=== PATIENT | female | born 1975 | race Caucasian/White ===

== ENCOUNTER → 2018-01-27 10:42 | Outpatient (CLI) | payer OTHER, SELFPAY ==
[2018-01-27 18:28] LABS: Amphetamine Urine VISTA POSITIVE (<1000 ng/mL); Barbiturate Urine VISTA NEGATIVE (< 200 ng/mL); Benzodiazepine Urine VISTA NEGATIVE (< 200 ng/mL); Cocaine Urine VISTA POSITIVE (< 300 ng/mL); Ecstacy Urine VISTA NEGATIVE (< 500 ng/mL); Methadone Urine VISTA NEGATIVE (< 300 ng/mL); PCP Urine VISTA NEGATIVE (< 25 ng/mL); THC Urine VISTA NEGATIVE (< 50 ng/mL); Vista UDS pH Range 5
[2018-01-27 19:05] LABS: OXY Internal Control LINE = VALID (VALID); Oxycodone Drug Screen Positive (<100 ng/mL)
== END ==
PROVIDERS: Family Provider Family Medicine; PCP Family Medicine; Visit Provider Family Medicine
DX: Z51.81 Encounter for therapeutic drug level monitoring (principal)
CPT/HCPCS: 80307; 80365; G0480

== ENCOUNTER → 2018-07-06 16:25 | Outpatient (CLI) | payer OTHER, SELFPAY ==
--- NOTE | 2018-07-06 16:31 | RAD_ITS ---
STUDY: X-RAY - THORACIC SPINE REASON FOR EXAM: Female, 42 years old. Colon diagnosis. Pain. TECHNIQUE: 2 view(s) of the thoracic spine were obtained. COMPARISON: None. FINDINGS: Normal kyphosis of the thoracic spine. There is a dextroscoliosis of the thoracic spine of approximately 29 degrees with the convexity T6. There is demineralization of the thoracic spine. There is multilevel disc space narrowing of the thoracic spine. There is no evidence of acute fracture or loss of vertebral axial height. The soft tissue structures are unremarkable. RAD/Thoracic Spine 2 Views IMPRESSION: Scoliosis and degenerative changes of the thoracic spine. Electronically Signed: Warren Garcia DO at 17:29 EDT Tel [phone], Service support ,
--- NOTE | 2018-07-06 16:33 | RAD_ITS ---
STUDY: X-RAY - SACROILIAC JOINTS REASON FOR EXAM: Female, 42 years old. Sacroiliitis. Pain. TECHNIQUE: 3 view(s) of the sacroiliac joints were obtained. COMPARISON: None. FINDINGS: Normal bilateral sacroiliac joints. Normal visualized sacral ala and sacrum. Normal visualized iliac bones. Normal visualized soft tissue structures. RAD/S-I Jts 3 or More Views IMPRESSION: Normal x-ray examination of the bilateral sacroiliac joints. Electronically Signed: Warren Garcia DO at 17:14 EDT Tel [phone], Service support ,
--- NOTE | 2018-07-06 16:34 | RAD_ITS ---
STUDY: X-RAY - LUMBOSACRAL SPINE REASON FOR EXAM: Female, 42 years old. Lumbar fusion. Pain. TECHNIQUE: 70 view(s) of the lumbosacral spine were obtained. COMPARISON: CT of the lumbar spine, October 26, 2016. MRI of the lumbar spine, March 23, 2017. FINDINGS: Normal lumbar lordosis. There is a marked levoscoliosis with the convexity at L2. There appears to be anterolisthesis of L5 on S1 of 1 cm. This appears unchanged in flexion and extension. The alignment is otherwise preserved. There is fusion of the posterior elements are the sacral lumbar spine extending from T11 through L3. The disc spaces are mildly narrowed with minimal endplate spondylosis. There is no evidence of acute fracture or loss of vertebral axial height. Normal bilateral sacral ala, sacroiliac joints, and visualized sacrum. Normal visualized soft tissue structures. RAD/L/S Spine Comp/w Bending Views IMPRESSION: Scoliosis and degenerative changes of the lumbar spine with anterolisthesis at L5-S1. This appears mildly increased from the prior MRI. Electronically Signed: Warren Garcia DO at 17:18 EDT Tel [phone], Service support ,
== END ==
PROVIDERS: Family Provider Family Medicine; PCP Family Medicine
DX: M46.1 Sacroiliitis, not elsewhere classified (principal); M41.125 Adolescent idiopathic scoliosis, thoracolumbar region; M43.26 Fusion of spine, lumbar region
CPT/HCPCS: 72070; 72114; 72202

== ENCOUNTER 2019-05-31 13:30 | Outpatient (RCR) | payer MEDICAID, SELFPAY ==
[2019-03-01 14:41] VITALS: BMI 21.9
--- NOTE | 2019-04-18 13:45 | HP.PTEVAL ---
Patient's Visit Information KATIE SMITH is a 43 year old F referred to Physical Therapy by JULIA ZAMAN with a diagnosis of ADOLESCENT IDIOPATHIC SCOLIOSIS OF THORACOLUMBAR REGION. Date of Evaluation: 04/18/19 Physical Therapist: Concha Whalen PT, Cert MDT - Visit Plan Frequency: 2-3x /Week Duration: 4-6 Weeks Plan: AQUATIC THERAPY FOR PAIN RELEIF, POSTURE CORRECTION/STRENGTHENING, INSTRUCTION IN APPROPRIATE BODY MECHANICS AND ACTIVITY MODIFICATIONS. DLS STARTING WITH A NEUTRAL SPINE PROGRESSING ROM TOLERATED. ALFONSO LE ROM, STRETCHING AND STRENGTHENING. HEP INSTRUCTION. 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 WALKING. SOME LIFTING. APPLIED FOR DISABILITY BUT WAS DENIED AND HAS APPEALED. Disability: NO. Present symptoms: ALFONSO HIP PAIN LEFT > RIGHT. ALFONSO LE PAIN, NUMBNESS AND TINGLING TO TOES LEFT > RIGHT. Present since: PROGRESSIVELY WORSE IN THE LAST 10 YEARS. Pain Scale: WORST 8/10, LEAST 5/10. Currently: 5/10. Commenced as a result of: SCOLIOSIS. Symptoms at onset: LEFT HIP. Worse: PROLONGED STANDING, SITTING. BENDING, LIFTING, PROLONGED WALKING. Better: LYING DOWN, STRETCHING, MEDICATION, HEATING PAD. Disturbed sleep: YES. Previous history/Previous treatment: 1988, 1990 AND 1991 - 3 BACK SURGERIES FOR SCOLIOSIS. 3RD SURGERY WAS FOR MELANIE REMOVAL SO CURRENTLY HAS NO HARDWARE IN BACK. AQUATIC THERAPY. MILA'S. 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 Coughing/sneezing/straining: POSITIVE. Gait: UNBALANCED, STIFF. NO AD'S. PAINFUL AT TIMES. NO FALLS. Difficulty initiating urinatin: NO. Accidents: NO. Unexplained weight loss: NO. Imaging: MRI OCT 2018 - PROGRESSIVE CURVATURE. PMH: UNREMARKABLE. Recent major surgery: NO. OTHER: CONSIDERING FURTHER SURGERY THIS FALL WITH DR. ZAMAN AT [facility]. - Objective Sitting/Standing Posture: POOR - THORACO-LUMBAR SCOLIOSIS. Active Correction of posture: WORSE. Other Observations: INDEP GAIT INTO PT WITHOUT ANY AD'S OR LOB. INDEP TRANSFERS SIT TO STAND AND REVERSE WITHOUT UE ASSIST. Motor deficit: ALFONSO LE WEAKNESS LEFT > RIGHT. RIGHT HIP 4/5, KNEE 4/5, ANKLE 5/5. LEFT HIP 4-/5, KNEE 4/5, ANKLE 5/5. POOR POSTURAL STRENGTH/SCAP STRENGTH AND STABILITY. Sensory deficit: ALFONSO LE LIGHT TOUCH SENSATION APPEARS INTACT AND SYMMETIRCAL. ROM deficit: ALFONSO LE'S WFL. Reflexes: NT. Dural Signs: POSITIVE ALFONSO LE'S. Lumbar mvmt loss: flex - NIL. ext - MOD - SHON. R SG - SHON. L SG - SHON. Core strength: POOR. Palpation: VERY TENDER WITH LIGHT PALPATION OF THORACIC, LUMBAR, PELVIC AND ALFONSO HIP LEFT > RIGHT REGIONS. - Goals Goal 1:: DECREASE C/O BACK AND ALFONSO LE SX'S. Goal Time Frame: 4-6 Weeks Goal 2:: IMRPOVE STANDING, WALKING, LIFTING, SITTING, SOCIAL LIFE, TRAVEL, HOMEMAKING AND WORK FUNCTION Goal Time Frame: 4-6 Weeks Goal 3:: INDEP WATER AND LAND EX PROGRAMS FOR CONTINUED IIMPROVEMENT ONCE FORMAL PHYSICAL THERAPY CONCLUDES. Goal Time Frame: 4-6 Weeks - Rehabilitation Potential Rehabilitation Potential: Fair - Anticipated Interventions Patient/Client Instruction: Educate patient on: Condition, Plan of Care, Risk Factors, Benefits of Fitness Program For the Purpose of:: To improve self management Therapeutic Exercise to Include: Strength training, Body mechanics, Postural training, In an aquatic setting, Dynamic Lumbar Stabilization, Scapular Strength/Stabilization For the Purpose of:: To decrease pain, To increase ROM, To improve muscle performance and motor function, To increase tolerance to activity/condition/position, To improve ability of physical actions for home/community/work/leisure Thank you for the opportunity to evaluate your patient. For Medicare and Medicare HMO plans, please review the plan of care and approve it. It will need to be FAXED BACK to us at [phone] for Medicare purposes. For Medicare only, by signing this I certify the plan of care. Please let me know if there are questions or concerns regarding this plan of care. Physician Signature: Date:
--- NOTE | 2019-05-31 14:41 | HP.PTDCSUM ---
HP - PT D/C Summary It has been my pleasure to treat KATIE SMITH under orders from JULIA ZAMAN, for the diagnosis of ADOLESCENT IDIOPATHIC SCOLIOSIS OF THORACOLUMBAR REGION for a total of 7 visit(s). Discharge Date: Please see the following information for a summary of their discharge status. - Subjective Subjective: PATIENT REPORTS A LITTLE INCREASED MOBILITY (SIDE TO SIDE MOTION) SINCE STARTING PHYSICAL THERPAY. HAD TO MISS SOME ROSA'TS DUE TO POISON OAK. PATIENT REPORTS SHE IS READY FOR SURGERY AND DR. ZAMAN WANTED HER TO TRY PT FIRST FOR INSURANCE PURPOSES. PATIENT REPORTS SHE GETS TEMPORARY RELIEF WITH THE POOL EX'S BUT OVER-ALL SHE IS ABOUT THE SAME. STATES SHE GETS IN HER MOM'S POOL AND THAT TOO GIVES HER TEMPORARY RELIEF. PATIENT REPORTS SHE CAN DO THE EX PROGRAM ON HER OWN NOW. PATIENT REPORTS SHE HAS NOT BEEN ABLE TO STOP SMOKING. STATES SHE GOT A SECOND OPINION FROM DR. PERALTA ABOUT DOING HER BACK SURGERY AND SHE REPORTS HE TOLD HER HE WOULD DO THE SURGERY EVEN IF SHE DIDN'T STOP SMOKING. - Pain Lumbar Spine Pain Intensity (Out of 10): 7 LLE Pain Intensity (Out of 10): 7 - Overall Improvement % Improvement: 30 - Objective Objective/Function: UPON EXAM TODAY THERE ARE NO SIGNIFICANT CHANGES SINCE INITIAL EVAL. RECOMMEND CONTINUED INDEP POOL EX AND PHYSICIAN FOLLOW UP. PATIENT AGREEABLE. - Goals Goal 1:: DECREASE C/O BACK AND ALFONSO LE SX'S. Goal Progress: Not Progressing Goal 2:: IMRPOVE STANDING, WALKING, LIFTING, SITTING, SOCIAL LIFE, TRAVEL, HOMEMAKING AND WORK FUNCTION Goal Progress: Not Progressing Goal 3:: INDEP WATER AND LAND EX PROGRAMS FOR CONTINUED IIMPROVEMENT ONCE FORMAL PHYSICAL THERAPY CONCLUDES. Goal Progress: Not Progressing - Plan Plan: D/C DUE TO LACK OF PROGRESS AND PATIENT WANTING TO TRY TO CONTINUE THE EX'S ON HER ON AT HER MOM'S POOL AND PURSUE GOING AHEAD WITH THE SURGERY. - D/C Information If there are questions or concerns regarding this patient's physical therapy, please feel free to call me at [phone]. Thank you for the referral of this patient. Sincerely, Concha Whalen, PT, Cert MDT
== END 2019-05-31 19:00 | disposition home or self-care (01) ==
LOC: PT 13:30
PROVIDERS: Family Provider Internal Medicine; PCP Internal Medicine
DX: M41.125 Adolescent idiopathic scoliosis, thoracolumbar region (principal); M54.16 Radiculopathy, lumbar region
CPT/HCPCS: 97113; 97161; 97530

== ENCOUNTER → 2019-08-21 | Outpatient (CLI) | payer MEDICAID, SELFPAY ==
[2019-08-04 15:36] VITALS: BMI 21.9
== END | disposition home or self-care (01) ==
PROVIDERS: Family Provider Internal Medicine; PCP Internal Medicine; Referring Provider Otolaryngology; Visit Provider Otolaryngology
DX: J34.9 Unspecified disorder of nose and nasal sinuses (principal)
CPT/HCPCS: 87070; 87077; 87186; 87205

== ENCOUNTER → 2019-09-18 14:01 | Outpatient (CLI) | payer MEDICAID, SELFPAY ==
[2019-08-04 15:36] VITALS: BMI 21.9
--- NOTE | 2019-09-18 14:05 | CT_ITS ---
STUDY: CT MAXILLOFACIAL SINUSES REASON FOR EXAM: Female, 44 years old. Disorder of the nasal cavity RADIATION DOSAGE (If Supplied By Facility): CTDIvol = ( 33.45 ) mGy, DLP = ( 784.73 ) mGycm TECHNIQUE: The patient was scanned in a multi detector CT scanner. High resolution axial imaging was performed without the administration of intravenous contrast material. Sagittal and coronal images were reconstructed. Individualized dose optimization techniques were used for this CT. COMPARISON: None. FINDINGS: FRONTAL SINUSES: Normal aeration, without mucosal inflammatory disease. ETHMOIDAL SINUSES: Normal aeration, without mucosal inflammatory disease. MAXILLARY SINUSES: Right has normal aeration, without mucosal inflammatory disease. Left has mucosal thickening and aerosolized secretions. Accessory ostium within the posterior aspect of the medial wall of the left maxillary sinus. SPHENOIDAL SINUSES: Normal aeration, without mucosal inflammatory disease. There is patency of the right maxillary infundibulum with normal uncinate processes, ethmoid bullae, and hiatus semilunaris. On the left, mucosal thickening mildly narrows the primary maxillary sinus ostium, and the hiatus semilunaris. Mild mucosal thickening of the bilateral middle and inferior nasal turbinates, with a small amount of secretions in the left nasal cavity. Resulting mild narrowing of the bilateral middle meatus. Normal midline nasal septum. Mildly and changes bilateral TMJs. The visualized bilateral orbital contents are normal. Mild left anterior and posterior chain cervical lymphadenopathy, no evidence of lymph node necrosis. Intraparotid lymph nodes. CT/Sinus/Facial Bone IMPRESSION: Mucosal thickening and air/secretions left maxillary sinus. This could represent acute sinusitis in the correct clinical setting. Reactive-appearing mild left-sided cervical lymphadenopathy. Electronically Signed: Daniel Villegas, at 5:04 EST Tel , Service support ,
== END ==
PROVIDERS: Family Provider Internal Medicine; PCP Internal Medicine; Referring Provider Otolaryngology; Visit Provider Otolaryngology
DX: J34.9 Unspecified disorder of nose and nasal sinuses (principal)
CPT/HCPCS: 70486

== ENCOUNTER 2020-09-29 17:58 | Inpatient (IN) | payer MEDICAID, SELFPAY ==
[2019-08-04 15:36] VITALS: BMI 21.9
[2020-09-29 17:59] VITALS: BP 143/89; PULSE 125; RESP 17; TEMP 36.2; O2SAT 99; BMI 18.9
--- NOTE | 2020-09-29 18:10 | ED.DCSUM_ITS ---
History of Present Illness Chief Complaint: Substance Abuse Informant: Patient Narrative: 45-year-old female presenting for fentanyl detox. She states she last used 2 days ago. Patient states she usually uses about 90 to 100 mg. She states that she snorts this. She does not inject this. Patient states she does not do other drugs. She denies alcohol. She states she has been doing this for about 3 years. She is tried to detox but this has been unsuccessful. Patient does complain of body aches, chills, nausea. She states she has no exposure to Covid?19. She does not have any change in taste or smell. She denies a cough, fever, shortness of breath. - Past Medical History (1) Obsessive behavior Status: Chronic (2) IBS (irritable bowel syndrome) Status: Chronic Past Medical History - Allergies and Home Meds Allergies/Adverse Reactions: Allergies No Known Allergies Allergy (Verified 09/29/20 17:58) Primary Care Physician: Stephon Bay MD [Primary Care Provider] - Prior records reviewed: Yes Past Medical History: - - Reviewed in problem list Surgical History: noncontributory Lives: Alone Smoking Status: Current every day smoker Alcohol: None Drugs: - - Fentanyl abuse Review of Systems General: Reports: Chills, Malaise, Sweats Eyes: Denies: Visual changes - bilaterally, Diplopia ENT: Denies: Rhinorrhea, Sore throat Cardiovascular: Denies: Chest pain, Palpitations Respiratory: Denies: Dyspnea, Cough, Dyspnea on exertion Gastrointestinal: Reports: Nausea, Diarrhea, - - Abdominal cramping Genitourinary: Denies: Dysuria, Hematuria, Frequency Musculoskeletal: Reports: Myalgias. Denies: Arthralgias, Neck pain Skin: Denies: Rash, Abscess Neurological: Reports: Headache. Denies: Parasthesia, Numbness Psych: Denies: Suicidal thoughts, Suicidal ideations Physical Exam Vital Signs/Narrative: Vital Signs Temp Pulse Resp BP Pulse Ox 09/29/20 17:59 97.1 F L 125 H 17 143/89 H 99 Inital Vital Signs reviewed: Yes General: Well nourished, Well developed Head: Normocephalic Eyes: Perrl, EOMI ENT: Moist mucous membranes, No rhinorrhea Cardiovascular: No murmurs, Tachycardia Respiratory: No distress, CTA bilaterally Abdomen: Soft, Nontender, Nondistended Extremities: Nontender, No edema Skin: Normal color, No rash. Negative for: Cyanosis, Diaphoresis Neurological: Alert, Oriented x3, Cranial nerves II-XII grossly intact Psychological: Normal affect, Normal Mood Diagnostic/Tx/Re-eval Laboratory Data 09/29/20 09/29/20 09/29/20 18:25 18:25 18:25 WBC 12.1 H RBC 4.44 Hgb 14.4 Hct 42.3 MCV 95.3 MCH 32.4 H MCHC 34.0 RDW Std Deviation 45.2 H RDW Coeff of Eladia 12.9 Plt Count 328 MPV 8.7 Immature Gran % (Auto) 0.200 Neut % (Auto) 86.9 H Lymph % (Auto) 8.5 L Austin % (Auto) 4.0 Eos % (Auto) 0.0 Baso % (Auto) 0.4 Absolute Neuts (auto) 10.5 H Absolute Lymphs (auto) 1.03 Nucleated RBC % 0 Sodium 139 Potassium 3.6 Chloride 107 Carbon Dioxide 28.0 Anion Gap 4 L BUN 5 L Creatinine 0.66 Estim Creat Clear Calc 87.87 Est GFR (MDRD) Af Amer 125 Est GFR (MDRD) Non-Af 104 BUN/Creatinine Ratio 7.6 L Glucose 102 Calcium 9.1 Total Bilirubin 0.80 AST 17 ALT 20 Alkaline Phosphatase 92 Total Protein 7.5 Albumin 3.6 Globulin 3.9 Albumin/Globulin Ratio 0.9 Ethyl Alcohol < 3.0 - Medical Decision Making 5-year-old female presenting for detox from fentanyl. Patient is having symptoms of body aches, nausea, abdominal cramping. Given her symptoms she was tested for Covid with rapid antigen and this was negative. Lab work was unremarkable. UDS was pending on upon admission. Patient having significant of symptoms I feel that she would benefit from admission. She was given Bentyl and Zofran in the ED. Patient will be admitted for detox from fentanyl. Impression: 1. Fentanyl abuse 2. Myalgias 3. Abdominal cramping ED Disposition - Plan for ED Patient: Referrals: Stephon Bay MD [Primary Care Provider] -
--- NOTE | 2020-09-29 18:32 | RAD_ITS ---
STUDY: X-RAY CHEST REASON FOR EXAM: Female, 45 years old. SUBSTANCE ABUSE. LAST FENTANYL USE WEDNESDAY. COMPLAINS OF DIARRHEA AND BODY ACHES. TECHNIQUE: Frontal view of the chest COMPARISON: None. FINDINGS: The lungs are clear and expanded. There is no demonstrated pleural abnormality. Normal size heart. Normal mediastinum and chan. Normal visualized pulmonary arteries. Normal visualized aortic arch and descending thoracic aorta. There is lower thoracic S-shaped levoscoliosis. There are no osseous lesions. There is no demonstrated abnormality of the visualized soft tissue structures of the upper abdomen. RAD/Chest 1 View (Portable) IMPRESSION: Normal x-ray examination of the chest. Electronically Signed: Tg Esqueda, at 19:31 EST Tel , Service support ,
[2020-09-29 18:35] LABS: Absolute Lymphocyte Count 1.03 X10^3/uL (0.83-4.51); Absolute Neutrophil Count 10.5 X10^3/uL (2.0-7.7); Basophil# 0.05 X10^3/uL; Basophil% 0.4 % (0-1); Hematocrit 42.3 % (37-47); Hemoglobin 14.4 g/dL (12.0-15.0); Lymphocyte # 1.03 X10^3/ul (4.0); Lymphocyte % 8.5 % (19-41); Mean Corpuscular Hgb 32.4 pg (27.0-32.0); Mean Corpuscular Volume 95.3 fL (81-99); Mean Platelet Vol. 8.7 fl (6.2-12.0); Monocyte# 0.49 X10^3/uL; NRBC Flagged by Analyzer 0 % (0-5); Neutrophil # 10.54 X10^3/uL (2.7-7.7); Neutrophil % 86.9 % (47-70); Platelet Count 328 K/mm3 (150-450); RBC Distribution Width CV 12.9 % (11.6-14.6); RBC Distribution Width SD 45.2 fl (35.1-43.9); Red Blood Count 4.44 M/mm3 (4.2-5.4); White Blood Count 12.1 K/mm3 (4.4-11.0)
[2020-09-29] MEDS: DiphenhydrAMINE 25 MG Capsule PO (18:45)
[2020-09-29] MEDS: Ondansetron ODT 4 MG Tablet PO (18:45)
[2020-09-29 18:50] LABS: Alcohol, Blood (Medical)-Serum < 3.0 mg/dL
[2020-09-29 18:55] LABS: ALB/GLOB Ratio 0.9 RATIO (0.9-2.4); AST(SGOT) 17 U/L (15-37); Alanine Aminotransfer ALT/SGPT 20 U/L (13-56); Albumin, Serum 3.6 g/dL (3.2-5.0); Alkaline Phosphatase 92 U/L (45-117); Anion Gap 4 (5-15); BUN 5 mg/dL (7-18); BUN/Creat Ratio 7.6 RATIO (10-20); Calcium,Total 9.1 mg/dL (8.5-10.1); Chloride 107 mmol/L (98-107); Creatinine, Serum 0.66 mg/dL (0.55-1.02); EST Glomerular Filtration Rate 104 mL/min (>60); Est Glom Filt Rate - Afr Amer 125 mL/min (>60); Estimated Creatinine Clearance 87.87 ml/min; Globulin 3.9 g/dL (2.2-4.2); Glucose 102 mg/dL (74-106); Potassium 3.6 mmol/L (3.5-5.1); Protein, Total 7.5 g/dL (6.4-8.2); Sodium Level 139 mmol/L (136-145)
--- NOTE | 2020-09-29 19:04 | PCM.HP.STD ---
Problem List (1) Opiate withdrawal Status: Acute (2) Fentanyl dependence Status: Chronic (3) Depression with anxiety Status: Chronic (4) Tobacco abuse Status: Chronic (5) IBS (irritable bowel syndrome) Status: Chronic Qualifiers: Irritable bowel syndrome type: unspecified Qualified Code(s): K58.9 - Irritable bowel syndrome without diarrhea (6) Back problem Status: Chronic (7) Seasonal allergies Status: Chronic History of Present Illness Date of Admission: 09/29/20 Chief Complaint: Acute Opiate Withdrawal The patient is a 45 y/o F w/ PMHx: Tobacco use, Anxiety and Depression, IBS, Opiate abuse specifically reporting fentanyl abuse (reports 90-100 mg daily, snorted) who presents to the [facility] ED on w/ noted opiate withdrawal onset starting over the last 36 hours following last dose ~ 48 hours prior with abdominal pain/cramping, generalized body aches and pains, diarrhea, rhinorrhea, piloerection, fatigue, restless leg, sweating, yawning. Patient interested in attaining clean status. She notes she has been using secondary to chronic back pain and had been in pain management previously but using illicit narcotics for approximately 3 years now. She adamantly denies any IV drug abuse but is amenable to HIV and hepatitis testing. Work-up in the ED included T 97.1, heart rate 125, BP 143/89, respiratory rate 17, 99% on room air, CBC with WC 12.1, hemoglobin 14.4, platelet 320 with left shift, CMP unremarkable, ethyl alcohol less than 3, UDS pending, rapid Covid antigen testing pending. Past Medical History Past Medical History (Chronic Problems): Chronic Problems (Last Reviewed 08/04/19 @ 15:35 by Abigail Covarrubias) Fentanyl dependence (Chronic) Depression with anxiety (Chronic) Tobacco abuse (Chronic) Obsessive behavior (Chronic) IBS (irritable bowel syndrome) (Chronic) Back problem (Chronic) Seasonal allergies (Chronic) Medical History: Medical History (Last Reviewed 08/04/19 @ 15:35 by Abigail Covarrubias) Obsessive behavior (Chronic) R46.81 IBS (irritable bowel syndrome) (Chronic) K58.9 Back problem (Chronic) M53.9 Seasonal allergies (Chronic) J30.2 ADD (attention deficit disorder) F98.8 Allergies No Known Allergies Allergy (Verified 09/29/20 17:58) Home Medications: Ambulatory Orders Medication Instructions Recorded Norethindrone [Nor-Q-D] 1 mg PO DAILY 11/13/15 bupropion HCl 150 mg 24 hr tablet, 150 mg PO QAM #30 tab 03/01/19 extended release buspirone 5 mg tablet 5 mg PO BID #60 tab 04/26/19 amoxicillin 875 mg-potassium 1 tab PO BID #14 tab 08/04/19 clavulanate 125 mg tablet fluticasone propionate 50 2 spray INTRANASAL DAILY #47.4 g 08/04/19 mcg/actuation nasal spray,suspension montelukast 10 mg tablet 10 mg PO QPM #90 tab 08/04/19 cetirizine 10 mg tablet See Rx Instructions .ROUTE 04/09/20 .COMPLEX #30 tablet gabapentin 300 mg capsule See Rx Instructions .ROUTE 04/09/20 .COMPLEX #90 capsule meloxicam 15 mg tablet 15 mg PO DAILY #90 tab 04/10/20 Surgical History: Surgical History (Last Reviewed 08/04/19 @ 15:35 by Abigail Covarrubias) History of back surgery Z98.890 x3 Scoliosis [id number] Surgical History: - - Thoracic and lumbar back surgery with total of 3 back surgeries. Psychiatric History: Anxiety, Depression HEDIS REVIEW NURSE History: No pertinent HEDIS REVIEW NURSE history Lives: Alone Smoking Status: Current every day smoker - Patient notes 1/2 to 1 pack/day cigarette tobacco usage since he was 18 years old. Tobacco Use: Cigarettes Alcohol: Occasional Drugs: - - Fentanyl abuse ongoing with approximately 90 to 100 mg daily, snorted. - *Family History Maternal History Items: - - Patient notes a significant maternal family history of alcohol and cocaine abuse. Paternal History Items: - - Patient denies any market paternal family history, notes he is healthy with no heart disease, diabetes, cancer however his parents both had substance abuse problems with alcohol abuse. Review of Systems Constitutional: Reports: Anorexia, Chills, Malaise, Weakness, Fatigue. Denies: Fever, Weight Change HEENT: Reports: Nasal Congestion, Sinus Drainage. Denies: Head Aches, Sinus Congestion Cardiovascular: Denies: Chest Pain, Palpitations Respiratory: Denies: Cough, Shortness of breath at rest, Sputum production Gastrointestinal: Reports: Abdominal Pain, Diarrhea, Nausea. Denies: Vomiting Genitourinary: Denies: Dysuria Musculoskeletal: Reports: Back Pain, Joint Pain, Muscle pain. Denies: Joint Tenderness Skin: Denies: Rash, Wounds Neurological: Denies: Numbness, Tingling, Focal weakness Psychiatric: Reports: Anxiety, Depression. Denies: Homicidal Ideations, Suicidal Ideations Hematologic/ Lymphatic: Denies: Easy Bruising, Easy Bleeding VTE Information - Inpt Only VTE Present on Admission: No VTE Mechan Device Prophylaxis: None VTE Pharm Prophylaxis ordered?: No Reason prophylaxis not ordered:: Treatment Not Indicated Patient Problems: Active and Suspected Problems (Last Reviewed 08/04/19 @ 15:35 by Abigail Covarrubias) Opiate withdrawal (Acute) Subjective: Patient seated upright in the ED bed, uncomfortable appearing, evident rhinorrhea, chills, notes ongoing abdominal cramping. Objective: Physical Examination: General: awake, alert, oriented x 3 and cooperative, seated upright in the ED bed, evident withdrawal ongoing. Skin: normal color, turgor, no icterus, cyanosis. HEENT: AT/NC, EOMI, PERRLA, dry MM, evident rhinorrhea, no carotid bruits or JVD noted. Lungs: Diminished breath sounds, greater bases, moderate effort, no rales, ronchi or wheezing. Heart: Mildly tachycardic with regular rhythm; no gallop, rub audible. Abdomen: soft, generalized discomfort with palpation, ND, hyperactive BS, no HSM. Extremities: no cyanosis, clubbing, or edema. Neurological: patient awake, alert, oriented x 3 as noted; cognitive function intact; pupils equally reactive to light and accomodation; cranial nerves II-XII grossly normal, moving all 4 extremities, no focal deficits, strength severely global decrease secondary to acute presentation with acute withdrawal. Psychiatric: affect appears uncomfortable, ill-appearing, denies any acute depressive or anxiety feelings. - Physical Exam Vitals/I&O's: Vital Signs Temp Pulse Resp BP Pulse Ox 97.1 F L 125 H 17 143/89 H 99 09/29/20 17:59 09/29/20 17:59 09/29/20 17:59 09/29/20 17:59 09/29/20 17:59 Oxygen Delivery Method Room Air Weight: 114 lb Body Mass Index (BMI) 18.9 Laboratory Results 09/29/20 18:25: WBC 12.1 H, RBC 4.44, Hgb 14.4, Hct 42.3, MCV 95.3, MCH 32.4 H, MCHC 34.0, RDW Std Deviation 45.2 H, RDW Coeff of Eladia 12.9, Plt Count 328, MPV 8.7, Immature Gran % (Auto) 0.200, Neut % (Auto) 86.9 H, Lymph % (Auto) 8.5 L, [place] % (Auto) 4.0, Eos % (Auto) 0.0, Baso % (Auto) 0.4, Absolute Neuts (auto) 10.5 H, Absolute Lymphs (auto) 1.03, Nucleated RBC % 0 09/29/20 18:25: Sodium 139, Potassium 3.6, Chloride 107, Carbon Dioxide 28.0, Anion Gap 4 L, BUN 5 L, Creatinine 0.66, Estim Creat Clear Calc 87.87, Est GFR (MDRD) Af Amer 125, Est GFR (MDRD) Non-Af 104, BUN/Creatinine Ratio 7.6 L, Glucose 102, Calcium 9.1, Total Bilirubin 0.80, AST 17, ALT 20, Alkaline Phosphatase 92, Total Protein 7.5, Albumin 3.6, Globulin 3.9, Albumin/Globulin Ratio 0.9 09/29/20 18:25: Ethyl Alcohol < 3.0 Assessment/Plan All Active Problems (Last Reviewed 08/04/19 @ 15:35 by Abigail Covarrubias) Opiate withdrawal (Acute) The patient is a 45 y/o F w/ PMHx: Tobacco use, IBS, Anxiety and Depression, Opiate abuse specifically reporting fentanyl abuse (reports 90-100 mg daily, snorted) who presents to the [facility] ED on w/ noted opiate withdrawal onset starting over the last 36 hours following last dose ~ 48 hours prior. 1. Acute Opiate Withdrawal: Will admit to [facility], routine labs including CBC, CMP, urine for drug screen obtained in the ED, will initiate and continue on protocol with tapering course of Subutex, as needed tylenol, ibuprofen, bowel regimen, gabapentin, Bentyl, Vistaril, methocarbamol, clonidine, PRN nightly trazodone for insomnia, IV fluids, IV antiemetics. Will consult case management for transition to next level of rehabilitation care. 2. Polysubstance Abuse, Denied IVDA currently: Will request HIV and Hepatitis panel given history; however, patient currently not candidate for hep C treatment currently as needs to be clean, sober x 6 months, documented attendance NA or AA meetings, counseling and ongoing negative drug screens. 3. Chronic back pain: Patient with significant back surgeries including the thoracic and lumbar spine, will add Mobic as well as scheduled gabapentin and lidocaine patches to assist with chronic pain control but likely will need to return to pain management to assure controlled pain to avoid opiate abuse again. 4. Tobacco Abuse: Encouraged cessation, inpatient consultation per RT, NR if desired. 5. Anxiety and depression: Clarifying home regimen, will add once clarified. 6. DVT prophylaxis: Low risk, encourage ambulation. Inpatient E&M: 21352 Init Hosp L3
[2020-09-29 19:31] VITALS: BP 135/88; PULSE 104; RESP 16; TEMP 36.6; O2SAT 100
[2020-09-29 20:28] VITALS: RESP 18
[2020-09-29 20:57] LABS: Amphetamine Urine VISTA POSITIVE (<1000 ng/mL); Barbiturate Urine VISTA NEGATIVE (< 200 ng/mL); Benzodiazepine Urine VISTA POSITIVE (< 200 ng/mL); Cocaine Urine VISTA NEGATIVE (< 300 ng/mL); Ecstacy Urine VISTA NEGATIVE (< 500 ng/mL); Methadone Urine VISTA NEGATIVE (< 300 ng/mL); PCP Urine VISTA NEGATIVE (< 25 ng/mL); THC Urine VISTA POSITIVE (< 50 ng/mL); Vista UDS pH Range 7
[2020-09-29 21:33] VITALS: BMI 17.3
[2020-09-29 21:36] VITALS: BMI 17.4
[2020-09-29 21:41] VITALS: BP 127/77; PULSE 92; RESP 18; TEMP 36.3; O2SAT 100
[2020-09-29] MEDS: Gabapentin 300 MG Capsule PO (22:17)
[2020-09-29] MEDS: Ibuprofen 600 MG Tablet PO (22:17)
[2020-09-29] MEDS: Loperamide 2 MG Capsule PO (22:17)
[2020-09-29] MEDS: Methocarbamol 750 MG Tablet 1500 MG PO (22:17)
[2020-09-29 22:19] VITALS: O2SAT 99
[2020-09-29] MEDS: Lactated Ringers 1,000 ML 125 ML IV (22:19)
[2020-09-29] MEDS: Meloxicam 15 MG Tablet PO (22:19)
[2020-09-29] MEDS: Buprenorphine HCl 2 MG TAB.SUBL SL (22:46)
[2020-09-30] MEDS: traZODone 100 MG Tablet PO ×2 (00:10→20:06)
--- NOTE | 2020-09-30 00:37 | NURSING ---
Pt asked this RN if she would be able to make a phone call tomorrow to ask someone to bring her clothes. She was informed she would not be able to. Pt then stated she wasn't sure if she would want to stay in this detox program d/t doing research on her own and knowing that subutex does not help with pain like methadone does. She stated she will think about it overnight and decide tomorrow if she wants to stay here or go somewhere else for methadone. Pt also asked this RN if she would be able to take her own Flexeril that she has in her purse. She was informed no. Purse is locked up in room.
[2020-09-30 01:41] VITALS: BP 120/68; PULSE 102; RESP 16; TEMP 36.7; O2SAT 98
[2020-09-30] MEDS: Buprenorphine HCl 2 MG TAB.SUBL SL ×3 (05:34→22:09)
[2020-09-30] MEDS: Gabapentin 300 MG Capsule PO ×2 (05:34→22:09)
[2020-09-30 05:41] VITALS: BP 126/72; PULSE 86; RESP 16; TEMP 36.7; O2SAT 98
[2020-09-30 07:03] VITALS: O2SAT 98
--- NOTE | 2020-09-30 08:54 | CASEMGMT ---
SW spoke w/pt navigator Jass, she was aware of pt's admission and someone from [facility] should be following up w/her today. AMADOR Patel
--- NOTE | 2020-09-30 09:06 | PCM.PN.HOSP ---
Patient Problems: Active and Suspected Problems (Last Reviewed 08/04/19 @ 15:35 by Abigail Covarrubias) Opiate withdrawal (Acute) Reason for Visit: opiate withdrawal Subjective: Feels well. No abdominal pain. Tolerating PO. Wants to get her phone so she can update her weekly unemployment paperwork. Vitals/I&O's: Vital Signs Temp Pulse Resp BP Pulse Ox 36.7 C 86 16 126/72 H 98 09/30/20 05:41 09/30/20 05:41 09/30/20 05:41 09/30/20 05:41 09/30/20 07:03 Oxygen Delivery Method Room Air Weight: 47.3 kg Body Mass Index (BMI) 17.3 Intake and Output for Last 24 Hours 09/28/20 09/29/20 09/30/20 23:59 23:59 23:59 Intake Total 300 / 400 1400 / 1400 Output Total 250 / 250 Balance 50 / 150 1400 / 1400 General: Alert, No apparent distress HEENT: Atraumatic, Normocephalic Psych/Mental Status: Normal Affect - then became withdrawn when I told her that we cannot have her use her phone to update her paperwork while involved in this voluntary program. Microbiology Past 72 Hours 09/29/20 18:27 Mucosa - Nose SARS-CoV-2 Antigen (Rapid) - Final Laboratory Results 09/29/20 18:25: WBC 12.1 H, RBC 4.44, Hgb 14.4, Hct 42.3, MCV 95.3, MCH 32.4 H, MCHC 34.0, RDW Std Deviation 45.2 H, RDW Coeff of Eladia 12.9, Plt Count 328, MPV 8.7, Immature Gran % (Auto) 0.200, Neut % (Auto) 86.9 H, Lymph % (Auto) 8.5 L, [place] % (Auto) 4.0, Eos % (Auto) 0.0, Baso % (Auto) 0.4, Absolute Neuts (auto) 10.5 H, Absolute Lymphs (auto) 1.03, Nucleated RBC % 0 09/29/20 18:25: Sodium 139, Potassium 3.6, Chloride 107, Carbon Dioxide 28.0, Anion Gap 4 L, BUN 5 L, Creatinine 0.66, Estim Creat Clear Calc 87.87, Est GFR (MDRD) Af Amer 125, Est GFR (MDRD) Non-Af 104, BUN/Creatinine Ratio 7.6 L, Glucose 102, Calcium 9.1, Total Bilirubin 0.80, AST 17, ALT 20, Alkaline Phosphatase 92, Total Protein 7.5, Albumin 3.6, Globulin 3.9, Albumin/Globulin Ratio 0.9 09/29/20 18:25: Ethyl Alcohol < 3.0 09/29/20 20:13: Urine Opiates Screen NEGATIVE, Urine Methadone Screen NEGATIVE, Ur Barbiturates Screen NEGATIVE, Ur Phencyclidine Scrn NEGATIVE, Ur Amphetamines Screen POSITIVE H, U Methamphetamin-MDMA NEGATIVE, U Benzodiazepines Scrn POSITIVE H, Urine Cocaine Screen NEGATIVE, U Cannabinoids Screen POSITIVE H, Ur Drug Screen Comment 09/29/20 : Hepatitis A IgM Ab Pending, Hepatitis A Ab Total Pending, Hep Bs Antigen Pending, Hep B Core Total Ab Pending, Hep B Core IgM Ab Pending 09/29/20 : HIV 1&2 Antibody Pending Current Medications Acetaminophen (Acetaminophen 500 Mg Tablet) 500 mg PO Q4H PRN PRN PRN Reason: Temp > 100.4 F Al Hydroxide/Mg Hydroxide (Mag Hydrox/Al Hydrox/Simeth 30 Ml Udc) 30 ml PO Q6H PRN PRN PRN Reason: dyspesia Albuterol Sulfate (Albuterol 2.5 Mg/3 Ml Vial.Neb.) 2.5 mg INHALATION Q2H PRN PRN PRN Reason: Dyspnea, wheezing Bisacodyl (Bisacodyl 10 Mg Suppository) 10 mg RECTAL DAILY PRN PRN Reason: Constipation Buprenorphine HCl (Buprenorphine Hcl 2 Mg Tab.Subl) 4 mg SL Q8H [facility]; Taper Stop: 10/02/20 22:29 Last Admin: 09/30/20 05:34 Dose: 4 mg Documented by: Clonidine (Clonidine Hcl 0.1 Mg Tablet) 0.1 mg PO Q8H PRN PRN PRN Reason: RESTLESSNESS Dicyclomine HCl (Dicyclomine 10 Mg Capsule) 20 mg PO Q6H PRN PRN PRN Reason: Abdominal Discomfort Hydralazine HCl (Hydralazine 20 Mg/Ml Vial) 10 mg IV Q4H PRN PRN PRN Reason: SBP > 160 Hydroxyzine Pamoate (Hydroxyzine Kathy 25 Mg Capsule) 50 mg PO Q6H PRN PRN PRN Reason: mild anxiety Ibuprofen (Ibuprofen 600 Mg Tablet) 600 mg PO Q8H PRN PRN PRN Reason: Pain Score 1-10 Last Admin: 09/29/20 22:17 Dose: 600 mg Documented by: Lidocaine (Lidocaine 5% Patch) 3 patch TOPICAL DAILY [facility]; Protocol Loperamide HCl (Loperamide 2 Mg Capsule) 2 mg PO Q4H PRN PRN PRN Reason: LOOSE STOOLS Last Admin: 09/29/20 22:17 Dose: 2 mg Documented by: Meloxicam (Meloxicam 15 Mg Tablet) 15 mg PO DAILY [facility] Last Admin: 09/29/20 22:19 Dose: 15 mg Documented by: Methocarbamol (Methocarbamol 750 Mg Tablet) 1,500 mg PO Q6H PRN PRN PRN Reason: MUSCLE SPASM Last Admin: 09/29/20 22:17 Dose: 1,500 mg Documented by: Nicotine (Nicotine 21 Mg Patch) 21 mg TD DAILY [facility] Last Admin: 09/29/20 22:17 Dose: 21 mg Documented by: Nutritional Formula (Lactose Free) (Ensure Enlive 120 Ml Liquid) 120 ml PO 4X/DAY [facility] Ondansetron HCl (Ondansetron 8 Mg Tablet) 8 mg PO Q8H PRN PRN PRN Reason: NAUSEA Senna (Senna Tablet) 2 tablet PO QHS PRN PRN Reason: Constipation Trazodone HCl (Trazodone 100 Mg Tablet) 100 mg PO QHS PRN PRN PRN Reason: INSOMNIA Last Admin: 09/30/20 00:10 Dose: 100 mg Documented by: STROKE Vital Signs/Narrative: Vital Signs Temp Pulse Resp BP Pulse Ox 09/30/20 07:03 98 09/30/20 05:41 36.7 C 86 16 126/72 H 98 Medical Necessity - Tobacco Use Smoking Status: Current every day smoker Tobacco Use: Cigarettes Assessment/Plan All Active Problems (Last Reviewed 08/04/19 @ 15:35 by Abigail Covarrubias) Opiate withdrawal (Acute) 1. acute opiate withdrawal. continue buprenorphine taper plus other agents to help with somatic complaints. 2. VTE prophylaxis: not indicated Inpatient E&M: 51114 [facility] Hosp L1
[2020-09-30] MEDS: Lidocaine 5% Patch 3 PATCH TOPICAL (09:13)
[2020-09-30] MEDS: Meloxicam 15 MG Tablet PO (09:14)
[2020-09-30 09:15] VITALS: BP 114/69; PULSE 102; RESP 16; TEMP 36.8; O2SAT 99
[2020-09-30] MEDS: Acetaminophen 500 MG Tablet PO ×2 (09:23→18:07)
[2020-09-30] MEDS: hydrOXYzine PAM 25 MG Capsule 50 MG PO ×2 (09:23→20:06)
[2020-09-30] MEDS: Dicyclomine 10 MG Capsule 20 MG PO (09:24)
[2020-09-30 09:58] LABS: HIV - WCH Non-Reactive (Nonreactive)
[2020-09-30] MEDS: cloNIDine HCl 0.1 MG Tablet PO (10:26)
[2020-09-30] MEDS: Methocarbamol 750 MG Tablet 1500 MG PO ×2 (10:26→18:07)
--- NOTE | 2020-09-30 12:42 | NT.THERAPY_ITS ---
Nutrition Therapy Report - History Nutrition Services has been consulted to:: Manage nutrient details of diet order Current diet / nutrition support order:: Regular diet. 120 ml ensure enlive 4 x daily w/ medpass - Anthropometric Measurements Height:: 5 ft 5 in Weight:: 47.3 kg Body Mass Index (BMI):: 17.3 - Relevant Labs Relevant Labs:: WBC 12.1 K/mm3 (4.4-11.0) H 09/29/20 18:25 MCH 32.4 pg (27.0-32.0) H 09/29/20 18:25 RDW Std Deviation 45.2 fl (35.1-43.9) H 09/29/20 18:25 Neut % (Auto) 86.9 % (47-70) H 09/29/20 18:25 Lymph % (Auto) 8.5 % (19-41) L 09/29/20 18:25 Absolute Neuts (auto) 10.5 X10^3/uL (2.0-7.7) H 09/29/20 18:25 Anion Gap 4 (5-15) L 09/29/20 18:25 BUN 5 mg/dL (7-18) L 09/29/20 18:25 BUN/Creatinine Ratio 7.6 RATIO (10-20) L 09/29/20 18:25 - Assessment Food / Nutrition-Related History:: Pt reports poor appetite this morning for breakfast but, did take ensure enlive w/medpass as provided. Pt reports UBW~114 lbs so, ~8-10 lb wt loss reported ~2-4 weeks ago; calculated~8-9% wt loss x 2-4 weeks is significant for malnutrition especially given poor intake and low BMI 17.4. Pt agreeable to trying ensure pudding and continuing ensure enlive w/ medpass as currently ordered. Pt denies difficulty chewing/swallowing. 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 Evidence of Malnutrition Exists:: Yes Severe PCM:: Social & Environmental circumstances - Nutrition Intervention Nutrition Prescription:: Estimated nutrition needs for repletion~1918-8479 kcal and~65-75 gm protein/day. - Food / Nutrient Delivery Interventions Summary of nutrition intervention:: Continue liberalized regular diet w/ snacks; ensure enlive w/ medpass as ordered and will provide ensure pudding BID as tolerated. Nutrition education provided?: Yes - MNT Monitoring Further MNT monitoring and evaluation required?: Yes MNT Follow-up in:: 3-5 days
[2020-09-30 12:47] VITALS: BMI 17.3
[2020-09-30 14:15] VITALS: BP 123/72; PULSE 99; RESP 16; TEMP 37.2; O2SAT 99
[2020-09-30] MEDS: Ibuprofen 600 MG Tablet PO (14:22)
[2020-09-30 20:24] VITALS: BP 100/44; PULSE 93; RESP 18; TEMP 37.3; O2SAT 99
[2020-10-01 02:26] VITALS: BP 96/55; PULSE 95; RESP 16; TEMP 36.6; O2SAT 99
[2020-10-01] MEDS: Ibuprofen 600 MG Tablet PO (02:29)
[2020-10-01 05:06] LABS: HEPATITIS B SURFACE AG Negative (Negative); Hepatitis A AB, Total Negative (Negative); Hepatitis A IgM Antibody Negative (Negative); Hepatitis B Core AB IgM Negative (Negative); Hepatitis B Core Ab Total Negative (Negative); Hepatitis C Ab <0.1 s/co ratio (0.0-0.9)
[2020-10-01] MEDS: Gabapentin 300 MG Capsule PO ×3 (05:44→22:29)
[2020-10-01] MEDS: Buprenorphine HCl 2 MG TAB.SUBL SL ×3 (05:44→22:28)
[2020-10-01 07:00] VITALS: O2SAT 99
[2020-10-01] MEDS: Meloxicam 15 MG Tablet PO (08:57)
[2020-10-01 09:00] VITALS: BP 97/63; PULSE 95; RESP 16; TEMP 36.6; O2SAT 98
--- NOTE | 2020-10-01 09:01 | CASEMGMT ---
SW spoke w/Jass with [facility], pt has said that she wants to follow up with a methadone clinic following her hospitalization here. They are looking into this for pt. AMADOR Patel
--- NOTE | 2020-10-01 09:37 | PN_ITS ---
Patient Problems: Active and Suspected Problems (Last Reviewed 08/04/19 @ 15:35 by Abigail Covarrubias) Opiate withdrawal (Acute) Reason for Visit: opiate withdrawal Subjective: Feels better. +Rhinitis. +Abdominal cramps, but tolerating PO. +restless legs. Vitals/I&O's: Vital Signs Temp Pulse Resp BP Pulse Ox 36.6 C 95 16 97/63 98 10/01/20 09:00 10/01/20 09:00 10/01/20 09:00 10/01/20 09:00 10/01/20 09:00 Oxygen Delivery Method Room Air Weight: 47.3 kg Body Mass Index (BMI) 17.3 Intake and Output for Last 24 Hours 09/29/20 09/30/20 10/01/20 23:59 23:59 23:59 Intake Total 300 / 400 2150 / 2390 240 / 240 Output Total 250 / 250 Balance 50 / 150 2150 / 2390 240 / 240 General: Alert, No apparent distress HEENT: Atraumatic, Normocephalic Oral: Moist Mucosa, No Gingival or Mucosal Lesions/ Ulcerations Neck: No Nodes, Thyroid Normal Size and Texture Lungs: Clear to auscultation, Normal air movement, No rhonchi, No wheeze Cardiovascular: Regular rate, Regular Rhythm, Normal S1, Normal S2, No murmurs Abdomen: Bowel Sounds Present, Soft, Non Tender, Non-Distended, No Hepato-splenomegaly Extremities: No edema, No Calf Tenderness Skin: No rashes, No breakdown Psych/Mental Status: Normal Affect, Appropriate Microbiology Past 72 Hours 09/29/20 18:27 Mucosa - Nose SARS-CoV-2 Antigen (Rapid) - Final Laboratory Results 09/29/20 : HIV 1&2 Antibody Non-Reactive Current Medications Acetaminophen (Acetaminophen 500 Mg Tablet) 500 mg PO Q4H PRN PRN PRN Reason: Temp > 100.4 F Last Admin: 09/30/20 18:07 Dose: 500 mg Documented by: Al Hydroxide/Mg Hydroxide (Mag Hydrox/Al Hydrox/Simeth 30 Ml Udc) 30 ml PO Q6H PRN PRN PRN Reason: dyspesia Albuterol Sulfate (Albuterol 2.5 Mg/3 Ml Vial.Neb.) 2.5 mg INHALATION Q2H PRN PRN PRN Reason: Dyspnea, wheezing Bisacodyl (Bisacodyl 10 Mg Suppository) 10 mg RECTAL DAILY PRN PRN Reason: Constipation Buprenorphine HCl (Buprenorphine Hcl 2 Mg Tab.Subl) 2 mg SL Q8H [facility]; Taper Stop: 10/02/20 22:29 Last Admin: 10/01/20 05:44 Dose: 2 mg Documented by: Clonidine (Clonidine Hcl 0.1 Mg Tablet) 0.1 mg PO Q8H PRN PRN PRN Reason: RESTLESSNESS Last Admin: 09/30/20 10:26 Dose: 0.1 mg Documented by: Dicyclomine HCl (Dicyclomine 10 Mg Capsule) 20 mg PO Q6H PRN PRN PRN Reason: Abdominal Discomfort Last Admin: 09/30/20 09:24 Dose: 20 mg Documented by: Gabapentin (Gabapentin 300 Mg Capsule) 300 mg PO TID [facility] Last Admin: 10/01/20 05:44 Dose: 300 mg Documented by: Hydralazine HCl (Hydralazine 20 Mg/Ml Vial) 10 mg IV Q4H PRN PRN PRN Reason: SBP > 160 Hydroxyzine Pamoate (Hydroxyzine Kathy 25 Mg Capsule) 50 mg PO Q6H PRN PRN PRN Reason: mild anxiety Last Admin: 09/30/20 20:06 Dose: 50 mg Documented by: Ibuprofen (Ibuprofen 600 Mg Tablet) 600 mg PO Q8H PRN PRN PRN Reason: Pain Score 1-10 Last Admin: 10/01/20 02:29 Dose: 600 mg Documented by: Lidocaine (Lidocaine 5% Patch) 3 patch TOPICAL DAILY [facility]; Protocol Last Admin: 10/01/20 08:56 Dose: 3 patch Documented by: Loperamide HCl (Loperamide 2 Mg Capsule) 2 mg PO Q4H PRN PRN PRN Reason: LOOSE STOOLS Last Admin: 09/29/20 22:17 Dose: 2 mg Documented by: Meloxicam (Meloxicam 15 Mg Tablet) 15 mg PO DAILY [facility] Last Admin: 10/01/20 08:57 Dose: 15 mg Documented by: Methocarbamol (Methocarbamol 750 Mg Tablet) 1,500 mg PO Q6H PRN PRN PRN Reason: MUSCLE SPASM Last Admin: 09/30/20 18:07 Dose: 1,500 mg Documented by: Nicotine (Nicotine 21 Mg Patch) 21 mg TD DAILY [facility] Last Admin: 10/01/20 08:57 Dose: 21 mg Documented by: Ondansetron HCl (Ondansetron 8 Mg Tablet) 8 mg PO Q8H PRN PRN PRN Reason: NAUSEA Senna (Senna Tablet) 2 tablet PO QHS PRN PRN Reason: Constipation Trazodone HCl (Trazodone 100 Mg Tablet) 100 mg PO QHS PRN PRN PRN Reason: INSOMNIA Last Admin: 09/30/20 20:06 Dose: 100 mg Documented by: STROKE Vital Signs/Narrative: Vital Signs Temp Pulse Resp BP Pulse Ox 10/01/20 09:00 36.6 C 95 16 97/63 98 10/01/20 07:00 99 Medical Necessity - Tobacco Use Smoking Status: Current every day smoker Tobacco Use: Cigarettes Assessment/Plan All Active Problems (Last Reviewed 08/04/19 @ 15:35 by Abigail Covarrubias) Opiate withdrawal (Acute) 1. acute opiate withdrawal. * continue buprenorphine taper plus other agents to help with somatic complaints. * pt to follow up with methadone clinic upon discharge. 2. Severe protein/calorie malnutrion * seen by dietary who recommend: Continue liberalized regular diet w/ snacks; ensure enlive w/ medpass as ordered and will provide ensure pudding BID as tolerated. 3. VTE prophylaxis: not indicated Inpatient E&M: [id number] [facility] Hosp L1
[2020-10-01 11:38] LABS: Hep B Surface Antibodies Non Reactive (.)
--- NOTE | 2020-10-01 11:39 | ADDICTION ---
This editorial writer met with patient in her room to finalize d/c planning. this editorial writer allowed patient to contact Dr. Garcia to set up pain mgmt appointment following d/c. Nurse at Dr. Garcia's office stated that they require a referral from physician prior to making an appointment. This editorial writer spoke with patient's nurse and charge nurse at [facility] re: referral. Nursing team to follow up with physician. This editorial writer will meet with patient tomorrow to finalize d/c plan.
[2020-10-01 14:25] VITALS: BP 101/48; PULSE 101; RESP 18; TEMP 36.8; O2SAT 100
[2020-10-01] MEDS: Lidocaine 5% Patch 3 PATCH TOPICAL (14:25)
[2020-10-01 22:00] VITALS: BP 102/62; PULSE 99; RESP 16; TEMP 36.8; O2SAT 99
[2020-10-01] MEDS: hydrOXYzine PAM 25 MG Capsule 50 MG PO (22:28)
[2020-10-01] MEDS: traZODone 100 MG Tablet PO (22:28)
[2020-10-02 05:00] VITALS: BP 91/52; PULSE 83; RESP 16; TEMP 36.7; O2SAT 98
[2020-10-02] MEDS: Gabapentin 300 MG Capsule PO (05:10)
[2020-10-02] MEDS: Meloxicam 15 MG Tablet PO (08:07)
[2020-10-02 08:10] VITALS: BP 98/51; PULSE 84; RESP 16; TEMP 36.6; O2SAT 100
--- NOTE | 2020-10-02 08:46 | DCINST_ITS ---
- Discharge Diagnoses Current Active Problems: Current Active and Chronic Problems (Last Reviewed 08/04/19 @ 15:35 by Abigail Covarrubias) Opiate withdrawal (Acute) Fentanyl dependence (Chronic) Depression with anxiety (Chronic) Tobacco abuse (Chronic) Obsessive behavior (Chronic) IBS (irritable bowel syndrome) (Chronic) Back problem (Chronic) Seasonal allergies (Chronic) You will use the following diet at home:: No restrictions, Other - dietary supplements (Booster, Ensure, [employer] Instant Breakfast, etc.) with meals Allergies/Adverse Reactions: Allergies No Known Allergies Allergy (Verified 09/29/20 17:58) Medications to take at Discharge Norethindrone [Nor-Q-D] 1 mg PO DAILY 11/13/15 Meloxicam 15 mg PO DAILY 09/29/20 Acetaminophen [Tylenol] 500 mg PO Q4H PRN PRN tablet 10/02/20 Primary Care Physician: Stephon Bay MD [Primary Care Provider] - Test Results: Test results from this visit will be discussed in further detail at your follow- up appointment, if applicable. Please Follow Up With: Dr Suh Please Follow Up With: Dr Garcia When: call to schedule after refferal sent
--- NOTE | 2020-10-02 08:47 | DS.PCM_ITS ---
Discharge Date and Diagnosis - Problem List Patient Problems: Active and Suspected Problems (Last Reviewed 08/04/19 @ 15:35 by Abigail Covarrubias) Opiate withdrawal (Acute) Date of Admission: 09/29/20 Date of Discharge: 10/02/20 - Primary Discharge Diagnosis Acute Problems: Active Problems (Last Reviewed 08/04/19 @ 15:35 by Abigail Covarrubias) Opiate withdrawal (Acute) 1. acute opiate withdrawal. * continue buprenorphine taper plus other agents to help with somatic complaints. * pt to follow up with methadone clinic upon discharge. 2. Severe protein/calorie malnutrition * seen by dietary who recommend: Continue liberalized regular diet w/ snacks; ensure enlive w/ medpass as ordered and will provide ensure pudding BID as tolerated. - Secondary Discharge Diagnosis Chronic Problems: Chronic Problems (Last Reviewed 08/04/19 @ 15:35 by Abigail Covarrubias) Fentanyl dependence (Chronic) Depression with anxiety (Chronic) Tobacco abuse (Chronic) Obsessive behavior (Chronic) IBS (irritable bowel syndrome) (Chronic) Back problem (Chronic) Seasonal allergies (Chronic) Hospital Course and Treatment Operations: None Procedures: None Summary of Care Provided: The patient is a 45 year old F brought in by family for treatment for acute opiate withdrawal. Patient was using fentanyl. Patient was started on a buprenorphine taper. Patient's course was uncomplicated. Patient was seen by addiction. Patient was wanting to follow with Dr. Garcia for treatment for addiction. Patient will require outpatient referral for this. [] Patient Problems: Active and Suspected Problems (Last Reviewed 08/04/19 @ 15:35 by Abigail Covarrubias) Opiate withdrawal (Acute) - Physical Exam Vitals/I&O's: Vital Signs Temp Pulse Resp BP Pulse Ox 36.7 C 83 16 91/52 L 98 10/02/20 05:00 10/02/20 05:00 10/02/20 05:00 10/02/20 05:00 10/02/20 05:00 Oxygen Delivery Method Room Air Weight: 47.3 kg Body Mass Index (BMI) 17.3 Intake and Output for Last 24 Hours 09/30/20 10/01/20 10/02/20 23:59 23:59 23:59 Intake Total 2150 / 2390 240 / 240 Balance 2150 / 2390 240 / 240 General: Alert, No apparent distress Psych/Mental Status: Normal Affect, Appropriate Microbiology Past 72 Hours 09/29/20 18:27 Mucosa - Nose SARS-CoV-2 Antigen (Rapid) - Final Laboratory Results 09/29/20 : Hepatitis A IgM Ab Negative, Hepatitis A Ab Total Negative, Hep Bs Antigen Negative, Hep B Core Total Ab Negative, Hep B Core IgM Ab Negative, Hepatitis C Ab Confirm <0.1, Hep C Confirm Com 1 Comment Current Medications Acetaminophen (Acetaminophen 500 Mg Tablet) 500 mg PO Q4H PRN PRN PRN Reason: Temp > 100.4 F Last Admin: 09/30/20 18:07 Dose: 500 mg Documented by: Al Hydroxide/Mg Hydroxide (Mag Hydrox/Al Hydrox/Simeth 30 Ml Udc) 30 ml PO Q6H PRN PRN PRN Reason: dyspesia Albuterol Sulfate (Albuterol 2.5 Mg/3 Ml Vial.Neb.) 2.5 mg INHALATION Q2H PRN PRN PRN Reason: Dyspnea, wheezing Bisacodyl (Bisacodyl 10 Mg Suppository) 10 mg RECTAL DAILY PRN PRN Reason: Constipation Buprenorphine HCl (Buprenorphine Hcl 2 Mg Tab.Subl) 2 mg SL Q12H LAUREN; Taper Stop: 10/02/20 22:29 Last Admin: 10/01/20 22:28 Dose: 2 mg Documented by: Clonidine (Clonidine Hcl 0.1 Mg Tablet) 0.1 mg PO Q8H PRN PRN PRN Reason: RESTLESSNESS Last Admin: 09/30/20 10:26 Dose: 0.1 mg Documented by: Dicyclomine HCl (Dicyclomine 10 Mg Capsule) 20 mg PO Q6H PRN PRN PRN Reason: Abdominal Discomfort Last Admin: 09/30/20 09:24 Dose: 20 mg Documented by: Gabapentin (Gabapentin 300 Mg Capsule) 300 mg PO TID LAUREN Last Admin: 10/02/20 05:10 Dose: 300 mg Documented by: Hydralazine HCl (Hydralazine 20 Mg/Ml Vial) 10 mg IV Q4H PRN PRN PRN Reason: SBP > 160 Hydroxyzine Pamoate (Hydroxyzine Kathy 25 Mg Capsule) 50 mg PO Q6H PRN PRN PRN Reason: mild anxiety Last Admin: 10/01/20 22:28 Dose: 50 mg Documented by: Ibuprofen (Ibuprofen 600 Mg Tablet) 600 mg PO Q8H PRN PRN PRN Reason: Pain Score 1-10 Last Admin: 10/01/20 02:29 Dose: 600 mg Documented by: Lidocaine (Lidocaine 5% Patch) 3 patch TOPICAL DAILY [facility]; Protocol Last Admin: 10/01/20 14:25 Dose: 3 patch Documented by: Loperamide HCl (Loperamide 2 Mg Capsule) 2 mg PO Q4H PRN PRN PRN Reason: LOOSE STOOLS Last Admin: 09/29/20 22:17 Dose: 2 mg Documented by: Meloxicam (Meloxicam 15 Mg Tablet) 15 mg PO DAILY [facility] Last Admin: 10/02/20 08:07 Dose: 15 mg Documented by: Methocarbamol (Methocarbamol 750 Mg Tablet) 1,500 mg PO Q6H PRN PRN PRN Reason: MUSCLE SPASM Last Admin: 09/30/20 18:07 Dose: 1,500 mg Documented by: Nicotine (Nicotine 21 Mg Patch) 21 mg TD DAILY [facility] Last Admin: 10/02/20 08:07 Dose: 21 mg Documented by: Ondansetron HCl (Ondansetron 8 Mg Tablet) 8 mg PO Q8H PRN PRN PRN Reason: NAUSEA Senna (Senna Tablet) 2 tablet PO QHS PRN PRN Reason: Constipation Trazodone HCl (Trazodone 100 Mg Tablet) 100 mg PO QHS PRN PRN PRN Reason: INSOMNIA Last Admin: 10/01/20 22:28 Dose: 100 mg Documented by: Discharge Diet: No Restrictions Home Medications: Medications to take at Discharge Norethindrone [Nor-Q-D] 1 mg PO DAILY 11/13/15 Meloxicam 15 mg PO DAILY 09/29/20 Acetaminophen [Tylenol] 500 mg PO Q4H PRN PRN tablet 10/02/20 Primary Care Physician: Stephon Bay MD [Primary Care Provider] - Please Follow Up With: Dr Suh Please Follow Up With: Dr Garcia When: call to schedule after refferal sent Disposition: Home Minutes spent on discharge:: 24 Patient Condition:: Fair Medical Necessity - Tobacco Use Smoking Status: Current every day smoker Tobacco Use: Cigarettes Meaningful Use Info Meaningful Use Diagnoses (Choose all that apply): None applicable Inpatient E&M: 88730 [facility]
[2020-10-02 09:05] VITALS: O2SAT 96
[2020-10-02] MEDS: Buprenorphine HCl 2 MG TAB.SUBL SL (10:48)
[2020-10-02] MEDS: Lidocaine 5% Patch 3 PATCH TOPICAL (10:48)
--- NOTE | 2020-10-02 11:01 | PHA.DC.MR ---
Pharmacy Service has performed discharge medication reconciliation for this patient. The patient's discharge medication list was reviewed for discrepancies and discrepancies were resolved. Home Medications Norethindrone [Nor-Q-D] 1 mg PO DAILY 11/13/15 Meloxicam 15 mg PO DAILY 09/29/20 Acetaminophen [Tylenol] 500 mg PO Q4H PRN PRN tab 10/02/20
== END 2020-10-02 11:37 | disposition home or self-care (01) | DRG 773 ==
LOC: ED 19:46 → MS3 20:46
PROVIDERS: Admitting Provider Family Medicine; Emergency Provider Student in an Organized Health Care Education/Training Program; PCP Internal Medicine
DX: F11.23 Opioid dependence with withdrawal (principal); E43 Unspecified severe protein-calorie malnutrition; F17.210 Nicotine dependence, cigarettes, uncomplicated; Z68.1 Body mass index [BMI] 19.9 or less, adult; G89.29 Other chronic pain; M54.9 Dorsalgia, unspecified; F41.9 Anxiety disorder, unspecified; F32.9 Major depressive disorder, single episode, unspecified
CPT/HCPCS: 71045; 80053; 80307; 80320; 85025; 86703; 86704; 86705; 86706; 86708; 86709; 86803; 87340; 87426; 97802; 99283; 99406; J7120; G0480

== ENCOUNTER → 2020-10-14 12:15 | Outpatient (CLI) | payer MEDICAID, SELFPAY ==
[2020-10-08 14:02] VITALS: BMI 17.1
[2020-10-14 13:56] LABS: Amphetamine Urine VISTA NEGATIVE (<1000 ng/mL); Barbiturate Urine VISTA NEGATIVE (< 200 ng/mL); Benzodiazepine Urine VISTA NEGATIVE (< 200 ng/mL); Cocaine Urine VISTA NEGATIVE (< 300 ng/mL); Ecstacy Urine VISTA NEGATIVE (< 500 ng/mL); Methadone Urine VISTA NEGATIVE (< 300 ng/mL); PCP Urine VISTA NEGATIVE (< 25 ng/mL); THC Urine VISTA NEGATIVE (< 50 ng/mL); Vista UDS pH Range 7
== END ==
PROVIDERS: PCP Internal Medicine; Referring Provider Anesthesiology Pain Medicine; Visit Provider Anesthesiology Pain Medicine
DX: F11.20 Opioid dependence, uncomplicated (principal)
CPT/HCPCS: 80307

== ENCOUNTER → 2022-01-30 | Outpatient (CLI) | payer MEDICAID, SELFPAY ==
[2022-01-30 16:42] LABS: Absolute Lymphocyte Count 1.63 X10^3/uL (0.83-4.51); Absolute Neutrophil Count 4.9 X10^3/uL (2.0-7.7); Basophil# 0.04 X10^3/uL; Basophil% 0.5 % (0-1); Eosinophil# 0.11 X10^3/uL; Eosinophils% 1.5 % (0-5); Hematocrit 37.7 % (37-47); Hemoglobin 12.2 g/dL (12.0-15.0); Lymphocyte # 1.63 X10^3/ul (0.83-4.51); Lymphocyte % 22.2 % (19-41); Mean Corp Hgb Conc 32.4 g/dL (32-36); Mean Corpuscular Hgb 29.5 pg (27.0-32.0); Mean Corpuscular Volume 91.3 fL (81-99); Mean Platelet Vol. 9.3 fl (6.2-12.0); Monocyte# 0.62 X10^3/uL; Monocyte% 8.5 % (0-10); NRBC Flagged by Analyzer 0 % (0-5); Neutrophil # 4.92 X10^3/uL (2.7-7.7); Neutrophil % 67.2 % (47-70); Platelet Count 313 K/mm3 (150-450); RBC Distribution Width CV 13.4 % (11.6-14.6); RBC Distribution Width SD 45.1 fl (35.1-43.9); Red Blood Count 4.13 M/mm3 (4.2-5.4); White Blood Count 7.3 K/mm3 (4.4-11.0)
[2022-01-30 17:30] LABS: ALB/GLOB Ratio 0.7 RATIO (0.9-2.4); AST(SGOT) 24 U/L (15-37); Alanine Aminotransfer ALT/SGPT 25 U/L (13-56); Albumin, Serum 3.1 g/dL (3.2-5.0); Alkaline Phosphatase 91 U/L (45-117); Anion Gap 4 (5-15); BUN 8 mg/dL (7-18); BUN/Creat Ratio 11.9 RATIO (10-20); Calcium,Total 9.2 mg/dL (8.5-10.1); Chloride 103 mmol/L (98-107); Cholesterol 150 mg/dL (200); Creatinine, Serum 0.67 mg/dL (0.55-1.02); EST Glomerular Filtration Rate 100 mL/min (>60); Est Glom Filt Rate - Afr Amer 121 mL/min (>60); Globulin 4.4 g/dL (2.2-4.2); Glucose 79 mg/dL (74-106); High Density Lipoprotein 49 mg/dL; Potassium 4.7 mmol/L (3.5-5.1); Protein, Total 7.5 g/dL (6.4-8.2); Sodium Level 137 mmol/L (136-145); Thyroid Stim Hormone (TSH) < 0.01 uIU/mL (0.358-3.74); Triglycerides 115 mg/dL; Very Low Density Lipoprotein 23 mg/dL (5-40)
[2022-02-02 17:00] LABS: T4 Free Direct 1.78 ng/dL (0.76-1.46)
== END | disposition home or self-care (01) ==
LOC: BIMLAB 14:47
PROVIDERS: PCP Internal Medicine; Referring Provider Nurse Practitioner Family; Visit Provider Nurse Practitioner Family
DX: Z00.00 Encounter for general adult medical examination without abnormal findings (principal); F41.8 Other specified anxiety disorders; G43.909 Migraine, unspecified, not intractable, without status migrainosus; R79.89 Other specified abnormal findings of blood chemistry
CPT/HCPCS: 36415; 80053; 80061; 82306; 84439; 84443; 85025

== ENCOUNTER → 2022-02-12 | Outpatient (CLI) | payer MEDICAID, SELFPAY ==
--- NOTE | 2022-02-12 18:11 | MRI_ITS ---
EXAM: MR HEAD WITHOUT AND WITH INTRAVENOUS CONTRAST CLINICAL INDICATION: MIGRAINES, frontal headaches, vision changes TECHNIQUE: Multiplanar and multisequence MR images of the brain were obtained without and with intravenous contrast. This report was created using [employer] report [employer] technology. CONTRAST: 9 ml iv Dotarem COMPARISON: None. FINDINGS: BRAIN AND EXTRA-AXIAL SPACES: Unremarkable. No intra- or extra-axial hemorrhage. No evidence of acute infarct. No intracranial mass or mass effect. There is preservation of the bullard/white matter interface. Posterior fossa structures are unremarkable. Ventricles are appropriate for age. No hydrocephalus. Basal cisterns are patent. SELLA: Unremarkable. Normal sella turcica, pituitary gland, infundibular stalk, optic chiasm and hypothalamus. AUDITORY SYSTEM: Unremarkable. The internal auditory canals are patent. BONES/JOINTS: Unremarkable. No discrete lytic or blastic abnormalities. SINUSES: Unremarkable as visualized. Clear. MASTOID AIR CELLS: Unremarkable as visualized. Clear. ORBITS: Unremarkable as visualized. Both globes, extraocular muscles, optic nerves and retrobulbar fat appear unremarkable. VASCULATURE: Unremarkable as visualized. Normal flow voids in the major intracranial circulation. MRI/Brain W/WO Contrast IMPRESSION: Negative MRI brain without and with intravenous contrast. Electronically Signed: Aureliano Renee MD at 19:47 EDT ,
--- NOTE | 2022-02-12 18:12 | RAD_ITS ---
EXAM: XR RIGHT ANKLE COMPLETE, 3 OR MORE VIEWS CLINICAL INDICATION: bilateral ankle pain TECHNIQUE: Frontal, lateral and oblique views of the right ankle. This report was created using [employer] report generation technology. COMPARISON: None. FINDINGS: BONES/JOINTS: Unremarkable. No acute fracture. No subluxation. Normal alignment. Preservation of the joint space. No sclerotic or destructive changes observed. SOFT TISSUES: Unremarkable. No soft tissue swelling or gas. No radiopaque foreign body. RAD/Ankle min 3 Views IMPRESSION: Negative right ankle x-rays. Electronically Signed: Aureliano Renee MD at 20:06 EDT ,
--- NOTE | 2022-02-12 19:00 | RAD_ITS ---
EXAM: XR LEFT ANKLE COMPLETE, 3 OR MORE VIEWS CLINICAL INDICATION: bilateral ankle pain TECHNIQUE: Frontal, lateral and oblique views of the left ankle. This report was created using [employer] report generation technology. COMPARISON: None. FINDINGS: BONES/JOINTS: Unremarkable. No acute fracture. No subluxation. Normal alignment. Preservation of the joint space. No sclerotic or destructive changes observed. SOFT TISSUES: Unremarkable. No soft tissue swelling or gas. No radiopaque foreign body. RAD/Ankle min 3 Views IMPRESSION: Negative left ankle x-rays. Electronically Signed: Aureliano Renee MD at 20:07 EDT Reading Location ID and State: [facility] / [place] , Service support ,
== END | disposition home or self-care (01) ==
PROVIDERS: PCP Nurse Practitioner Family; Visit Provider Psychiatry & Neurology Neurology
DX: G43.711 Chronic migraine without aura, intractable, with status migrainosus (principal); M25.571 Pain in right ankle and joints of right foot; M25.572 Pain in left ankle and joints of left foot
CPT/HCPCS: 70553; 73610; A9575

== ENCOUNTER → 2022-04-03 | Outpatient (CLI) | payer MEDICAID, SELFPAY ==
[2022-04-03 16:22] LABS: Absolute Neutrophil Count 4.8 X10^3/uL (2.0-7.7); Basophil# 0.06 X10^3/uL; Basophil% 0.8 % (0-1); Eosinophil# 0.23 X10^3/uL; Hematocrit 36.2 % (37-47); Hemoglobin 11.6 g/dL (12.0-15.0); Lymphocyte % 26.3 % (19-41); Mean Corpuscular Hgb 29.5 pg (27.0-32.0); Mean Corpuscular Volume 92.1 fL (81-99); Mean Platelet Vol. 9.3 fl (6.2-12.0); Monocyte# 0.49 X10^3/uL; Monocyte% 6.4 % (0-10); NRBC Flagged by Analyzer 0 % (0-5); Neutrophil # 4.81 X10^3/uL (2.7-7.7); Neutrophil % 63.4 % (47-70); Platelet Count 327 K/mm3 (150-450); RBC Distribution Width CV 12.2 % (11.6-14.6); RBC Distribution Width SD 41.1 fl (35.1-43.9); Red Blood Count 3.93 M/mm3 (4.2-5.4); White Blood Count 7.6 K/mm3 (4.4-11.0)
[2022-04-03 16:29] LABS: Erythrocyte Sedimentation Rate 39 mm/hr (0-30)
[2022-04-03 16:36] LABS: Vitamin B12 418 pg/mL (211-911)
[2022-04-03 17:19] LABS: ALB/GLOB Ratio 0.8 RATIO (0.9-2.4); AST(SGOT) 25 U/L (15-37); Alanine Aminotransfer ALT/SGPT 27 U/L (13-56); Albumin, Serum 3.6 g/dL (3.2-5.0); Alkaline Phosphatase 106 U/L (45-117); Anion Gap 8 (5-15); BUN 10 mg/dL (7-18); BUN/Creat Ratio 11.7 RATIO (10-20); CRP 4.62 mg/L (0.0-3.0); Calcium,Total 9.5 mg/dL (8.5-10.1); Chloride 100 mmol/L (98-107); Creatinine, Serum 0.86 mg/dL (0.55-1.02); EST Glomerular Filtration Rate 76 mL/min (>60); Est Glom Filt Rate - Afr Amer 92 mL/min (>60); Free T3 5.5 pg/mL (2.18-3.98); Globulin 4.6 g/dL (2.2-4.2); Glucose 67 mg/dL (74-106); Potassium 3.8 mmol/L (3.5-5.1); Protein, Total 8.2 g/dL (6.4-8.2); Rheumatoid Factor < 10.0 IU/mL (<15); Sodium Level 136 mmol/L (136-145); T4 Free Direct 1.38 ng/dL (0.76-1.46); Thyroid Stim Hormone (TSH) < 0.01 uIU/mL (0.358-3.74)
[2022-04-08 09:42] LABS: CCP IgG Antibodies 7 units (0-19)
[2022-04-08 10:36] LABS: ANTINUCLEAR ANTIBODIES DIRECT Negative
== END | disposition home or self-care (01) ==
LOC: BIMLAB 14:56
PROVIDERS: PCP Nurse Practitioner Family; Referring Provider Nurse Practitioner Family; Visit Provider Nurse Practitioner Family
DX: M25.50 Pain in unspecified joint (principal); R20.2 Paresthesia of skin; E56.9 Vitamin deficiency, unspecified; E05.90 Thyrotoxicosis, unspecified without thyrotoxic crisis or storm
CPT/HCPCS: 36415; 80053; 82607; 84439; 84443; 84481; 85025; 85652; 86038; 86140; 86200; 86225; 86235; 86431

== ENCOUNTER → 2022-04-27 | Outpatient (CLI) | payer MEDICAID, SELFPAY ==
--- NOTE | 2022-04-27 15:27 | US_ITS ---
STUDY: THYROID ULTRASOUND REASON FOR EXAM: Female, 46 years old. THYROMEGALY TECHNIQUE: Ultrasound evaluation of the thyroid was performed with real-time and static bullard-scale imaging. COMPARISON: None. FINDINGS: RIGHT LOBE: The right lobe of the thyroid gland was enlarged and measures 5.2 cm x 2.4 cm x 1.5 cm. There is a heterogeneous echotexture. There are no demonstrated solid, cystic or complex lesions. LEFT LOBE: The left lobe of the thyroid gland is enlarged and measures 5 cm x 2 cm x 1.3 cm. There is a heterogeneous echotexture. There is a 1 cm x 0.7 cm x 0.6 cm hypoechoic solid nodule in the lower pole. ISTHMUS: The isthmus measures 2 mm. The regional lymph nodes are normal. US/Thyroid IMPRESSION: Enlarged heterogeneous appearance of both lobes of the thyroid gland. There is a 1 cm x 0.7 cm x 0.6 cm hypoechoic solid nodule in the lower pole of the left lobe of the thyroid. Electronically Signed: Clayton Cagle MD at 12:58 EDT ,
== END | disposition home or self-care (01) ==
LOC: US 15:21
PROVIDERS: PCP Nurse Practitioner Family; Visit Provider Nurse Practitioner Family
DX: E01.0 Iodine-deficiency related diffuse (endemic) goiter (principal); E05.90 Thyrotoxicosis, unspecified without thyrotoxic crisis or storm
CPT/HCPCS: 76536

== ENCOUNTER → 2022-05-29 | Outpatient (CLI) | payer MEDICAID, SELFPAY ==
[2022-05-29 17:55] LABS: Free T3 2.2 pg/mL (2.18-3.98); Thyroid Stim Hormone (TSH) 0.27 uIU/mL (0.358-3.74)
[2022-06-03 11:25] LABS: Thyroid Stim Immunoglob 3.63 IU/L (0.00-0.55)
== END | disposition home or self-care (01) ==
LOC: LAB 16:00
PROVIDERS: PCP Nurse Practitioner Family; Referring Provider Internal Medicine Endocrinology, Diabetes & Metabolism; Visit Provider Internal Medicine Endocrinology, Diabetes & Metabolism
DX: E05.90 Thyrotoxicosis, unspecified without thyrotoxic crisis or storm (principal)
CPT/HCPCS: 36415; 84439; 84443; 84445; 84481

== ENCOUNTER → 2022-06-10 | Outpatient (CLI) | payer MEDICAID, SELFPAY ==
--- NOTE | 2022-06-10 15:44 | NEURO ---
NCS and/or EMG Patient Report Ordering Doctor: Juan Sams NP DATE OF SERVICE: 06/10/22 Mai presents for electrodiagnostic testing of the right upper limb. She reports severe pain in the right hand radiating to the upper arm. Electrodiagnostic findings: Right median motor nerve demonstrates prolonged distal latency with normal amplitude and conduction velocity. Normal ulnar motor response, including conduction across the elbow. Prolonged right median F wave. Absent right median sensory latency at the wrist. Normal ulnar and radial sensory responses. On needle EMG, all muscles tested in the right upper limb showed no evidence of denervation with normal motor unit action potentials. Electrodiagnostic impression: This is an abnormal study in the right upper limb 1. Electrodiagnostic findings demonstrate right-sided median mononeuropathy. This is consistent with a moderate to severe right carpal tunnel syndrome. 2. No electrodiagnostic evidence is noted for cervical radiculopathy.
== END | disposition home or self-care (01) ==
LOC: PSN 15:06
PROVIDERS: PCP Nurse Practitioner Family; Referring Provider Nurse Practitioner Family; Visit Provider Nurse Practitioner Family
DX: R20.2 Paresthesia of skin (principal)
CPT/HCPCS: 95886; 95910

== ENCOUNTER → 2022-08-20 | Outpatient (CLI) | payer MEDICAID, SELFPAY ==
[2022-08-20 16:05] LABS: Free T3 2.3 pg/mL (2.18-3.98); T4 Free Direct 0.72 ng/dL (0.76-1.46)
== END | disposition home or self-care (01) ==
LOC: LAB 15:15
PROVIDERS: PCP Nurse Practitioner Family; Referring Provider Internal Medicine Endocrinology, Diabetes & Metabolism; Visit Provider Internal Medicine Endocrinology, Diabetes & Metabolism
DX: E05.90 Thyrotoxicosis, unspecified without thyrotoxic crisis or storm (principal)
CPT/HCPCS: 36415; 84439; 84443; 84481

== ENCOUNTER 2022-10-07 10:35 | Day surgery (SDC) | payer MEDICAID, SELFPAY ==
[2022-09-23 16:18] LABS: Internal QC Validated? YES +Cl - CLEAR BKGD; Pregnancy, Urine Negative Negative
[2022-10-07] MEDS: Lactated Ringers 1,000 ML 15 ML IV (10:50)
[2022-10-07 11:01] VITALS: BP 135/87; PULSE 119; RESP 17; TEMP 36.2; O2SAT 99; BMI 20.9
--- NOTE | 2022-10-07 11:05 | SUR.PREOP ---
pt refused pre-preg test.
[2022-10-07] MEDS: Cefazolin 2 GM in 0.9% Normal Saline 100 ML IV (12:27)
--- NOTE | 2022-10-07 12:39 | PCM.HP.STD ---
HPI - General HPI Narrative MAI SMITH, is a 47 F who presents for right ECTR. RAB discussed. Incr. due to smoking. Right side marked. Post op restrictions discussed. No changes to h and p. Wishes to proceed, no further q;s. MR#: [id number] Acct: [id number] Name:? MAI SMITH Rep #: [id number] : 1975 ? ? Provider: Dr. Akhil White MD Age/Sex:? 47/F ? ? Location: [facility] Status: Signed Intake Intake Visit Reasons:?right wrist Chief Complaint: right wrist/hand Accompanied by: Self Is patient in pain?: Yes Pain scale (1-10): 4 Allergies No Known Allergies Allergy (Verified 05/26/22 15:38) Medications norethindrone (contraceptive) 0.35 mg tablet 1 mg PO DAILY control 11/13/15 [History Confirmed 09/15/22] acetaminophen 500 mg tablet 500 mg PO Q4H PRN PRN Temp > 100.4 F 10/02/20 [Rx Confirmed 09/15/22] meloxicam 15 mg tablet 15 mg PO DAILY PRN osteoarthritis pain #90 tabs 01/30/22 [Rx Confirmed 09/15/22] cholecalciferol (vitamin D3) 50 mcg (2,000 unit) capsule 50 mcg PO DAILY #90 caps 02/10/22 [Rx Confirmed 09/15/22] duloxetine 30 mg capsule,delayed release 30 mg PO DAILY #90 caps 04/03/22 [Rx Confirmed 09/15/22] methimazole 10 mg tablet 10 mg PO .Mon-Sat #30 tabs 08/21/22 [Rx Confirmed 09/15/22] gabapentin 300 mg capsule 300 mg PO Q8H #90 caps 09/07/22 [Rx Confirmed 09/15/22] sumatriptan succinate 100 mg tablet (Imitrex) See Rx Instructions PO .COMPLEX #14 tabs 09/14/22 [Rx Confirmed 09/15/22] PFSH Medical History?(Updated 09/15/22 @ 15:58 by Akhil White MD) ADD (attention deficit disorder) Back problem Bilateral ankle pain Hyperthyroidism IBS (irritable bowel syndrome) Migraine Multiple joint pain Obsessive behavior Paresthesia of upper extremity Right carpal tunnel syndrome Seasonal allergies Thyroid nodule Surgical History? History of back surgery Social History? Smoking Status:? Current every day smoker Tobacco: How many years used:? 25 quit status:? considering quitting alcohol intake:? current alcohol intake frequency: holidays/special occasions only substance use type:? does not use what type of physical activity do you participate in:? walking and yoga frequency:? daily HPI right wrist Details: Parts of this documentation were recorded by a scribe, this documentation accurately reflects the service provided and the decisions made by me, Dr. Akhil White MD 09/15/22 [id number]. MAI SMITH is a 47 year old F here today for? 1 year history, numbness into the fingers and up into forearm, hands feel clumsy. RHD. 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 Tried night time splinting. Gets worse with serving. Interested in surgery, getting worse with time, more consistent and worse with serving pouring liquor bottles. Very early starting in the left side but primarily the right. Ortho Exam General General: Yes no acute distress Neurologic: Yes alert and Yes oriented x3 Psychologic: Yes reasonable and appropriate Right Wrist/Hand Skin/Wound: Yes CDI, No Swelling, No Ecchymosis, Yes nail intact and Yes capillary refill normal A1 vidya trigger: No Right Wrist: Yes ROM-Extension 0-60, ROM-Flexion 0-80, ROM-Pronation 0-80, ROM-Supination 0-90, Tinel's, Phalen's and Thenar Atrophy; No Distal radioulnar joint, CMC Grind, tender to palpate 1st dorsal compartment or Hypothenar Atrophy Motor: EPL: 5, FDP-2: 5, 1st Dorsal Interosseous: 5 and APB: 4 Sensation: Radial: I, Ulnar: I and Median: D WRIST: negative tinels at elbow, neg compression at elbow. Left Wrist/Hand Skin/Wound: No Swelling and No Ecchymosis Supplemental Info [facility] [address] [place] [address] MR#:? [id number] Acct: [id number] Name: MAI SMITH Rep #: [id number] :? 1975 ?46 From: Gabriel Norman MD Referring Dr: ? ? Juan Sams NP [employer] Status:? REG CLI Location:? PSN Date:? 06/10/22 Sex: F C NCS and/or EMG Patient Report Ordering Doctor: Juan Sams NP DATE OF SERVICE: 06/10/22 Mai presents for electrodiagnostic testing of the right upper limb.? She reports severe pain in the right hand radiating to the upper arm. Electrodiagnostic findings: Right median motor nerve demonstrates prolonged distal latency with normal amplitude and conduction velocity.? Normal ulnar motor response, including conduction across the elbow.? Prolonged right median F wave. Absent right median sensory latency at the wrist.? Normal ulnar and radial sensory responses.? On needle EMG, all muscles tested in the right upper limb showed no evidence of denervation with normal motor unit action potentials. Electrodiagnostic impression: This is an abnormal study in the right upper limb 1.? Electrodiagnostic findings demonstrate right-sided median mononeuropathy.? This is consistent with a moderate to severe right carpal tunnel syndrome. 2.? No electrodiagnostic evidence is noted for cervical radiculopathy. Coding Level of Care Code Off vis,new,level 4 Diagnoses Right carpal tunnel syndrome? G56.01 Comment book surgery with risks identified Assessment and Plan Assessment and Plan (1) Right carpal tunnel syndrome: ?Status:?Acute ?Plan: 47-year-old female with signs and symptoms as well as nerve conduction study evidence of right carpal tunnel syndrome.? We discussed the nonoperative and operative means of treating this continued conservative management with nighttime splinting injections or open versus endoscopic carpal tunnel release.? She would like to go ahead with surgery in the form of the CTR.? Discussed 2 weeks to keep the incision clean and dry for the incision to heal in 6 weeks prior to returning to high demand lifting and gripping with the upper extremity.? She understood sign consent form for surgery as well as possible need for blood products.? She is a smoker 9 to 10 cigarettes a day that certainly will increase her risk of infection or other complications, as well as her other diagnosis like depression and anxiety can certainly make the results of carpal tunnel release less reliable. Pros and cons risks and benefits were discussed with the patient including but not limited to infection, pain, stiffness, bleeding, damage to surrounding structures, neurovascular injury, recurrence or retear, failure or wear of hardware or fixation, instability, fracture, deep vein thrombosis and pulmonary embolism, anesthetic risks, patient dissatisfaction, need for further surgery and other risks.? Patient understood and wished to proceed with surgery, and signed the informed consent documentation. FORMERLY [facility], [facility] Medical History ADD (attention deficit disorder) Anxiety Arthritis Back pain Back problem Bilateral ankle pain History of IBS History of pain when walking Hot flash, menopausal Hyperthyroidism IBS (irritable bowel syndrome) Injury of back Migraine Multiple joint pain Obsessive behavior Paresthesia of upper extremity Restless legs Right carpal tunnel syndrome Seasonal allergies Smoker Thyroid disease Thyroid nodule Wears contact lenses Wears glasses Home Medications norethindrone (contraceptive) 0.35 mg tablet 1 mg PO DAILY control 11/13/15 [History Last Taken 10/07/16 08:00] acetaminophen 500 mg tablet 500 mg PO Q4H PRN PRN Temp > 100.4 F 10/02/20 [Rx Last Taken Unknown] cholecalciferol (vitamin D3) 50 mcg (2,000 unit) capsule 50 mcg PO DAILY #90 caps 02/10/22 [Rx Last Taken Unknown] methimazole 10 mg tablet 10 mg PO .Mon-Sat #30 tabs 08/21/22 [Rx Last Taken Unknown] sumatriptan succinate 100 mg tablet (Imitrex) See Rx Instructions PO .COMPLEX #14 tabs 09/14/22 [Rx Last Taken Unknown] duloxetine 30 mg capsule,delayed release See Rx Instructions .Route .COMPLEX #90 caps 09/25/22 [Rx Last Taken Unknown] gabapentin 300 mg capsule 300 mg PO PRN PRN Pain 10/06/22 [History Last Taken Unknown] meloxicam 15 mg tablet 15 mg PO DAILY 10/06/22 [History Last Taken Unknown] Allergy/AdvReac Type Severity Reaction Status Date / Time No Known Allergies Allergy Verified 10/07/22 11:01 Surgical History History of back surgery Hx of surgical procedure Social History Smoking Status: Current every day smoker tobacco type: cigarettes Tobacco: How many years used: 25 quit status: considering quitting alcohol intake: current alcohol intake frequency: holidays/special occasions only substance use type: does not use what type of physical activity do you participate in: walking and yoga frequency: daily Vital Signs Vital Signs Vital Signs: 10/07/22 11:01 10/07/22 11:01 Temperature 97.2 F L Temperature Source Temporal Pulse Rate 119 H Respiratory Rate 17 Respiratory Pattern Normal Blood Pressure 135/87 H Blood Pressure Mean 103 Blood Pressure Source Monitor Blood Pressure Position Semi-Fowlers Blood Pressure Location Left Arm Pulse Ox 99 Oxygen Delivery Method Room Air Weight Weight: 125 lb 10.616 oz Body Mass Index (BMI) 20.9
[2022-10-07] MEDS: Ropivacaine 0.5% 30 ML Vial (12:52)
--- NOTE | 2022-10-07 13:42 | PCM.OPRPT ---
Problems Associated Problem List Diagnoses (1) Right carpal tunnel syndrome: Report of Operation Date of Procedure: 10/07/22 Pre-Operative Diagnosis: right carpal tunnel syndrome Post-Operative Diagnosis: same Surgery/Procedure Performed:: right ECTR Surgeon: Akhil White Type of Anesthesia: Local Anesthesiologist: Zion Figueroa Estimated Blood Loss (mL): 10 Description of Procedure: Patient was brought to the operating room theater.? The patient was administered 2 g of IV Ancef prior to the start of the procedure.? Placed supine on the operating room table.? General anesthesia induced. ? SCDs on the legs.? Tourniquet applied to the operative extremity, appropriately padded. Arm table used. Operative extremity prepped and draped in the usual sterile fashion with chlorhexidine-based prep solution allowing over 3 minutes drying time prior to draping.? Preoperative timeout performed to confirm the site patient and the surgery. I began by using eschmar to exsanguinate, elevating the limb and inflating the tourniquet to 250 mmHg. Used the Arthex center line endoscopic carpal tunnel kit / technique.? I made a transverse 2 cm incision in line with the? transverse wrist crease.? This was in line with the fourth digit.? I carried the dissection down through skin and subcutaneous tissue achieved meticulous hemostasis. Just ulnar to palmaris tendon.? I incised the antebrachial fascia.? I passed sequential dilators into the carpal tunnel along the radial border of the Guyon's canal aiming for the fourth digit with the hand in extension.? I used a synovial elevator to identify the transverse fibers of the transverse carpal tunnel ligament.? Passed the scope into the carpal tunnel. Once I had identified the full proximal and distal extent of the ligament I fully released the ligament under direct visualization by deploying the blade and slowly withdrawing the scope made sequential passes until I no longer felt tension as well as the entire extent of the ligament was released under direct visualization.? Arthroscope light was more visible through the skin. Pictures taken and saved. Wound thoroughly irrigated.? Tourniquet let down prior to end of the case and meticulous hemostasis achieved.? Thorough irrigation.? Placed 3 cc of quarter percent Marcaine and the skin incision site.? Incision closed with 3-0 Monocryl.? Steri-Strips were applied after the skin was cleaned and dried. Adaptic gauze and Sachin wrap was then applied.? Patient woken up from general anesthetic transferred off the operating room table and taken to postanesthetic care unit in stable condition. All sponge needle instrument counts were correct no complications.? Plan for the patient to be discharged home according to day surgery criteria when they are comfortable. Follow-up in the office in 2 days time. Complications none Admit VTE Documentation VTE Present on Admission: No VTE Mechan Device Prophylaxis: SCD's Reason prophylaxis not ordered:: Treatment Not Indicated Procedures Musculoskeletal 20xxx-29xxx: Other Procedure See Report
--- NOTE | 2022-10-07 13:45 | EX.PCM.DISCH ---
Discharge Instructions Diet Discharge Diet: No restrictions Activity Ice area for (Minutes): 10 Lifting Restrictions: ok to use hand and wrist, no heavy lifting or gripping Dressing / Incision Call your doctor if your incision/area has: Continuous Slow Oozing, Sudden Increased Bleeding, Increased Pain/ Swelling, Increased Redness, Foul Smelling Discharge and Swelling at the incision site Remove Dressing in: leave in place till F/U Follow Up Care Please Follow Up With: Akhil White MD When: 2 days Test Results: Test results from this visit will be discussed in further detail at your follow-up appointment, if applicable. Discharge Plan Admission Attending Provider: Akhil White Primary Care Provider: Juan Sams NP Instructions Patient Instructions: Carpal Tunnel Release Surgery Discharge Orders/Prescriptions Prescriptions: No Action norethindrone (contraceptive) 0.35 MG tablet 1 mg PO DAILY acetaminophen 500 MG tablet 500 mg PO Q4H PRN PRN (Reason: Temp > 100.4 F) 0RF meloxicam 15 mg tablet 15 mg PO DAILY gabapentin 300 mg capsule 300 mg PO PRN PRN (Reason: Pain) cholecalciferol (vitamin D3) 50 mcg (2,000 unit) capsule 50 mcg PO DAILY Qty: 90 3RF methimazole 10 mg tablet 10 mg PO .Mon-Sat Qty: 30 4RF sumatriptan succinate [Imitrex] 100 mg tablet See Rx Instructions PO .COMPLEX Qty: 14 2RF Rx Instructions: take 1 tab at onset of headache duloxetine 30 mg capsule,delayed release(DR/EC) See Rx Instructions .ROUTE .COMPLEX Qty: 90 0RF Dose Instruction: take 1 capsule by mouth once daily Rx Instructions: take 1 capsule by mouth once daily Referrals / Follow Up: Akhil White MD [Med Staff - Active Staff] - Juan Sams NP, [facility] [Primary Care Provider] - Disposition Disposition (needs filled in before D/C Order can be placed): Home, Self Care
[2022-10-07 13:48] VITALS: BP 113/63; BP 135/87; PULSE 100; RESP 18; TEMP 36.2; O2SAT 100
[2022-10-07 13:55] VITALS: BP 111/77; BP 135/87; PULSE 94; RESP 18; O2SAT 100
[2022-10-07 14:00] VITALS: BP 111/75; BP 135/87; PULSE 86; RESP 18; O2SAT 100
[2022-10-07 14:08] VITALS: BP 110/83; BP 135/87; PULSE 92; RESP 18; TEMP 36.4; O2SAT 100
[2022-10-07 14:30] VITALS: BP 115/68; BP 135/87; PULSE 93; RESP 18; TEMP 36.6; O2SAT 96
== END 2022-10-07 14:48 | disposition home or self-care (01) ==
LOC: SDC 10:37 → AC 10:48
PROVIDERS: PCP Nurse Practitioner Family; Referring Provider Orthopaedic Surgery Sports Medicine; Visit Provider Orthopaedic Surgery Sports Medicine
PROC: (CPT 64721; principal; 2022-10-07 11:30)
DX: G56.01 Carpal tunnel syndrome, right upper limb (principal); F17.210 Nicotine dependence, cigarettes, uncomplicated; Z79.1 Long term (current) use of non-steroidal anti-inflammatories (NSAID); Z79.899 Other long term (current) drug therapy
CPT/HCPCS: 64721; 01810; 81025; J7120; J2405

== ENCOUNTER → 2022-11-02 | Outpatient (CLI) | payer MEDICAID, SELFPAY ==
[2022-11-02 18:05] LABS: Follicle Stimulating Hormone 2.3 mIU/mL; Free T3 2.9 pg/mL (2.18-3.98); Luteinizing Hormone 1.6 mIU/mL; T4 Free Direct 0.86 ng/dL (0.76-1.46); Thyroid Stim Hormone (TSH) 1.13 uIU/mL (0.358-3.74)
== END | disposition home or self-care (01) ==
PROVIDERS: PCP Nurse Practitioner Family; Referring Provider Internal Medicine Endocrinology, Diabetes & Metabolism; Visit Provider Internal Medicine Endocrinology, Diabetes & Metabolism
DX: E05.90 Thyrotoxicosis, unspecified without thyrotoxic crisis or storm (principal); N95.1 Menopausal and female climacteric states
CPT/HCPCS: 36415; 83001; 83002; 84439; 84443; 84481

== ENCOUNTER → 2023-07-27 | Outpatient (CLI) | payer MEDICAID, SELFPAY ==
--- NOTE | 2023-07-27 14:47 | NEURO_ITS ---
NCS and/or EMG Patient Report Ordering Doctor: Akhil White DATE OF SERVICE: 07/27/23 Clinical Summary: This EMG/NCS was performed to evaluate for left carpal tunnel syndrome. Nerve Conduction Studies Summary: Nerve conduction studies of the left upper extremity were normal. Needle Examination Summary: Needle examination of the left upper extremity was normal. There was a higher proportion of motor unit action potentials with reduced recruitment, increased amplitude, increased duration, and polyphasia in the Impression: There is electrodiagnostic evidence of the following -
--- NOTE | 2023-07-27 14:47 | NEURO ---
NCS and/or EMG Patient Report Ordering Doctor: Akhil White DATE OF SERVICE: 07/27/23 Clinical Summary: 47 year old female presenting with complaints of numbness and tingling in the left hand. This EMG/NCS was performed to evaluate for left carpal tunnel syndrome. Nerve Conduction Studies Summary: The left median-D2 SNAP distal latency was prolonged. The left median-APB CMAP distal latency was prolonged with reduced amplitude. The left median motor conduction velocity was reduced in the forearm segment. Needle Examination Summary: Needle examination demonstrated increased insertional activity and increased spontaneous activity (positive sharp waves) in the left abductor pollicis brevis muscle. There was a higher proportion of motor unit action potentials with reduced recruitment, increased amplitude, increased duration, and polyphasia in the left abductor pollicis brevis muscle. Impression: There is electrodiagnostic evidence of the following - 1) Severe, left median mononeuropathy at the wrist (carpal tunnel syndrome), with active denervation. Multi Select Codes Neurology Neurology Interp Codes: 24538-32 Musc test done w/n test comp (interp) (1) and 74656-01 [employer] [facility] cndj tst 5-6 studies (interp)
== END | disposition home or self-care (01) ==
LOC: PSN 14:24
PROVIDERS: PCP Nurse Practitioner Family; Referring Provider Orthopaedic Surgery Sports Medicine; Visit Provider Orthopaedic Surgery Sports Medicine
DX: G56.02 Carpal tunnel syndrome, left upper limb (principal)
CPT/HCPCS: 95886; 95909

== ENCOUNTER → 2025-05-04 | Outpatient (CLI) | payer MEDICAID, SELFPAY ==
[2025-05-04 18:12] LABS: Barbiturate Urine NEGATIVE (< 200 ng/mL); Benzodiazepine Urine NEGATIVE (< 200 ng/mL); PCP Urine NEGATIVE (< 25 ng/mL); THC Urine NEGATIVE (< 50 ng/mL)
== END | disposition home or self-care (01) ==
LOC: LAB 16:55
PROVIDERS: PCP Nurse Practitioner Family; Referring Provider Anesthesiology Pain Medicine; Visit Provider Anesthesiology Pain Medicine
DX: F11.20 Opioid dependence, uncomplicated (principal)
CPT/HCPCS: 80307

== ENCOUNTER 2025-05-21 12:03 | Inpatient (IN) | payer MEDICAID, SELFPAY ==
[2025-05-21] VITALS (7 sets, daily range): BP systolic 128–152; BP diastolic 59–101; PULSE 81–142; RESP 16–20; TEMP 36.4–37.2; O2SAT 95–100; BMI 19.1; BMI 28.8
[2025-05-21 12:51] LABS: Hematocrit 38.1 % (37-47); Hemoglobin 13.0 g/dL (12.0-15.0); Immature Granulocytes Count 0.010 X10^3/uL (0.0-0.0); Mean Corp Hgb Conc 34.1 g/dL (32-36); Mean Corpuscular Volume 81.6 fL (81-99); Mean Platelet Vol. 9.3 fl (6.2-12.0); NRBC Flagged by Analyzer 0 % (0-5); Platelet Count 286 K/mm3 (150-450); RBC Distribution Width CV 13.8 % (11.6-14.6); RBC Distribution Width SD 40.5 fl (35.1-43.9); Red Blood Count 4.67 M/mm3 (4.2-5.4); White Blood Count 6.6 K/mm3 (4.4-11.0)
[2025-05-21 13:14] LABS: AST(SGOT) 33 U/L (<=31); Alanine Aminotransfer ALT/SGPT 43 U/L (<=34); Albumin, Serum 4.2 g/dL (3.5-5.0); Alkaline Phosphatase 97 U/L (35-104); Anion Gap 14 (5-15); BUN 13 mg/dL (4-19); BUN/Creat Ratio 21.3 RATIO (10-20); Calcium,Total 9.8 mg/dL (7.6-11.0); Carbon Dioxide 23.4 mmol/L (21.0-32.0); Chloride 104 mmol/L (98-108); Estimated Creatinine Clearance 93.40 ml/min (50-250); Globulin 3.5 g/dL (2.2-4.2); Glucose 107 mg/dL (70-99); Potassium 3.9 mmol/L (3.3-5.1)
[2025-05-21 13:19] LABS: Barbiturate Urine NEGATIVE (< 200 ng/mL); Benzodiazepine Urine NEGATIVE (< 200 ng/mL); PCP Urine NEGATIVE (< 25 ng/mL); THC Urine NEGATIVE (< 50 ng/mL)
[2025-05-21 13:33] LABS: Internal QC Validated? YES +Cl - CLEAR BKGD; Pregnancy, Serum, hCG Quali. NEGATIVE Negative; Record Kit Lot#, Serum Preg. 0000962302
--- NOTE | 2025-05-21 13:38 | PCM.HP.STD ---
HPI - General General Date of Admission: 05/21/25 Date of Service: 05/21/25 Chief Complaint: Requesting opioid detox HPI Narrative KATIE SMITH, is a 49 F with a history of chronic back pain, tobacco use, fentanyl use who presented [facility] ED for fentanyl detox. She uses about 0.25 g daily and has for many years and has not gone through detox in many years. She snorts, no IV use that is noted. Last use 12 hours ago patient feels like she is actively withdrawing. Reportedly she follows with pain management and they went and put her on a pain patch but she needs to detox first. In the ED BP 140/100,, heart rate 81, respiratory rate 18 and pulse ox 95% on room air. CBC w/ wbc 6.6, hgb 13, CMP with creatinine 0.60, glucose 107, AST 33 and ALT 43. Hospitalist contacted for admission for opioid detox. Patient evaluated at bedside, reports she is shaky and anxious and restless and feels she is acutely withdrawing, ROS otherwise negative. Patient does report she uses tobacco and said her only drug she knowingly uses is fentanyl but that it is often cut with other things so she would not be surprised if anything else ended up in her urine, UDS was positive for amphetamines but she denies specifically using meth or other amphetamines and said it was most likely in with her fentanyl [facility] Medical History (Updated 05/21/25 @ 13:[address] Katiana Gibson MD) ADD (attention deficit disorder) Amenorrhea Anxiety Arthritis Back pain Bilateral ankle pain Fentanyl dependence History of pain when walking Hot flash, menopausal Hyperthyroidism IBS (irritable bowel syndrome) Left carpal tunnel syndrome Migraine Multiple joint pain Obsessive behavior Opiate withdrawal Paresthesia of upper extremity Restless legs Right carpal tunnel syndrome Seasonal allergies Smoker Thyroid nodule Wears contact lenses Wears glasses Home Medications ?Medication ?Instructions ?Recorded ?Last Taken ?Type meloxicam 7.5 mg tablet 7.5 mg PO DAILY 05/21/25 05/21/25 History methocarbamol 750 mg tablet 750 mg PO TID PRN PRN muscle spasm 05/21/25 Unknown History Allergy/AdvReac Type Severity Reaction Status Date / Time No Known Allergies Allergy Verified 05/21/25 12:05 Family History Mother Lupus OCD (obsessive compulsive disorder) Anxiety and depression Surgical History History of back surgery Hx of surgical procedure S/P carpal tunnel release Social History household members: none current occupational status: employed 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 Smoking Status: Current every day smoker tobacco type: cigarettes Tobacco: How many years used: 25 Electronic Cigarette Use: not used quit status: considering quitting alcohol intake: current alcohol intake frequency: holidays/special occasions only substance use type: former substance user Date of last use: 2021 and opiates what type of physical activity do you participate in: walking and yoga frequency: daily do you feel safe at home: Yes ROS ROS Narrative General: Denies fever, feeling shaky and restless HENT: Denies headache, denies stuffy nose, denies sore throat EYES: Denies changes in vision Resp: Denies cough, denies shortness of breath Cardiac: Denies chest pain GI: Denies abdominal pain, denies changes in bowel, denies nausea/vomiting : Denies changes in urination Extremity: Denies swelling MSK: Denies weakness Neuro: Denies any numbness/tingling Heme: Denies any bleeding or bruising Skin: Denies rashes Psychiatric: No complaints voiced Vital Signs Vital Signs Vital Signs: 05/21/25 12:06 Temperature 98.1 F Temperature Source Temporal Pulse Rate 81 Respiratory Rate 18 Blood Pressure 140/100 H Blood Pressure Mean 113 Pulse Ox 95 Oxygen Delivery Method Room Air Weight Weight: 52.163 kg Body Mass Index (BMI) 19.1 Physical Exam Narrative General: Alert, oriented, appears shaky and restless HEENT: Atraumatic, normocephalic Eyes: Anicteric, normal conjunctiva, extraocular movements grossly intact Neck: Supple Respiratory: Clear to auscultation bilaterally, normal respiratory effort Cardiovascular: Low-grade sinus tachycardia GI: Soft, nontender, nondistended Extremities: No edema Musculoskeletal: Moving all extremities Neuro: No overt focal neurological deficits Skin: No rashes appreciated Psych: Appears anxious, shaky Results Lab / Micro Data 05/21/25 12:28 05/21/25 12:28 Labs: Laboratory Results - last 24 hr 05/21/25 12:28: WBC 6.6, RBC 4.67, Hgb 13.0, Hct 38.1, MCV 81.6, MCH 27.8, MCHC 34.1, RDW Std Deviation 40.5, RDW Coeff of Eladia 13.8, Plt Count 286, MPV 9.3, Immature Gran % (Auto) 0.200, Neut % (Auto) 74.5 H, Lymph % (Auto) 20.1, Harris % (Auto) 4.2, Eos % (Auto) 0.5, Baso % (Auto) 0.5, Absolute Neuts (auto) 4.9, Absolute Lymphs (auto) 1.33, Nucleated RBC % 0, Sodium 141, Potassium 3.9, Chloride 104, Carbon Dioxide 23.4, Anion Gap 14, BUN 13, Creatinine 0.60 L, Estim Creat Clear Calc 93.40, Est GFR (MDRD) Non-Af 110, BUN/Creatinine Ratio 21.3 H, Glucose 107 H, Calcium 9.8, Total Bilirubin 0.61, AST 33 H, ALT 43 H, Alkaline Phosphatase 97, Total Protein 7.6, Albumin 4.2, Globulin 3.5, Albumin/Globulin Ratio 1.2, Serum , Qual NEGATIVE 05/21/25 12:35: Urine Opiates Screen NEGATIVE, U Buprenorphine Qual NEGATIVE, Ur Oxycodone Screen NEGATIVE, Urine Methadone Screen NEGATIVE, Urine Fentanyl Screen PRESUMPTIVE POSITIVE, Ur Barbiturates Screen NEGATIVE, Ur Phencyclidine Scrn NEGATIVE, Ur Amphetamines Screen PRESUMPTIVE POSITIVE, U Benzodiazepines Scrn NEGATIVE, Urine Cocaine Screen NEGATIVE, U Cannabinoids Screen NEGATIVE Assessment & Plan Assessment/Plan (1) Opioid use: PLAN: Plan #Acute opiate withdrawal - Subutex taper initiated - As needed Tylenol, ibuprofen, bowel regimen, gabapentin, Bentyl, Vistaril, methocarbamol, clonidine - As needed trazodone nightly - As needed antiemetics -Once patient begins to clinically improve will discuss further discharge planning #Tobacco use -Advise cessation -Nicotine replacement available if desired # Chronic back pain -Follows with pain management on outpatient basis, needs detox so that she can have further pain management interventions -Continue meloxicam #DVT ppx: Low risk, ambulatory Katiana Gibson MD Charges/Coding Visit Charges Inpatient E&M: 04081 Init Hosp L1
[2025-05-21 13:45] LABS: Alcohol, Blood (Medical)-Serum < 10.1 mg/dL (<=10.0)
--- NOTE | 2025-05-21 14:19 | EX.ED.SAOD ---
HPI History of Present Illness Chief Complaint: Substance Abuse Informant: patient Narrative Narrative: Patient is a 49-year-old female with history of opioid dependency, IBS, migraines and hypothyroidism presenting for fentanyl detox. Patient states she has been snorting 0.25 g of fentanyl daily for the past 10 years. She was last detoxed 4 to 5 years ago. She last use approximately 12 hours prior to arrival. She feels like she is withdrawing. She is having some cramping abdominal pain, feels very anxious and nauseous. Denies any goosebumps. She states that her motivation for detox is that pain management was to put her on pain patches but she wants to detox first. She states that she has chronic back pain and has had 3 back surgeries and needs another 1 but has to quit smoking first. Denies any other coingestions. No other complaints or concerns reported at this time [facility] Medical History Substance abuse Depression Chronic pain Left carpal tunnel syndrome Amenorrhea Wears contact lenses Wears glasses Anxiety Arthritis Restless legs Back pain Smoker History of pain when walking Hot flash, menopausal Right carpal tunnel syndrome Thyroid nodule Paresthesia of upper extremity Multiple joint pain Bilateral ankle pain Hyperthyroidism Migraine Fentanyl dependence Opiate withdrawal ADD (attention deficit disorder) Obsessive behavior IBS (irritable bowel syndrome) Seasonal allergies Home Medications ?Medication ?Instructions ?Recorded ?Last Taken ?Type meloxicam 7.5 mg tablet 7.5 mg PO DAILY 05/21/25 05/21/25 History methocarbamol 750 mg tablet 750 mg PO TID PRN PRN muscle spasm 05/21/25 Unknown History Allergy/AdvReac Type Severity Reaction Status Date / Time No Known Allergies Allergy Verified 05/21/25 12:05 Family History Mother Lupus OCD (obsessive compulsive disorder) Anxiety and depression Surgical History S/P carpal tunnel release Hx of surgical procedure History of back surgery Social History household members: none current occupational status: employed 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 Smoking Status: Current every day smoker tobacco type: cigarettes Tobacco: How many years used: 25 Electronic Cigarette Use: not used quit status: considering quitting alcohol intake: current alcohol intake frequency: holidays/special occasions only substance use type: former substance user Date of last use: 2021 and opiates what type of physical activity do you participate in: walking and yoga frequency: daily do you feel safe at home: Yes ROS ROS ED Constitutional Constitutional ED: Reports sweats; Denies chills or fever(s) Cardiovascular Cardiovascular: Reports racing heartbeat; Denies chest pain or palpitations Respiratory/Chest Respiratory/Chest: Denies dyspnea Gastrointestinal Gastrointestinal: Reports abdominal pain and nausea; Denies vomiting Musculoskeletal Musculoskeletal: Reports arthralgias, back pain and myalgias Integumentary Denies rash Neurologic Neurologic: Denies weakness Psychiatric Psychiatric: Reports anxiety; Denies suicidal ideation or suicidal thoughts EXAM Physical Exam Const Vital Signs: 05/21/25 12:06 Temperature 98.1 F Temperature Source Temporal Pulse Rate 81 Respiratory Rate 18 Blood Pressure 140/100 H Blood Pressure Mean 113 Pulse Ox 95 Oxygen Delivery Method Room Air Positive well nourished and well developed General Appearance ED: well developed and NAD; Negative for pallor HEENT Reports moist mucous membranes atraumatic Eyes General Eye ED: Negative for scleral icterus Neck supple Chest Wall inspection of chest normal and palpation of chest normal Resp normal respiratory effort and clear to auscultation bilaterally Cardio regular rhythm and no murmurs Rate: tachycardic Neuro oriented x3 Sensorium / Orientation: alert Motor Exam: Negative for general weakness Psych thought process normal Mood & Affect: anxious Skin General Skin Exam: Negative for jaundice or pallor MDM MDM MDM Narrative Medical decision making narrative: Patient evaluated for request of fentanyl detox. Has been a daily user for 10 years. She is having some withdrawal symptoms at this time. She is otherwise well-appearing. Medical screening labs obtained which are largely normal. Urine tox is presumptive positive for fentanyl and amphetamines. Patient is given a dose of clonidine (initial blood pressure 140/100) and Zofran for symptoms in the emergency room. Case discussed with hospitalist, Dr. Gibson who is amenable with admission. Patient is agreeable to the regulations/rules of the ramp program. Patient is also given a nicotine patch in the emergency room Lab Data Attestation: I reviewed the patient's lab results. Labs: Laboratory Results - last 24 hr 05/21/25 05/21/25 12:28 12:35 WBC 6.6 RBC 4.67 Hgb 13.0 Hct 38.1 MCV 81.6 MCH 27.8 MCHC 34.1 RDW Std Deviation 40.5 RDW Coeff of Eladia 13.8 Plt Count 286 MPV 9.3 Immature Gran % (Auto) 0.200 Neut % (Auto) 74.5 H Lymph % (Auto) 20.1 Real % (Auto) 4.2 Eos % (Auto) 0.5 Baso % (Auto) 0.5 Absolute Neuts (auto) 4.9 Absolute Lymphs (auto) 1.33 Nucleated RBC % 0 Sodium 141 Potassium 3.9 Chloride 104 Carbon Dioxide 23.4 Anion Gap 14 BUN 13 Creatinine 0.60 L Estim Creat Clear Calc 93.40 Est GFR (MDRD) Non-Af 110 BUN/Creatinine Ratio 21.3 H Glucose 107 H Calcium 9.8 Total Bilirubin 0.61 AST 33 H ALT 43 H Alkaline Phosphatase 97 Total Protein 7.6 Albumin 4.2 Globulin 3.5 Albumin/Globulin Ratio 1.2 Serum , Qual NEGATIVE Urine Opiates Screen NEGATIVE U Buprenorphine Qual NEGATIVE Ur Oxycodone Screen NEGATIVE Urine Methadone Screen NEGATIVE Urine Fentanyl Screen PRESUMPTIVE POSITIVE Ur Barbiturates Screen NEGATIVE Ur Phencyclidine Scrn NEGATIVE Ur Amphetamines Screen PRESUMPTIVE POSITIVE U Benzodiazepines Scrn NEGATIVE Urine Cocaine Screen NEGATIVE U Cannabinoids Screen NEGATIVE Ethyl Alcohol < 10.1 Management Discussion w/another healthcare provider: Hospitalist Discharge Plan Dx/Rx/DC Orders Clinical Impression: Fentanyl use disorder, moderate, in early remission, dependence, Tobacco abuse, Chronic pain Disposition Disposition: Acute Care Hospital [facility] Discharge Date/Time: 05/21/25 13:55
[2025-05-21] MEDS: 0.9% Saline Lock 10 ML Syringe IV (14:26)
[2025-05-21] MEDS: 0.9% Normal Saline (1000mL) 1,000 ML 999 ML IV (14:26)
--- NOTE | 2025-05-21 17:18 | NURSING ---
pt vomiting on floor, emesis bag given to pt. pt threw it on floor and vomited on bed. offered pt to get cleaned up. pt declined at this time. sheets changed.
[2025-05-21 18:17] LABS: Free T3 11.1 pg/mL (2.18-3.98)
--- NOTE | 2025-05-21 20:11 | PCM.HOSP.N ---
Hospitalist Note Patient reported she has a history of hyperthyroidism when she was on the floor, TSH low, free T4 and free T3 elevated, previously was on 10 mg methimazole 6days/week and follows with Dr. Nir Ortiz, reviewed records, will restart patient on 10 mg of methimazole, dosing will likely need further adjusted at discretion of endocrinology and patient will need to follow closely on discharge for adjustments, will also start BB for symptom management
[2025-05-21] MEDS: proMETHazine 25 MG/ML Syringe IM (20:49)
[2025-05-21] MEDS: hydrOXYzine PAM 25 MG Capsule 50 MG PO (22:18)
--- OUTSIDE RECORDS SUMMARY | 2025-05-21 23:06 | XMS RPT_ITS | CCD ---
Author Organization [facility] Team Providers Care School Bus Inspector Name Role Phone Janessa Snyder MSN,SECURITY OFFICER Unavailable Unavailab Janessa Clinton MSN,SECURITY OFFICER Unavailable Unavailab Ge Tavarez Unavailable Unavailable Ge Jaeger Unavailable Unavailable Mil, Abeetta Unavailable Unavailable No Family Physician given Unavailable Unavai Ge Abraham Unavailable Unavailable Janessa Snyder MSN,SECURITY OFFICER Unavailable Unavailab Janessa Clinton MSN,SECURITY OFFICER Unavailable Unavailab le UNKNOWN, PROVIDER Attending Unavailable Lorrie Duenas Referring Unavailable PROVIDER, UNKNOWN Primary Care Unavailable KIRK SUH Attending Unavail able PROVIDER, UNKNOWN Referring Unavailable Abhijeet Melissa Primary Care Unavailable KIRK SUH Attending Unavail able Lorrie Duenas Referring Unavailable Lorrie Duenas Primary Care Unavailable Jose Aguilera DO Primary Care Provider Dr. Stephon Bay Primary Care Provider [phone] Dr. Stephon Bay Referring Provider [employer], TECHN[employer]IAN [employer] Jose Attending Provider [phone] [employer], TECHN[employer]IAN [employer] Jose Primary Care Provider [employer], [employer] Jose Referring Provider [phone] [employer], [employer] Jose Attending Provider [phone] Dr. Nir Ortiz Attending Provider [employer], TECHN[employer] Jose Primary Care Provider [employer], [employer] Jose Referring Provider [phone] Dr. Nir Ortiz Attending Provider [employer], TE[employer] Jose Primary Care Provider [employer], [employer] Jose Referring Provider MD Akhil White Attending Provider Dr. Nir Ortiz Attending Provider MD Akhil White Referring Provider MD Akhil White Other Provider Jose Aguilera DO Primary Care Provider Glenn [employer], TE[employer] Jose Primary Care Provider Glenn [employer], [employer] Jose Referring Provider Dr. Cortney Kang Attending Provider MD Akhil White Attending Provider MD Akhil White Referring Provider MD Akhil White Other Provider Dr. Ester Euceda Attending Provider OLGA ELIZONDO Attending Unavailable GLENN, ACTIVATED SLUDGE OPERATOR-C JOSE Primary Care Unavailable Lorrie Duenas MD Primary Care Provider [phone] Jose Aguilera DO Primary Care Provider BIANCA PEREA Referring Unavailab le JOSE AGUILERA A Primary Care Unavailable GOLDIE FLORESISON Referring Unavailable KIMBER FLORES Attending Unavailable BETH, LORRIE Primary Care Unavailable KIRK SUH Referring Unavailable KIRK SUH Attending Unavailable BETH, LORRIE Primary Care Unavailable KIMBER FLORES Attending Unavailable BETH, LORRIE Primary Care Unavailable Glenn [employer], Jose Primary Care Provider Unavailab Dr. Janet Corraels MD Attending Provider Dr. Janet Garcia MD Referring Provider Glenn [employer], Jose Primary Care Unavailable Janet Garcia Referring Unavailable Janet Garcia Attending Unavailable ALE, JOSE A Primary Care Unavailable DIDIER SMALL Attending Unavailable SAUER, R KENN Referring Unavailable SAUER, R KENN Referring Unavailable ALE JOSE A Primary Care Unavailable DIDIER SMALL Attending Unavailable ALEJOSE HANKINS A Primary Care Unavailable SAUER, R KENN Referring Unavailable SAUER, R KENN Attending Unavailable ALE, JOSE A Primary Care Unavailable INKKAUSHALT KIRK Referring Unavailable Glenn GUILLAUME, Jose Primary Care Provider Dr. Jodi Hilton DO Emergency Provider [phone] Arthur FARIAS, Dr. Saab Admit Provider Arthur FARIAS, Dr. Saab Attending Provider [phone] Allergies Allergy Classification Reported Allergen(s) Allergy Type Date of Onset Reaction(s) Facility (12 sources) Seasonal allergy; Translations: [SEASONAL ALLERGIES] Allergy to substance 07-28-2018 Itching [facility] Work Phone: Medications Current Medications Medication Drug Class(es) Dates Sig (Normalized) Sig (Original) ibuprofen 800 mg oral tablet (11 sources) Nonsteroidal Anti-inflammatory Drug Start: 10-07-2016 take 1 tablet by mouth every eight hours as needed ibuprofen (MOTRIN) 800 mg tablet Take 1 tablet by mouth every 8 hours as needed for Pain. FOR PAIN. 30 tablet 10/07/2016 Active Comment on above: Take 1 tablet by maile th every 8 hours as needed for Pain. FOR PAIN. meloxicam 7.5 mg oral tablet (20 sources) Nonsteroidal Anti-inflammatory Drug Start: 05-21-2025 take 1 tablet by mouth once daily Meloxicam 7.5 mg tablet Active 7.5 mg PO DAILY May 21, 2025 12:00am Start: 09-03-2016 End: 05-21-2025 take 1 tablet by mouth once daily for pain Meloxicam 15 mg tablet Discontinued 0 .ROUTE .COMPLEX 90 0 June 22, 2023 11:45am May 21, 2025 12:37pm take 1 tablet by mouth once daily if needed for pain Start: 11-13-2015 End: 10-13-2019 take 1 tablet by mouth once daily Meloxicam 7.5 mg tablet Discontinued 7.5 mg PO DAILY 90 1 June 06, 2019 5:14pm October 13, 2019 2:39pm methocarbamol 750 mg oral tablet (8 sources) Muscle Relaxant Start: 05-21-2025 take 1 tablet by mouth three times daily as needed for muscle spasms Methocarbamol 750 mg tablet Active 750 mg PO 3 TIMES DAILY NEEDED as needed for muscle spasm May 21, 2025 12:00am Start: 12-06-2024 End: 01-05-2025 take 1 tablet by mouth three times daily as needed for muscle spasms methocarbamol (Robaxin) 750 MG tablet Indications: Lumbar pain Take 1 tablet (750 mg) by mouth 3 times daily as needed for muscle spasms. 90 tablet 12/06/2024 Active methylPREDNISolone 4 mg oral tablet (7 sources) Corticosteroid Start: 12-06-2024 methylPREDNISolone (Medrol Dospak) 4 MG tablets Indications: Lumbar pain Take by mouth as directed by package instructions 21 tablet 12/06/2024 Active Nicotine (11 sources) Cholinergic Nicotinic Agonist Start: 10-08-2020 apply 21 mg transdermal route once daily, then apply 14 mg transdermal route once daily, then apply 7 mg transdermal route once daily Nicotine Active 1 PATCH TD daily October 08, 2020 3:15pm Apply 21 mg patch daily 6 weeks, then 14 mg patch daily 2 weeks, then 7 mg patch daily 2 weeks. Start: 10-08-2020 End: 09-15-2022 apply 21 mg transdermal route once daily, then apply 14 mg transdermal route once daily, then apply 7 mg transdermal route once daily Nicotine 21-14-7 mg/24 hr patch, TD daily, sequential Discontinued 1 NMA TD daily October 08, 2020 1:00am September 15, 2022 4:09pm Tobacco use Apply 21 mg patch daily 6 weeks, then 14 mg patch daily 2 weeks, then 7 mg patch daily 2 weeks. Start: 10-08-2020 End: 09-15-2022 apply 21 mg transdermal route once daily, then apply 14 mg transdermal route once daily, then apply 7 mg transdermal route once daily Nicotine Discontinued 1 PATCH TD daily October 08, 2020 1:00am September 15, 2022 4:09pm Apply 21 mg patch daily 6 weeks, then 14 mg patch daily 2 weeks, then 7 mg patch daily 2 weeks. Start: 10-08-2020 End: 09-15-2022 apply 21 mg transdermal route once daily, then apply 14 mg transdermal route once daily, then apply 7 mg transdermal route once daily Nicotine Discontinued 1 PATCH TD daily October 08, 2020 12:00am September 15, 2022 3:09pm Apply 21 mg patch daily 6 weeks, then 14 mg patch daily 2 weeks, then 7 mg patch daily 2 weeks. Start: 10-08-2020 apply 21 mg transder mal route once daily, then apply 14 mg transdermal route once daily, then apply 7 mg transdermal route once daily Nicotine Active 1 PATCH TD daily October 08, 2020 12:00am Apply 21 mg patch daily 6 weeks, then 14 mg patch daily 2 weeks, then 7 mg patch daily 2 weeks. Start: 10-08-2020 apply 21 mg transder mal route once daily, then apply 14 mg transdermal route once daily, then apply 7 mg transdermal route once daily Nicotine Active 1 PATCH TD daily October 08, 2020 1:00am Apply 21 mg patch daily 6 weeks, then 14 mg patch daily 2 weeks, then 7 mg patch daily 2 weeks. norethindrone 0.35 mg oral tablet (20 sources) Start: 06-08-2023 take 1 tablet by mouth once daily Norethindrone, Contraceptive, (JENCYCLA) 0.35 mg tablet Indications: Surveillance for control, oral contraceptives Take 1 tablet by mouth once daily. 84 tablet 3 06/08/2023 Active Start: 11-13-2015 take 1 mg by mouth once daily Norethindrone (Contraceptive) Active 1 MG PO DAILY November 13, 2015 1:00am Start: 11-13-2015 End: 05-21-2025 take 1 tablet by mouth once daily Norethindrone, Contraceptive, 0.35 mg tablet Indications: Surveillance for control, oral contraceptives Take 1 tablet by mouth once daily. 28 tablet 0 04/01/2023 Active Comment on above: take 1 tablet by maile th once daily Take 1 tablet by maile th once daily. Completed/Discontinued Medications Medication Drug Class(es) Dates Sig (Normalized) Sig (Original) acetaminophen 500 mg oral tablet (11 sources) Start: 10-02-2020 End: 05-21-2025 Acetaminophen 500 MG tablet Discontinued 500 mg PO EVERY 4 HOURS NEEDED as needed for Temp > 100.4 F 0 October 02, 2020 1:00am May 21, 2025 12:37pm Start: 10-02-2020 take 500 mg by mouth every four hours as needed Acetaminophen Active 500 MG PO EVERY 4 HOURS NEEDED October 02, 2020 1:00am acetaminophen 325 mg / oxyCODONE hydrochloride 5 mg oral tablet (11 sources) Opioid Agonist Start: 11-13-2015 End: 02-21-2019 Oxycodone-Acetaminophen 1 TABLET tablet Discontinued 1 {tbl} PO DAILY November 13, 2015 1:00am February 21, 2019 2:14pm Start: 11-13-2015 End: 02-21-2019 take 1 tablet by mouth once daily Oxycodone-Acetaminophen Discontinued 1 TABLET PO DAILY November 13, 2015 1:00am February 21, 2019 2:14pm busPIRone hydrochloride 5 mg oral tablet (11 sources) Start: 03-01-2019 End: 04-26-2019 take 1 tablet by mouth twice daily Buspirone 5 mg tablet Discontinued 5 mg PO TWICE A DAY 60 March 01, 2019 12:00am April 26, 2019 3:58pm cetirizine hydrochloride 10 mg oral tablet (20 sources) Histamine-1 Receptor Antagonist Start: 03-01-2019 End: 02-13-2020 take 1 capsule by mouth once daily Cetirizine (All Day Allergy (Cetirizine)) 10 mg capsule Discontinued 10 mg PO DAILY 90 June 06, 2019 5:14pm February 13, 2020 3:16pm Start: 10-07-2016 End: 02-21-2019 take 1 capsule by mouth once daily Cetirizine 10 MG capsule Discontinued 10 mg PO DAILY October 07, 2016 1:00am February 21, 2019 2:14pm Start: 09-04-2016 End: 04-09-2020 take 1 tablet by mouth once daily Cetirizine 10 mg tablet Discontinued 0 .ROUTE .COMPLEX 30 0 February 13, 2020 3:16pm April 09, 2020 10:11pm take 1 tablet by mouth once daily cholecalciferol 0.05 mg oral capsule (20 sources) Vitamin D Start: 02-10-2022 End: 05-21-2025 take 1 capsule by mouth once daily Cholecalciferol (Vitamin D3) (Vitamin D3) 50 mcg (2,000 unit) capsule Discontinued 0 .ROUTE .COMPLEX 90 0 July 20, 2023 6:50pm May 21, 2025 12:36pm take 1 capsule by mouth once daily Start: 02-10-2022 End: 03-30-2023 take 1 capsule by mouth once daily Cholecalciferol (Vitamin D3) 50 mcg (2,000 unit) capsule Discontinued 50 ug PO DAILY 90 3 February 10, 2022 12:00am March 30, 2023 12:04pm Comment on above: Take 1 capsule by [facility] once daily. DULoxetine 60 mg delayed release oral capsule (20 sources) Serotonin and Norepinephrine Reuptake Inhibitor Start: 10-04-19 End: 05-21-20 take 1 capsule by mouth once daily Duloxetine 60 mg capsule,delayed release(DR/EC) Discontinued 60 mg PO DAILY 30 October 04, 2023 8:18pm May 21, 2025 12:36pm Start: 05-11-2023 End: 10-04-2023 take 2 capsules by mouth once daily Duloxetine 30 mg capsule,delayed release(DR/EC) Discontinued 0 .ROUTE .COMPLEX May 11, 2023 4:51pm October 04, 2023 8:18pm take 2 capsules by mouth once daily Start: 01-26-2023 take 1 capsule by mo ut once daily DULoxetine (CYMBALTA) 30 mg capsule Take 30 mg by mouth once daily. 01/26/2023 Active Start: 01-26-2023 End: 05-11-2023 take 1 capsule by mouth once daily Duloxetine Discontinued 0 .ROUTE .COMPLEX January 26, 2023 11:49am May 11, 2023 4:51pm take 1 capsules by mouth once daily Start: 10-28-2022 End: 01-26-2023 take 1 capsule by mouth once daily Duloxetine Discontinued 0 .ROUTE .COMPLEX October 28, 2022 11:40am January 26, 2023 11:49am take 1 capsule by mouth once daily Start: 09-25-2022 End: 10-28-2022 take 1 capsule by mouth once daily Duloxetine Discontinued 0 .ROUTE .COMPLEX September 25, 2022 1:00pm October 28, 2022 11:40am take 1 capsule by mouth once daily Start: 09-25-2022 take 1 capsule by mo [facility] once daily Duloxetine Active 0 .ROUTE .COMPLEX September 25, 2022 12:00pm take 1 capsule by mouth once daily Start: 04-03-2022 End: 09-25-2022 take 1 capsule by mouth once daily Duloxetine 30 mg capsule,delayed release(DR/EC) Discontinued 30 mg PO DAILY April 03, 2022 12:00am September 25, 2022 1:00pm Comment on above: Take 30 mg by mouth once daily. Duloxetine 30 mg capsule,delayed release(DR/EC) (6 sources) Start: 01-26-2023 End: 05-11-2023 take 1 capsule by mouth once daily Duloxetine 30 mg capsule,delayed release(DR/EC) Discontinued 0 .ROUTE .COMPLEX 90 0 January 26, 2023 11:49am May 11, 2023 4:51pm take 1 capsules by mouth once daily Start: 10-28-2022 End: 01-26-2023 take 1 capsule by mouth once daily Duloxetine 30 mg capsule,delayed release(DR/EC) Discontinued 0 .ROUTE .COMPLEX 90 0 October 28, 2022 11:40am January 26, 2023 11:49am take 1 capsule by mouth once daily Start: 09-25-2022 End: 10-28-2022 take 1 capsule by mouth once daily Duloxetine 30 mg capsule,delayed release(DR/EC) Discontinued 0 .ROUTE .COMPLEX 90 0 September 25, 2022 1:00pm October 28, 2022 11:40am take 1 capsule by mouth once daily fluticasone propionate 0.05 mg/actuat metered dose nasal spray (16 sources) Corticosteroid Start: 05-22-2019 End: 08-04-2019 take 1 spray(s) nasal route once daily Fluticasone Propionate (Flonase Allergy Relief) 50 mcg/actuation spray,suspension Discontinued 2 SPRAY INTRANASAL DAILY 9.9 May 22, 2019 12:00am August 04, 2019 4:06pm administer into each nostril Start: 09-24-2016 End: 04-01-2023 take 50 ug nasal route once daily Fluticasone Propionate (Flonase Allergy Relief) 50 mcg/actuation spray,suspension Discontinued 2 NMA INTRANASAL DAILY 9.9 May 22, 2019 12:00am August 04, 2019 4:06pm administer into each nostril gabapentin 300 mg oral capsule (20 sources) Anti-epileptic Agent Start: 10-06-2022 End: 05-21-2025 take 1 capsule by mouth three times daily as needed for pain Gabapentin 300 mg capsule Discontinued 300 mg PO THREE TIMES A DAY as needed for Pain 90 0 May 11, 2023 4:50pm May 21, 2025 12:36pm Start: 10-08-2020 End: 10-06-2022 take 1 capsule by mouth every eight hours Gabapentin 300 mg capsule Discontinued 300 mg PO Q8H 90 1 September 07, 2022 11:38am October 06, 2022 2:52pm Start: 10-08-2020 End: 10-08-2020 Gabapentin 300 mg capsule Discontinued NMA PO October 08, 2020 1:00am October 08, 2020 3:17pm Start: 10-08-2020 End: 10-08-2020 Gabapentin Discontinued EACH PO October 08, 2020 1:00am October 08, 2020 3:17pm Start: 03-24-2019 End: 10-02-2020 take 1 capsule by mouth three times daily Gabapentin 300 mg capsule Discontinued 0 .ROUTE .COMPLEX 90 April 09, 2020 10:10pm September 29, 2020 10:33pm take 1 capsule by mouth three times a day Start: 10-07-2016 End: 02-21-2019 take 1 capsule by mouth once daily as needed Gabapentin 300 MG capsule Discontinued 300 mg PO DAILY NEEDED as needed for Not Specified October 07, 2016 1:00am February 21, 2019 2:14pm Comment on above: gabapentin 300 mg ca psule take 1 tablet by mouth every 8 hours methIMAzole 10 mg oral tablet (20 sources) Thyroid Hormone Synthesis Inhibitor Start: End: 2 take 1 tablet by mouth once daily Methimazole 5 mg tablet Discontinued 5 mg PO DAILY 30 April 09, 2022 12:00am May 29, 2022 6:05pm Start: 04-08-2022 End: 04-09-2022 Methimazole 10 mg tablet Dis continued 15 mg PO DAILY 45 April 08, 2022 12:56pm April 09, 2022 2:32pm Start: 04-08-2022 End: 04-09-2022 take 15 mg by mouth once daily Methimazole Discontinue d 15 MG PO DAILY April 08, 2022 12:56pm April 09, 2022 2:32pm Start: 02-06-2022 End: 05-21-2025 Methimazole 10 mg tablet Dis continued 10 mg PO .Mon-Sat 02 04March 16, 2023 5:14pm May 21, 2025 12:37pm Comment on above: Take 1 tablet by maile th once daily. mirtazapine 15 mg oral tablet (20 sources) Start: 10-08-19 End: 01-31-20 take 7.5 mg by mouth at bedtime Mirtazapine (Remeron) 15 mg tablet Discontinued 7.5 mg PO AT BEDTIME 30 February 03, 2021 10:03am January 30, 2022 2:45pm montelukast 10 mg oral tablet (11 sources) Leukotriene Receptor Antagonist Start: 03-01-20 End: 08-04-20 take 1 tablet by mouth once daily in the evening Montelukast 10 mg tablet Discontinued 10 mg PO EVERY EVENING 90 2 March 01, 2019 12:00am August 04, 2019 4:06pm omeprazole 20 mg delayed release oral capsule (5 sources) Proton Pump Inhibitor Start: 09-29-20 End: 04-01-20 omeprazole (PRILOSEC) 20 mg capsule pantoprazole 40 mg delayed release oral tablet (11 sources) Proton Pump Inhibitor Start: 11-13-19 End: 08-04-20 take 1 tablet by mouth once daily Pantoprazole 40 MG tablet Discontinued 40 mg PO DAILY November 13, 2015 1:00am August 04, 2019 3:34pm predniSONE 20 mg oral tablet (11 sources) Start: 05-22-20 End: 08-04-20 take 1 tablet by mouth once daily Prednisone 20 mg tablet Discontinued 20 mg PO DAILY 5 0 May 22, 2019 12:00am August 04, 2019 3:34pm SUMAtriptan 100 mg oral tablet (20 sources) Serotonin-1b and Serotonin-1d Receptor Agonist Start: 02-07-20 End: 05-21-20 Sumatriptan Succinate (Imitrex) 100 mg tablet Discontinued 0 PO .COMPLEX 14 2 2022 10:01am May 11, 2023 4:51pm take 1 tab at onset of headache Comment on above: sumatriptan 100 mg t ablet take 1 tablet by mouth AT ONSET OF HEADACHE triamcinolone acetonide 0.001 mg/mg topical ointment (11 sources) Corticosteroid Start: 05-26-20 End: 08-04-20 Triamcinolone Acetonide 0.1 % ointment Discontinued 1 NMA TOPICAL TWICE A DAY 80 0 May 26, 2019 12:00am August 04, 2019 3:34pm varenicline 1 mg oral tablet (11 sources) Partial Cholinergic Nicotinic Agonist Start: 03-01-20 End: 08-04-20 take 1 tablet by mouth once Varenicline Tartrate (Chantix Starting Month Box) 0.5 mg (11)- 1 mg (42) tablets,dose pack Discontinued 0 PO per package directions 53 0 March 01, 2019 12:00am August 04, 2019 3:35pm PO PER PKG DIR Problems Active Problems Problem Classification Problem Date Documented Da te Episodic/Chronic Acquired foot deformities (1 source) Bunion of unspecified foot; Translations: [Bunion] 05-11-2023 Episodic Administrative/social admission (1 source) Persons encountering health services in other specified circumstances; Translations: [Other reasons for seeking consultation] 05-11-2023 Episodic Anxiety disorders (20 sources) Mixed anxiety and depressive disorder; Translations: [Other specified anxiety disorders] Onset: 06-01-2018 Chronic Attention-deficit, conduct, and disruptive behavior disorders (11 sources) Obsessive behavior; Translations: [Obsessive-compulsiv e behavior] 09-29-2020 Episodic Contraceptive and procreative management (1 source) Oral contraception; Translations: [Encounter for surveillance of contraceptive pills] Episodic Esophageal disorders (7 sources) Gastro-esophageal reflux disease with esophagitis; Translations: [Gastroesophageal reflux disease with esophagitis] Onset: 06-01-2018 07-17-2022 Chronic Headache; including migraine (16 sources) Migraine; Translations: [Migraine, unspecified, not intractable, without status migrainosus] Chronic Menopausal disorders (4 sources) Menopausal flushing; Translations: [Menopausal and female climacteric states] 09-17-2022 Chronic Menstrual disorders (4 sources) Secondary amenorrhea; Translations: [Secondary amenorrhea] Chronic Mood disorders (1 source) Major depressive disorder, single episode, moderate; Translations: [Major depressive affective disorder, single episode, moderate] 05-11-2023 Chronic Osteoarthritis (2 sources) Unspecified osteoarthritis, unspecified site; Translations: [Osteoarthrosis, unspecified whether generalized or localized, site unspecified] Chronic Other acquired deformities (2 sources) Other forms of scoliosis, lumbar region; Translations: [Other forms of scoliosis, lumbar region] Onset: 09-30-2018 Chronic Other acquired deformities (4 sources) Scoliosis, unspecified; Translations: [Scoliosis, unspecified] Onset: 01-05-2019 Chronic Other acquired deformities (1 source) Scoliosis of cervical spine; Translations: [Other forms of scoliosis, cervical region] 01-23-2025 Chronic Other acquired deformities (9 sources) Scoliosis of lumbar spine; Translations: [Scoliosis, unspecified] Onset: 05-07-2025 03-20-2025 Chronic Other acquired deformities (2 sources) Spondylolisthesis, lumbosacral region; Translations: [Spondylolisthesis, lumbosacral region] Onset: 01-05-2019 Episodic Other acquired deformities (8 sources) Lumbar spondylolisthesis; Translations: [Spondylolisthesis, lumbar region] 12-06-2024 Episodic Other bone disease and musculoskeletal deformities (9 sources) Idiopathic scoliosis of thoracic and lumbar spine; Translations: [Other idiopathic scoliosis, thoracolumbar region] Onset: 01-10-2025 12-06-2024 Chronic Other bone disease and musculoskeletal deformities (7 sources) Adolescent idiopathic scoliosis of thoracolumbar spine; Translations: [Adolescent idiopathic scoliosis, thoracolumbar region] Onset: 09-08-2018 07-17-2022 Chronic Other bone disease and musculoskeletal deformities (4 sources) Adolescent idiopathic scoliosis of lumbar spine; Translations: [Adolescent idiopathic scoliosis, lumbar region] 03-20-2025 Chronic Other bone disease and musculoskeletal deformities (1 source) Other idiopathic scoliosis, thoracolumbar region; Translations: [Other idiopathic scoliosis, thoracolumbar region] Onset: 01-10-2025 Chronic Other bone disease and musculoskeletal deformities (1 source) Adolescent idiopathic scoliosis, lumbar region; Translations: [Adolescent idiopathic scoliosis of lumbar region] Onset: 04-03-2025 Chronic Other connective tissue disease (6 sources) History of lumbar fusion; Translations: [Arthrodesis status] 12-06-2024 Episodic Other connective tissue disease (1 source) History of fusion of thoracic spine; Translations: [Arthrodesis status] 01-19-2025 Episodic Other connective tissue disease (3 sources) Arthrodesis status; Translations: [Arthrodesis status] Onset: 01-10-2025 Episodic Other gastrointestinal disorders (18 sources) Irritable bowel syndrome; Translations: [Irritable bowel syndrome without diarrhea] Onset: 06-01-2018 09-29-2020 Chronic Other nervous system disorders (3 sources) Carpal tunnel syndrome; Translations: [Carpal tunnel syndrome, right upper limb] 05-10-2023 Chronic Other nervous system disorders (2 sources) Carpal tunnel syndrome, right upper limb; Translations: [Carpal tunnel syndrome] Chronic Other nervous system disorders (1 source) Carpal tunnel syndrome, left upper limb; Translations: [Carpal tunnel syndrome] 07-15-2023 Chronic Other nervous system disorders (7 sources) Disturbance of attention; Translations: [Attention and concentration deficit] Onset: 07-28-2018 07-17-2022 Chronic Other nervous system disorders (2 sources) Carpal tunnel syndrome of right wrist; Translations: [Carpal tunnel syndrome, right upper limb] 05-10-2023 Chronic Other nervous system disorders (2 sources) Carpal tunnel syndrome of left wrist; Translations: [Carpal tunnel syndrome, left upper limb] 07-15-2023 Chronic Other nervous system disorders (9 sources) Paresthesia of upper limb; Translations: [Paresthesia of skin] 05-10-2023 Episodic Other nervous system disorders (4 sources) Paresthesia of skin; Translations: [Disturbance of skin sensation] Episodic Other non-traumatic joint disorders (10 sources) Ankle pain; Translations: [Pain in right ankle and joints of right foot] 05-11-2023 Episodic Other non-traumatic joint disorders (9 sources) Multiple joint pain; Translations: [Pain in unspecified joint] 04-03-2022 Episodic Other non-traumatic joint disorders (4 sources) Pain in unspecified joint; Translations: [Pain in joint, multiple sites] Episodic Other non-traumatic joint disorders (1 source) Pain in right ankle and joints of right foot; Translations: [Pain in joint, ankle and foot] 05-11-2023 Episodic Other screening for suspected conditions (not mental disorders or infectious disease) (7 sources) Patient encounter status; Translations: [Encounter for screening mammogram for malignant neoplasm of breast] Episodic Other upper respiratory disease (18 sources) Seasonal allergy; Translations: [Other seasonal allergic rhinitis] Onset: 06-01-2018 09-29-2020 Chronic Residual codes; unclassified (11 sources) Tobacco user; Translations: [Tobacco use] 03-01-2019 Episodic Residual codes; unclassified (1 source) Immunization not carried out because of patient refusal; Translations: [Vaccination not carried out because of patient refusal] 05-11-2023 Episodic Residual codes; unclassified (2 sources) Other specified postprocedural states; Translations: [Other specified postprocedural states] Onset: 09-30-2018 Spondylosis; intervertebral disc disorders; other back problems (20 sources) Other spondylosis, lumbar region; Translations: [Degeneration of lumbar intervertebral disc] Onset: 09-30-2018 12-06-2024 Chronic Spondylosis; intervertebral disc disorders; other back problems (20 sources) Radiculopathy, lumbar region; Translations: [Back problem] Onset: 09-08-2018 05-11-2023 Episodic Substance-related disorders (16 sources) Opioid withdrawal; Translations: [Opioid dependence with withdrawal] Onset: 05-19-2025 05-11-2023 Chronic Substance-related disorders (11 sources) Opioid withdrawal; Translations: [Opioid use, unspecified with withdrawal] 05-10-2023 Episodic Thyroid disorders (20 sources) Hyperthyroidism; Translations: [Thyrotoxicosis, unspecified without thyrotoxic crisis or storm] Chronic Unclassified (1 source) Unknown / UNK(Unknown) Onset: 04-01-2017 Unclassified (1 source) Low back pain, unspecified; Translations: [Low back pain, unspecified] Onset: 01-10-2025 Unclassified (1 source) Other intervertebral disc degeneration, 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; Translations: [Other intervertebral disc degeneration, 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] Onset: 01-10-2025 Past or Other Problems Problem Classification Problem Date Documented Date Episodic/Chronic Other acquired deformities (7 sources) Spondylolysis; Translations: [Spondylolysis, site unspecified] Onset: 06-01-2018 07-17-2022 Episodic Other acquired deformities (2 sources) Spondylolisthesis, lumbar region; Translations: [Spondylolisthesis, lumbar region] Onset: 01-10-2025 Episodic Screening and history of mental health and substance abuse codes (7 sources) Personal history of other mental and behavioral disorders; Translations: [Personal history of other mental disorders] Onset: 06-01-2018 07-17-2022 Episodic Unclassified (1 source) FOLLOW UP Onset: 04-01-2017 Unclassified (6 sources) History of lumbar fusion 12-06-2024 Unclassified (1 source) History of fusion of thoracic spine 01-19-2025 Unclassified (1 source) Low back pain, unspecified; Translations: [Low back pain, unspecified] Onset: 01-10-2025 Unclassified (1 source) Other intervertebral disc degeneration, 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; Translations: [Other intervertebral disc degeneration, 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] Onset: 01-10-2025 Results Test Name Value Interpretation Reference Range Facility Absolute lymphocyte countOrd ered By: Jodi Hilton on 05-21-2025 Lymphocytes Auto (Unsp spec) [#/Vol] 1.33 10*3/uL 0.83-4.51 [facility] Absolute neutrophil countOrd ered By: Jodi Hilton on 05-21-2025 Neutrophils (Bld) [#/Vol] 4.9 10*3/uL 2.0-7.7 [facility] Amphetamine detection with 1 000 ng/mL as cutoffOrdered By: Jodi Hilton on 05-21-2025 Amphetamines Screen method >1000 ng/mL Ql (U) Positive <1000 ng/mL [facility] Comment on above: If confirmation test ing is needed, a separate order will be required to send out testing to the reference laboratory. Amphetamines Screen method >1000 ng/mL Ql (U) Negative < 200 ng/mL [facility] Anion gap in Serum or Plasma Ordered By: Jodi Hilton on 05-21-2025 Anion gap [Moles/Vol] 14 mmol/L 5-15 [facility] Automated lymphocyte count a s percentage of total leukocytesOrdered By: Jodi Hilton on 05-21-2025 Lymphocytes/100 WBC Auto (Unsp spec) 20.1 % 19-41 [facility] BUN/creatinine ratioOrdered By: Jodi Hilton on 05-21-2025 Urea nitrogen/Creatinine [Mass ratio] 21.3 mg/mg High 10-20 [facility] Basophil percentageOrdered B y: Jodi Hilton on 05-21-2025 Basophils/100 WBC (Bld) 0.5 % 0-1 [facility] Bilirubin, totalOrdered By: Jodi Hilton on 05-21-2025 Bilirubin [Mass/Vol] 0.61 mg/dL 0.00-1.30 [facility] Carbon dioxide, total [Moles /volume] in Central venous bloodOrdered By: Jodi Hilton on 05-21-2025 CO2 [Moles/Vol] 23.4 mmol/L 21.0-32.0 [facility] Chloride assayOrdered By: Kendall Hilton on 05-21-2025 Chloride [Moles/Vol] 104 mmol/L 98-108 [facility] Eosinophil percentageOrdered By: Jodi Hilton on 05-21-2025 Eosinophils/100 WBC (Bld) 0.5 % 0-5 [facility] Erythrocyte distribution wid th ratioOrdered By: Jodi Hilton on 05-21-2025 Erythrocyte distribution width (RBC) [Ratio] 13.8 % 11.6-14.6 [facility] Erythrocyte distribution wid th standard deviationOrdered By: Jodi Hilton on 05-21-2025 Erythrocyte distribution width (RBC) [Ratio] 40.5 fl 35.1-43.9 [facility] Glomerular filtration rate ( GFR) estimation/1.73 sq m using serum, plasma, or whole bOrdered By: Jodi Hilton on 05-21-2025 GFR/1.73 sq M.predicted among non-blacks MDRD (S/P/Bld) [Vol rate/Area] 110 mL/min/{1.73_m2} >60 [facility] Comment on above: mL/min/1.73m2 CKD-EP I Creatinine Equation (2020) Hematocrit Auto (Bld) [Volum e fraction]Ordered By: Jodi Hilton on 05-21-2025 Hematocrit (Bld) [Volume fraction] 38.1 % 37-47 [facility] Hemoglobin measurementOrdere d By: Jodi Hilton on 05-21-2025 Hemoglobin (Bld) [Mass/Vol] 13.0 g/dL 12.0-15.0 [facility] Immature granulocytes/100 WB C Auto (Bld)Ordered By: Jodi Hilton on 05-21-2025 Immature granulocytes/100 WBC (Bld) 0.200 % 0.0-0.9 [facility] Comment on above: IG% - Immature Granu locytes (promyelocytes, myelocytes and metamyelocytes) > 1% indicates that a LEFT SHIFT is Present. Laboratory - Chemistry and C hemistry - challengeOrdered By: Jodi Hilton on 05-21-2025 AST [Catalytic activity/Vol] 33 U/L High <32 [facility] MCV (mean corpuscular volume ) determinationOrdered By: Jodi Hilton on 05-21-2025 MCV (RBC) [Entitic vol] 81.6 fL 81-99 [facility] Mean corpuscular hemoglobin (MCH) determinationOrdered By: Jodi Hilton on 05-21-2025 MCH (RBC) [Entitic mass] 27.8 pg 27.0-32.0 [facility] Mean corpuscular hemoglobin concentration (MCHC) determinationOrdered By: Jodi Hilton on 05-21-2025 MCHC (RBC) [Mass/Vol] 34.1 g/dL 32-36 [facility] Mean platelet volume determi nationOrdered By: Jodi Hilton on 05-21-2025 Platelet mean volume (Bld) [Entitic vol] 9.3 fL 6.2-12.0 [facility] Monocyte percentageOrdered B y: Jodi Hilton on 05-21-2025 Monocytes/100 WBC (Bld) 4.2 % 0-10 [facility] Neutrophil percentageOrdered By: Jodi Hilton on 05-21-2025 Neutrophils/100 WBC (Bld) 74.5 % High 47-70 [facility] No Panel InformationOrdered By: Jodi Hilton on 05-21-2025 Urine Buprenorphine Qualitative Negative < 200 ng/mL [facility] Urine Oxycodone Screen Negative < 100 ng/mL [facility] Nucleated red blood cell per centageOrdered By: Jodi Hilton on 05-21-2025 Nucleated RBC/100 WBC (Bld) [Ratio] 0 % 0-5 [facility] Platelet countOrdered By: Kendall Hilton on 05-21-2025 Platelets (Bld) [#/Vol] 286 10*3/uL 150-450 [facility] Potassium measurement (mass/ volume)Ordered By: Jodi Hilton on 05-21-2025 Potassium (Unsp spec) [Mass/Vol] 3.9 mmol/L 3.3-5.1 [facility] Quantitative urine opiates m easurementOrdered By: Jodi Hilton on 05-21-2025 Opiates Ql (U) Negative < 300 ng/mL [facility] RBC Auto (Bld) [#/Vol]Ordere d By: Jodi Hilton on 05-21-2025 RBC (Bld) [#/Vol] 4.67 10*6/uL 4.2-5.4 [facility] Screening urine fentanyl paul surementOrdered By: Jodi Hilton on 05-21-2025 fentaNYL Screen Ql (U) Positive [facility] Comment on above: If confirmation test ing is needed, a separate order will be required to send out testing to the reference laboratory. Serum beta-hCG test, qualita tiveOrdered By: Jodi Hilton on 05-21-2025 Beta HCG ( test) Ql Negative [facility] Serum creatinine measurement (mass/volume)Ordered By: Jodi Hilton on 05-21-2025 Creatinine [Mass/Vol] 0.60 mg/dL Low 0.70-1.20 [facility] Serum globulin measurementOr dered By: Jodi Hilton on 05-21-2025 Globulin (S) [Mass/Vol] 3.5 g/dL 2.2-4.2 [facility] Serum glucose measurement (m ass/volume)Ordered By: Jodi Hilton on 05-21-2025 Glucose [Mass/Vol] 107 mg/dL High 70-99 [facility] Serum or plasma alanine contreras otransferase (ALT) measurementOrdered By: Jodi Hilton on 05-21-2025 ALT [Catalytic activity/Vol] 43 U/L High <35 [facility] Serum or plasma albumin anita urement (mass/volume)Ordered By: Jodi Hilton on 05-21-2025 Albumin [Mass/Vol] 4.2 g/dL 3.5-5.0 [facility] Serum or plasma albumin/glob ulin mass ratioOrdered By: Jodi Hilton on 05-21-2025 Albumin/Globulin [Mass ratio] 1.2 {ratio} 0.9-2.4 [facility] Serum or plasma alkaline anmol sphatase measurementOrdered By: Jodi Hilton on 05-21-2025 ALP [Catalytic activity/Vol] 97 U/L 35-104 [facility] Serum or plasma calcium anita urement (mass/volume)Ordered By: Jodi Hilton on 05-21-2025 Calcium [Mass/Vol] 9.8 mg/dL 7.6-11.0 [facility] Serum or plasma ethanol anita urement (mass/volume)Ordered By: Jodi Hilton on 05-21-2025 Ethanol [Mass/Vol] mg/dL <10.1 [facility] Comment on above: This test is for med ical purposes only. The legal definition of intoxication varies according to local law. Serum or plasma urea nitroge n measurement (mass/volume)Ordered By: Jodi Hilton on 05-21-2025 Urea nitrogen [Mass/Vol] 13 mg/dL 4-19 [facility] Sodium levelOrdered By: Pili Hilton on 05-21-2025 Sodium [Moles/Vol] 141 mmol/L 133-145 [facility] Total proteinOrdered By: Elif Hilton on 05-21-2025 Protein [Mass/Vol] 7.6 g/dL 5.9-8.4 [facility] Urine benzodiazepine levelOr dered By: Jodi Hilton on 05-21-2025 Benzodiazepines Ql (U) Negative < 200 ng/mL [facility] Urine cocaine levelOrdered B y: Jodi Hilton on 05-21-2025 Cocaine Ql (U) Negative < 300 ng/mL [facility] Urine jibes-7-zmsftjzborgrsw abinol (THC) measurementOrdered By: Jodi Hilton on 05-21-2025 Cannabinoids Screen Ql (U) Negative < 50 ng/mL [facility] Urine phencyclidine (PCP) de tectionOrdered By: Jodi Hilton on 05-21-2025 Phencyclidine Ql (U) Negative < 25 ng/mL [facility] White blood cell (WBC) count Ordered By: Jodi Hilton on 05-21-2025 WBC (Bld) [#/Vol] 6.6 10*3/uL 4.4-11.0 [facility] CNTHERAPYon 05-18-2025 CNTHERAPY OT/PT/Speech Visit (PTWS) KATIE SMITH ([id number]) 1975 F Date Time Provider Department 05/18/25 3:15 PM DIDIER SMALL Date Time Provider Department Center 05/18/2025 3:15 PM [id number], COLIN PTTERRANCE [facility] Reason for Visit: Physical Therapy [503] Primary Visit Diagnosis:Scoliosis of lumbar spine, unspecified scoliosis type [M41.9] Allergies As of Date: 05/18/2025 Noted Allergy Reaction SEASONAL ALLERGIES 07/28/2018 9 - Itching Date Reviewed: 03/20/2025 Reviewed by: Cecilia Murdock MA - Fully Assessed Prescriptions as of 05/18/2025 - Norethindrone, Contraceptive, (JENCYCLA) 0.35 mg tablet Take 1 tablet by mouth once daily. - gabapentin (NEURONTIN) 300 mg capsule gabapentin 300 mg capsule take 1 tablet by mouth every 8 hours - SUMAtriptan (IMITREX) 100 mg tablet sumatriptan 100 mg tablet take 1 tablet by mouth AT ONSET OF HEADACHE - DULoxetine (CYMBALTA) 30 mg capsule Take 30 mg by mouth once daily. - methIMAzole (TAPAZOLE) 10 mg tablet Take 1 tablet by mouth once daily. - Cholecalciferol, Vitamin D3, 50 mcg (2,000 unit) cap Take 1 capsule by mouth once daily. - ibuprofen (MOTRIN) 800 mg tablet Take 1 tablet by mouth every 8 hours as needed for Pain. FOR PAIN. - cetirizine (ZYRTEC) 10 mg tablet - meloxicam (MOBIC) 15 mg tablet Normal [facility] L3410.9992on 05-17-2025 [facility] Misc. COMMENT Normal . [facility] Comment on above: Order Comment: Speci men Comment: QNS: UNABLE TO COMPLETE TEST [id number] [facility] RT Result Comment: Test Ordered: [id number] Amphetamines Screen, Urine Note: ng/mL UI See Final Results Reference Range: Lgwoxq=383 Amphetamine test includes Amphetamine and Methamphetamine. Amphetamines Negative UI Reference Range: Cwvcav=648 Amphetamine test includes Amphetamine and Methamphetamine. Barbiturates Negative ng/mL UI Reference Range: Msuxok=435 Benzodiazepines Negative ng/mL UI Reference Range: Eaijai=444 Cocaine (Metab.), Urine Negative ng/mL UI Reference Range: Hocapb=172 Opiates Negative ng/mL UI Reference Range: Qklomi=234 Opiate test includes Codeine, Morphine, Hydromorphone, Hydrocodone. 6-Acetylmorphine, Urine Negative ng/mL UI Reference Range: Cutoff=10 Oxycodone/Oxymorphone, Urine Negative ng/mL UI Reference Range: Pgcuvn=217 Test includes Oxycodone and Oxymorphone PCP, Urine Negative ng/mL UI Reference Range: Cutoff=25 Methadone Screen, Urine Negative ng/mL UI Reference Range: Lmqbqt=637 Propoxyphene, Urine Negative ng/mL UI Reference Range: Ibvvrg=690 Fentanyl, Urine Note: ng/mL UI See Final Results Reference Range: Cutoff=2.0 Test includes Fentanyl and Norfentanyl This test was developed and its performance characteristics determined by [employer]. It has not been cleared or approved by the Food and Drug Administration. Fentanyl/Norfentanyl Comment UI Reference Range: Cutoff=2.0 Screen positive, quantity not sufficient for further testing. Test includes Fentanyl and Norfentanyl Fentanyl Comment UI Reference Range: . Screen positive, quantity not sufficient for further testing. Fentanyl Conf, MS, UR Comment ng/mL UI Reference Range: Cutoff=0.5 Screen positive, quantity not sufficient for further testing. CONTACTED [facility] AT YOUR FACILITY ON 05-17-2025 Norfentanyl Comment UI Reference Range: . Screen positive, quantity not sufficient for further testing. Norfentanyl Conf, MS, UR Comment ng/mL UI Reference Range: Cutoff=2.0 Screen positive, quantity not sufficient for further testing. CONTACTED [facility] AT YOUR FACILITY ON 05-17-2025 Tramadol Negative ng/mL UI Reference Range: Gtwpue=391 Buprenorphine, Urine Negative ng/mL UI Reference Range: Cutoff=10 Creatinine, Urine 101.1 mg/dL UI Reference Range: 20.0-300.0 pH, Urine 8.5 UI Reference Range: 4.5-8.9 Performed at: [address] [id number] Ball Sorter: Edgar Montiel PhD, Phone: [phone] Performed at: UI - [facility] [address] [place], [place] [id number] Ball Sorter: Loren Ramirez PhD, Phone: [phone] Performed By: #### L 505.5000, L3410.9992 #### [facility] [place], [address] [id number] 05-07-2025 [id number] HNO ID: [id number] Author: DIDIER SMALL PT Service: ? Author Type: Physical Therapist Type: [id number] Filed: 05/07/2025 09:51 Note Text: [facility] Physical Therapy Plan of Care Certification Patient Name: Katie Smith : 1975 [facility] #: [id number] Date: 05/03/2025 To: Tyson Sauer MD From Therapist: Didier Small PT RE: Patient Certification/ Recertification Your review, approval and electronic signature are required in order to comply with Payor: Order Mapper MEDICAID / Plan: [place] BCBS MEDICAID OF [place] / Product Type: Medicaid / regulations. The identified Physical Therapy PLAN OF CARE for the patient is as follows: M41.9 Scoliosis of lumbar spine, unspecified scoliosis type (primary encounter diagnosis) PLAN OF CARE: Assessment: Katie Smith presents with diagnosis of history of adolescent idiopathic scoliosis and past fixation and hardware removal that interferes with standing, sitting, walking, stair negotiation, bending, physical activities, working, sleeping, bed mobility . The patient presents with impairments in ADL's, independence in exercise, overall function, posture, range of motion, strength, symptom management, and tissue tenderness. PROMIS? (Patient-Reported Outcomes Measurement Information System) scores were reviewed and identified as a rehabilitation concern. Prognosis for therapy is Fair due to: clinical presentation, chronic nature of impairments . The patient will benefit from skilled therapy services to meet the goals established for this plan of care as noted below. Classification Pain Mechanism Classification: Nociceptive Low Back Pain Classification: Movement Control Goals for Episode of Care: established 05/03/25 [place] in home exercise program. Patient will decrease pain rating by 2 points to meet minimal clinical important difference for numeric pain rating scale. Patient will improve pain free lumbar range of motion to minimal limitation or better to improve ability to perform ADLs/IADLs. Patient will perform household mgmt related activities with lag-la-qacxk restriction or pain/symptoms. Patient will endorse ability to sleep without pain waking her. Patient will improve static positioning with less pain or symptoms. Patient Goals: Alleviate Pain. Time Frame for Goals and Treatment : 06/18/25 Planned Interventions, Frequency, and Duration: Current Frequency: 1x/week Duration: 4 weeks Total Number of Visits Planned: 4 Planned Treatment Interventions: Therapeutic exercise (96769), Neuromuscular re-education (85469), Manual therapy (26423), Therapeutic activities (32353), Self-jail management (09902), Patient/Family/Caregiv er Education, Gait Training (73445), Body Mechanics Training PLAN FOR NEXT VISIT: Review, correct and progress HEP; NS STrength and core stability; scapular/postural stabilization prepping for surgery. Patient demonstrates good understanding of plan of care and treatment. The above goals and plan of care were discussed and agreed upon by patient/family. For further details regarding this patient refer to the Physical Therapy electronically documented visit dated 05/03/2025. Provider Attestation I have reviewed the treatment plan for Katie Smith, [facility]# [id number] for the period of 05/03/25 -- 06/22/25, established on 05/03/2025. Signature certifies the need for therapy services. Normal [facility] Amphetamine detection with 1 000 ng/mL as cutoffOrdered By: Janet Garcia on 05-04-2025 Amphetamines Screen method >1000 ng/mL Ql (U) Negative < 200 ng/mL [facility] No Panel InformationOrdered By: Janet Garcia on 05-04-2025 Urine Buprenorphine Qualitative Negative < 200 ng/mL [facility] Urine Oxycodone Screen Negative < 100 ng/mL [facility] Quantitative urine opiates m easurementOrdered By: Janet Garcia on 05-04-2025 Opiates Ql (U) Negative < 300 ng/mL [facility] Screening urine fentanyl paul surementOrdered By: Janet Garcia on 05-04-2025 fentaNYL Screen Ql (U) Positive [facility] Comment on above: If confirmation test ing is needed, a separate order will be required to send out testing to the reference laboratory. Urine Drug Screen (VISTA)on 05-04-2025 AMPHETAMINES Negative Normal <1000 ng/mL [facility] Comment on above: Order Comment: N Performed By: #### L 505.5000, L3410.9992 #### [facility] [address] [place], [address] BARBITIURATES Negative Normal < 200 ng/mL [facility] Comment on above: Order Comment: N Performed By: #### L 505.5000, L3410.9992 #### [facility] [address] [facility] [address] BENZODIAZIPINE Negative Normal < 200 ng/mL [facility] Comment on above: Order Comment: N Performed By: #### L 505.5000, L3410.9992 #### [facility] [address] [place], [place], [facility] BUP Ur Drug Scr Negative Normal < 200 ng/mL [facility] Comment on above: Order Comment: N Performed By: #### L 505.5000, L3410.9992 #### [facility] [address] [place], [address] COCAINE Negative Normal < 300 ng/mL [facility] Comment on above: Order Comment: N Performed By: #### L 505.5000, L3410.9992 #### [facility] [address] [place], [address] Fentanyl Positive Normal [facility] Comment on above: Order Comment: N Result Comment: If c onfirmation testing is needed, a separate order will be required to send out testing to the reference laboratory. Performed By: #### L 505.5000, L3410.9992 #### [facility] [address] [place], [address] METHADONE Negative Normal < 300 ng/mL [facility] Comment on above: Order Comment: N Performed By: #### L 505.5000, L3410.9992 #### [facility] [address] [place], [address] OPIATES Negative Normal < 300 ng/mL [facility] Comment on above: Order Comment: N Performed By: #### L 505.5000, L3410.9992 #### [facility] [address] [place], [address] OXYCODONE Negative Normal < 100 ng/mL [facility] Comment on above: Order Comment: N Performed By: #### L 505.5000, L3410.9992 #### [facility] [address] [place], [address] PCP Negative Normal < 25 ng/mL [facility] Comment on above: Order Comment: N Performed By: #### L 505.5000, L3410.9992 #### [facility] [address] [place], [address] THC Negative Normal < 50 ng/mL [facility] Comment on above: Order Comment: N Performed By: #### L 505.5000, L3410.9992 #### [facility] [address] [place], [address] Urine benzodiazepine levelOr dered By: Janet Basali on 05-04-2025 Benzodiazepines Ql (U) Negative < 200 ng/mL [facility] Urine cocaine levelOrdered B y: Janet Basali on 05-04-2025 Cocaine Ql (U) Negative < 300 ng/mL [facility] Urine luvqc-6-jxiypyutdkhqmv abinol (THC) measurementOrdered By: Janet Montieroi on 05-04-2025 Cannabinoids Screen Ql (U) Negative < 50 ng/mL [facility] Urine phencyclidine (PCP) de tectionOrdered By: Janet Basali on 05-04-2025 Phencyclidine Ql (U) Negative < 25 ng/mL [facility] CNTHERAPYon 05-03-2025 CNTHERAPY OT/PT/Speech Visit (PTWS) KATIE SMITH ([id number]) 1975 F Date Time Provider Department 05/03/25 3:45 PM DIDIER SMALL PTWS Date Time Provider Department [place] 05/03/2025 3:45 PM [id number], COLIN PTWS Sheyla Arnold Reason for Visit: PT Jenaal [747] Primary Visit Diagnosis:Scoliosis of lumbar spine, unspecified scoliosis type [M41.9] Allergies As of Date: 05/03/2025 Noted Allergy Reaction SEASONAL ALLERGIES 07/28/2018 9 - Itching Date Reviewed: 03/20/2025 Reviewed by: Cecilia Murdock MA - Fully Assessed Prescriptions as of 05/07/2025 - Norethindrone, Contraceptive, (JENCYCLA) 0.35 mg tablet Take 1 tablet by mouth once daily. - gabapentin (NEURONTIN) 300 mg capsule gabapentin 300 mg capsule take 1 tablet by mouth every 8 hours - SUMAtriptan (IMITREX) 100 mg tablet sumatriptan 100 mg tablet take 1 tablet by mouth AT ONSET OF HEADACHE - DULoxetine (CYMBALTA) 30 mg capsule Take 30 mg by mouth once daily. - methIMAzole (TAPAZOLE) 10 mg tablet Take 1 tablet by mouth once daily. - Cholecalciferol, Vitamin D3, 50 mcg (2,000 unit) cap Take 1 capsule by mouth once daily. - ibuprofen (MOTRIN) 800 mg tablet Take 1 tablet by mouth every 8 hours as needed for Pain. FOR PAIN. - cetirizine (ZYRTEC) 10 mg tablet - meloxicam (MOBIC) 15 mg tablet Optical Brightener Maker Helper: Therapy (PT/OT/Speech/Resp) ID: [id number] 05/03/2025 4:27 PM Author: DIDIER SMALL Signed by DIDIER SMALL PT on 05/03/2025 at 4:27 PM Document text: Program_ID:[id number] Access Code: [email or web address] URL: [email or web address] Date: 05-03-2025 Prepared By: Didier Small Program Notes Exercises - Supine Lower Trunk Rotation - 2 x daily - 7 x weekly - 2 sets - 10 reps - Shoulder extension with resistance - Neutral - 2 x daily - 7 x weekly - 2 sets - 10-15 reps - Standing Shoulder Row with Anchored Resistance - 2 x daily - 7 x weekly - 2 sets - 10-15 reps - Supine Transversus Abdominis Bracing - Hands on Ground - 2 x daily - 7 x weekly - 2 sets - 10 reps -- Normal [facility] THERAPY NTon 05-03-2025 THERAPY NT HNO ID: [id number] Author: DIDIER SMALL PT Service: ? Author Type: Physical Therapist Type: Therapy (PT/OT/Speech/Resp) Filed: 05/03/2025 16:27 Note Text: Program_ID:[id number] Access Code: [email or web address] URL: [email or web address] Date: 05-03-2025 Prepared By: Didier Small Program Notes Exercises - Supine Lower Trunk Rotation - 2 x daily - 7 x weekly - 2 sets - 10 reps - Shoulder extension with resistance - Neutral - 2 x daily - 7 x weekly - 2 sets - 10-15 reps - Standing Shoulder Row with Anchored Resistance - 2 x daily - 7 x weekly - 2 sets - 10-15 reps - Supine Transversus Abdominis Bracing - Hands on Ground - 2 x daily - 7 x weekly - 2 sets - 10 reps Normal [facility] 36on 04-24-2025 36 Called patient regarding disability paperwork that was received. Informed her we only do short term disability following surgery. Since she was referred to another provider we would not fill it out for her. She voiced understanding. Normal [facility] CT LUMBAR SPINE WO IVCONon 0 04-03-2025 CT LUMBAR SPINE WO IVCON * * *Final Report* * * DATE OF EXAM: Apr 03 2025 3:55PM [facility] 0508 - CT LUMBAR SPINE WO IVCON / PROCEDURE REASON: multiple diagnoses * * * * Physician Interpretation * * * * EXAMINATION: CT LUMBAR SPINE WO IVCON CLINICAL HISTORY: Adolescent idiopathic scoliosis of lumbar region S/P lumbar fusion TECHNIQUE: Spiral, high resolution axial unenhanced images were obtained from the thoracolumbar junction to the sacrum with sagittal and coronal planar reconstructions. MQ: CTLSPWO_3 CT Radiation dose: Integrated Dose-Length Product (DLP) for this visit = 739 mGy*cm. CT Dose Reduction Employed: Automated exposure control(AEC) and iterative recon COMPARISON: Radiograph from 05/25/2016 RESULT: Counting reference: Lumbosacral junction. For the purposes of this report, assume 5 lumbar-type vertebrae where the lowest segment bearing normal paired ribs is T12. The top of the iliac crest aligns with L4-5 on the left and the lower third of L5 on the right due to underlying scoliosis. Anatomic variant: None. Water Conservation Specialist (topogram) images: No additional findings. Alignment: Moderate to marked levoconvex curvature centered at L2-3. Mild compensatory dextroconvex curvature centered at L4-5. Grade 1 L3 on L4 and L4 and L5 left lateral listhesis. Grade 2 L5 on S1 anterolisthesis, and the setting of left-sided spondylolysis. Bone marrow /fracture: Multilevel fused laminae spanning the imaged thoracic spine through L3. Chronic left L5 pars defect. Multilevel chronic degenerative bony changes including endplate sclerosis, osteophytes and Schmorl's nodes, facet joint hypertrophy and subarticular cystic change. Paraspinal soft tissues: The paraspinal soft tissues planes are maintained. Lower thoracic spine: The visualized lower thoracic bony canal and foramina are patent. L1-L2: Canal and foramina are patent. L2-L3: Canal and foramina are patent L3-L4: Disc at less than bulging endplate osteophytes and facet hypertrophy. Mild narrowing of the spinal canal with moderate right and mild left neural foraminal narrowing. L4-L5: Facet hypertrophy and disc osteophyte complex. Mild narrowing of the spinal canal. Moderate right and mild left neural foraminal stenosis. L5-S1: Grade 2 anterolisthesis in the setting of a left L5 pars defects. Severe left and mild right neural foraminal stenosis. Mild eccentric left spinal canal stenosis. Sacrum and iliac wings: Degenerative change bilateral sacroiliac joints. IMPRESSION: Severe scoliosis and degenerative changes as described. Posterior element fusion from the visualized thoracic spine through L3 noting advanced degenerative changes below the fusion at L3-4. Chronic left L5 pars defect with grade 2 L5 on S1 anterolisthesis. Multilevel up to mild narrowing of the spinal canal. Multilevel neural foraminal stenosis most severe at L5-S1 on the left. Anatomic Lumbar Variant: None. Assume 5 lumbar-type vertebrae where the lowest segment bearing normal paired ribs is T12. The top of the iliac crest aligns with L4-5 on the left and the lower third of L5 on the right due to underlying scoliosis. Automatic Profile Sander Operator: [facility] Transcribe Date/Time: Apr 03 2025 4:17P Dictated by : PHILIP CLEMENT MD This examination was interpreted and the report reviewed and electronically signed by: PHILIP CLEMENT MD on Apr 03 2025 4:30PM EST [id number] Normal [facility] CT Lumbar spine WO contrasto n 04-03-2025 IMPRESSION: Severe scoliosis and degenerative changes as described. Posterior element fusion from the visualized thoracic spine through L3 noting advanced degenerative changes below the fusion at L3-4. Chronic left L5 pars defect with grade 2 L5 on S1 anterolisthesis. Multilevel up to mild narrowing of the spinal canal. Multilevel neural foraminal stenosis most severe at L5-S1 on the left. Anatomic Lumbar Variant: None. Assume 5 lumbar-type vertebrae where the lowest segment bearing normal paired ribs is T12. The top of the iliac crest aligns with L4-5 on the left and the lower third of L5 on the right due to underlying scoliosis. Automatic Profile Sander Operator: [facility] Transcribe Date/Time: Apr 03 2025 4:17P Dictated by : PHILIP CLEMENT MD This examination was interpreted and the report reviewed and electronically signed by: PHILIP CLEMENT MD on Apr 03 2025 4:30PM EST DIVISION OF RADIOLOGY * * *Final Report* * * DATE OF EXAM: Apr 03 2025 3:55PM [facility] 0508 - CT LUMBAR SPINE WO IVCON / PROCEDURE REASON: multiple diagnoses * * * * Physician Interpretation * * * * EXAMINATION: CT LUMBAR SPINE WO IVCON CLINICAL HISTORY: Adolescent idiopathic scoliosis of lumbar region S/P lumbar fusion TECHNIQUE: Spiral, high resolution axial unenhanced images were obtained from the thoracolumbar junction to the sacrum with sagittal and coronal planar reconstructions. MQ: CTLSPWO_3 CT Radiation dose: Integrated Dose-Length Product (DLP) for this visit = 739 mGy*cm. CT Dose Reduction Employed: Automated exposure control(AEC) and iterative recon COMPARISON: Radiograph from 05/25/2016 RESULT: Counting reference: Lumbosacral junction. For the purposes of this report, assume 5 lumbar-type vertebrae where the lowest segment bearing normal paired ribs is T12. The top of the iliac crest aligns with L4-5 on the left and the lower third of L5 on the right due to underlying scoliosis. Anatomic variant: None. Water Conservation Specialist (topogram) images: No additional findings. Alignment: Moderate to marked levoconvex curvature centered at L2-3. Mild compensatory dextroconvex curvature centered at L4-5. Grade 1 L3 on L4 and L4 and L5 left lateral listhesis. Grade 2 L5 on S1 anterolisthesis, and the setting of left-sided spondylolysis. Bone marrow /fracture: Multilevel fused laminae spanning the imaged thoracic spine through L3. Chronic left L5 pars defect. Multilevel chronic degenerative bony changes including endplate sclerosis, osteophytes and Schmorl's nodes, facet joint hypertrophy and subarticular cystic change. Paraspinal soft tissues: The paraspinal soft tissues planes are maintained. Lower thoracic spine: The visualized lower thoracic bony canal and foramina are patent. L1-L2: Canal and foramina are patent. L2-L3: Canal and foramina are patent L3-L4: Disc at less than bulging endplate osteophytes and facet hypertrophy. Mild narrowing of the spinal canal with moderate right and mild left neural foraminal narrowing. L4-L5: Facet hypertrophy and disc osteophyte complex. Mild narrowing of the spinal canal. Moderate right and mild left neural foraminal stenosis. L5-S1: Grade 2 anterolisthesis in the setting of a left L5 pars defects. Severe left and mild right neural foraminal stenosis. Mild eccentric left spinal canal stenosis. Sacrum and iliac wings: Degenerative change bilateral sacroiliac joints. DIVISION OF RADIOLOGY Provider, [facility]/03/[facility]25 * * *Final Report* * * DATE OF EXAM: Apr 03 2025 3:55PM [facility] 0508 - CT LUMBAR SPINE WO IVCON / PROCEDURE REASON: multiple diagnoses * * * * Physician Interpretation * * * * EXAMINATION: CT LUMBAR SPINE WO IVCON CLINICAL HISTORY: Adolescent idiopathic scoliosis of lumbar region S/P lumbar fusion TECHNIQUE: Spiral, high resolution axial unenhanced images were obtained from the thoracolumbar junction to the sacrum with sagittal and coronal planar reconstructions. MQ: CTLSPWO_3 CT Radiation dose: Integrated Dose-Length Product (DLP) for this visit = 739 mGy*cm. CT Dose Reduction Employed: Automated exposure control(AEC) and iterative recon COMPARISON: Radiograph from 05/25/2016 RESULT: Counting reference: Lumbosacral junction. For the purposes of this report, assume 5 lumbar-type vertebrae where the lowest segment bearing normal paired ribs is T12. The top of the iliac crest aligns with L4-5 on the left and the lower third of L5 on the right due to underlying scoliosis. Anatomic variant: None. Water Conservation Specialist (topogram) images: No additional findings. Alignment: Moderate to marked levoconvex curvature centered at L2-3. Mild compensatory dextroconvex curvature centered at L4-5. Grade 1 L3 on L4 and L4 and L5 left lateral listhesis. Grade 2 L5 on S1 anterolisthesis, and the setting of left-sided spondylolysis. Bone marrow /fracture: Multilevel fused laminae spanning the imaged thoracic spine through L3. Chronic left L5 pars defect. Multilevel chronic degenerative bony changes including endplate sclerosis, osteophytes and Schmorl's nodes, facet joint hypertrophy and subarticular cystic change. Paraspinal soft tissues: The paraspinal soft tissues planes are maintained. Lower thoracic spine: The visualized lower thoracic bony canal and foramina are patent. L1-L2: Canal and foramina are patent. L2-L3: Canal and foramina are patent L3-L4: Disc at less than bulging endplate osteophytes and facet hypertrophy. Mild narrowing of the spinal canal with moderate right and mild left neural foraminal narrowing. L4-L5: Facet hypertrophy and disc osteophyte complex. Mild narrowing of the spinal canal. Moderate right and mild left neural foraminal stenosis. L5-S1: Grade 2 anterolisthesis in the setting of a left L5 pars defects. Severe left and mild right neural foraminal stenosis. Mild eccentric left spinal canal stenosis. Sacrum and iliac wings: Degenerative change bilateral sacroiliac joints. IMPRESSION IMPRESSION: Severe scoliosis and degenerative changes as described. Posterior element fusion from the visualized thoracic spine through L3 noting advanced degenerative changes below the fusion at L3-4. Chronic left L5 pars defect with grade 2 L5 on S1 anterolisthesis. Multilevel up to mild narrowing of the spinal canal. Multilevel neural foraminal stenosis most severe at L5-S1 on the left. Anatomic Lumbar Variant: None. Assume 5 lumbar-type vertebrae where the lowest segment bearing normal paired ribs is T12. The top of the iliac crest aligns with L4-5 on the left and the lower third of L5 on the right due to underlying scoliosis. Automatic Profile Sander Operator: [facility] Transcribe Date/Time: Apr 03 2025 4:17P Dictated by : PHILIP CLEMENT MD This examination was interpreted and the report reviewed and electronically signed by: PHILIP CLEMENT MD on Apr 03 2025 4:30PM EST [facility]ative[facility] WO contrastO rdered By: [facility] Provider on 04-03-2025 [facility] CNOVon 03-20-2025 CNOV Office Visit (SPSNAV ) KATIE SMITH ([id number]) 1975 F Date Time Provider Department 03/20/25 10:00 AM Tyson SAUER SPSNAV During your visit today, we recorded the following information about you: Tyson Sauer MD 03/20/2025 1:11 PM Signed This 49-year-old woman has a history of adolescent idiopathic scoliosis. She underwent surgery as an adolescent including a second surgery for hardware removal. She did well through her 20s but began developing increasing axial back pain in her 30s and this has progressed. Her pain is made worse with standing or walking. There is also worse with getting out of bed in the morning. It is improved somewhat by sitting. On clinical exam she stands with 6 cm right trunk shift. She is balanced in the sagittal plane but has markedly increased pelvic tilt. Imaging investigation shows what appears to be a solid arthrodesis down to the L3 level. She has rotatory subluxation/lateral listhesis of over a centimeter at both L3-4 and L4-5. She has a 14 mm degenerative spondylolisthesis at L5-S1. I think this woman could potentially benefit from surgery. She is an active smoker and I explained to her the absolute necessity for smoking cessation prior to surgery. She has not done physical therapy in 2 years so we will initiate a PT order at this stage. In the interim as part of the preoperative planning process I would like to get a CT scan to further define the bony anatomy. I will see her back after the CT scan has been done. MD Vel Rudolph Muhamed, MD 03/20/2025 1:11 PM Signed SPINE SURGERY NEW PATIENT This is an in-person visit. PCP: Jose Aguilera DO SUBJECTIVE HISTORY OF PRESENT ILLNESS: Katie Smith is a 49 year old female smoker presenting alone history of AIS s/p selective fusion, extension of fusion and removal of hardware approximately 30 years ago presenting with 4 years of back and bilateral buttocks pain. Pain is worst with movement left side more than right side at the base of the spine and radiates to the upper aspect of the buttocks and occasionally down the legs. Has numbness at the top of the feet bilaterally. She has had many injections in the past which she says did not help. 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 CHIEF COMPLAINT: As above PRECIPITATING EVENT: As above DURATION OF SYMPTOMS: As above PAIN EVALUATION 03/20/2025 1222 Pain Level: 6 Pain Location: Back-Lower Description: Aching;Pressure Duration Amount of Time: -- many Duration Units: Years Frequency: Continuous Pain Radiation: As above Aggravating Factors: As above Alleviating Factors: As above Pain Ratio: As above DERMATOMAL DISTRIBUTION: L5/S1 AMBULATORY STATUS: impaired community distances ANTIPLATELET OR ANTICOAGULATION STATUS: No PREVIOUS CONSERVATIVE TREATMENTS: As above PREVIOUS SPINAL SURGERY: AIS s/p selective fusion, extension of fusion and removal of hardware approximately 30 years ago There is no problem list on file for this patient. PAST MEDICAL HISTORY Diagnosis Date Bartholin's duct cyst Hyperthyroidism 02/2022 Dr Nir Ortiz [facility] Scoliosis PAST SURGICAL HISTORY Procedure Laterality Date BACK SURGERY HX x3 for scoliosis CHG IANDD BARTHOLINS CYST Right COLOGUARD 06/2023 negative REVISE MEDIAN N/CARPAL TUNNEL SURG Right 2022 No family history on file. Social History Tobacco Use Smoking status: Every Day Current packs/day: 0.50 Average packs/day: 0.5 packs/day for 10.0 years (5.0 ttl pk-yrs) Types: Cigarettes Smokeless tobacco: Never Vaping Use Vaping status: Never Used Substance Use Topics Alcohol use: Yes Comment: occasional Drug use: No ALLERGIES Allergen Reactions Seasonal Allergies Itching MEDICATIONS: gabapentin (NEURONTIN) 300 mg capsule gabapentin 300 mg capsule take 1 tablet by mouth every 8 hours DULoxetine (CYMBALTA) 30 mg capsule Take 30 mg by mouth once daily. methIMAzole (TAPAZOLE) 10 mg tablet Take 1 tablet by mouth once daily. Cholecalciferol, Vitamin D3, 50 mcg (2,000 unit) cap Take 1 capsule by mouth once daily. ibuprofen (MOTRIN) 800 mg tablet Take 1 tablet by mouth every 8 hours as needed for Pain. FOR PAIN. cetirizine (ZYRTEC) 10 mg tablet meloxicam (MOBIC) 15 mg tablet Norethindrone, Contraceptive, (JENCYCLA) 0.35 mg tablet Take 1 tablet by mouth once daily. SUMAtriptan (IMITREX) 100 mg tablet sumatriptan 100 mg tablet take 1 tablet by mouth AT ONSET OF HEADACHE REVIEW OF SYSTEMS: GENERAL: No weight loss or malaise MUSCULOSKELETAL: Negative for joint pain, swelling or muscle pain NEURO: No history of headaches, syncope, paralysis, seizures or tremors Patient Entered Questionnaires PROMIS Score Percentiles Percentiles provide an indication of how the patient's score ranks in relation to the general population. Higher percentile ra (more content not included)... Normal [facility] XR SCOLIOSIS 2V PA STAND/LAT on 03-20-2025 XR SCOLIOSIS 2V PA STAND/LAT * * *Final Report* * * DATE OF EXAM: Mar 20 2025 12:14PM [id number] - XR SCOLIOSIS 2V PA STAND/LAT / PROCEDURE REASON: Scoliosis of lumbar spine, unspecified scoliosis type * * * * Physician Interpretation * * * * HISTORY: Scoliosis of lumbar spine, unspecified scoliosis type . TECHNIQUE: XR SCOLIOSIS 2V PA STAND/LAT Laterality: NOT APPLICABLE Number of different views (projections): 2 COMPARISON: Outside MRI dated 01/10/2025. RESULT: Counting reference: Lumbosacral junction. For the purposes of this report, L4-5 is considered the level of the iliac crest and there are 5 lumbar-type vertebrae. Anatomic Variants: None. Postoperative changes in the lumbar spine with posterior fusion. Marked left apex scoliosis. Grade 2 anterolisthesis of L5 on S1. No evidence of acute spinal fracture or dislocation. There are multilevel degenerative changes with disc space narrowing, marginal endplate osteophytes and facet joint hypertrophy. No evidence of acute process in the chest or abdomen. No other significant abnormality. - IMPRESSION: No acute findings. Automatic Profile Sander Operator: LIBIA Transcribe Date/Time: Mar 20 2025 3:49P Dictated by : KAE BARNARD MD This examination was interpreted and the report reviewed and electronically signed by: KAE BARNARD MD on Mar 20 2025 3:51PM EST [id number] Normal [facility] XR Thoracic and lumbar spine Views for scoliosis W standingon 03-20-2025 IMPRESSION: No acute findings. Automatic Profile Sander Operator: [facility] Transcribe Date/Time: Mar 20 2025 3:49P Dictated by : KAE BARNARD MD This examination was interpreted and the report reviewed and electronically signed by: KAE BARNARD MD on Mar 20 2025 3:51PM EST [facility] * * *Final Report* * * DATE OF EXAM: Mar 20 2025 12:14PM [id number] - XR SCOLIOSIS 2V PA STAND/LAT / PROCEDURE REASON: Scoliosis of lumbar spine, unspecified scoliosis type * * * * Physician Interpretation * * * * HISTORY: Scoliosis of lumbar spine, unspecified scoliosis type . TECHNIQUE: XR SCOLIOSIS 2V PA STAND/LAT Laterality: NOT APPLICABLE Number of different views (projections): 2 COMPARISON: Outside MRI dated 01/10/2025. RESULT: Counting reference: Lumbosacral junction. For the purposes of this report, L4-5 is considered the level of the iliac crest and there are 5 lumbar-type vertebrae. Anatomic Variants: None. Postoperative changes in the lumbar spine with posterior fusion. Marked left apex scoliosis. Grade 2 anterolisthesis of L5 on S1. No evidence of acute spinal fracture or dislocation. There are multilevel degenerative changes with disc space narrowing, marginal endplate osteophytes and facet joint hypertrophy. No evidence of acute process in the chest or abdomen. No other significant abnormality. - [facility] Provider, [facility] - 03/20/2025 * * *Final Report* * * DATE OF EXAM: Mar 20 2025 12:14PM X [id number] - XR SCOLIOSIS 2V PA STAND/LAT / PROCEDURE REASON: Scoliosis of lumbar spine, unspecified scoliosis type * * * * Physician Interpretation * * * * HISTORY: Scoliosis of lumbar spine, unspecified scoliosis type . TECHNIQUE: XR SCOLIOSIS 2V PA STAND/LAT Laterality: NOT APPLICABLE Number of different views (projections): 2 COMPARISON: Outside MRI dated 01/10/2025. RESULT: Counting reference: Lumbosacral junction. For the purposes of this report, L4-5 is considered the level of the iliac crest and there are 5 lumbar-type vertebrae. Anatomic Variants: None. Postoperative changes in the lumbar spine with posterior fusion. Marked left apex scoliosis. Grade 2 anterolisthesis of L5 on S1. No evidence of acute spinal fracture or dislocation. There are multilevel degenerative changes with disc space narrowing, marginal endplate osteophytes and facet joint hypertrophy. No evidence of acute process in the chest or abdomen. No other significant abnormality. - IMPRESSION IMPRESSION: No acute findings. Automatic Profile Sander Operator: LIBIA Transcribe Date/Time: Mar 20 2025 3:49P Dictated by : KAE BARNARD MD This examination was interpreted and the report reviewed and electronically signed by: KAE BARNARD MD on Mar 20 2025 3:51PM EST [facility] Radiology Study observation (narrative) Diana thompson [facility] XR Thoracic and lumbar spine Views for scoliosis W standingOrdered By: Ccf Provider on 03-20-2025 [facility] 36on 01-15-2025 36 Called and LVM regarding spine follow up. If patient calls back please inform the patient MRI reviewed by surgeons [facility] Jalloh due to her history of scoliosis and thoracic surgery. They will contact her to schedule. Normal [facility] 37on 12-06-2024 37 We will notify you once we have approval from your insurance. You will then call central scheduling at [phone] to schedule. Normal [facility] Office Visiton 12-06-2024 Follow-up visit [id number] Katie Smith 1975 F Date Provider Department Center 12/06/2024 [facility] [place] None Family History Problem Relation Age of Onset No Known Problems Father No Known Problems Brother No Known Problems Sister No Known Problems Mother No Known Problems Brother Family Status - Relation Status Age at Father Alive Brother Alive Sister Alive Mother Alive Brother Alive Level of Service:[id number] RI OFFICE/OUTPATIENT ESTABLISHED MOD MDM 30 MIN Reason for Visit and Comments: Follow-up [133313] Normal [facility] Progress Noteon 12-06-2024 Progress Note [facility] - [address] [facility] [address] Dept: [phone] Dept Katie Smith 1975 [id number] 12/06/2024 Problem List: Lumbar pain Lumbar anterolisthesis L5-S1, grade 2 Left L5 lumbar radiculopathy L4/5 and L5/S1 lumbar degenerative disc diseas e Thoracic pain Adolescent idiopathic scoliosis status post fusion (age 14), progressing Status post removal of hardware for idiopathic scoliosis fusion Narcotic dependence (Recent fentanyl abuse, clean since rehab/detox) Nicotine dependence Diagnoses: (M54.50) Lumbar pain (M51.361) Degeneration of intervertebral disc of lumbar region with lower extremity pain (M47.816) Lumbar spondylosis (M43.16) Spondylolisthesis of lumbar region (M41.25) Other idiopathic scoliosis, thoracolumbar region (Z98.1) History of lumbar fusion Chief Complaint Patient presents with Follow-up HPI: Katie is a 49 y.o. female who is here today for: lumbar pain. Current symptoms: Pain is located in the across the lower back or worse on the left side that is radiating bilateral legs . Numbness/tingling: right lower leg, left lower leg. Weakness: right lower leg, left lower leg. Changes since last visit in 2018: Worsening low back pain and down legs Feels like she can't hold back up Aggravating factors: standing, walking, and increased activity Alleviating Factors: Laying down/ repositioning Current Treatment: Reports self medicate Previous Treatement: Last seen by Dr. Suh 2018 PM- Dr. Garcia [facility] Review of Systems No Known Allergies Current Outpatient Medications Medication Sig Dispense Refill methocarbamol (Robaxin) 750 MG tablet Take 1 tablet (750 mg) by mouth 3 times daily as needed for muscle spasms. 90 tablet 0 methylPREDNISolone (Medrol Dospak) 4 MG tablets Take by mouth as directed by package instructions 21 tablet 0 No current facility-administered medications for this visit. No past medical history on file. Past Surgical History: Procedure Laterality Date BACK SURGERY X 3 for scoliosis--titanium rods in and removed Social History Socioeconomic History Marital status: Single Spouse name: Not on file Number of children: Not on file Years of education: Not on file Highest education level: Not on file Occupational History Not on file Tobacco Use Smoking status: Every Day Current packs/day: 0.50 Types: Cigarettes Smokeless tobacco: Never Substance and Sexual Activity Alcohol use: Yes Drug use: No Sexual activity: Not on file Other Topics Concern Not on file Social History Narrative Not on file Social Drivers of Health Financial Resource Strain: Not on file Food Insecurity: Not on file Transportation Needs: Not on file Physical Activity: Not on file Stress: Not on file Social Connections: Not on file Intimate Partner Violence: Not on file Housing Stability: Not on file Family History Problem Relation Name Age of Onset No Known Problems Father No Known Problems Brother No Known Problems Sister No Known Problems Mother No Known Problems Brother PHYSICAL EXAM Ht 5' 4.5 (1.638 m) Wt 110 lb (49.9 kg) BMI 18.59 kg/m? SPINE/EXTREMITY: General: Patient is in mild distress. Gait is slightly intelligent, not assisted. SPINE/EXTREMITY: Gait: Non-antalgic and unassisted. Patient able to perform tandem gait. Patient able to walk on tip-toes and heels. Normal age-defined sit to stand time. Posture slightly skewed. Patient is able to go up on her toes and back on her heels in a standing position. Patient is mildly tender upon palpation of thoracic and lumbar spine. Also tender upon palpation of bilateral SI joints. Lower Extremity Motor: HF Q TA EHL Peroneals GSC Right 5 5 5 5 5 5 Left 4+ 4 4 4+ 4+ 4 Lower extremity sensation to light touch: L2 L3 L4 L5 S1 Right Intact Intact Intact Intact Intact Left Decreased Decreased Decreased Decreased Decreased Lower extremity reflexes: Patellar Achilles Right 2+ 2+ Left 2+ 2+ Straight leg raise: Right Negative Left Negative Misc: Clonus Babinski Right None Absent Left None Absent Lower extremity pulses: DP PT Right 2+ 2+ Left 2+ 2+ Hip exam: Bilateral hip range of motion is full and symmetric without pain. Sacroiliac exam: [place] Right W/ pain Left W/ pain IMAGING Lumbar Spine: Date of Exam: 12/06/24 Views: 4 views of the lumbar spine (AP, lateral flexion and extension) Findings: see full xray interpretation Lumbar Spine: Date of Exam: 07/06/2018 Views: 4 views of the lumbar spine (AP, lateral, flexion and extension) Findings: Poor quality x-rays secondary to patient rotation and obliquity. There appears to be a previous fusion of the thoracolumbar spine with interval hardware removal. There appears to be idiopathic scoliosis with lateral listhesis and L5/S1 (more content not included)... Normal [facility] MRI ANKLE W/O CONTRAST LEFTo n 10-05-2023 MRI ANKLE W/O CONTRAST LEFT ORIGINAL EXAMINATION: MRI OF THE LEFT ANKLE WITHOUT CONTRAST, 10/01/2023 3:07 pm TECHNIQUE: Multiplanar multisequence MRI of the left ankle was performed without the administration of intravenous contrast. COMPARISON: None. HISTORY: ORDERING SYSTEM PROVIDED HISTORY: Reason for Exam: PERONEAL TENDINITIS FINDINGS: SYNDESMOTIC LIGAMENTS: Intact anterior inferior tibiofibular ligament and posterior inferior tibiofibular ligament. No significant periligamentous edema or interval widening. LATERAL COLLATERAL LIGAMENT COMPLEX: There is abnormal thickening of the anterior talofibular and calcaneofibular ligaments compatible with a previous strain with surrounding low signal fibrosis. DELTOID LIGAMENT COMPLEX: Intact superficial and deep components. SINUS TARSI AND SPRING LIGAMENT: Visualized portions of the spring ligament are intact including the tibiospring ligament. Normal appearance of the sinus tarsi. MEDIAL TENDONS: Intact posterior tibial tendon, flexor digitorum and flexor hallucis longus tendons. LATERAL TENDONS: The peroneus longus is markedly thickened with abnormal central increased signal compatible with severe tendinosis. This is most pronounced in the retromalleolar and inframalleolar segments of the peroneus longus. There is also prominent fluid in the peroneus longus tendon sheath compatible with tenosynovitis. The peroneus brevis is also thickened with abnormal central increased signal compatible with tendinosis. Minor fluid also present in the peroneus brevis tendon sheath compatible with tenosynovitis. ANTERIOR TENDONS: The tibialis anterior, extensor hallucis longus and extensor digitorum longus tendons are normal in position, morphology and signal. ACHILLES TENDON: The Achilles tendon is normal in position, morphology and signal. No associated bursitis. PLANTAR FASCIA: The medial and lateral bundles of the plantar fascia are normal in morphology and signal. There is no evidence of acute plantar fasciitis or tear. No evidence of plantar fascial nodules. TARSAL TUNNEL: There are no obstructing lesions within the tarsal tunnel. BONE MARROW: No evidence of fracture. Normal marrow signal. JOINT SPACES: No significant joint effusion. No significant degenerative changes. Normal alignment. IMPRESSION: Severe tendinosis of the left peroneus longus with associated tenosynovitis. Mild tendinosis and tenosynovitis of the peroneus brevis. No peroneal tendon disruption seen at this time. Remote sprain of the lateral collateral ligament complex of the left ankle. The left ankle MRI is otherwise unremarkable. Interpreted by: Tomas Manzanares MD Preliminary Report By: Tomas Manzanares MD Electronically signed By Tomas Manzanares MD Dictated Date: 10/05/2023 8:33:00 AM Prelim Date: 10/05/2023 8:37:08 AM Sign Date: 10/05/2023 8:37:08 AM Ordering Provider: OLGA Marley [facility] ([place]) Laboratory - Chemistry and C hemistry - challengeon 09-23-2022 HCG ( test) Ql (U) Negative [facility] Work Phone: Comment on above: Very dilute urine sp ecimens, as indicated by a low specificgravity, may not contain asset protection representative levels of hCG. If is still suspected, a first morning urinespecimen should be collected 48 hours later and tested. Laboratory - Chemistry and C hemistry - challengeon 08-20-2022 Free T4 [Mass/Vol] 0.72 ng/dL 0.76-1.46 [facility] Work Phone: No Panel Informationon 08-20 Free Triiodothyronine (T3) pg/dL 2.3 pg/mL 2.18-3.98 [facility] Work Phone: Thyroid Stimulating Hormone (TSH) 3.10 uIU/mL 0.358-3.74 [facility] Work Phone: Laboratory - Chemistry and C hemistry - challengeon 05-29-2022 Free T4 [Mass/Vol] 0.60 ng/dL 0.76-1.46 [facility] Work Phone: No Panel Informationon 05-29 Free Triiodothyronine (T3) pg/dL 2.2 pg/mL 2.18-3.98 [facility] Work Phone: Thyroid Stimulating Hormone (TSH) 0.27 uIU/mL 0.358-3.74 [facility] Work Phone: Thyroid stimulating immunogl obulins detectionon 05-29-2022 Thyroid stimulating immunoglobulins Ql (S) 3.63 IU/L 0.00-0.55 [facility] Work Phone: Comment on above: Performed at: [address] [id number] Director: Seb Ames MD, Phone: [phone] Absolute lymphocyte counton 04-03-2022 Lymphocytes Auto (Unsp spec) [#/Vol] 2.00 10*3/uL 0.83-4.51 [facility] Work Phone: Basophil percentageon 2021 Basophil percentage Not Reportable [facility] Work Phone: [phone] Basophils/100 WBC (Bld) 0.8 % 0-1 [facility] Work Phone: [phone] Bilirubin [Mass/Vol] 0.20 mg/dL 0.20-1.00 [facility] Work Phone: Comment on above: For patients on eltr ombopag therapy, use of Dimension [place] TBIL is not recommended. Chloride [Moles/Vol] 100 mmol/L 98-107 [facility] Work Phone: Eosinophils/100 WBC (Bld) 3.0 % 0-5 [facility] Work Phone: Glucose [Mass/Vol] 67 mg/dL 74-106 [facility] Work Phone: Neutrophils (Bld) [#/Vol] 4.8 10*3/uL 2.0-7.7 [facility] Work Phone: Neutrophils/100 WBC (Bld) 63.4 % 47-70 [facility] Work Phone: Potassium [Moles/Vol] 3.8 mmol/L 3.5-5.1 [facility] Work Phone: [phone] Protein [Mass/Vol] 8.2 g/dL 6.4-8.2 [facility] Work Phone: Sodium [Moles/Vol] 136 mmol/L 136-145 [facility] Work Phone: WBC (Bld) [#/Vol] 7.6 10*3/uL 4.4-11.0 [facility] Work Phone: Blood erythrocytes count (nu mber/volume)on 04-03-2022 RBC (Bld) [#/Vol] 3.93 10*6/uL 4.2-5.4 [facility] Work Phone: Blood hemoglobin measurement (mass/volume)on 04-03-2022 Hemoglobin (Bld) [Mass/Vol] 11.6 g/dL 12.0-15.0 [facility] Work Phone: Blood lymphocytes/100 leukoc yteson 04-03-2022 Lymphocytes/100 WBC (Bld) 26.3 % 19-41 [facility] Work Phone: Blood monocytes/100 leukocyt eson 04-03-2022 Monocytes/100 WBC (Bld) 6.4 % 0-10 [facility] Work Phone: Blood platelet mean volumeon 04-03-2022 Platelet mean volume (Bld) [Entitic vol] 9.3 fL 6.2-12.0 [facility] Work Phone: Determination of erythrocyte mean corpuscular volume (MCV)on 04-03-2022 MCV (RBC) [Entitic vol] 92.1 fL 81-99 [facility] Work Phone: Erythrocyte sedimentation ra daniel 04-03-2022 ESR (Bld) [Velocity] 39 mm/h 0-30 [facility]: Hematocrit Auto (Bld) [Volum e fraction]on 04-03-2022 Hematocrit (Bld) [Volume fraction] 36.2 % 37-47 [facility] Work Phone: Laboratory - Chemistry and C hemistry - challengeon 04-03-2022 ALP [Catalytic activity/Vol] 106 U/L 45-117 [facility] Work Phone: ALT [Catalytic activity/Vol] 27 U/L 13-56 [facility] Work Phone: CO2 [Moles/Vol] 28.0 mmol/L 21.0-32.0 [facility] Work Phone: Cobalamin (Vitamin B12) [Mass/Vol] 418 pg/mL 211-911 [facility] Work Phone: Free T4 [Mass/Vol] 1.38 ng/dL 0.76-1.46 [facility] Work Phone: Globulin (S) [Mass/Vol] 4.6 g/dL 2.2-4.2 [facility] Work Phone: Urea nitrogen/Creatinine [Mass ratio] 11.7 mg/mg 10-20 [facility] Work Phone: Laboratory - Hematology and Cell countson 04-03-2022 Erythrocyte distribution width (RBC) [Entitic vol] 41.1 fL 35.1-43.9 [facility] Work Phone: Erythrocyte distribution width (RBC) [Ratio] 12.2 % 11.6-14.6 [facility] Work Phone: Immature granulocytes/100 WBC (Bld) 0.100 % 0.0-0.9 [facility] Work Phone: Comment on above: IG% - Immature Granu locytes (promyelocytes, myelocytes and metamyelocytes) > 1% indicates that a LEFT SHIFT is Present. MCH (RBC) [Entitic mass] 29.5 pg 27.0-32.0 [facility] Work Phone: Nucleated RBC/100 WBC (Bld) [Ratio] 0 % 0-5 [facility] Work Phone: MCHC Auto (RBC) [Mass/Vol]on 04-03-2022 MCHC (RBC) [Mass/Vol] 32.0 g/dL 32-36 [facility] Work Phone: No Panel Informationon 04-03 Anti-Nuclear Antibody Screen Negative [facility] Work Phone: Centromere B Antibody Not Reportable [facility] Work Phone: Estimated GFR (MDRD) Amer 92 mL/min >60 [facility] Work Phone: Comment on above: GFR Calc Estimated GFR (MDRD) Non-Af Amer 76 mL/min >60 [facility] Work Phone: Comment on above: Non- GFR Calc Free Triiodothyronine (T3) pg/dL 5.5 pg/mL 2.18-3.98 [facility] Work Phone: WELDER TOOL AND DIE Antibody Not Reportable [facility] Work Phone: Thyroid Stimulating Hormone (TSH) < 0.01 uIU/mL 0.358-3.74 [facility] Work Phone: Platelets bldon 04-03-2022 Platelets (Bld) [#/Vol] 327 10*3/uL 150-450 [facility] Work Phone: Serum DNA double strand anti body assay (units/volume)on 04-03-2022 DNA double strand Ab Qn (S) Not Reportable [facility] Work Phone: Serum Esha-1 antibody assay (u nits/volume)on 04-03-2022 Esha-1 extractable nuclear Ab Qn (S) Not Reportable [facility] Work Phone: Serum Scl-70 extractable nuc lear antibody assay (units/volume)on 04-03-2022 SCL-70 extractable nuclear Ab Qn (S) Not Reportable [facility] Work Phone: Serum Day extractable nucl ear antibody detectionon 04-03-2022 Day extractable nuclear Ab Ql (S) Not Reportable [facility] Work Phone: Serum cyclic citrullinated p eptide IgG antibody assay (units/volume)on 04-03-2022 Cyclic citrullinated peptide IgG Qn 7 units 0-19 [facility] Work Phone: Comment on above: Negative <20 Weak po sitive 20 - 39 Moderate positive 40 - 59 Strong positive >59 Serum or plasma C reactive p rotein measurement (mass/volume)on 04-03-2022 CRP [Mass/Vol] 4.62 mg/L 0.0-3.0 [facility] Work Phone: Comment on above: C-Reactive Protein ( CRP) provides useful information for thediagnosis, therapy and monitoring of inflammatory processesand associated diseases. For the evaluation of Relative Riskfor Cardiovascular Disease, a High Sensitivity CRP (HSCRP)should be ordered. Serum or plasma albumin anita urement (mass/volume)on 04-03-2022 Albumin [Mass/Vol] 3.6 g/dL 3.2-5.0 [facility] Work Phone: Serum or plasma albumin/glob ulin mass ratioon 04-03-2022 Albumin/Globulin [Mass ratio] 0.8 {ratio} 0.9-2.4 [facility] Work Phone: Serum or plasma calcium anita urement (mass/volume)on 04-03-2022 Calcium [Mass/Vol] 9.5 mg/dL 8.5-10.1 [facility] Work Phone: Serum or plasma creatinine m easurement (mass/volume)on 04-03-2022 Creatinine [Mass/Vol] 0.86 mg/dL 0.55-1.02 [facility] Work Phone: Comment on above: The validity of the calculated GFR & GFRAA in patients over 70 years has not been determined. Clinical correlation is essential. Serum or plasma urea nitroge n measurement (mass/volume)on 04-03-2022 Urea nitrogen [Mass/Vol] 10 mg/dL 7-18 [facility] Work Phone: Serum rheumatoid factor dete ctionon 04-03-2022 Rheumatoid factor Ql (S) < 10.0 IU/mL <15 [facility] Work Phone: Thin prep Papanicolaou smear with manual screeningon 04-03-2022 Thin prep Papanicolaou smear with manual screening 25 U/L 15-37 [facility] Work Phone: Thin prep Papanicolaou smear with manual screening 8 5-15 [facility] Work Phone: Absolute lymphocyte counton 01-30-2022 Lymphocytes Auto (Unsp spec) [#/Vol] 1.63 10*3/uL 0.83-4.51 [facility] Work Phone: Basophil percentageon 2021 Basophils/100 WBC (Bld) 0.5 % 0-1 [facility] Work Phone: Bilirubin [Mass/Vol] 0.30 mg/dL 0.20-1.00 [facility] Work Phone: Comment on above: For patients on eltr ombopag therapy, use of Dimension [place] TBIL is not recommended. Chloride [Moles/Vol] 103 mmol/L 98-107 [facility] Work Phone: Cholesterol [Mass/Vol] 150 mg/dL <200 [facility] Work Phone: Comment on above: <200 mg/dL Desirable 200-240 mg/dL Borderline >240 mg/dL High Risk Eosinophils/100 WBC (Bld) 1.5 % 0-5 [facility] Work Phone: Glucose [Mass/Vol] 79 mg/dL 74-106 [facility] Work Phone: Neutrophils (Bld) [#/Vol] 4.9 10*3/uL 2.0-7.7 [facility] Work Phone: Neutrophils/100 WBC (Bld) 67.2 % 47-70 [facility] Work Phone: [phone] Potassium [Moles/Vol] 4.7 mmol/L 3.5-5.1 [facility] Work Phone: [phone] Protein [Mass/Vol] 7.5 g/dL 6.4-8.2 [facility] Work Phone: Sodium [Moles/Vol] 137 mmol/L 136-145 [facility] Work Phone: Triglyceride [Mass/Vol] 115 mg/dL <199 [facility] Work Phone: Comment on above: The drugs N-Acetylcy steine and Metamizole may falsely depress this assay.Serum Triglycerides Reference Interval Normal <150 mg/dL Borderline high 150 - 199 mg/dL High 200 - 499 mg/dL Very High > or = 500 mg/dL WBC (Bld) [#/Vol] 7.3 10*3/uL 4.4-11.0 [facility] Work Phone: Blood erythrocytes count (nu mber/volume)on 01-30-2022 RBC (Bld) [#/Vol] 4.13 10*6/uL 4.2-5.4 [facility] Work Phone: Blood hemoglobin measurement (mass/volume)on 01-30-2022 Hemoglobin (Bld) [Mass/Vol] 12.2 g/dL 12.0-15.0 [facility] Work Phone: Blood lymphocytes/100 leukoc yteson 01-30-2022 Lymphocytes/100 WBC (Bld) 22.2 % 19-41 [facility] Work Phone: Blood monocytes/100 leukocyt eson 01-30-2022 Monocytes/100 WBC (Bld) 8.5 % 0-10 [facility] Work Phone: Blood platelet mean volumeon 01-30-2022 Platelet mean volume (Bld) [Entitic vol] 9.3 fL 6.2-12.0 [facility] Work Phone: Determination of erythrocyte mean corpuscular volume (MCV)on 01-30-2022 MCV (RBC) [Entitic vol] 91.3 fL 81-99 [facility] Work Phone: Hematocrit Auto (Bld) [Volum e fraction]on 01-30-2022 Hematocrit (Bld) [Volume fraction] 37.7 % 37-47 [facility] Work Phone: Laboratory - Chemistry and C hemistry - challengeon 01-30-2022 ALP [Catalytic activity/Vol] 91 U/L 45-117 [facility] Work Phone: ALT [Catalytic activity/Vol] 25 U/L 13-56 [facility] Work Phone: CO2 [Moles/Vol] 30.0 mmol/L 21.0-32.0 [facility] Work Phone: Free T4 [Mass/Vol] 1.78 ng/dL 0.76-1.46 [facility] Work Phone: Globulin (S) [Mass/Vol] 4.4 g/dL 2.2-4.2 [facility] Work Phone: Urea nitrogen/Creatinine [Mass ratio] 11.9 mg/mg 10-20 [facility] Work Phone: Laboratory - Hematology and Cell countson 01-30-2022 Erythrocyte distribution width (RBC) [Entitic vol] 45.1 fL 35.1-43.9 [facility] Work Phone: Erythrocyte distribution width (RBC) [Ratio] 13.4 % 11.6-14.6 [facility] Work Phone: Immature granulocytes/100 WBC (Bld) 0.100 % 0.0-0.9 [facility] Work Phone: Comment on above: IG% - Immature Granu locytes (promyelocytes, myelocytes and metamyelocytes) > 1% indicates that a LEFT SHIFT is Present. MCH (RBC) [Entitic mass] 29.5 pg 27.0-32.0 [facility] Work Phone: Nucleated RBC/100 WBC (Bld) [Ratio] 0 % 0-5 [facility] Work Phone: MCHC Auto (RBC) [Mass/Vol]on 01-30-2022 MCHC (RBC) [Mass/Vol] 32.4 g/dL 32-36 [facility] Work Phone: No Panel Informationon 01-30 Estimated GFR (MDRD) Amer 121 mL/min >60 [facility] Work Phone: Comment on above: GFR Calc Estimated GFR (MDRD) Non-Af Amer 100 mL/min >60 [facility] Work Phone: Comment on above: Non- GFR Calc Thyroid Stimulating Hormone (TSH) < 0.01 uIU/mL 0.358-3.74 [facility] Work Phone: Vitamin D 25-Hydroxy 23.0 ng/mL [facility] Work Phone: Comment on above: Vitamin D 25(OH) Sta tus Range Deficiency <20 ng/mL (50nmol/L) Insufficiency 20 - 30 ng/mL (50 - 75 nmol/L) Sufficiency 30 - 100 ng/mL (75 - 250 nmol/L) Toxicity >100 ng/mL (>250 nmol/L) Platelets bldon 01-30-2022 Platelets (Bld) [#/Vol] 313 10*3/uL 150-450 [facility] Work Phone: Serum or plasma albumin anita urement (mass/volume)on 01-30-2022 Albumin [Mass/Vol] 3.1 g/dL 3.2-5.0 [facility] Work Phone: Serum or plasma albumin/glob ulin mass ratioon 01-30-2022 Albumin/Globulin [Mass ratio] 0.7 {ratio} 0.9-2.4 [facility] Work Phone: Serum or plasma calcium anita urement (mass/volume)on 01-30-2022 Calcium [Mass/Vol] 9.2 mg/dL 8.5-10.1 [facility] Work Phone: Serum or plasma cholesterol in HDL measurement (mass/volume)on 01-30-2022 Cholesterol in HDL [Mass/Vol] 49 mg/dL >40 [facility] Work Phone: Comment on above: The drugs N-Acetylcy steine and Metamizole may falsely depress this assay. Reference Range HDL <40 mg/dL Low HDL Cholesterol HDL >or= 60 mg/dL High HDL Cholesterol Serum or plasma cholesterol in VLDL measurement (mass/volume)on 01-30-2022 Cholesterol in VLDL [Mass/Vol] 23 mg/dL 5-40 [facility] Work Phone: Serum or plasma creatinine m easurement (mass/volume)on 01-30-2022 Creatinine [Mass/Vol] 0.67 mg/dL 0.55-1.02 [facility] Work Phone: Comment on above: The validity of the calculated GFR & GFRAA in patients over 70 years has not been determined. Clinical correlation is essential. Serum or plasma low density lipoprotein (LDL) cholesterol measurement (mass/volume)on 01-30-2022 Cholesterol in LDL [Mass/Vol] 78 mg/dL 0-130 [facility] Work Phone: Serum or plasma urea nitroge n measurement (mass/volume)on 01-30-2022 Urea nitrogen [Mass/Vol] 8 mg/dL 7-18 [facility] Work Phone: Thin prep Papanicolaou smear with manual screeningon 01-30-2022 Thin prep Papanicolaou smear with manual screening 24 U/L 15-37 [facility] Work Phone: Thin prep Papanicolaou smear with manual screening 4 5-15 [facility] Work Phone: CR Spine Entire 2 or 3 Views on 01-05-2019 CR Spine Entire 2 or 3 Views Patient Name: KATIE SMITH Diagnostic Radiology Exam Date/Time 01/05/2019 09:04:05 EDT Exam CR Spine Entire 2 or 3 View Ordering Physician MD SUH BRADLEY PHILLIP Accession Number [id number] CPT4 Codes 94847 () Reason For Exam Pain Report Lumbar spine and scoliosis survey CLINICAL INDICATION: Lumbar uropathy AP, lateral and lateral flexion extension views of the lumbar spine were obtained and composite digital imaging and AP and lateral projection was obtained of the cervical, thoracic and lumbar spine with the patient standing. The scoliosis survey demonstrates an approximately 28 degree dextroconvex curvature with a rotational component. [place] of the thoracic curvature is at approximately T6-T7. Thoracolumbar levoconvex curvature also has a rotational component and is about 50 degrees with apex at L1-L2 level. There is osseous fusion along the right posterior lateral aspect of the thoracolumbar spine with bone graft. One and there is a grade 1-2 anterolisthesis of L5 on S1 measuring about 1.2 cm offset maximum on the lateral flexion view. This is partially reduced on the extension view to about 0.9 cm anterolisthesis. The anterolisthesis appears greater than on the patient's lumbar MRI of 09/30/2018 and the posterior element degenerative changes also appear more severe than on the MRI. There are no compression deformities noted. IMPRESSION: S-shaped scoliotic curvature with about 28 degrees dextroconvex curve in the thoracic spine at about 50 degrees levoconvex curve in the lumbar spine Osseous fusion by bone graft is noted along the lesser curvature of the lumbar scoliosis Progression of anterolisthesis at L5-S1 compared to the MRI in 2018, now bordering on grade 2 with maximum offset 1.2 cm on the lateral flexion view Report Dictated on Final Dictated: 01/05/2019 10:44 am Dictating Physician: MD MCDONNELL DIANE Signed Date and Time: 01/05/2019 10:50 am Signed by: MD MCDONNELL DIANE Transcribed Date and Time: 01/05/2019 10:44 [facility] CR Spine Lumbosacral 4+ View son 01-05-2019 CR Spine Lumbosacral 4+ Views Patient Name: KATIE SMITH Diagnostic Radiology Exam Date/Time 01/05/2019 09:03:30 EDT Exam CR Spine Lumbosacral 4+ Views Ordering Physician MD SUH BRADLEY PHILLIP Accession Number [id number] CPT4 Codes 37727 () Reason For Exam lumbar radiculopathy Report Lumbar spine and scoliosis survey CLINICAL INDICATION: Lumbar uropathy AP, lateral and lateral flexion extension views of the lumbar spine were obtained and composite digital imaging and AP and lateral projection was obtained of the cervical, thoracic and lumbar spine with the patient standing. The scoliosis survey demonstrates an approximately 28 degree dextroconvex curvature with a rotational component. [place] of the thoracic curvature is at approximately T6-T7. Thoracolumbar levoconvex curvature also has a rotational component and is about 50 degrees with apex at L1-L2 level. There is osseous fusion along the right posterior lateral aspect of the thoracolumbar spine with bone graft. One and there is a grade 1-2 anterolisthesis of L5 on S1 measuring about 1.2 cm offset maximum on the lateral flexion view. This is partially reduced on the extension view to about 0.9 cm anterolisthesis. The anterolisthesis appears greater than on the patient's lumbar MRI of 09/30/2018 and the posterior element degenerative changes also appear more severe than on the MRI. There are no compression deformities noted. IMPRESSION: S-shaped scoliotic curvature with about 28 degrees dextroconvex curve in the thoracic spine at about 50 degrees levoconvex curve in the lumbar spine Osseous fusion by bone graft is noted along the lesser curvature of the lumbar scoliosis Progression of anterolisthesis at L5-S1 compared to the MRI in 2018, now bordering on grade 2 with maximum offset 1.2 cm on the lateral flexion view Report Dictated on Final Dictated: 01/05/2019 10:44 am Dictating Physician: MD MCDONNELL DIANE Signed Date and Time: 01/05/2019 10:50 am Signed by: MD MCDONNELL DIANE Transcribed Date and Time: 01/05/2019 10:44 Normal [facility] MRI Spine Lumbar w/o Contras ton 10-03-2018 MRI Spine Lumbar w/o Contrast Patient Name: KATIE SMITH MRI Exam Date/Time 09/30/2018 08:48:37 EST Exam MRI Spine Lumbar w/o Contrast Ordering Physician MD SUH BRADLEY PHILLIP Accession Number [id number] CPT4 Codes 73622 () Reason For Exam Lumbar radiculopathy Report EXAM TYPE: MRI Spine Lumbar w/o Contrast EXAM DATE AND TIME: 09/30/2018 8:48 AM EST INDICATION: Idiopathic scoliosis, low back pain, left hip pain COMPARISON: NONE TECHNIQUE: MR imaging of the lumbar spine was performed without contrast. Axial, coronal and sagittal imaging was obtained. FINDINGS: The last fully formed disc space is considered L5-S1. There are surgical changes of laminectomies at T12-L1, L1-L2, L2-L3, and L3-L4. Susceptibility artifact from hardware is present at L1 and L2 at the left posterior elements. There is posterior osseous fusion at these levels. There is straightening of the normal lumbar lordosis. There is levoscoliosis centered at L2-L3. There is left lateral translation of L3 on L4 measuring 4.5 mm and L4 on L5 measuring 7 mm. Grade 1 anterolisthesis of L5 on S1 measuring 5 mm. Vertebral body heights are maintained. Multilevel degenerative endplate changes are present throughout the lumbar spine most significantly at L3-L4 and L4-L5. Multilevel disc desiccation throughout the lumbar spine. Mild loss of disc height at L3-L4 and L4-L5. The conus terminates at the L2 level. The distal cord is normal in size and signal characteristics. Cauda equina is shifted to the right of the canal secondary to the levoscoliosis. T12-L1: No disc herniation. No spinal canal narrowing. Right foraminal narrowing. No left foraminal narrowing. L1-L2: No disc herniation. No spinal canal or foraminal narrowing.. L2-L3: No disc herniation. No spinal canal or foraminal narrowing.. L3-L4: Mild disc osteophyte complex. Bilateral moderate facet hypertrophy. Moderate right and mild left foraminal narrowing. Mild narrowing of the lateral recesses. No central spinal canal narrowing.. L4-L5: Mild disc osteophyte complex. Moderate to severe bilateral facet hypertrophy. Severe left foraminal narrowing. Moderate right foraminal narrowing. Mild spinal canal narrowing.. L5-S1: Grade 1 anterolisthesis with uncovering of the disc. Mild disc osteophyte complex eccentric to the left. Severe left and severe right facet hypertrophy. Severe left foraminal narrowing with disc abutting the exiting left L5 nerve root. Mild right foraminal narrowing. No spinal canal narrowing.. IMPRESSION: 1. Surgical changes of laminectomies from T12-L1 to L3-L4. 2. Marked lumbar levoscoliosis. 3. Grade 1 anterolisthesis of L5 on S1 with severe facet hypertrophy. 4. Severe left foraminal narrowing at L5-S1 with disc abutting the exiting left L5 nerve root in the foraminal zone. 5. Severe left foraminal narrowing at L4-L5. 6. Otherwise, multilevel degenerative changes of the lumbar spine as described. Report Dictated on Final Dictating Physician: MD SOLIZ NEIL Signed Date and Time: 10/03/2018 11:09 am Signed by: MD SOLIZ NEIL Transcribed Date and Time: 10/03/2018 11:10 [facility] FLUOROSCOPY IN OR/PAIN MGTon 08-25-2017 FLUOROSCOPY IN OR/PAIN MGT [facility]OSCOPY IN OR[facility] Physician: Ge Jaeger DO08/25/2017 2:00 PMFLUOROSCOPY AND RADIOGRAPHS UTILIZED IN PAIN MANAGEMENTClinical Statement: Lumbar degenerative disk disease.FINDINGS: 10 seconds fluoroscopy time utilized. A total of tworadiographs were obtained demonstrating needle placement through thesacral hiatus with contrast injection.IMPRESSION:D ocumentation of fluoroscopy and radiographs utilized in painmanagement. Please see clinician's report for complete details. ---- Electronic Signature on File ----Signed By: Jesus Villanueva [email or web address] ictated: 08/25/2017 2:51 PMSigned: 08/25/2017 2:52 PM Reported By: JESUS VILLANUEVA M.D. Signed By: JESUS VILLANUEVA M.D. [facility] FLUOROSCOPY IN OR/PAIN Ton 07-22-2017 FLUOROSCOPY IN OR/PAIN MGT FLUOROSCOPY IN OR/PAIN [facility]GTOrder[facility] Physician: Ge Jaeger, 07/22/2017 1:52 PMFLUOROSCOPY AND SPOT RADIOGRAPHS:Clinical Statement: Lumbar painComparison: 07/08/2017FINDINGS: 9.7 seconds of fluoroscopic time was utilized. Two spotradiographs were obtained.IMPRESSION:1. Documentation of utilization of 9.7 seconds fluoroscopic time.2. Two spot radiographs obtained.For details, refer to the procedure note by the physician performingthis procedure. ---- Electronic Signature on File ----Signed By: David Damon [email or web address] ictated: 07/22/2017 2:53 PMSigned: 07/22/2017 2:54 PM Reported By: DAVID DAMON M.D. Signed By: DAVID DAMON M.D. [facility] FLUOROSCOPY IN OR/PAIN MGTon 07-08-2017 FLUOROSCOPY IN OR/PAIN MGT FLUOROSCOPY IN OR/PAIN MGTOrdering Physician: Ge Jaeger DO07/08/2017 1:15 PMLUMBAR SPINE FLUOROSCOPYClinical Statement: Lumbar radiculopathyFINDINGS: 14 seconds fluoroscopy time was utilized by Dr. Jaeger. TwoC-arm images of the lumbar spine were obtained.IMPRESSION:14 seconds fluoroscopy time utilized by Dr. Jaeger. ---- Electronic Signature on File ----Signed By: Tim Marsh MD [email or web address]. mDictated: 07/08/2017 2:12 PMSigned: 07/08/2017 2:13 PM Reported By: TIM MARSH M.D. Signed By: TIM MARSH M.D. [facility] Vital Signs Date Time Vital Sign Value Performing Clinician Fac[facility] 05-21-2025 13:49-0400 Body temperature 98.3 [degF] Jose Sams [facility] 05-21-2025 13:49-0400 Diastolic blood pressure 67 mm[Hg] Jose Sams [facility] 05-21-2025 13:49-0400 Heart rate 142 /min Jose Sams [facility] 05-21-2025 13:49-0400 Respiratory rate 20 /min Jose Sams [facility] 05-21-2025 13:49-0400 SaO2% (BldA) [Mass fraction] 100 % Jose Sams [facility] 05-21-2025 13:49-0400 Systolic blood pressure 152 mm[Hg] Jose Sams [facility] 05-21-2025 12:06-0400 Body height 165.1 cm Jose Sams [employer] [facility] 05-21-2025 12:06-0400 Body mass index (BMI) [Ratio] 19.1 kg/m2 Jose Sams TECHN[employer]-C [facility] 05-21-2025 12:06-0400 Body weight 52.16 kg Jose Sams TECHNICIAN [employer]-C [facility] 12-06-2024 14:39-0500 Body height 163.8 cm Kimber Garret PA-C Work Phone: [facility] 12-06-2024 14:39-0500 Body mass index (BMI) [Ratio] 18.59 kg/m2 Kimber Garret PA-C Work Phone: [facility] 12-06-2024 14:39-0500 Body weight 49.9 kg Kimber Garret PA-C Work Phone: [facility] 05-11-2023 15:15-0400 Body height 165.1 cm [employer]C Jose Sams [employer] Work Phone: [facility] 05-11-2023 15:15-0400 Body mass index (BMI) [Ratio] 21.9 kg/m2 [employer] Jose Sams [employer] Work Phone: [facility] 05-11-2023 15:15-0400 Body temperature 96.8 [degF] [employer] Jose Sams [employer] Work Phone: [facility] 05-11-2023 15:15-0400 Body weight 59.64 kg TECHN[employer]-C Jose Sams [employer] Work Phone: [facility] 05-11-2023 15:15-0400 Diastolic blood pressure 62 mm[Hg] TE[employer] Jose Sams [employer] Work Phone: [facility] 05-11-2023 15:15-0400 Heart rate 104 /min [employer] Jose Sams [employer] Work Phone: [facility] 05-11-2023 15:15-0400 Respiratory rate 18 /min [employer] Jose Sams [employer] Work Phone: [facility] 05-11-2023 15:15-0400 SaO2% (BldA) [Mass fraction] 99 % [employer] Jose Sams [employer]CH[employer] Work Phone: [facility] 05-11-2023 15:15-0400 Systolic blood pressure 108 mm[Hg] [employer] Jose Sams [employer] Work Phone: [facility] 04-01-2023 14:36-0400 Body height 165.1 cm Erika Moraes APRN.DOCK SUPERVISOR Work Phone: [facility] 04-01-2023 14:36-0400 Body weight 58.06 kg Erika Moraes APRN.DOCK SUPERVISOR Work Phone: [facility] 04-01-2023 14:36-0400 Diastolic blood pressure 68 mm[Hg] Erika Moraes APRN.DOCK SUPERVISOR Work Phone: [facility] 04-01-2023 14:36-0400 Systolic blood pressure 100 mm[Hg] Erika Moraes APRN.DOCK SUPERVISOR Work Phone: [facility] 10-07-2022 14:30-0500 Body temperature 97.8 [degF] [employer] Jose Sams [employer]CHN[employer]IAN [employer] Work Phone: [facility] Work Phone: 10-07-2022 14:30-0500 Diastolic blood pressure 68 mm[Hg] TE[employer]-C Jose Sams TECHNICIAN [employer]ATION Work Phone: [facility] Work Phone: 10-07-2022 14:30-0500 Heart rate 93 /min TECHNIC[employer]-C Jose Sams TECHNICIAN [employer]ATION Work Phone: [facility] Work Phone: 10-07-2022 14:30-0500 Respiratory rate 18 /min TE[employer]-C Jose Sams TECHN[employer]IAN [employer]ATION Work Phone: [facility] Work Phone: 10-07-2022 14:30-0500 SaO2% (BldA) [Mass fraction] 96 % TE[employer]-C Jose Sams TECHNICIAN [employer]ATION Work Phone: [facility] Work Phone: 10-07-2022 14:30-0500 Systolic blood pressure 115 mm[Hg] TECHN[employer]-C Jose Sams TECHNICIAN [employer]IATION Work Phone: [facility] Work Phone: 10-07-2022 11:01-0500 Body height 165.1 cm TECHNIC[employer]-C Jose Sams TECHNICIAN [employer]ATION Work Phone: [facility] Work Phone: 10-07-2022 11:01-0500 Body mass index (BMI) [Ratio] 20.9 kg/m2 TE[employer]-C Jose Sams TECHNICIAN [employer]ATION Work Phone: [facility] Work Phone: 10-07-2022 11:01-0500 Body weight 57 kg TECHNICIAN [employer]-C Jose Sams TECHNICIAN [employer]ATION Work Phone: [facility] Work Phone: 09-17-2022 16:07-0500 Body mass index (BMI) [Ratio] 20.8 kg/m2 TECH[employer]-C Jose Sams TECHNICIAN [employer]IATION Work Phone: [facility] Work Phone: 09-17-2022 16:07-0500 Body temperature 95.3 [degF] TE[employer]-C Jose Sams TECHNICIAN SUPPORT [employer]IATION Work Phone: [facility] Work Phone: 09-17-2022 16:07-0500 Body weight 56.86 kg TECHNICIAN [employer]-C Jose Sams TECHNICIAN [employer]ATION Work Phone: [facility] Work Phone: 09-17-2022 16:07-0500 Diastolic blood pressure 60 mm[Hg] TECHNIC[employer]-C Jose Sams TECHNICIAN [employer]ATION Work Phone: [facility] Work Phone: 09-17-2022 16:07-0500 Heart rate 115 /min TECHNICIAN [employer]-C Jose Sams TECHNICIAN [employer]IATION Work Phone: [facility] Work Phone: 09-17-2022 16:07-0500 Respiratory rate 20 /min TECHNICIAN [employer]-C Jose Sams TECHNICIAN [employer]ATION Work Phone: [facility] Work Phone: 09-17-2022 16:07-0500 SaO2% (BldA) [Mass fraction] 96 % TECHN[employer]-C Jose Sams TECHNICIAN [employer]ATION Work Phone: [facility] Work Phone: 09-17-2022 16:07-0500 Systolic blood pressure 116 mm[Hg] TECHNICIAN [employer]-C Jose Sams TECHNICIAN [employer]IATION Work Phone: [facility] Work Phone: 05-26-2022 15:37-0400 Body height 165.1 cm TECHNICIAN [employer]-C Jose Sams TECHNICIAN [employer]ATION Work Phone: [facility] Work Phone: 05-26-2022 15:37-0400 Body mass index (BMI) [Ratio] 18.3 kg/m2 TECHN[employer]IAN [employer]-C Jose Sams TECHNICIAN [employer]IATION Work Phone: [facility] Work Phone: 05-26-2022 15:37-0400 Body temperature 94.2 [degF] TECHN[employer]-C Jose Sams TECHNICIAN [employer]IATION Work Phone: [facility] Work Phone: 05-26-2022 15:37-0400 Body weight 50 kg TECHNICIAN [employer]-C Jose Sams TECHNICIAN [employer]IATION Work Phone: [facility] Work Phone: 05-26-2022 15:37-0400 Diastolic blood pressure 80 mm[Hg] TECHNIC[employer]-C Jose Sams TECHNICIAN [employer]ATION Work Phone: [facility] Work Phone: 05-26-2022 15:37-0400 Heart rate 103 /min TECHNICIAN [employer]-C Jose Sams TECHNICIAN [employer]PPORT [employer]IATION Work Phone: [facility] Work Phone: 05-26-2022 15:37-0400 Respiratory rate 18 /min TECHNICIAN [employer]-C Jose Glenn TECHNICIAN [employer]PPORT [employer]IATION Work Phone: [facility] Work Phone: 05-26-2022 15:37-0400 SaO2% (BldA) [Mass fraction] 91 % TECHNICIAN [employer]-C Jose Sams TECHNICIAN [employer]IATION Work Phone: [facility] Work Phone: 05-26-2022 15:37-0400 Systolic blood pressure 134 mm[Hg] TECHNICIAN [employer]-C Jose Sams TECHNICIAN [employer]IATION Work Phone: [facility] Work Phone: 04-03-2022 14:39-0400 Body height 165.[address] Stephon Bay Work Phone: [facility] Work Phone: 04-03-2022 14:39-0400 Body mass index (BMI) [Ratio] 18.1 kg/m2 Dr. Stephon Bay Work Phone: [facility] Work Phone: 04-03-2022 14:39-0400 Body temperature 97.1 [degF] Dr. Stephon Bay Work Phone: [facility] Work Phone: 04-03-2022 14:39-0400 Body weight 49.[address] Stephon Bay Work Phone: [facility] Work Phone: 04-03-2022 14:39-0400 Diastolic blood pressure 80 mm[Hg] Dr. Stephon Bay Work Phone: [facility] Work Phone: 04-03-2022 14:39-0400 Heart rate 95 /min Dr. Stephon Bay Work Phone: [facility] Work Phone: 04-03-2022 14:39-0400 Respiratory rate 14 /min Dr. Stephon Bay Work Phone: [facility] Work Phone: 04-03-2022 14:39-0400 SaO2% (BldA) [Mass fraction] 99 % Dr. Stephon Bay Work Phone: [facility] Work Phone: 04-03-2022 14:39-0400 Systolic blood pressure 136 mm[Hg] Dr. Stephon Bay Work Phone: [facility] Work Phone: 01-30-2022 14:10-0400 Body temperature 97.7 [degF] Dr. Stephon Bay Work Phone: [facility] Work Phone: 01-30-2022 14:10-0400 Diastolic blood pressure 84 mm[Hg] Dr. Stephon Bay Work Phone: [facility] Work Phone: 01-30-2022 14:10-0400 Heart rate 116 /min Dr. Stephon Bay Work Phone: [facility] Work Phone: 01-30-2022 14:10-0400 Respiratory rate 16 /min Dr. Stephon Bay Work Phone: [facility] Work Phone: 01-30-2022 14:10-0400 SaO2% (BldA) [Mass fraction] 98 % Dr. Stephon Bay Work Phone: [facility] Work Phone: 01-30-2022 14:10-0400 Systolic blood pressure 122 mm[Hg] Dr. Stephon Bay Work Phone: [facility] Work Phone: 01-30-2022 14:10-0400 Body temperature 97.7 [degF] Dr. Stephon Bay Work Phone: [facility] Work Phone: 01-30-2022 14:10-0400 Diastolic blood pressure 84 mm[Hg] Dr. Stephon Bay Work Phone: [facility] Work Phone: 01-30-2022 14:10-0400 Heart rate 116 /min Dr. Stephon Bay Work Phone: [facility] Work Phone: 01-30-2022 14:10-0400 Respiratory rate 16 /min Dr. Stephon Bay Work Phone: [facility] Work Phone: 01-30-2022 14:10-0400 SaO2% (BldA) [Mass fraction] 98 % Dr. Stephon Bay Work Phone: [facility] Work Phone: 01-30-2022 14:10-0400 Systolic blood pressure 122 mm[Hg] Dr. Stephon Bay Work Phone: [facility] Work Phone: Encounters Encounter Date Encounter Type Care Provider Facility Start: 05-21-2025 Evaluation and management of inpatient Dr. Katiana Gibson MD -Medical Surgical 3 Work Phone: Start: 05-18-2025 End: 05-18-2025 ambulatory Didier Small PT Work Phone: [facility] Physical Therapy Comment on above: Scoliosis of lumbar spine, unspecified scoliosis type (Primary Dx) Start: 05-04-2025 End: 05-04-2025 ambulatory Jose Sams NP-C -Laboratory Start: 05-04-2025 End: 05-04-[address] Janet Garcia MD -Laboratory Work Phone: Start: 05-03-2025 End: 05-04-2025 ambulatory Didier Small PT Work Phone: [facility] Physical Therapy Comment on above: Scoliosis of lumbar spine, unspecified scoliosis type (Primary Dx) Start: 04-03-2025 ambulatory JOSE Benton y:[facility] Start: 04-03-2025 End: 04-03-2025 Subsequent hospital visit by physician Yudi [facility] Wstr (I-Stat) Work Phone: Cat Scan Comment on above: Adolescent idiopathi c scoliosis of lumbar region [M41.126] Start: 03-20-2025 End: 03-20-2025 ambulatory Tyson SAUER Facility:[facility] Start: 03-20-2025 End: 03-20-2025 Patient encounter procedure Tyson Sauer MD Work Phone: [facility] Comment on above: Scoliosis of lumbar spine, unspecified scoliosis type (Primary Dx); Adolescent idiopathic scoliosis of lumbar region; S/P lumbar fusion Start: 03-20-2025 ambulatory BIANCA CAT PEREA acility:[facility] Start: 03-20-2025 End: 03-20-2025 Subsequent hospital visit by physician [facility] Work Phone: [facility] Radiology General Comment on above: Scoliosis of lumbar spine, unspecified scoliosis type [M41.9] Start: 01-22-2025 End: 01-23-2025 Chart abstracting Tim Jalloh MD Work Phone: Neurology Start: 01-15-2025 End: 01-19-2025 Orders Only Kimber Flores PA-C Work Phone: [facility] Orthopedics and Sports Medicine - Frances Ram[facility]rez Comment on above: Lumbar pain (Primary Dx); Degeneration of intervertebral disc of lumbar region with lower extremity pain; Lumbar spondylosis; Spondylolisthesis of lumbar region; Other idiopathic scoliosis, thoracolumbar region; History of lumbar fusion; History of thoracic spinal fusion Start: 01-10-2025 End: 01-10-2025 ambulatory KIMBER FLORES [facility] Start: 01-10-2025 End: 01-10-2025 Subsequent hospital visit by physician Kimber Flores PA-C Work Phone: [facility] Comment on above: Lumbar pain; Degeneration of intervertebral disc of lumbar region with lower extremity pain; Lumbar spondylosis; Spondylolisthesis of lumbar region; Other idiopathic scoliosis, thoracolumbar region; History of lumbar fusion Start: 12-06-2024 End: 12-06-2024 Office outpatient visit 25 minutes Kimber Flores PA-C Work Phone: [facility] Orthopedics and Sports Medicine [facility] Comment on above: Lumbar pain (Primary Dx); Degeneration of intervertebral disc of lumbar region with lower extremity pain; Lumbar spondylosis; Spondylolisthesis of lumbar region; Other idiopathic scoliosis, thoracolumbar region; History of lumbar fusion Start: 12-06-2024 End: 12-06-2024 Subsequent hospital visit by physician Kirk Suh MD Work Phone: [facility] X-ray Comment on above: Lumbar pain Start: 12-06-2024 End: 12-06-2024 ambulatory KIRK SUH [facility] Start: 10-01-2023 End: 10-02-2023 ambulatory OLGANEAL ELIZONDO Facility:A Start: 07-27-2023 Non-patient / Non-visit [employer]-C Alena Sams TECHNICIAN [employer]IATION Work Phone: [facility] Start: 07-27-2023 End: 07-27-2023 ambulatory TECHNIC[employer]-C Jose Sams TECHNICIAN [employer]IATION Work Phone: [facility] Work Phone: Start: 07-27-2023 End: 07-27-2023 Patient encounter procedure TECHNICIAN [employer]IATION-C Jose Sams TECHNICIAN [employer]IATION Work Phone: [facility]-Pulmonary Services/Neurology Work Phone: Start: 07-15-2023 End: 07-15-2023 Patient encounter procedure TECHNICIAN [employer]IATION-C Jose Sams TECHNICIAN [employer]IATION Work Phone: [facility] Work Phone: Start: 05-11-2023 End: 05-11-2023 Patient encounter procedure TECHNICIAN [employer]PPORT [employer]IATION-C Jose Sams TECHNICIAN [employer]PPORT [employer]IATION Work Phone: [facility] Internal Medicine Work Phone: Start: 04-01-2023 End: 04-01-2023 Patient encounter procedure Erika Rodartehrie ANAT.DOCK SUPERVISOR Work Phone: OB/Gynecology Comment on above: Encounter for gyneco logical examination (general) (routine) without abnormal findings (Primary Dx); Encounter for screening mammogram for breast cancer; Surveillance for control, oral contraceptives; Dense breast tissue on mammogram; Drug induced amenorrhea; Screen for colon cancer Start: 04-01-2023 End: 04-01-2023 Patient encounter status Erika Moraes ANAT.DOCK SUPERVISOR Work Phone: OB/Gynecology Start: 10-07-2022 Non-patient / Non-visit TECHNICIAN [employer]-C Alena Sams TECHNICIAN SUPPORT [employer]OCIATION Work Phone: [facility] Start: 10-07-2022 End: 10-07-2022 Admission to same day surgery center TECHNICIAN SUPPORT [employer]IATION-C Jose Sams TECHNICIAN SUPPORT [employer]OCIATION [facility] Start: 10-07-2022 End: 10-07-2022 ambulatory TECHNICIAN [employer]PPORT [employer]IATION-C Jose Sams TECHNICIAN SUPPORT [employer]OCIATION Work Phone: [facility] Work Phone: Start: 09-17-2022 End: 09-17-2022 Patient encounter procedure TECHNICIAN SUPPORT [employer]IATION-C Jose Sams TECHNICIAN SUPPORT ASSOCIATION Work Phone: [facility] Endocrinology Start: 09-15-2022 End: 09-15-2022 Patient encounter procedure TECHNICIAN SUPPORT [employer]IATION-C Jose Sams TECHNICIAN SUPPORT ASSOCIATION Work Phone: [facility] Start: 08-20-2022 End: 08-20-2022 ambulatory TECHNICIAN [employer]PPORT [employer]IATION-C Jose Sams TECHNICIAN SUPPORT ASSOCIATION Work Phone: [facility] Work Phone: Start: 08-20-2022 End: 08-20-2022 Patient encounter procedure TECHNICIAN SUPPORT [employer]OCIATION-C Jose Sams TECHNICIAN SUPPORT ASSOCIATION Work Phone: [facility]-Laboratory Start: 06-10-2022 End: 06-10-2022 ambulatory TECHNICIAN SUPPORT [employer]OCIATION-C Jose Sams TECHNICIAN SUPPORT ASSOCIATION Work Phone: [facility] Work Phone: Start: 06-10-2022 End: 06-10-2022 Patient encounter procedure TECHNICIAN SUPPORT [employer]OCIATION-C Jose Sams TECHNICIAN SUPPORT ASSOCIATION Work Phone: [facility]-Pulmonary Services/Neurology Start: 05-29-2022 End: 05-29-2022 ambulatory TECHNICIAN SUPPORT [employer]OCIATION-C Jose Sams TECHNICIAN SUPPORT ASSOCIATION Work Phone: [facility] Work Phone: Start: 05-29-2022 End: 05-29-2022 Patient encounter procedure TECHNICIAN SUPPORT ASSOCIATION-C Jose Sams TECHNICIAN SUPPORT ASSOCIATION Work Phone: [facility]-Laboratory Start: 05-26-2022 End: 05-26-2022 Patient encounter procedure TECHNICIAN SUPPORT ASSOCIATION-C Jose Sams TECHNICIAN SUPPORT ASSOCIATION Work Phone: [facility] Endocrinology Start: 04-27-2022 End: 04-27-[address] Stephon Bay Work Phone: [facility] Start: 04-03-2022 End: 04-03-[address] Stephon [place] Work Phone: [place] [facility] Start: 02-20-2022 Documentation procedure Mammog michael Coordinator [facility] Start: 02-20-2022 Letter encounter Mammography Coordinator [facility] Department Start: 02-20-2022 Orders Only Alba Rodriguez MD Work Phone: OB/Gynecology Comment on above: Abnormal mammogram ( Primary Dx) Start: 02-19-2022 End: 02-19-2022 Subsequent hospital visit by physician Screen Mammo [facility] Wstr Mammogram Comment on above: Encounter for screen ing mammogram for malignant neoplasm of breast [Z12.31] Start: 02-12-2022 End: 02-12-[address] Stephon Bay Work Phone: [facility] Start: 01-30-2022 End: 01-30-[address] Stephon Bay Work Phone: [facility] Start: 01-16-2022 Refill Alba Rodriguez MD Work Phone: OB/Gynecology Comment on above: Refill Request Start: 01-05-2019 Patient encounter procedure KIRK SUH [facility] Start: 10-06-2018 [facility] Start: 09-30-2018 Patient encounter procedure PROVIDER UNKNOWN [facility] Start: 10-26-2017 Ambulatory Janessa MSN,SECURITY OFFICER Lillian F acility:[facility] Start: 09-02-2017 Ambulatory Janessa KENDRICK,THUY Snyder F acility:[facility] Start: 08-25-2017 Evaluation and management of inpatient Ge Jaeger Facility:[facility] Start: 07-22-2017 Evaluation and management of inpatient Ge Jaeger Facility:[facility] Start: 07-08-2017 Evaluation and management of inpatient Ge Jaeger Facility:[facility] Start: 07-07-2017 Evaluation and management of inpatient Ge Jaeger Facility:[facility] Start: 06-30-2017 Ambulatory Janessa MSN,SECURITY OFFICER Lillian F acility:[facility] Start: 04-01-2017 Ambulatory Janessa KENDRICK,SECURITY OFFICER Lillian F acility:[facility] Procedures Date Procedure Procedure Detail Performing Clinician Start: 05-21-2025 Methadone measurement, urine Jose Sams [employer] Start: 05-21-2025 Estimated creatinine clearance Jose gallegos [employer] Start: 05-05-2025 Procedure Jose Sams [employer] Comment on above: Test Ordered: [id number] V31-Mqjxpk+S H3Falwtvfdxyta Screen, Urine Note: ng/mL UI See Final Results Reference Range: Yqoaak=895Usgznsntuqs test includes Amphetamine and Methamphetamine.Amphetamines Negative UI Reference Range: Cxcizd=442Hjjcufhdxrz test includes Amphetamine and Methamphetamine.Barbiturates Negative ng/mL UI Reference Range: Tegtet=478Jxhofsprkfyreth Negative ng/mL UI Reference Range: Otqlne=946Teqdash (Metab.), Urine Negative ng/mL UI Reference Range: Keyuvy=605Iisepli Negative ng/mL UI Reference Range: Afrazl=018Wldoqm test includes Codeine, Morphine, Hydromorphone, Hydrocodone.6-Acetylmorphine, Urine Negative ng/mL UI Reference Range: Cutoff=10Oxycodone/Oxymorphone, Urine Negative ng/mL UI Reference Range: Egdedo=051Bvtu includes Oxycodone and OxymorphonePCP, Urine Negative ng/mL UI Reference Range: Cutoff=25Methadone Screen, Urine Negative ng/mL UI Reference Range: Hkmhyy=091Vbdymgnpxekm, Urine Negative ng/mL UI Reference Range: Zxqtjs=122Xqauwhts, Urine Note: ng/mL UI See Final Results Reference Range: Cutoff=2.0Test includes Fentanyl and NorfentanylThis test was developed and its performance characteristicsdetermined by [employer]. It has not been cleared orapproved by the Food and Drug Administration.Fentanyl/Norfentanyl Comment UI Reference Range: Cutoff=2.0Screen positive, quantity not sufficient for furthertesting.Test includes Fentanyl and NorfentanylFentanyl Comment UI Reference Range: .Screen positive, quantity not sufficient for furthertesting.Fentanyl Conf, MS, UR Comment ng/mL UI Reference Range: Cutoff=0.5Screen positive, quantity not sufficient for furthertesting.CONTACTED DAYSI AT YOUR FACILITY ON [id number] Comment UI Reference Range: .Screen positive, quantity not sufficient for furthertesting.Norfentanyl Conf, MS, UR Comment ng/mL UI Reference Range: Cutoff=2.0Screen positive, quantity not sufficient for furthertesting.CONTACTED DAY[facility] AT YOUR FACILITY ON [phone] Negative ng/mL UI Reference Range: Wnzage=115Seflckvnosffl, Urine Negative ng/mL UI Reference Range: Cutoff=10Creatinine, Urine 101.1 mg/dL UI Reference Range: 20.0-300.0pH, Urine 8.5 UI Reference Range: 4.5-8.9Performed at: [facility] [address] [id number] Director: Edgar Montiel PhD, Phone: [phone] at: [facility] [id number] [place], [place] [id number] Director: Loren Ramirez PhD, Phone: [phone] Start: 05-04-2025 Methadone measurement, urine Jose Sams [employer] Start: 04-03-2025 Ct lumbar spine w/o contrast material R Kenn Sauer MD Work Phone: Start: 03-20-2025 Radex entir thrc lmbr crv sac spi w/skull 2/3 vw Bianca Cat Perea PA-C Work Phone: Start: 12-06-2024 Follow-up visit Follow-up KIMBER FLORES Start: 10-07-2022 Arthroscopy of ankle [employer] Jose Sams [employer] Work Phone: Start: 04-27-2022 US scan of thyroid Dr. Stephon Bay Work Phone: Start: 02-19-2022 End: 02-19-2022 Screening mammography bi 2-view breast inc cad Alba Rodriguez MD Work Phone: Start: 02-19-2022 Microscopic observation [Identifier] in Cervix by Cyto stain Kimber Flores PA-C Work Phone: Start: 02-12-2022 End: 02-12-[address] Stephon Bay Work Phone: Start: 02-12-2022 MRI of brain with contrast Dr. Stephon Bay Work Phone: Start: 05-09-2019 Mammography Alba Rodriguez MD Work Phone: Start: 07-08-2018 Lipid 1996 panel - Serum or Plasma Adam Jalloh MD Work Phone: Plan of Treatment Date Care Activity Detail Author Start: 2050 RSV Immunization for Adults (1 - 1-dose 75+ series) RSV Immunization for Adults (1 - 1-dose 75+ series) [employer] [email or web address] Start: 04-18-2027 Diabetes Screening Diabetes Screenin g [facility] Start: 02-19-2027 HPV TESTING HPV TESTING [facility] Start: 02-19-2027 PAP TESTING PAP TESTING [facility] Start: 02-19-2027 Screening for malign ant neoplasm of cervix Cervical Cancer Screening [facility] Start: 05-31-2026 Screening for malign ant neoplasm of colon [facility] Start: 2025 Zoster Vaccines (1 o f 2) Zoster Vaccines (1 of 2) [facility] Start: 09-11-2025 End: 09-11-2025 Patient encounter procedure 09/11/2025 2:40 PM EST Office Visit [facility] [address] [id number] Tim Jalloh MD [address] [place] [address] 2nd Opinion [facility] Comment on above: 2nd Opinion Start: 06-04-2025 Influenza vaccination [facility] Start: 05-31-2025 End: 05-31-2025 ambulatory 05/31/2025 3:00 PM EDT OT/PT/Speech Visit [facility] [address] [place], [place] [id number] Didier Small, PT [address] [place], [place] [phone] spine [facility] Comment on above: spine Start: 05-24-2025 End: 05-24-2025 ambulatory 05/24/2025 3:00 PM EDT OT/PT/Speech Visit [facility] [address] [place] [address] Didier Small, PT [address] [place], [place] [phone] spine [facility] Comment on above: spine Start: 05-21-2025 Verification routine [facility] Start: 05-21-2025 Admission procedure [facility] Start: 05-21-2025 Hospital admission, emergency, from emergency room, medical nature [facility] Start: 05-18-2025 End: 05-18-2025 ambulatory 05/18/2025 3:15 PM EDT OT/PT/Speech Visit [facility] [address] [place] [address] Didier Small, PT [address] [place] [facility] [place] [address] spine [facility] Comment on above: spine Start: 03-30-2025 End: 03-30-2025 Patient encounter procedure 03/30/2025 3:40 PM EDT Appointment Cat Scan [address] [place] [address] Adolescent idiopathic scoliosis of lumbar region [M41.126] Cat Scan Comment on above: Adolescent idiopathi c scoliosis of lumbar region [M41.126] Start: 02-19-2025 Screening for malign ant neoplasm of cervix [facility] Start: 12-06-2024 End: 12-06-2025 MR Lumbar spine WO contrast MR lumbar spine wo contrast Imaging Routine Lumbar pain Degeneration of intervertebral disc of lumbar region with lower extremity pain Lumbar spondylosis Spondylolisthesis of lumbar region Other idiopathic scoliosis, thoracolumbar region History of lumbar fusion Expected: 12/06/2024, Expires: 12/06/2025 [facility] [email or web address] [facility] Work Phone: Comment on above: Expected: 12/06/2024 , Expires: 12/06/2025 Start: 06-04-2024 COVID-19 Vaccine ( season) COVID-19 Vaccine ( season) [facility] Start: 06-04-2024 Influenza vaccination Influenza Vacc ine (#1) [facility] Start: 07-08-2023 Lipid panel Lipid Screening [facility] Start: 06-04-2023 Influenza vaccination INFLUENZA (Sea son Ended) [facility] Start: 05-11-2023 Patient referral [facility] Work Phone: Start: 04-01-2023 End: 06-01-2023 Estradiol (E2) [Mass/volume] in Serum or Plasma [facility] Work Phone: Comment on above: Expected: 04/01/2023 , Expires: 06/01/2023 Start: 04-01-2023 End: 06-01-2023 Follitropin [Units/volume] in Serum or Plasma [facility] Work Phone: Comment on above: Expected: 04/01/2023 , Expires: 06/01/2023 Start: 02-19-2023 Mammography MAMMOGRAM [facility] Start: 02-19-2023 Screening for malign ant neoplasm of breast Mammogram Screening [facility] Start: 10-07-2022 Patient discharge [facility] Work Phone: Start: 10-04-2022 DEPRESSION ASSESSMENT DEPRESSION ASS ESSMENT [facility] Start: 06-04-2022 Influenza vaccination INFLUENZA (Sea son Ended) [facility] Start: 12-23-2021 HPV TESTING HPV TESTING [facility] Start: 12-23-2021 PAP TESTING PAP TESTING [facility] Start: 2020 COLOGUARD (FIT-DNA) COLOGUARD (FIT-D NA) [facility] Start: 2020 Colonoscopy COLONOSCOPY [facility] Start: 2020 COLORECTAL CANCER SCREENING COLORECTAL CANCER SCREENING [facility] Start: [address] COLONOGRAPHY [facility] Start: 2020 DIABETES SCREEN DIABETES SCREEN [facility] Start: 2020 FECAL OCCULT BLOOD FECAL OCCULT BLOO D [facility] Start: 2020 LIPID SCREEN LIPID SCREEN [facility] Start: 2020 Screening for malign ant neoplasm of colon [facility] Start: 2020 SIGMOIDOSCOPY SIGMOIDOSCOPY [facility] Start: 05-09-2020 Mammography MAMMOGRAM [facility] Start: 2015 Screening for malign ant neoplasm of breast Mammogram [facility] Start: 2005 Screening for malign ant neoplasm of cervix HPV/Cotest [facility] Start: 1994 DTaP/Tdap/Td Vaccine s (1 - Tdap) DTaP/Tdap/Td Vaccines (1 - Tdap) [facility] Start: 1994 Hepatitis B Vaccine (1 of 3 - 19+ 3-dose series) Hepatitis B Vaccine (1 of 3 - 19+ 3-dose series) [facility] Start: 1994 Hepatitis B Vaccines (1 of 3 - 19+ 3-dose series) Hepatitis B Vaccines (1 of 3 - 19+ 3-dose series) [facility] Start: 1994 Pneumococcal vaccination Pneumococcal Vaccine (1 of 2 - PCV) [facility] Start: 1994 Pneumococcal Vaccine : Pediatrics (0 to 5 Years) and At-Risk Patients (6 to 49 Years) (1 of 2 - PCV) Pneumococcal Vaccine: Pediatrics (0 to 5 Years) and At-Risk Patients (6 to 49 Years) (1 of 2 - PCV) [facility] Start: 1994 Urine microalbumin profile [facility] Start: 1993 Anxiety Screening Anxiety Screening [facility] Start: 1993 Depression Screening Depression Scre ening [facility] Start: 1993 Diabetes mellitus screening Diabetes Screening [facility] Start: 1993 HEPATITIS C SCREENING HEPATITIS C SC [facility] Start: 1993 Hepatitis C screening Hepatitis C [facility] Start: 1993 HIV SCREENING HIV SCREENING [facility] Start: 1993 HIV screening HIV Screening [facility] Start: 1987 Adult depression screening assessment DEPRESSION SCREENING [facility] Start: 1987 Depression Monitoring Depression [facility] Start: 1981 PNEUMOCOCCAL (1 - PCV) PNEUMOCOCCAL (1 - PCV) [facility] Start: 1980 COVID-19 VACCINE (#1) COVID-19 VACCI NE (#1) [facility] Start: 1980 COVID-19 VACCINE (1) [facility] Start: 1976 MMR Vaccines (1 of 1 - Standard series) MMR Vaccines (1 of 1 - Standard series) [facility] Start: 03-15-1976 COVID-19 VACCINE (#1) COVID-19 VACCI NE (#1) [facility] Start: 1975 HEPATITIS B (1 of 3 - 3-dose series) HEPATITIS B (1 of 3 - 3-dose series) [facility] Start: 1975 HIV screening HIV Screening [facility] Start: 1975 Lipid panel Lipid Panel [facility] Start: 1975 Screening for malign ant neoplasm of colon [facility] CBC W Auto Different ial panel - Blood [facility] COLOGUARD COLOGUARD Lab Ro utine Screen for colon cancer Ordered: 04/01/2023 [facility] Work Phone: Comment on above: Ordered: 04/01/2023 End: 04-19-2026 CT Lumbar spine WO contrast CT LUMBAR SPINE WO IVCON Radiology Routine Adolescent idiopathic scoliosis of lumbar region S/P lumbar fusion 1 Occurrences starting 03/20/2025 until 04/19/2026 [facility] Work Phone: Comment on above: 1 Occurrences starti ng 03/20/2025 until 04/19/2026 End: 03-22-2023 Diagnostic mammography computer-aided detcj uni SONDRA DIAGNOSTIC LT Radiology Routine Abnormal mammogram 1 Occurrences starting 02/20/2022 until 03/22/2023 [facility] Work Phone: Comment on above: 1 Occurrences starti ng 02/20/2022 until 03/22/2023 Follitropin and Lutropin panel [Units/volume] - Serum or Plasma [facility] Work Phone: Lipid 1996 panel - Serum or Plasma [facility] End: 04-30-2024 SONDRA SCREENING W KELLIE SONDRA SCREENING W KELLIE Radiology Routine Encounter for gynecological examination (general) (routine) without abnormal findings Encounter for screening mammogram for breast cancer Dense breast tissue on mammogram 1 Occurrences starting 04/01/2023 until 04/30/2024 [facility] Work Phone: Comment on above: 1 Occurrences starti ng 04/01/2023 until 04/30/2024 End: 01-10-2025 MR Lumbar spine WO contrast [facility] Work Phone: Comment on above: Once for 1 Occurrenc es starting 01/10/2025 until 01/10/2025 Patient Education Carpal Tunnel Release Surgery [facility] Work Phone: Patient referral [facility] Work Phone: Screening mammograph y bi 2-view breast inc cad SONDRA SCREENING Radiology Routine Encounter for screening mammogram for malignant neoplasm of breast 02/19/2022 2:52 PM EDT [facility] Work Phone: T4 free measurement [facility] Work Phone: Thyroid stimulating hormone measurement [facility] Work Phone: Tobacco use cessatio n education [facility] Triiodothyronine, fr ee measurement [facility] Work Phone: End: 03-22-2023 Us breast uni real time with image limited US BREAST LTD LT Radiology Routine Abnormal mammogram 1 Occurrences starting 02/20/2022 until 03/22/2023 [facility] Work Phone: Comment on above: 1 Occurrences starti ng 02/20/2022 until 03/22/2023 US Thyroid gland [facility] Work Phone: Vitamin D, 25-hydrox y measurement [facility] End: 02-22-2026 XR Bones Survey Views XR ORTHO LOW DOSE FULL SKELETON (MC) Radiology Routine Other form of scoliosis of cervical spine 1 Occurrences starting 01/23/2025 until 02/22/2026 [facility] Work Phone: Comment on above: 1 Occurrences starti ng 01/23/2025 until 02/22/2026 End: 12-06-2024 XR Lumbar spine Views W flexion and W extension [facility] [employer] Work Phone: Comment on above: Once for 1 Occurrenc es starting 12/06/2024 until 12/06/2024 [facility] Payers Date Payer Category Payer Self-pay [id number] 2022 Medicaid O [facility] MEDICAID [facility] [id number] 2022 Medicaid [id number] 2021 Medicaid 2021 Medicaid [employer] [id number] 2021-Present [phone] [address] [place] [address] Medicaid [id number] 2017 Unknown [id number] 2016 Unknown [id number] 1975 Unknown [id number] 1975 Unknown [id number] 1975 Unknown [id number] 1975 Unknown [id number] Unknown [id number] Unknown Unknown [id number] Unknown [id number] Unknown [facility] [id number] Unknown [id number] Social History Date Type Detail Facility Start: 04-01-2023 End: 05-21-2025 Tobacco smoking status NCIS Smokes tobacco daily [facility] History of tobacco use Cigarette Smoker [facility] Start: 09-10-2020 End: 06-11-2023 Alcohol intake Current drinker of alcohol (finding) [facility] Start: 1975 Sex Assigned At Not on file [facility] Start: 01-30-2022 End: 07-15-2023 Tobacco smoking status NHIS Unknown if ever smoked [facility] Start: 09-29-2020 Occasional [facility] Start: 09-29-2020 - [facility] Start: 09-29-2020 Alone [facility] Start: 09-30-2020 Cigarettes [facility] Start: 1975 Sex Assigned At Female [facility] Start: 02-19-2022 History SDOH Alcohol Comment occasional [facility] Start: 02-09-2022 End: 02-19-2022 Exposure to SARS-CoV-2 (event) Not sure [facility] Start: 04-01-2023 End: 06-11-2023 Cigarettes smoked current (pack per day) - Reported 0.5 [facility] Start: 04-01-2023 End: 12-06-2024 Tobacco use and exposure Smokeless tobacco non-user [facility] Start: 04-01-2023 End: 12-06-2024 Tobacco use panel [facility] Start: 05-04-2022 Sex Female (finding) [facility] Start: 09-04-2012 National Score (1-10 0), lower number is lower risk 91 [facility] Start: 01-23-2022 Gender identity Identifies as female gender (finding) [facility] Start: 01-23-2022 Sexual orientation Heterosexual (fin madeline) [facility] Goals Date Patient Goal Desired Activity /State Functional Status Date Assessment Result Facility 10-07-2022 Functional status Ambulates [facility] Work Phone: Mental Status Date Assessment Result Facility 10-07-2022 Cognitive function Voice/Name [facility] Work Phone: Clinical Notes 01-16-2022 to 05-21-2025 Didier Small, PT - 05/18/2025 2:34 PM Didier Rios, PT - 05/03/2025 4:27 PM Didier Rios, PT - 05/03/2025 3:50 PM Ismael Tucker MD - 03/20/2025 12:44 PM EDT Note Date & Type Note Facility 05-21-2025 History and physi christy note [facility] 05-18-2025 Note HNO ID: [id number] Author: DIDIER SMALL, PT Service: ? Author Type: Physical Therapist Type: Progress Notes Filed: 05/18/2025 15:07 Note Text: Episode Visit Count: 2 Therapist That Will Accept/Oversee The Plan Of Care: Didier Small PT. Start of Care Date: 05/03/25 Onset Date: -- (All my life, however it started being more irritating in my 30's and then worsened since 2018.) Plan of Care Certification Date: 05/03/25 Next Certification Due Date: 06/22/25 Patient Identified by Name and Date of : Yes REHABIL[facility]ATION [facility]ORTS [facility]ER[facility]Y PHYSICAL THERAPY TREATMENT NOTE ASSESSMENT: Katie Smith tolerated the session with no issues. She demonstrated good control during TrA Bracing. The patient will continue to benefit from ongoing skilled physical therapy to progress toward set goals. PLAN FOR NEXT VISIT: Assess response to last visit and education implemented. SUBJECTIVE: Patient states no issues with HEP; doing pretty well today. Has been noticing when driving she feels a spasm/cramp down the LLE, this is pretty consistent everytime she drives, left buttocks to left knee. Pain: Pain Pain Level: 4 Pain Location: Hip - Left, Hip - Right Description: Pressure, Aching Frequency: Continuous Post Treatment Pain Post Treatment Pain Level: No Change OBJECTIVE MEASURES WITH LEVEL OF FUNCTION: TTP L Piriformis. Longer right lower extremity. TREATMENT: Therapeutic Exercise: 1: HL TrA Bracinx10, 5-sec holds. 2: HL TrA Bracing w/ BKFO: 2x10, 5-sec holds. 3: HL TrA Bracing w/ March: 2x10, 5-sec holds. 4: HL L IR STRETCH w/ RLE OP: 4x30. 5: Seated L Piriformis Stretch: 3x30. 6: Recut GTB. 7: Distributed Small Heel Lift for LLE; discussed use and discontinuation if caused inc pain. 8: Discussed seated posture and pillow under Lbuttocks in sitting. Skilled Intervention: Patient was educated in proper exercise technique and purpose for exercises. Reviewed and educated patient on additions/changes for home exercise program as above (*). Skilled judgment was used in selection of appropriate interventions. Provided written instruction for home exercise program to facilitate proper performance and compliance. Correct performance of therapeutic exercises was facilitated with verbal and visual cuing. Billing Therapeutic Exercise Treatment Minutes: 31 Skilled Treatment Time Minutes (timed and untimed codes): 31 Total Session Time (minutes): 31 Session Start Time : 1434 Session Stop Time : 1505 Didier Small PT [facility] 05-18-2025 History of Presen t illness Narrative Episode Visit Count: 2 Therapist That Will Accept/Oversee The Plan Of Care: Didier Small PT. Start of Care Date: 05/03/25 Onset Date: -- (All my life, however it started being more irritating in my 30's and then worsened since 2018.) Plan of Care Certification Date: 05/03/25 Next Certification Due Date: 06/22/25 Patient Identified by Name and Date of : Yes REHABILITATION AND SPORTS THERAPY PHYSICAL THERAPY TREATMENT NOTE ASSESSMENT: Katie Smith tolerated the session with no issues. She demonstrated good control during TrA Bracing. The patient will continue to benefit from ongoing skilled physical therapy to progress toward set goals. PLAN FOR NEXT VISIT: Assess response to last visit and education implemented. SUBJECTIVE: Patient states no issues with HEP; doing pretty well today. Has been noticing when driving she feels a spasm/cramp down the LLE, this is pretty consistent everytime she drives, left buttocks to left knee. Pain: Pain Pain Level: 4 Pain Location: Hip - Left, Hip - Right Description: Pressure, Aching Frequency: Continuous Post Treatment Pain Post Treatment Pain Level: No Change OBJECTIVE MEASURES WITH LEVEL OF FUNCTION: TTP L Piriformis. Longer right lower extremity. TREATMENT: Therapeutic Exercise: 1: HL TrA Bracinx10, 5-sec holds. 2: HL TrA Bracing w/ BKFO: 2x10, 5-sec holds. 3: HL TrA Bracing w/ March: 2x10, 5-sec holds. 4: HL L IR STRETCH w/ RLE OP: 4x30. 5: Seated L Piriformis Stretch: 3x30. 6: Recut GTB. 7: Distributed Small Heel Lift for LLE; discussed use and discontinuation if caused inc pain. 8: Discussed seated posture and pillow under Lbuttocks in sitting. Skilled Intervention: Patient was educated in proper exercise technique and purpose for exercises. Reviewed and educated patient on additions/changes for home exercise program as above (*). Skilled judgment was used in selection of appropriate interventions. Provided written instruction for home exercise program to facilitate proper performance and compliance. Correct performance of therapeutic exercises was facilitated with verbal and visual cuing. Billing Therapeutic Exercise Treatment Minutes: 31 Skilled Treatment Time Minutes (timed and untimed codes): 31 Total Session Time (minutes): 31 Session Start Time : 1434 Session Stop Time : 1505 Didier Small PT documented in this encounter [facility] 05-03-2025 History of Presen t illness Narrative Program_ID:[id number] Access Code: [email or web address] URL: [email or web address] Date: 05-03-2025 Prepared By: Didier Small Program Notes Exercises - Supine Lower Trunk Rotation - 2 x daily - 7 x weekly - 2 sets - 10 reps - Shoulder extension with resistance - Neutral - 2 x daily - 7 x weekly - 2 sets - 10-15 reps - Standing Shoulder Row with Anchored Resistance - 2 x daily - 7 x weekly - 2 sets - 10-15 reps - Supine Transversus Abdominis Bracing - Hands on Ground - 2 x daily - 7 x weekly - 2 sets - 10 reps Images from the original note were not included. Episode Visit Count: 1 Therapist That Will Accept/Oversee The Plan Of Care: Didier Small PT. Start of Care Date: 05/03/25 Onset Date: (All my life, however it started being more irritating in my 30's and then worsened since 2018.) Plan of Care Certification Date: 05/03/25 Next Certification Due Date: 06/22/25 Patient Identified by Name and Date of : Yes REHABILITATION AND SPORTS THERAPY PHYSICAL THERAPY EVALUATION PLAN OF CARE: Assessment: Katie Smith presents with diagnosis of history of adolescent idiopathic scoliosis and past fixation and hardware removal that interferes with standing, sitting, walking, stair negotiation, bending, physical activities, working, sleeping, bed mobility . The patient presents with impairments in ADL's, independence in exercise, overall function, posture, range of motion, strength, symptom management, and tissue tenderness. PROMIS (Patient-Reported Outcomes Measurement Information System) scores were reviewed and identified as a rehabilitation concern. Prognosis for therapy is Fair due to: clinical presentation, chronic nature of impairments . The patient will benefit from skilled therapy services to meet the goals established for this plan of care as noted below. Classification Pain Mechanism Classification: Nociceptive Low Back Pain Classification: Movement Control Goals for Episode of Care: established 05/03/25 [place] in home exercise program. Patient will decrease pain rating by 2 points to meet minimal clinical important difference for numeric pain rating scale. Patient will improve pain free lumbar range of motion to minimal limitation or better to improve ability to perform ADLs/IADLs. Patient will perform household mgmt related activities with [id number] restriction or pain/symptoms. Patient will endorse ability to sleep without pain waking her. Patient will improve static positioning with less pain or symptoms. Patient Goals: Alleviate Pain. Time Frame for Goals and Treatment : 06/18/25 Planned Interventions, Frequency, and Duration: Current Frequency: 1x/week Duration: 4 weeks Total Number of Visits Planned: 4 Planned Treatment Interventions: Therapeutic exercise (07579), Neuromuscular re-education (26486), Manual therapy (43233), Therapeutic activities (95593), Self-jail management (60400), Patient/Family/Caregiver Education, Gait Training (27765), Body Mechanics Training PLAN FOR NEXT VISIT: Review, correct and progress HEP; NS STrength and core stability; scapular/postural stabilization prepping for surgery. Patient demonstrates good understanding of plan of care and treatment. The above goals and plan of care were discussed and agreed upon by patient/family. SUBJECTIVE: Here for back and bilateral buttocks pain. Pain in the hips feel like pressure, stiffness and nerve pain. Pain is worse with prolonged positions (walking, sitting, lying), stairs, bending. Pain is worst on the Left. She does get radiating pain down both legs to the posterior thigh. A lot (30+) injections in the past which she says did not help. PSH of AIS s/p selective fusion, extension of fusion and removal of hardware approximately 30 years ago. Kenn Sauer MD plans to do surgery, however patient needed to complete PT prior. Patient Goals: Alleviate Pain. Functional Limitations: standing, sitting, walking, stair negotiation, bending, physical activities, working, sleeping, bed mobility Prior Level of Function: Independent without limitations Relevant History Past Relevant Medical Conditions: (Hyperthyroidism; Hx of Smoking.) Past Relevant Surgical Conditions: Spine fusion - Lumbar Spine Fusion - Lumbar Comments: She underwent surgery as an adolescent including a second surgery for hardware removal. She did well through her 20s but began developing increasing axial back pain in her 30s and this has progressed. Employment: Unemployed (Trying to get disability.) Intake Information: Prescription present Previous Treatment: Physical Therapy , Pain meds , Injections , Muscle relaxer ([facility] (6years ago at [facility]).) Falls Interview: No positive findings with falls interview Red Flags Vertebral Fracture Red Flags: Female Vertebral Fracture Clinical Reasoning: Proceed with caution due to the above (1-2) risk factors Abdominal Aortic Aneurysm Clinical Reasoning: No identified risk factors. Cancer Clinical Reasoning: No identified risk factors. Infection Clinical Reasoning: No identified risk factors. Cauda Equina Syndrome Clinical Reasoning: No identified risk factors. Red Flags - Cervical Cancer Clinical Reasoning: No identified risk factors. Infection Clinical Reasoning: No identified risk factors. Pain: Pain Pain Level: 5 Pain Location: Hip - Left, Hip - Right Description: Pressure, Aching Frequency: Continuous PROMIS Scales 05/02/2025 Higher is Better Self-Eff Symptom - T Score 35 (Low) Self-Eff Symptom - Percentile 7 05/02/2025 Lower is Better Pain Interference - T Score 67 (moderate) Pain Interference - Percentile 4 T-Score and Percentile Interpretation T-scores: mean of general population = 50. 5 points is clinically meaningfully difference Percentiles provide an indication of how the patient's score ranks in relation to the general population. Higher percentile rankings indicate better function/quality of life. 50th percentile is the average of the general population and indicates half of respondents had a worse score. OBJECTIVE MEASURES WITH LEVEL OF FUNCTION: Posture / Alignment Posture: Scoliosis Scoliosis comment: Severe Levoscoliosis. Stands upright with R Trunk Shift. Spine Observations R Lumbar Spine Palpation Tenderness: Paraspinals, PSIS (posterior superior iliac spine) L Lumbar Spine Palpation Tenderness: Paraspinals, PSIS (posterior superior iliac spine) R Thoracic Spine Palpation Tenderness: Paraspinals, Spinous Process L Thoracic Spine Palpation Tenderness: Paraspinals, Spinous Process Sensation - Lumbar Sensation: Comments Sensation Additional Comments: Numbness on top of feet bilat. Lumbar Spine AROM Lumbar Flexion: Moderate limitation Lumbar Extension: Major limitation Lumbar R Side [place]: Major limitation Lumbar L Side [place]: Major limitation Lumbar R Side-Bend: Major limitation Lumbar L Side-Bend: Major limitation Lumbar R Rotation: Minimal limitation Lumbar L Rotation: Minimal limitation Thoracic Spine AROM Thoracic Flexion: Moderate limitation Thoracic Extension: Major limitation Thoracic Sidebend Right: Major limitation Thoracic Sidebend Left: Major limitation Thoracic Rotation Right: Minimal limitation Thoracic Rotation Left: Minimal limitation LE Strength R LE Strength: Grossly 5/5 L LE Strength: Grossly 5/5 Special Tests - Hip and Spine Hip and Spine Special Tests: SLR Test SLR Test: Right Negative, Left Negative Gait Gait Observation: Antalgic; Postural Limitations in Walking due to structural deficits. Education: Education Learning Preferences: Demonstration, Explanation, Printed Materials Barriers: None Learning/educational needs: Home exercise program, Safety, Plan of Care, Health promotion, Procedure / Surgery, Posture, Body Mechanics Education Provided: Yes, see treatment interventions for education provided Education Provided To: Patient Education Mode/Type: Demonstration, Explanation/Discussion, Literature/Printed Materials Response to Education/Teach Back: States/Identifies TREATMENT: PT Treatment Interventions: Therapeutic Exercise Evaluation Therapeutic Exercise: 1: Reviewed HEP Exercises. PT provided demonstration and cueing of exercises for proper completion. Pt demonstrated understanding. 2: Patient educated on exam findings, rehabilitation process & plan of care, therapy goals, and anatomy relevant to diagnosis. 3: General explanation of radiograph and further imaging findings and discussed rehab implications. 4: *HL LTR to tolerable range: x10 ea. way. 5: *HL TrA Bracing: x10, 5-sec holds. 6: *Standing Rows: x10.GTB 7: *Standing Lat Pulldowns: x10.GTB 8: Discussed position and acitivty modification to not exacerbate symptoms. Discussed discontinuing exercises/activity that increase her pain. Skilled Intervention: Patient was educated in proper exercise technique and purpose for exercises. Reviewed and educated patient on additions/changes for home exercise program as above (*). Skilled judgment was used in selection of appropriate interventions. Provided written instruction for home exercise program to facilitate proper performance and compliance. Correct performance of therapeutic exercises was facilitated with verbal cuing. Patient education as noted. Billing * Evaluation Low Complexity: 1 Unit Therapeutic Exercise Treatment Minutes: 24 Skilled Treatment Time Minutes (timed and untimed codes): 43 Total Session Time (minutes): 43 Session Start Time : 1547 Session Stop Time : 1630 Didier Small PT documented in this encounter [facility] 05-03-2025 Note HNO ID: [id number] Author: DIDIER SMALL PT Service: ? Author Type: Physical Therapist Type: Progress Notes Filed: 05/07/2025 09:51 Note Text: Episode Visit Count: 1 Therapist That Will Accept/Oversee The Plan Of Care: Didier Small PT. Start of Care Date: 05/03/25 Onset Date: (All my life, however it started being more irritating in my 30's and then worsened since 2018.) Plan of Care Certification Date: 05/03/25 Next Certification Due Date: 06/22/25 Patient Identified by Name and Date of : Yes REHABILITATION AND SPORTS THERAPY PHYSICAL THERAPY EVALUATION PLAN OF CARE: Assessment: Katie Smith presents with diagnosis of history of adolescent idiopathic scoliosis and past fixation and hardware removal that interferes with standing, sitting, walking, stair negotiation, bending, physical activities, working, sleeping, bed mobility . The patient presents with impairments in ADL's, independence in exercise, overall function, posture, range of motion, strength, symptom management, and tissue tenderness. PROMIS? (Patient-Reported Outcomes Measurement Information System) scores were reviewed and identified as a rehabilitation concern. Prognosis for therapy is Fair due to: clinical presentation, chronic nature of impairments . The patient will benefit from skilled therapy services to meet the goals established for this plan of care as noted below. Classification Pain Mechanism Classification: Nociceptive Low Back Pain Classification: Movement Control Goals for Episode of Care: established 05/03/25 [place] in home exercise program. Patient will decrease pain rating by 2 points to meet minimal clinical important difference for numeric pain rating scale. Patient will improve pain free lumbar range of motion to minimal limitation or better to improve ability to perform ADLs/IADLs. Patient will perform household mgmt related activities with [id number] restriction or pain/symptoms. Patient will endorse ability to sleep without pain waking her. Patient will improve static positioning with less pain or symptoms. Patient Goals: Alleviate Pain. Time Frame for Goals and Treatment : 06/18/25 Planned Interventions, Frequency, and Duration: Current Frequency: 1x/week Duration: 4 weeks Total Number of Visits Planned: 4 Planned Treatment Interventions: Therapeutic exercise (61467), Neuromuscular re-education (53742), Manual therapy (63599), Therapeutic activities (49657), Self-jail management (05738), Patient/Family/Caregiver Education, Gait Training (42778), Body Mechanics Training PLAN FOR NEXT VISIT: Review, correct and progress HEP; NS STrength and core stability; scapular/postural stabilization prepping for surgery. Patient demonstrates good understanding of plan of care and treatment. The above goals and plan of care were discussed and agreed upon by patient/family. SUBJECTIVE: Here for back and bilateral buttocks pain. Pain in the hips feel like pressure, stiffness and nerve pain. Pain is worse with prolonged positions (walking, sitting, lying), stairs, bending. Pain is worst on the Left. She does get radiating pain down both legs to the posterior thigh. A lot (30+) injections in the past which she says did not help. PSH of AIS s/p selective fusion, extension of fusion and removal of hardware approximately 30 years ago. Kenn Sauer MD plans to do surgery, however patient needed to complete PT prior. Patient Goals: Alleviate Pain. Functional Limitations: standing, sitting, walking, stair negotiation, bending, physical activities, working, sleeping, bed mobility Prior Level of Function: Independent without limitations Relevant History Past Relevant Medical Conditions: (Hyperthyroidism; Hx of Smoking.) Past Relevant Surgical Conditions: Spine fusion - Lumbar Spine Fusion - Lumbar Comments: She underwent surgery as an adolescent including a second surgery for hardware removal. She did well through her 20s but began developing increasing axial back pain in her 30s and this has progressed. Employment: Unemployed (Trying to get disability.) Intake Information: Prescription present Previous Treatment: Physical Therapy , Pain meds , Injections , Muscle relaxer ([facility] (6years ago at [facility] Falls Interview: No positive findings with falls interview Red Flags Vertebral Fracture Red Flags: Female Vertebral Fracture Clinical Reasoning: Proceed with caution due to the above (1-2) risk factors Abdominal Aortic Aneurysm Clinical Reasoning: No identified risk factors. Cancer Clinical Reasoning: No identified risk factors. Infection Clinical Reasoning: No identified risk factors. Cauda Equina Syndrome Clinical Reasoning: No identified risk factors. Red Flags - Cervical Cancer Clinical Reasoning: No identified risk factors. Infection Clinical Reasoning: No identified risk factors. Pain: Pain Pain Level: 5 Pain Location: (more content not included)... [facility] 03-20-2025 Note HNO ID: [id number] Author: ISMAEL CROWDER MD Service: ? Author Type: Fellow Type: Progress Notes Filed: 03/20/2025 13:11 Note Text: SPINE SURGERY NEW PATIENT This is an in-person visit. PCP: Jose Aguilera DO SUBJECTIVE HISTORY OF PRESENT ILLNESS: Katie Smith is a 49 year old female smoker presenting alone history of AIS s/p selective fusion, extension of fusion and removal of hardware approximately 30 years ago presenting with 4 years of back and bilateral buttocks pain. Pain is worst with movement left side more than right side at the base of the spine and radiates to the upper aspect of the buttocks and occasionally down the legs. Has numbness at the top of the feet bilaterally. She has had many injections in the past which she says did not help. 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 CHIEF COMPLAINT: As above PRECIPITATING EVENT: As above DURATION OF SYMPTOMS: As above PAIN EVALUATION 03/20/2025 1222 Pain Level: 6 Pain Location: Back-Lower Description: Aching;Pressure Duration Amount of Time: -- many Duration Units: Years Frequency: Continuous Pain Radiation: As above Aggravating Factors: As above Alleviating Factors: As above Pain Ratio: As above DERMATOMAL DISTRIBUTION: L5/S1 AMBULATORY STATUS: impaired community distances ANTIPLATELET OR ANTICOAGULATION STATUS: No PREVIOUS CONSERVATIVE TREATMENTS: As above PREVIOUS SPINAL SURGERY: AIS s/p selective fusion, extension of fusion and removal of hardware approximately 30 years ago There is no problem list on file for this patient. PAST MEDICAL HISTORY Diagnosis Date Bartholin's duct cyst Hyperthyroidism 02/2022 Dr Nir Ortiz [facility] Scoliosis PAST SURGICAL HISTORY Procedure Laterality Date BACK SURGERY HX x3 for scoliosis CHG IANDD BARTHOLINS CYST Right COLOGUARD 06/2023 negative REVISE MEDIAN N/CARPAL TUNNEL SURG Right 2022 No family history on file. Social History Tobacco Use Smoking status: Every Day Current packs/day: 0.50 Average packs/day: 0.5 packs/day for 10.0 years (5.0 ttl pk-yrs) Types: Cigarettes Smokeless tobacco: Never Vaping Use Vaping status: Never Used Substance Use Topics Alcohol use: Yes Comment: occasional Drug use: No ALLERGIES Allergen Reactions Seasonal Allergies Itching MEDICATIONS: gabapentin (NEURONTIN) 300 mg capsule gabapentin 300 mg capsule take 1 tablet by mouth every 8 hours DULoxetine (CYMBALTA) 30 mg capsule Take 30 mg by mouth once daily. methIMAzole (TAPAZOLE) 10 mg tablet Take 1 tablet by mouth once daily. Cholecalciferol, Vitamin D3, 50 mcg (2,000 unit) cap Take 1 capsule by mouth once daily. ibuprofen (MOTRIN) 800 mg tablet Take 1 tablet by mouth every 8 hours as needed for Pain. FOR PAIN. cetirizine (ZYRTEC) 10 mg tablet meloxicam (MOBIC) 15 mg tablet Norethindrone, Contraceptive, (JENCYCLA) 0.35 mg tablet Take 1 tablet by mouth once daily. SUMAtriptan (IMITREX) 100 mg tablet sumatriptan 100 mg tablet take 1 tablet by mouth AT ONSET OF HEADACHE REVIEW OF SYSTEMS: GENERAL: No weight loss or malaise MUSCULOSKELETAL: Negative for joint pain, swelling or muscle pain NEURO: No history of headaches, syncope, paralysis, seizures or tremors Patient Entered Questionnaires PROMIS Score Percentiles Percentiles provide an indication of how the patient's score ranks in relation to the general population. Higher percentile rankings indicate better function/quality of life. 50th percentile is the average of the general population and indicates half of respondents had a worse score. Depression Screening: PHQ-9 Self-Harm (Item 9) response options: 0 Not at all 1 Several days 2 More than half the days 3 Nearly every day PHQ-9 Levels: 0-4 No to mild depression 5-9 Mild depression 10-14 Moderate depression 15-19 Moderately severe depression 20-27 Severe depression OBJECTIVE: PHYSICAL EXAM LMP 10/05/2016 GENERAL APPEARANCE: Well nourished, well developed, and no apparent distress. NEURO PSYCH: Patient oriented to person, place, and time. Mood pleasant. Benign affect. MUSCULOSKELETAL VISUAL INSPECTION CERVICAL: Hyperlordosis THORACIC: Kyphoscoliosis LUMBAR: Scoliosis MOTOR: 5/5 in all muscle groups. SENSORY: Numbness on top of feet bilaterally NEURO TESTS: None DATA REVIEW Imaging and outside records independently reviewed ASSESSMENT/PLAN (M41.9) Scoliosis of lumbar spine, unspecified scoliosis type (primary encounter diagnosis) (M41.126) Adolescent idiopathic scoliosis of lumbar region (Z98.1) S/P lumbar fusion Katie Smith 49F with AIS s/p remote selective fusion and removal of hardware presenting with symptomatic L5/S1 spondylolisthesis. Will obtain CT scan of L-spine and schedule follow up to review results and discuss options. SIGNATURE: Tyson Sauer MD PATIENT NAME: Katie Smith DATE: March 20, 2025 TIME: 1:02 PM PAGER: [facility] 03-20-2025 History of Presen t illness Narrative Images from the original note were not included. SPINE SURGERY NEW PATIENT This is an in-person visit. PCP: Jose Aguilera DO SUBJECTIVE HISTORY OF PRESENT ILLNESS: Katie Smith is a 49 year old female smoker presenting alone history of AIS s/p selective fusion, extension of fusion and removal of hardware approximately 30 years ago presenting with 4 years of back and bilateral buttocks pain. Pain is worst with movement left side more than right side at the base of the spine and radiates to the upper aspect of the buttocks and occasionally down the legs. Has numbness at the top of the feet bilaterally. She has had many injections in the past which she says did not help. 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 CHIEF COMPLAINT: As above PRECIPITATING EVENT: As above DURATION OF SYMPTOMS: As above PAIN EVALUATION 03/20/2025 1222 Pain Level: 6 Pain Location: Back-Lower Description: Aching;Pressure Duration Amount of Time: -- many Duration Units: Years Frequency: Continuous Pain Radiation: As above Aggravating Factors: As above Alleviating Factors: As above Pain Ratio: As above DERMATOMAL DISTRIBUTION: L5/S1 AMBULATORY STATUS: impaired community distances ANTIPLATELET OR ANTICOAGULATION STATUS: No PREVIOUS CONSERVATIVE TREATMENTS: As above PREVIOUS SPINAL SURGERY: AIS s/p selective fusion, extension of fusion and removal of hardware approximately 30 years ago There is no problem list on file for this patient. PAST MEDICAL HISTORY Diagnosis Date Bartholin's duct cyst Hyperthyroidism 02/2022 Dr Nir Ortiz [facility] Scoliosis PAST SURGICAL HISTORY Procedure Laterality Date BACK SURGERY HX x3 for scoliosis CHG I&D BARTHOLINS CYST Right COLOGUARD 06/2023 negative REVISE MEDIAN N/CARPAL TUNNEL SURG Right 2022 No family history on file. Social History Tobacco Use Smoking status: Every Day Current packs/day: 0.50 Average packs/day: 0.5 packs/day for 10.0 years (5.0 ttl pk-yrs) Types: Cigarettes Smokeless tobacco: Never Vaping Use Vaping status: Never Used Substance Use Topics Alcohol use: Yes Comment: occasional Drug use: No ALLERGIES Allergen Reactions Seasonal Allergies Itching MEDICATIONS: gabapentin (NEURONTIN) 300 mg capsule gabapentin 300 mg capsule take 1 tablet by mouth every 8 hours DULoxetine (CYMBALTA) 30 mg capsule Take 30 mg by mouth once daily. methIMAzole (TAPAZOLE) 10 mg tablet Take 1 tablet by mouth once daily. Cholecalciferol, Vitamin D3, 50 mcg (2,000 unit) cap Take 1 capsule by mouth once daily. ibuprofen (MOTRIN) 800 mg tablet Take 1 tablet by mouth every 8 hours as needed for Pain. FOR PAIN. cetirizine (ZYRTEC) 10 mg tablet meloxicam (MOBIC) 15 mg tablet Norethindrone, Contraceptive, (JENCYCLA) 0.35 mg tablet Take 1 tablet by mouth once daily. SUMAtriptan (IMITREX) 100 mg tablet sumatriptan 100 mg tablet take 1 tablet by mouth AT ONSET OF HEADACHE REVIEW OF SYSTEMS: GENERAL: No weight loss or malaise MUSCULOSKELETAL: Negative for joint pain, swelling or muscle pain NEURO: No history of headaches, syncope, paralysis, seizures or tremors Patient Entered Questionnaires PROMIS Score Percentiles Percentiles provide an indication of how the patient's score ranks in relation to the general population. Higher percentile rankings indicate better function/quality of life. 50th percentile is the average of the general population and indicates half of respondents had a worse score. Depression Screening: PHQ-9 Self-Harm (Item 9) response options: 0 Not at all 1 Several days 2 More than half the days 3 Nearly every day PHQ-9 Levels: 0-4 No to mild depression 5-9 Mild depression 10-14 Moderate depression 15-19 Moderately severe depression 20-27 Severe depression OBJECTIVE: PHYSICAL EXAM LMP 10/05/2016 GENERAL APPEARANCE: Well nourished, well developed, and no apparent distress. NEURO PSYCH: Patient oriented to person, place, and time. Mood pleasant. Benign affect. MUSCULOSKELETAL VISUAL INSPECTION CERVICAL: Hyperlordosis THORACIC: Kyphoscoliosis LUMBAR: Scoliosis MOTOR: 5/5 in all muscle groups. SENSORY: Numbness on top of feet bilaterally NEURO TESTS: None DATA REVIEW Imaging and outside records independently reviewed ASSESSMENT/PLAN (M41.9) Scoliosis of lumbar spine, unspecified scoliosis type (primary encounter diagnosis) (M41.126) Adolescent idiopathic scoliosis of lumbar region (Z98.1) S/P lumbar fusion Katie Smith 49F with AIS s/p remote selective fusion and removal of hardware presenting with symptomatic L5/S1 spondylolisthesis. Will obtain CT scan of L-spine and schedule follow up to review results and discuss options. SIGNATURE: Tyson Sauer MD PATIENT NAME: Katie Smith DATE: March 20, 2025 TIME: 1:02 PM PAGER: This 49-year-old woman has a history of adolescent idiopathic scoliosis. She underwent surgery as an adolescent including a second surgery for hardware removal. She did well through her 20s but began developing increasing axial back pain in her 30s and this has progressed. Her pain is made worse with standing or walking. There is also worse with getting out of bed in the morning. It is improved somewhat by sitting. On clinical exam she stands with 6 cm right trunk shift. She is balanced in the sagittal plane but has markedly increased pelvic tilt. Imaging investigation shows what appears to be a solid arthrodesis down to the L3 level. She has rotatory subluxation/lateral listhesis of over a centimeter at both L3-4 and L4-5. She has a 14 mm degenerative spondylolisthesis at L5-S1. I think this woman could potentially benefit from surgery. She is an active smoker and I explained to her the absolute necessity for smoking cessation prior to surgery. She has not done physical therapy in 2 years so we will initiate a PT order at this stage. In the interim as part of the preoperative planning process I would like to get a CT scan to further define the bony anatomy. I will see her back after the CT scan has been done. Tyson Sauer MD documented in this encounter [facility] 03-20-2025 Note HNO ID: [id number] Author: Tyson SAUER MD Service: ? Author Type: Physician Type: Progress Notes Filed: 03/20/2025 13:11 Note Text: This 49-year-old woman has a history of adolescent idiopathic scoliosis. She underwent surgery as an adolescent including a second surgery for hardware removal. She did well through her 20s but began developing increasing axial back pain in her 30s and this has progressed. Her pain is made worse with standing or walking. There is also worse with getting out of bed in the morning. It is improved somewhat by sitting. On clinical exam she stands with 6 cm right trunk shift. She is balanced in the sagittal plane but has markedly increased pelvic tilt. Imaging investigation shows what appears to be a solid arthrodesis down to the L3 level. She has rotatory subluxation/lateral listhesis of over a centimeter at both L3-4 and L4-5. She has a 14 mm degenerative spondylolisthesis at L5-S1. I think this woman could potentially benefit from surgery. She is an active smoker and I explained to her the absolute necessity for smoking cessation prior to surgery. She has not done physical therapy in 2 years so we will initiate a PT order at this stage. In the interim as part of the preoperative planning process I would like to get a CT scan to further define the bony anatomy. I will see her back after the CT scan has been done. Tyson Sauer MD [facility] 03-20-2025 History of Presen t illness Narrative Radiology Service Progress Note PATIENT NAME: Katie Smith DATE OF SERVICE: March 20, 2025 TIME: 12:12 PM PATIENT IDENTITY VERIFICATION COMPLETED USING TWO (2) IDENTIFIERS: Name and Date of confirmed by patient verbally and Name and Date of confirmed by identification band. FALL SCREENING: Has the patient had 2 falls in the last year or 1 fall with injury or currently using an Ambulatory Assistive Device (Walker, Cane, Wheelchair, Crutches, etc.)? No PATIENT GENDER DATA: Assigned female at . status: : No status: NO. PATIENT RELEVANT IMPLANT DATA REVIEWED: Not Applicable PATIENT PRESENTS WITH AN IMPLANTABLE OR ATTACHED FLAT KNITTER HELPER: No RADIOLOGY DEPARTMENT: General X-ray: Exam(s) Completed: Spine X-Ray(s): Scoliosis Series PERIPHERAL IV DATA: Not applicable SIGNED BY: RT João(Tyson) March 20, 2025 12:12 PM documented in this encounter [facility] 03-20-2025 Note HNO ID: [id number] Author: ELENI MITCHELL RT(R) Service: Radiology Author Type: Integration Specialist Type: Progress Notes Filed: 03/20/2025 12:13 Note Text: Radiology Service Progress Note PATIENT NAME: Katie Smith DATE OF SERVICE: March 20, 2025 TIME: 12:12 PM PATIENT IDENTITY VERIFICATION COMPLETED USING TWO (2) IDENTIFIERS: Name and Date of confirmed by patient verbally and Name and Date of confirmed by identification band. FALL SCREENING: Has the patient had 2 falls in the last year or 1 fall with injury or currently using an Ambulatory Assistive Device (Walker, Cane, Wheelchair, Crutches, etc.)? No PATIENT GENDER DATA: Assigned female at . status: : No status: NO. PATIENT RELEVANT IMPLANT DATA REVIEWED: Not Applicable PATIENT PRESENTS WITH AN IMPLANTABLE OR ATTACHED FLAT KNITTER HELPER: No RADIOLOGY DEPARTMENT: General X-ray: Exam(s) Completed: Spine X-Ray(s): Scoliosis Series PERIPHERAL IV DATA: Not applicable SIGNED BY: JUSTIN Moyer) March 20, 2025 12:12 PM [facility] 01-23-2025 Note HNO ID: [id number] Author: TANI ACEVEDO APRN.DOCK SUPERVISOR Service: ? Author Type: Nurse Practitioner Type: Progress Notes Filed: 01/23/2025 15:43 Note Text: Per Triage: Katie Smith is a 49 year old female that requests evaluation of lumbar spine. Per review, they have symptoms of back pain, Numbness bilateral leg, feet/ Lt side is worst Weakness Yes Lt side Requesting shubham Referring Provider Dr. Kirk Shu Is this a 2nd opinion from another spine surgeon? Yes Were you offered surgery? Yes Have you had previous spinal surgery for this same symptoms? Yes CMT: Methocarbamol, oral steroid, Gabapentin, Ibuprofen Studies (Reports unless indicated) MRI L Severe levoscoliosis with its apex at L2-3. 6 mm leftward translation of L3 with respect to L4. 9 mm leftward translation of L4 with respect to L5. Grade 1 anterolisthesis at L5-S1 in the setting of a left L5 pars defect. Preserved vertebral body heights. Type II Modic changes on the right at L3-4. Mixed Modic changes at L4-5 and L5-S1. Normal background marrow signal intensity. Posterior element remodeling and/or laminectomy changes with ankylosis/fusion from the thoracic spine to the level of L4. Ferromagnetic artifact in the L1 and L2 laminectomy bed with only punctate metallic foreign bodies as correlate on radiography. Otherwise, no hardware identified. Conus medullaris terminating at L2, demonstrating normal caliber and signal intensity. T12-L1: No stenosis. L1-2: No stenosis. L2-3: No stenosis. L3-4: Asymmetric bulging disc, facet arthrosis, and ligamentum flavum thickening. Mild narrowing of the central canal zone. Moderate narrowing of the right subarticular zone. Severe narrowing of the right foraminal zone. L4-5: Asymmetric bulging disc, facet arthrosis, and ligamentum flavum thickening resulting in mild narrowing of the central canal zone and left subarticular zone. Moderate narrowing of the foraminal zones, with the left in part due to a 4 mm facet joint synovial cyst. Additional left facet joint synovial cysts directed dorsally. Severe bilateral facet arthrosis. L5-S1: Anterolisthesis and facet arthrosis resulting in severe narrowing of the left foraminal zone with contact of the exiting left L5 nerve root. Mild narrowing central canal zone, left subarticular zone, and right foraminal zone. Severe bilateral facet arthrosis. Disposition: Please schedule with Dr Jalloh, XR EOS ordered to be completed prior to her appointment. Please notify patient due to Dr. Jalloh's surgical specialty he is booking several months out for surgery. If patient would like to see a sooner scoliosis surgeon can schedule with Constantine Glover, or Marian. [facility] 01-23-2025 History of Presen t illness Narrative Per Triage: Katie M Colin is a 49 year old female that requests evaluation of lumbar spine. Per review, they have symptoms of back pain, Numbness bilateral leg, feet/ Lt side is worst Weakness Yes Lt side Requesting shubham Referring Provider Dr. Kirk Suh Is this a 2nd opinion from another spine surgeon? Yes Were you offered surgery? Yes Have you had previous spinal surgery for this same symptoms? Yes CMT: Methocarbamol, oral steroid, Gabapentin, Ibuprofen Studies (Reports unless indicated) MRI L Severe levoscoliosis with its apex at L2-3. 6 mm leftward translation of L3 with respect to L4. 9 mm leftward translation of L4 with respect to L5. Grade 1 anterolisthesis at L5-S1 in the setting of a left L5 pars defect. Preserved vertebral body heights. Type II Modic changes on the right at L3-4. Mixed Modic changes at L4-5 and L5-S1. Normal background marrow signal intensity. Posterior element remodeling and/or laminectomy changes with ankylosis/fusion from the thoracic spine to the level of L4. Ferromagnetic artifact in the L1 and L2 laminectomy bed with only punctate metallic foreign bodies as correlate on radiography. Otherwise, no hardware identified. Conus medullaris terminating at L2, demonstrating normal caliber and signal intensity. T12-L1: No stenosis. L1-2: No stenosis. L2-3: No stenosis. L3-4: Asymmetric bulging disc, facet arthrosis, and ligamentum flavum thickening. Mild narrowing of the central canal zone. Moderate narrowing of the right subarticular zone. Severe narrowing of the right foraminal zone. L4-5: Asymmetric bulging disc, facet arthrosis, and ligamentum flavum thickening resulting in mild narrowing of the central canal zone and left subarticular zone. Moderate narrowing of the foraminal zones, with the left in part due to a 4 mm facet joint synovial cyst. Additional left facet joint synovial cysts directed dorsally. Severe bilateral facet arthrosis. L5-S1: Anterolisthesis and facet arthrosis resulting in severe narrowing of the left foraminal zone with contact of the exiting left L5 nerve root. Mild narrowing central canal zone, left subarticular zone, and right foraminal zone. Severe bilateral facet arthrosis. Disposition: Please schedule with Dr Jalloh, XR EOS ordered to be completed prior to her appointment. Please notify patient due to Dr. Jalloh's surgical specialty he is booking several months out for surgery. If patient would like to see a sooner scoliosis surgeon can schedule with Constantine Glover or Marian. Patient name: Katie Smith Are you being referred by a Center for Sp[facility] Health Provider or Pain Management Provider at [facility]? No If answer is YES please schedule directly with surgeon, triage does not need to be completed. Is this a self-referral No If not, who is the Referring Provider Dr. Kirk Suh Is this a 2nd opinion from another spine surgeon? Yes Were you offered surgery? Yes MRI/CT/myelogram within 12 months? Yes report is in Care EveryWhere If NO, please refer to medical spine or PCP to complete above imaging, triage does not need to be completed If YES, please ask for the name/address of the facility where the MRI/CT/myelogram was completed: [place] [id number] MRI/CT/myelogram viewable in Epic: No If not, please provide [phone] to fax in imaging reports for review. Also, please inform patient to hand carry imaging disc to appointment. XR (spine) within 12 months: Yes If YES, please ask for the name/address of the facility where the XR was completed: [place] [id number] Dr. Tyson's patients: Have you had previous EMG/Nerve Conduction Study, Ultrasound, or MRI for these same symptoms? If YES, please ask for the name/address of the facility where they were completed: Requested provider (First and Last name): Dr. Jalloh Are you interested in a virtual visit if offered? 1. Where are you having symptoms related to this visit? Lumbar Spine Back pain Yes Leg pain No Arm pain No Neck pain Yes 2. Are you having any of the following symptoms: Difficulty walking No Numbness Yes bilateral leg, feet/ Lt side is worst Weakness Yes Lt side Trouble using your hands? No 3. Have you had any injections or physical therapy in the last 12 months? No If YES then please ask for the name/address of the facility where the injections and/or physical therapy was completed Have you tried any other kinds of non-surgical treatments in the last 12 months? (For example: NSAIDS, muscle relaxants, analgesics, oral steroids, Chiropractor, Acupuncture): Methocarbamol, oral steroid, Gabapentin, Ibuprofen 4. Are you currently taking daily prescribed narcotic medications for your current symptoms (For example Oxycodone, Hydrocodone, Tramadol, Morphine, Other)? No 5. Have you had previous spinal surgery for this same symptoms? Yes If YES please ask for the name of facility/address of where the surgery was completed: Additional Comments [phone] documented in this encounter [facility] 01-22-2025 Note HNO ID: [id number] Author: ?, ?, ? Service: ? Author Type: ? Type: Progress Notes Filed: 01/23/2025 15:43 Note Text: Patient name: Katie Smith Are you being referred by a [place] for Spine Health Provider or Pain Management Provider at [facility]? No If answer is YES please schedule directly with surgeon, triage does not need to be completed. Is this a self-referral No If not, who is the Referring Provider Dr. Kirk Suh Is this a 2nd opinion from another spine surgeon? Yes Were you offered surgery? Yes MRI/CT/myelogram within 12 months? Yes report is in Care EveryWhere If NO, please refer to medical spine or PCP to complete above imaging, triage does not need to be completed If YES,? please ask for the name/address of the facility where the MRI/CT/myelogram was completed: [address] [address] MRI/CT/myelogram viewable in Epic: No If not, please provide [phone] to fax in imaging reports for review. Also, please inform patient to hand carry imaging disc to appointment. XR (spine) within 12 months: Yes If YES,? please ask for the name/address of the facility where the XR was completed: [address] [address] [address] Tyson's patients: Have you had previous EMG/Nerve Conduction Study, Ultrasound, or MRI for these same symptoms? If YES,? please ask for the name/address of the facility where they were completed: Requested provider (First and Last name): Dr. Jalloh Are you interested in a virtual visit if offered? 1. Where are you having symptoms related to this visit? Lumbar Spine Back pain Yes Leg pain No Arm pain No Neck pain Yes 2. Are you having any of the following symptoms: Difficulty walking No Numbness Yes bilateral leg, feet/ Lt side is worst Weakness Yes Lt side Trouble using your hands? No 3. Have you had any injections or physical therapy in the last 12 months? No If YES then please ask for the name/address of the facility where the injections and/or physical therapy was completed Have you tried any other kinds of non-surgical treatments in the last 12 months? (For example: NSAIDS, muscle relaxants, analgesics, oral steroids, Chiropractor, Acupuncture): Methocarbamol, oral steroid, Gabapentin, Ibuprofen 4. Are you currently taking daily prescribed narcotic medications for your current symptoms (For example Oxycodone, Hydrocodone, Tramadol, Morphine, Other)? No 5. Have you had previous spinal surgery for this same symptoms? Yes If YES? please ask for the name of facility/address of where the surgery was completed: Additional Comments [phone] [facility] 01-19-2025 Note Shubham referral signed. Thanks! [facility] 01-19-2025 Telephone encounter Note Shubham referral signed. Thanks! [facility] 01-19-2025 Miscellaneous Notes Shubham referral signed. Thanks! Called and LVM regarding spine follow up. If patient calls back please inform the patient MRI reviewed by surgeons and [facility] due to her history of scoliosis and thoracic surgery. They will contact her to schedule. documented in this encounter [facility] 01-15-2025 Telephone encounter Note Called and LVM regarding spine follow up. If patient calls back please inform the patient MRI reviewed by surgeons and [facility]alloh due to her history of scoliosis and thoracic surgery. They will contact her to schedule. [facility] 12-06-2024 History of Presen t illness Narrative Images from the original note were not included. [facility] - [address] [facility] [address] Dept: [phone] Dept Katie Colin 1975 [id number] 12/06/2024 Problem List: Lumbar pain Lumbar anterolisthesis L5-S1, grade 2 Left L5 lumbar radiculopathy L4/5 and L5/S1 lumbar degenerative disc diseas e Thoracic pain Adolescent idiopathic scoliosis status post fusion (age 14), progressing Status post removal of hardware for idiopathic scoliosis fusion Narcotic dependence (Recent fentanyl abuse, clean since rehab/detox) Nicotine dependence Diagnoses: (M54.50) Lumbar pain (M51.361) Degeneration of intervertebral disc of lumbar region with lower extremity pain (M47.816) Lumbar spondylosis (M43.16) Spondylolisthesis of lumbar region (M41.25) Other idiopathic scoliosis, thoracolumbar region (Z98.1) History of lumbar fusion Chief Complaint Patient presents with Follow-up HPI: Katie is a 49 y.o. female who is here today for: lumbar pain. Current symptoms: Pain is located in the across the lower back or worse on the left side that is radiating bilateral legs . Numbness/tingling: right lower leg, left lower leg. Weakness: right lower leg, left lower leg. Changes since last visit in 2018: Worsening low back pain and down legs Feels like she can't hold back up Aggravating factors: standing, walking, and increased activity Alleviating Factors: Laying down/ repositioning Current Treatment: Reports self medicate Previous Treatement: Last seen by Dr. Suh 2018 PM- Dr. Garcia [facility] Review of Systems No Known Allergies Current Outpatient Medications Medication Sig Dispense Refill methocarbamol (Robaxin) 750 MG tablet Take 1 tablet (750 mg) by mouth 3 times daily as needed for muscle spasms. 90 tablet 0 methylPREDNISolone (Medrol Dospak) 4 MG tablets Take by mouth as directed by package instructions 21 tablet 0 No current facility-administered medications for this visit. No past medical history on file. Past Surgical History: Procedure Laterality Date BACK SURGERY X 3 for scoliosis--titanium rods in and removed Social History Socioeconomic History Marital status: Single Spouse name: Not on file Number of children: Not on file Years of education: Not on file Highest education level: Not on file Occupational History Not on file Tobacco Use Smoking status: Every Day Current packs/day: 0.50 Types: Cigarettes Smokeless tobacco: Never Substance and Sexual Activity Alcohol use: Yes Drug use: No Sexual activity: Not on file Other Topics Concern Not on file Social History Narrative Not on file Social Drivers of Health Financial Resource Strain: Not on file Food Insecurity: Not on file Transportation Needs: Not on file Physical Activity: Not on file Stress: Not on file Social Connections: Not on file Intimate Partner Violence: Not on file Housing Stability: Not on file Family History Problem Relation Name Age of Onset No Known Problems Father No Known Problems Brother No Known Problems Sister No Known Problems Mother No Known Problems Brother PHYSICAL EXAM Ht 5' 4.5 (1.638 m) Wt 110 lb (49.9 kg) BMI 18.59 kg/m SPINE/EXTREMITY: General: Patient is in mild distress. Gait is slightly intelligent, not assisted. SPINE/EXTREMITY: Gait: Non-antalgic and unassisted. Patient able to perform tandem gait. Patient able to walk on tip-toes and heels. Normal age-defined sit to stand time. Posture slightly skewed. Patient is able to go up on her toes and back on her heels in a standing position. Patient is mildly tender upon palpation of thoracic and lumbar spine. Also tender upon palpation of bilateral SI joints. Lower Extremity Motor: HF Q TA EHL Peroneals GSC Right 5 5 5 5 5 5 Left 4+ 4 4 4+ 4+ 4 Lower extremity sensation to light touch: L2 L3 L4 L5 S1 Right Intact Intact Intact Intact Intact Left Decreased Decreased Decreased Decreased Decreased Lower extremity reflexes: Patellar Achilles Right 2+ 2+ Left 2+ 2+ Straight leg raise: Right Negative Left Negative Misc: Clonus Babinski Right None Absent Left None Absent Lower extremity pulses: DP PT Right 2+ 2+ Left 2+ 2+ Hip exam: Bilateral hip range of motion is full and symmetric without pain. Sacroiliac exam: [place] Right W/ pain Left W/ pain IMAGING Lumbar Spine: Date of Exam: 12/06/24 Views: 4 views of the lumbar spine (AP, lateral flexion and extension) Findings: see full xray interpretation Lumbar Spine: Date of Exam: 07/06/2018 Views: 4 views of the lumbar spine (AP, lateral, flexion and extension) Findings: Poor quality x-rays secondary to patient rotation and obliquity. There appears to be a previous fusion of the thoracolumbar spine with interval hardware removal. There appears to be idiopathic scoliosis with lateral listhesis and L5/S1 spondylolisthesis below the level of fusion. Lumbar MRI: Pending Date of exam: 10/03/2018 Findings: IMPRESSION: 1. Surgical changes of laminectomies from T12-L1 to L3-L4. 2. Marked lumbar levoscoliosis. 3. Grade 1 anterolisthesis of L5 on S1 with severe facet hypertrophy. 4. Severe left foraminal narrowing at L5-S1 with disc abutting the exiting left L5 nerve root in the foraminal zone. 5. Severe left foraminal narrowing at L4-L5. 6. Otherwise, multilevel degenerative changes of the lumbar spine as described. Lab Review: No labs were reviewed/no labs were available for review this visit. IMPRESSION See problem list above. Katie is a 49 y.o. female presenting for follow-up of her lumbar spine and thoracolumbar scoliosis. Patient was last seen in 10/07/[address] Suh where she was evaluated for her thoracolumbar scoliosis. At this time patient had updated imaging and lumbar MRI which Dr. Suh discussed possible surgery with the patient. At this time patient was still currently smoking nicotine and illicit narcotics for which she was planning on starting her methadone. Dr. Suh discussed once patient is nicotine free for 2 months they could proceed with surgery. Today patient reports she did meet with Dr. Garcia but they cannot start her new methadone medication. She reports over the past few years her thoracic and lumbar pain have progressively gotten worse. She reports she has numbness and tingling and pain into her lower extremities bilaterally, her left being worse than the right. She does report some numbness and tingling in her upper extremities as well. She denies any loss of bowel or bladder, she does report some numbness and tingling in her left groin. She denies any worsening balance or hand dexterity issues. I had a discussion with Katie Smith about her symptoms. We reviewed her imaging which showed adult degenerative scoliosis as well as diffuse degenerative changes. This can create chronic back pain because the patient is having to use muscles to nuclear instructor the upright position. We discussed the treatment options as well. We went over medical treatment, pet care assistant, acupuncture, massage therapy, and physical therapy to help strengthen the muscles to stand upright. We stressed the importance of core strengthening for long-term health of the spine. If the symptoms do not respond to conservative treatment the patient is a candidate for surgical intervention. The patient can continue conservative treatment as long as he or she wants. The patient seems to understand their diagnosis as well as the treatment options. All questions were answered to the best of my ability. Due to patient's tingling in the left groin, as well as worsening levoscoliosis on her lumbar imaging today with a history of L4-5, L5-S1 degenerative disc disease with reported left leg weakness and decreased sensation in the entire left leg, we feel it is imperative to order an updated lumbar MRI without contrast to further evaluate for any nerve impingement. Patient would like to try Mobic and a Medrol Dosepak to see if this helps her symptoms. Depending on the MRI we will have patient follow-up with Dr. Lewis or Dr. Jalloh at [facility]. Patient is interested in surgery as this has been severely affecting the quality of her life. We discussed if any red flag symptoms should worsen patient should seek emergent medical evaluation. I had a long discussion with Katie to make sure she had a good understanding of what I think the main issues and diagnoses are that are affecting her today, and reviewed the plan going forward. PLAN: MDP and Mobic 15mg QD Lumbar MRI without contrast Follow up pending MRI, may be referred to Dr. Jalloh at [facility] Electronically signed by Kimber Flores PA-C 12/06/2024 at 4:07 PM The risks and appropriate dosing of steroids (ie Prednisone, Medrol Dosepak, etc) were discussed with the patient in detail. These include but are not limited to changes in mood, sleep pattern alteration, hyperglycemia, avascular necrosis, nausea/vomiting, headache, dizziness and/or upset stomach. If any of these side effects are experienced I advised the patient to discontinue the medication and contact both myself and their primary care physician. The risks and benefits of narcotic pain medication (ie hydrocodone, oxycodone, etc) were discussed with the patient in detail. These include but are not limited to addiction, constipation, nausea/vomiting, abdominal pain, loss of appetite, drowsiness, itching, headache, dry mouth and/or sweating. I recommended taking a concurrent stool softener (ie colace, dulcolax, miralax, etc). If any of these side effects are experienced I advised the patient to discontinue the medication and contact both myself and their primary care physician. Dictated using [employer] Systems Version 2.4 Proof read however unrecognized voice recognition errors may have occurred documented in this encounter [facility] [email or web address] 12-06-2024 Instructions Marina Pinzon - 12/06/2024 3:00 PM EST Images from the original note were not included. We will notify you once we have approval from your insurance. You will then call central scheduling at [phone] to schedule. 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 Katie is a 47 year old who presents for an annual gynecologic exam without complaints. Diagnosed with hyperthyroidism and being treated. [employer] would like to know if she is pre or postmenopausal by hormone levels. Menses: no menses - POP Contraception: Progestin - only contraceptives HPV vaccine: No Last Pap: 02/19/2022 normal HPV: 02/19/2022 negative History of abnormal pap: Yes as a teen Last mammogram:2021, needed additional imaging left breast Sexually active: Not for past 6 months History of STDS: None Patient concerns for STD exposure: No. Hot flashes: Yes 2/day Night sweats: Yes 2/week Documentation from previous visit of 02/19/2022 was copied and pasted, documentation has been reviewed and edited as necessary for today's visit. OB History T0 L1 SAB1 IAB0 Ectopic0 Multiple0 Live Births0 Scrap Bunch Maker History LMP: 10/05/2016, Drug Induced Amenorrhea Age at Menarche: Age at First : Age at Menopause: Scrap Bunch Maker History Comments: Sexual Activity: Not Currently; Male Contraception: Pill PAST MEDICAL HISTORY Diagnosis Date Bartholin's duct cyst Hyperthyroidism 02/2022 Dr Nir Ortiz [facility] Scoliosis PAST SURGICAL HISTORY Procedure Laterality Date BACK SURGERY HX x3 for scoliosis CHG I&D BARTHOLINS CYST Right REVISE MEDIAN N/CARPAL TUNNEL SURG Right 2022 History reviewed. No pertinent family history.SOCIAL HISTORY Social History Tobacco Use Smoking status: Every Day Packs/day: 0.50 Years: 10.00 Pack years: 5.00 Types: Cigarettes Smokeless tobacco: Never Vaping Use Vaping Use: Never used Substance Use Topics Alcohol use: Yes Comment: occasional Drug use: No REVIEW OF SYSTEMS Abdomen: No abdominal pain, nausea, vomiting, diarrhea, or constipation. No bloating, early satiety, indigestion, or increased flatulence. Bladder: No dysuria, gross hematuria, urinary frequency, urinary urgency, or incontinence. Breast: No breast lumps, nipple d/c, overlying skin changes, redness or skin retraction. Allergies and current medication updated:Yes EXAM: BP 100/68 Ht 5' 5 (1.65m) Wt 128 lb (58.1kg) LMP 10/05/2016 BMI 21.30 kg/(m^2). GENERAL: pleasant, female in no apparent distress HEENT: Normocephalic, atraumatic, mucus membranes moist, and no lesions NECK: Supple, full range of motion, no adenopathy, and thyroid normal DERMATOLOGY: Normal, without lesions, non-icteric, and non-hirsute BREAST: soft, non-tender, symmetric, no dominant mass, normal nipple-areolar complex, no lymphadenopathy, and no nipple discharge CHEST: Normal inspiratory effort ABDOMEN: soft, non-tender, and no masses PELVIC: external genitalia normal, normal Bartholin's glands, urethra, [place]'s glands, no vulvar lesions, no cervical lesions, physiologic discharge present, normal appearing perineal body and perianal region BIMANUAL: uterus normal size, shape and consistency, no adnexal masses, and non-tender RECTOVAGINAL: deferred. NEURO: alert and oriented x3,exam grossly non-focal EXTREMITIES: normal ASSESSMENT/PLAN: 1) Health maintenance: Pap/HPV up to date. Mammogram ordered. Nutrition, exercise and routine health maintenance exams reviewed. Calcium/Vitamin D supplementation information provided. Smoking cessation: Benefits of smoking cessation reviewed. Patient encouraged to avoid smoking. Vitamin D: followed by PCP - drug induced amenorrhea - hormone levels ordered 2) Contraception: Progestin - only contraceptives. Contraceptive options reviewed and information provided. 3) STD screening: Declined STD check. 4) Follow up one year or sooner as needed Erika Moraes APRN.AUBREY documented in this encounter [facility] 02-20-2022 Miscellaneous Notes February 20, 2022 PID: [id number] Katie Smith [address] [place] [id number] Dear Ms. Smith, Your recent breast imaging exam on 02/19/2022 showed a possible finding that requires additional imaging studies for a complete evaluation. Most such findings are probably benign (not cancer). Your mammogram demonstrates that you have dense breast tissue, which could hide abnormalities. Dense breast tissue, in and of itself, is a relatively common condition. Therefore, this information is not provided to cause undue concern; rather, it is to ra ise your awareness and promote discussion with your health care provider regarding the presence of dense breast tissue in addition to other risk factors. If you have a healthcare provider who ordered/prescribed your screening mammogram: Please call [phone] or [phone]: [phone] to schedule an appointment for your additional imaging (if you have not already done so). If you DO NOT have a healthcare provider (ie you did not have an order/prescription for your screening mammogram): Please call to schedule an appointment for your additional imaging (if you have not already done so). You must have an order/prescription from your physician when calling to schedule your appointment. If your order/prescription is not electronic, you must bring the hard copy with you on the day of your exam to avoid delays. Your imaging studies and reports are kept on file at [facility] as part of your permanent medical record, and are available for your continuing care. Thank you for allowing us to help in meeting your health care needs. Sincerely, Dr. Hazel Interpreting Radiologist [facility] (Additional imaging) documented in this encounter [facility] 02-19-2022 History of Presen t illness Narrative Radiology Service Progress Note PATIENT NAME: Katie Smith DATE OF SERVICE: February 19, 2022 TIME: 2:34 PM PATIENT IDENTITY VERIFICATION COMPLETED USING TWO (2) IDENTIFIERS: Name and Date of confirmed by patient verbally. FALL SCREENING: Has the patient had 2 falls in the last year or 1 fall with injury or currently using an Ambulatory Assistive Device (Walker, Cane, Wheelchair, Crutches, etc.)? No PATIENT GENDER DATA: Female. status: : No status: NO. PATIENT RELEVANT IMPLANT DATA REVIEWED: Not Applicable RADIOLOGY DEPARTMENT: Mammography PERIPHERAL IV DATA: Not applicable SIGNED BY: Araceli Cuellar February 19, 2022 2:34 PM documented in this encounter [facility] 01-16-2022 Miscellaneous Notes Attempted to contact pt, number on file is a non working number. Pt does not have mychart. Letter mailed to pt asking her to contact the office to schedule yearly exam as well as a mammogram. Pharmacy generated refill request also sent to pharmacy. Meagan Arreguin LPN Addended by: MEAGAN ARREGUIN LPN on: 01/16/2022 11:06 AM Modules accepted: Orders Pt also needing mammogram. Meagan Arreguin LPN filed See pharmacy generated refill request. Pt has not been seen for yearly exam since 09/10/20. Pt will be contacted to schedule yearly exam. Meagan Arreguin LPN [facility] Diagnosis Encounter for screening mammogram for malignant neoplasm of breast- Primary Other screening mammogram [facility] Diagnosis Onset Date Resolution Status Migraine acute Depression with anxiety cane stripper cassia [facility] Work Phone: Evaluation note* Diagnosis Encounter for screening mammogram for malignant neoplasm of breast Other screening mammogram [facility] Diagnosis Abnormal mammogram- Primary Abnormal mammogram, unspecified [facility] Diagnosis Onset Date Resolution Status Migraine acute Depression with anxiety cane stripper cassia Osteoarthritis noneactive Hyperthyroidism acute Multiple joint pain acute Paresthesia of upper extremity acute [facility] Work Phone: Evaluation note* Diagnosis Onset Date Resolution Status Hyperthyroidism acute Multiple joint pain acute Paresthesia of upper extremity acute Hyperthyroidism acute Thyroid nodule acute [facility] Work Phone: Evaluation note* Diagnosis Onset Date Resolution Status Hyperthyroidism acute Thyroid nodule acute [facility] Work Phone: Evaluation note* Diagnosis Onset Date Resolution Status Right carpal tunnel syndrome acute Hyperthyroidism acute Right carpal tunnel syndrome acute [facility] Work Phone: Evaluation note* Diagnosis Encounter for gynecological examination (general) (routine) without abnormal findings- Primary Encounter for screening mammogram for breast cancer Surveillance for control, oral contraceptives Surveillance of previously prescribed contraceptive pill Dense breast tissue on mammogram Drug induced amenorrhea Absence of menstruation Screen for colon cancer Special screening for malignant neoplasms, colon [facility] Diagnosis Onset Date Resolution Status Bilateral ankle pain acute Hyperthyroidism acute Migraine acute Immunization declined noneac tive Moderate major depression no neactive Screening for cardiovascular condition noneactive Establishing care with new doctor, encounter for noneactive Bunion noneactive Moderate anxiety noneactive Drug abuse in remission none active Chronic low back pain with sciatica noneactive Smoker noneactive Left carpal tunnel syndrome acute [facility] Work Phone: Evaluation note* Diagnosis Lumbar pain- Primary Lumbago Degeneration of intervertebral disc of lumbar region with lower extremity pain Lumbar spondylosis Lumbosacral spondylosis without myelopathy Spondylolisthesis of lumbar region Other idiopathic scoliosis, thoracolumbar region History of lumbar fusion [facility] Lumbar pain Lumbago [facility] Diagnosis Lumbar pain Lumbago Degeneration of intervertebral disc of lumbar region with lower extremity pain Lumbar spondylosis Lumbosacral spondylosis without myelopathy Spondylolisthesis of lumbar region Other idiopathic scoliosis, thoracolumbar region History of lumbar fusion [facility] Diagnosis Lumbar pain- Primary Lumbago Degeneration of intervertebral disc of lumbar region with lower extremity pain Lumbar spondylosis Lumbosacral spondylosis without myelopathy Spondylolisthesis of lumbar region Other idiopathic scoliosis, thoracolumbar region History of lumbar fusion History of thoracic spinal fusion [facility] Diagnosis Other form of scoliosis of cervical spine- Primary documented in this encounter [facility] note* Diagnosis Scoliosis of lumbar spine, unspecified scoliosis type- Primary Adolescent idiopathic scoliosis of lumbar region Scoliosis (and kyphoscoliosis), idiopathic S/P lumbar fusion Arthrodesis status Scoliosis of lumbar spine, unspecified scoliosis type [facility] Diagnosis Scoliosis of lumbar spine, unspecified scoliosis type [facility]* Diagnosis Adolescent idiopathic scoliosis of lumbar region Scoliosis (and kyphoscoliosis), idiopathic S/P lumbar fusion Arthrodesis status documented in this encounter [facility] note* Diagnosis Scoliosis of lumbar spine, unspecified scoliosis type- Primary documented in this encounter [facility] note* Diagnosis Scoliosis of lumbar spine, unspecified scoliosis type- Primary documented in this encounter [facility] noteNo assessment information [facility] Work Phone: Evaluation note* Diagnosis Onset Date Resolution Status Admit Date Opioid use acute May 21 1:38pm [facility] Work Phone: History and physical note Author Katiana Gibson [facility] Note Date/Time May 21, 2025 1: 48pm [facility] Medical Records Department [address] [place] [id number] H&P Exam - Hospitalist 05/21/25 1338 MR#: [id number] Acct: [id number] Name: KATIE SMITH Rep #:[id number] : 1975 49 From: Katiana Gibson MD PCP: MARKELL Van Status:ADM IN Location: [place] [address] HPI - General General Date of Admission: 05/21/25 Date of Service: 05/21/25 Chief Complaint: Requesting opioid detox HPI Narrative KATIE SMITH, is a 49 F with a history of chronic back pain, tobacco use, fentanyl use who presented [facility] ED for fentanyl detox. She uses about 0.25 g daily and has for many years and has not gone through detox in many years. She snorts, no IV use that is noted. Last use 12 hours ago patient feels like she is actively withdrawing. Reportedly she follows withpain management and they went and put her on a pain patch but she needs to detoxfirst. In the ED BP 140/100,, heart rate 81, respiratory rate 18 and pulse ox 95% on room air. CBC w/ wbc 6.6, hgb 13, CMP with creatinine 0.60, glucose 107, AST 33 and ALT 43. Hospitalist contacted for admission for opioid detox. Patient evaluated at bedside, reports she is shaky and anxious and restless and feels she is acutely withdrawing, ROS otherwise negative. Patient does report she uses tobacco and said her only drug she knowingly uses is fentanyl but that it is often cut with other things so she would not be surprised if anything elseended up in her urine, UDS was positive for amphetamines but she denies specifically using meth or other amphetamines and said it was most likely in with her fentanyl [facility] Medical History (Updated 05/21/25 @ 13:[address] Katiana Gibson MD) ADD (attention deficit disorder) Amenorrhea Anxiety Arthritis Back pain Bilateral ankle pain Fentanyl dependence History of pain when walking Hot flash, menopausal Hyperthyroidism IBS (irritable bowel syndrome) Left carpal tunnel syndrome Migraine Multiple joint pain Obsessive behavior Opiate withdrawal Paresthesia of upper extremity Restless legs Right carpal tunnel syndrome Seasonal allergies Smoker Thyroid nodule Wears contact lenses Wears glasses Home Medications ?Medication ?Instructions ?Recorded ?Last Taken ?Type meloxicam 7.5 mg tablet 7.5 mg PO DAILY 05/21/25 History methocarbamol 750 mg tablet 750 mg PO TID PRN PRN musc le spasm 05/21/25 Unknown History Allergy/AdvReac Type Severity Reaction Status Date / Time No Known Allergies Allergy Verified 05/21/25 12:05 Family History Mother Lupus OCD (obsessive compulsive disorder) Anxiety and depression Surgical History History of back surgery Hx of surgical procedure S/P carpal tunnel release Social History household members: none current occupational status: employed 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 Smoking Status: Current every day smoker tobacco type: cigarettes Tobacco: How many years used: 25 Electronic Cigarette Use: not used quit status: considering quitting alcohol intake: current alcohol intake frequency: holidays/special occasions only substance use type: former substance user Date of last use: 2021 and opiates what type of physical activity do you participate in: walking and yoga frequency: daily do you feel safe at home: Yes ROS ROS Narrative General: Denies fever, feeling shaky and restless HENT: Denies headache, denies stuffy nose, denies sore throat EYES: Denies changes in vision Resp: Denies cough, denies shortness of breath Cardiac: Denies chest pain GI: Denies abdominal pain, denies changes in bowel, denies nausea/vomiting : Denies changes in urination Extremity: Denies swelling MSK: Denies weakness Neuro: Denies any numbness/tingling Heme: Denies any bleeding or bruising Skin: Denies rashes Psychiatric: No complaints voiced Vital Signs Vital Signs Vital Signs: 05/21/25 12:06 Temperature 98.1 F Temperature Source Temporal Pulse Rate 81 Respiratory Rate 18 Blood Pressure 140/100 H Blood Pressure Mean 113 Pulse Ox 95 Oxygen Delivery Method Room Air Weight Weight: 52.163 kg Body Mass Index (BMI) 19.1 Physical Exam Narrative General: Alert, oriented, appears shaky and restless HEENT: Atraumatic, normocephalic Eyes: Anicteric, normal conjunctiva, extraocular movements grossly intact Neck: Supple Respiratory: Clear to auscultation bilaterally, normal respiratory effort Cardiovascular: Low-grade sinus tachycardia GI: Soft, nontender, nondistended Extremities: No edema Musculoskeletal: Moving all extremities Neuro: No overt focal neurological deficits Skin: No rashes appreciated Psych: Appears anxious, shaky Results Lab / Micro Data 05/21/25 12:28 05/21/25 12:28 Labs: Laboratory Results - last 24 hr 05/21/25 12:28: WBC 6.6, RBC 4.67, Hgb 13.0, Hct 38.1, MCV 81.6, MCH 27.8, MCHC 34.1, RDW Std Deviation 40.5, RDW Coeff of [place] 13.8, Plt Count 286, MPV 9.3, Immature Gran % (Auto) 0.200, Neut % (Auto) 74.5 H, Lymph % (Auto) 20.1, [place] % (Auto) 4.2, Eos % (Auto) 0.5, Baso % (Auto) 0.5, Absolute Neuts (auto) 4.9, Absolute Lymphs (auto) 1.33, Nucleated RBC % 0, Sodium 141, Potassium 3.9, Chloride 104, Carbon Dioxide 23.4, Anion Gap 14, BUN 13, Creatinine 0.60 L, Estim Creat Clear Calc 93.40, Est GFR (MDRD) Non-Af 110, BUN/Creatinine Ratio 21.3 H, Glucose 107 H, Calcium 9.8, Total Bilirubin 0.61, AST 33 H, ALT 43 H, Alkaline Phosphatase 97, Total Protein 7.6, Albumin 4.2, Globulin 3.5, Albumin/Globulin Ratio 1.2, Serum , Qual NEGATIVE 05/21/25 12:35: Urine Opiates Screen NEGATIVE, U Buprenorphine Qual NEGATIVE, UrOxycodone Screen NEGATIVE, Urine Methadone Screen NEGATIVE, Urine Fentanyl Screen PRESUMPTIVE POSITIVE, Ur Barbiturates Screen NEGATIVE, Ur Phencyclidine Scrn NEGATIVE, Ur Amphetamines Screen PRESUMPTIVE POSITIVE, U Benzodiazepines Scrn NEGATIVE, Urine Cocaine Screen NEGATIVE, U Cannabinoids Screen NEGATIVE Assessment & Plan Assessment/Plan (1) Opioid use: PLAN: Plan #Acute opiate withdrawal - Subutex taper initiated - As needed Tylenol, ibuprofen, bowel regimen, gabapentin, Bentyl, Vistaril, methocarbamol, clonidine - As needed trazodone nightly - As needed antiemetics -Once patient begins to clinically improve will discuss further discharge planning #Tobacco use -Advise cessation -Nicotine replacement available if desired # Chronic back pain -Follows with pain management on outpatient basis, needs detox so that she can have further pain management interventions -Continue meloxicam #DVT ppx: Low risk, ambulatory Katiana Gibson MD Charges/Coding Visit Charges Inpatient E&M: 89496 Init Hosp L1 05/21/25 1348 <Electronically signed by Katiana Gibson MD> Cosigner Signature (if applicable): CC: TECHNICIAN SUPPORT ASSOCIATIONSteven Sams; Dr. Katiana Gibson MD~ Signed [facility] Work Phone: Reason for referral (narrative)* Diagnostic Procedure Only (Routine) - Closed Specialty Diagnoses / Procedures Referred By Contac t Referred To Contact [facility] Diagnoses Encounter for screening mammogram for malignant neoplasm of breast Procedures SONDRA SCREENING SCREENING MAMMOGRAPHY BI 2-VIEW BREAST INC CAD Alba Loera MD [address] [place] [address] [facility] [address] [place] [address] Referral ID Status Reason Start Date Expiration Date V isits Requested Visits Authorized [id number] Closed Auto-Generate d Referral 01/19/2022 02/15/2023 1 1 [facility] for referral (narrative)* Diagnostic Procedure Only (Routine) - Pending Review Specialty Diagnoses / Procedures Referred By Alla dunn Referred To Contact [facility] Diagnoses Abnormal mammogram Procedures US BREAST LTD LT US BREAST UNI REAL TIME WITH IMAGE LIMITED Alba Loera MD [address] [place] [address] [facility] [address] [place] [address] Referral ID Status Reason Start Date Expiration Date Visits Requested Visits Authorized [id number] Pending Review Auto-Generat ed Referral 02/20/2022 03/22/2023 1 1 * Diagnostic Procedure Only (Routine) - Pending Review Specialty Diagnoses / Procedures Referred By Alla dunn Referred To Contact [facility] Diagnoses Abnormal mammogram Procedures SONDRA DIAGNOSTIC LT DIAGNOSTIC MAMMOGRAPHY COMPUTER-AIDED DETCJ UNI Alba Loera MD [address] [place] [address] [facility] [address] [address] Referral ID Status Reason Start Date Expiration Date Visits Requested Visits Authorized [id number] Pending Review Auto-Generat ed Referral 02/20/2022 03/22/2023 1 1 [facility] for referral (narrative)* Diagnostic Procedure Only (Routine) - Pending Review Specialty Diagnoses / Procedures Referred By Alla t Referred To Contact [facility] Diagnoses Encounter for gynecological examination (general) (routine) without abnormal findings Encounter for screening mammogram for breast cancer Dense breast tissue on mammogram Procedures SONDRA SCREENING W KELLIE SCREENING DIGITAL BREAST TOMOSYNTHESIS BI SCREENING MAMMOGRAPHY BI [facility] [employer] [facility] Erika Moraes APRN.CNP [address] [place] [address] [facility] [address] [place] [address] Referral ID Status Reason Start Date Expiration Date Visits Requested Visits Authorized [id number] Pending Review Auto-Generat ed Referral 04/01/2023 04/30/2024 1 1 [facility] for referral (narrative)No reason for referral information availableWAdena [facility] Work Phone: Reason for visit Narrative* Diagnostic Procedure Only (Routine) - Closed Specialty Diagnoses / Procedures Referred By Alla dunn Referred To Contact BR IMAGING Diagnoses Encounter for screening mammogram for malignant neoplasm of breast Procedures SONDRA SCREENING SCREENING MAMMOGRAPHY BI [facility] [employer] CAD Alba Loera MD [address] [place] [address] [facility] [address] [place] [address] Referral ID Status Reason Start Date Expiration Date V isits Requested Visits Authorized [id number] Closed Auto-Generate d Referral 01/19/2022 02/15/2023 1 1 [facility] for visit Narrative* Imaging (Routine) - Closed Specialty Diagnoses / Procedures Referred By Alla dunn Referred To Contact Radiology Diagnoses Lumbar pain Degeneration of intervertebral disc of lumbar region with lower extremity pain Lumbar spondylosis Spondylolisthesis of lumbar region Other idiopathic scoliosis, thoracolumbar region History of lumbar fusion Procedures MR lumbar spine wo contrast Kimber Flores PA-C [address] [address] Phone: tel: fax: Referral ID Status Reason Start Date Expiration Date Visits Re quested Visits Authorized [id number] Closed 12/06/2024 12/06/2025 1 1 [facility] for visit Narrative* MRI/CT (Routine) - Closed Specialty Diagnoses / Procedures Referred By Alla dunn Referred To Contact CT IMAGING Diagnoses Adolescent idiopathic scoliosis of lumbar region S/P lumbar fusion Procedures CT LUMBAR SPINE WO IVCON CT LUMBAR SPINE W/O CONTRAST MATERIAL Tyson Sauer MD [address] [place] [address] Phone: tel: fax: [place] [address] Referral ID Status Reason Start Date Expiration Date V isits Requested Visits Authorized [id number] Closed Auto-Generate d Referral 03/20/2025 04/19/2026 1 1 [facility] Summary Purpose Family History Relationship Condition Age at Onset Recorded Date/T vineet Unknown Family History?- Unknown September 292019 8:31pm Family History?- Unknown September 292019 8:31pm Relationship Condition Age at Onset Recorded Date/T vineet Unknown Family History?- Unknown September 292019 8:31pm Family History?- Unknown September 292019 8:31pm Family History?- Unknown March 31, 2022 4:39pm Relationship Condition Age at Onset Recorded Date/T vineet Unknown Family History?- Unknown September 292019 7:31pm Family History?- Unknown September 292019 7:31pm Family History?- Unknown March 31, 2022 3:39pm Relationship Condition Age at Onset Recorded Date/T vineet mother Lupus Unknown Obsessive-compulsive disorder Unknown Anxiety and depression Unknown Advance Directives Advance Directive Response Recorded Date/ Time Advance Directives No May 22, 2019 12:54pm Living Will No September 29, 020 10:35pm Power of Route Relief Driver No September 29, 2020 10:35pm Advance Directive Response Recorded Date/ Time Advance Directives No March 31 4:39pm Living Will No March 31, 2022 4:39pm Power of Route Relief Driver No March 31 4:39pm Advance Directive Response Recorded Date/ Time Advance Directives No March 31 3:39pm Living Will No March 31, 2022 3:39pm Power of Route Relief Driver No March 31 3:39pm Advance Directive Response Recorded Date/ Time Advance Directives No March 31 3:39pm Living Will No October 06 3 1:57pm Power of Route Relief Driver No October 06 023 1:57pm Advance Directive Response Recorded Date/ Time Advance Directives No March 31 4:39pm Living Will No October 06 2:57pm Power of Route Relief Driver No October 06 023 2:57pm Advance Directive Response Recorded Date/ Time Advance Directives No March 31 4:39pm Advance Directive Response Recorded Date/ Time Do you have a Healthcare Power of Route Relief Driver? No May 21, 2025 12:38pm Advance Directives No March 31 4:39pm Chief Complaint and Reason for Visit Chief Complaint REVIEW MEDS Reason for Visit Migraine Depression with anxiety Chief Complaint REVIEW MEDS MIGRAINES Reason for Visit Migraine Depression with anxiety Chief Complaint REVIEW MEDS MIGRAINES PAIN IN ARM Reason for Visit Migraine Depression with anxiety Osteoarthritis Hyperthyroidism Multiple joint pain Paresthesia of upper extremity Chief Complaint REVIEW MEDS MIGRAINES PAIN IN ARM THYROMEGALY Reason for Visit Migraine Depression with anxiety Osteoarthritis Hyperthyroidism Multiple joint pain Paresthesia of upper extremity Chief Complaint MIGRAINES PAIN IN ARM THYROMEGALY [employer], THYROTOXICOSIS, ROS & CONSENT ONLY EORDER Reason for Visit Hyperthyroidism Multiple joint pain Paresthesia of upper extremity Hyperthyroidism Thyroid nodule Chief Complaint PAIN IN ARM THYROMEGALY [employer], THYROTOXICOSIS, ROS & CONSENT ONLY EORDER PARESTHESIA OF SKIN Reason for Visit Hyperthyroidism Multiple joint pain Paresthesia of upper extremity Hyperthyroidism Thyroid nodule Chief Complaint [employer], THYROTOXICOSIS, ROS & CONSENT ONLY EORDER PARESTHESIA OF SKIN E-ORDER Reason for Visit Hyperthyroidism Thyroid nodule Chief Complaint PARESTHESIA OF SKIN E-ORDER BILAT HANDS 4 M FU R ENDOSCOPIC CARPAL TUNNEL RELEASE R ENDOSCOPIC CARPAL TUNNEL RELEASE Reason for Visit Right carpal tunnel syndrome Hyperthyroidism Right carpal tunnel syndrome Chief Complaint [employer] EST CARE-PREVIOUS LY SAW JOSE left wrist Carpal tunnel syndrome, left upper limb Carpal tunnel syndrome, left upper limb Reason for Visit Bilateral ankle pain Hyperthyroidism Migraine Immunization declined Moderate major depression Screening for cardiovascular condition Establishing care with new doctor, encounter for Bunion Moderate anxiety Drug abuse in remission Chronic low back pain with sciatica Smoker Left carpal tunnel syndrome Chief Complaint Admit Date FENTANYL DETOX May 21, 2025 1: 38pm Reason for Visit Admit Date Opioid use May 21, 2025 1: 38pm Additional Source Comments INFORMATION SOURCE (unrecogn ized section and content) DATE CREATED AUTHOR 03/28/2018 [facility] Judy Norwood DATE CREATED AUTHOR AUTHOR'S ORGANIZ ATION 10/21/2018 [facility] DATE CREATED AUTHOR AUTHOR'S ORGANIZ ATION 01/12/2019 [facility] DATE CREATED AUTHOR AUTHOR'S ORGANIZ ATION 10/05/2023 [facility] DATE CREATED AUTHOR AUTHOR'S ORGANIZ ATION 03/23/2025 [facility] DATE CREATED AUTHOR AUTHOR'S ORGANIZ ATION 04/25/2025 [facility] DATE CREATED AUTHOR AUTHOR'S ORGANIZ ATION 05/19/2025 [facility] DATE CREATED AUTHOR AUTHOR'S ORGANIZ ATION 05/20/2025 [facility] Source Comments (unrecognize d section and content) In the event this informatio n is protected by the Federal Confidentiality of Alcohol and Drug Abuse Patient Records regulations: The Federal rules restrict any use of the information to criminally investigate or prosecute any alcohol or drug abuse patient.[facility] the event this information is protected by the Federal Confidentiality of Alcohol and Drug Abuse Patient Records regulations: The Federal rules restrict any use of the information to criminally investigate or prosecute any alcohol or drug abuse patient.[facility] the event this information is protected by the Federal Confidentiality of Alcohol and Drug Abuse Patient Records regulations: The Federal rules restrict any use of the information to criminally investigate or prosecute any alcohol or drug abuse patient.[facility] the event this information is protected by the Federal Confidentiality of Alcohol and Drug Abuse Patient Records regulations: The Federal rules restrict any use of the information to criminally investigate or prosecute any alcohol or drug abuse patient.[facility] the event this information is protected by the Federal Confidentiality of Alcohol and Drug Abuse Patient Records regulations: The Federal rules restrict any use of the information to criminally investigate or prosecute any alcohol or drug abuse patient.[facility] the event this information is protected by the Federal Confidentiality of Alcohol and Drug Abuse Patient Records regulations: The Federal rules restrict any use of the information to criminally investigate or prosecute any alcohol or drug abuse patient.[facility] the event this information is protected by the Federal Confidentiality of Alcohol and Drug Abuse Patient Records regulations: The Federal rules restrict any use of the information to criminally investigate or prosecute any alcohol or drug abuse patient.[facility] the event this information is protected by the Federal Confidentiality of Alcohol and Drug Abuse Patient Records regulations: The Federal rules restrict any use of the information to criminally investigate or prosecute any alcohol or drug abuse patient.[facility] the event this information is protected by the Federal Confidentiality of Alcohol and Drug Abuse Patient Records regulations: The Federal rules restrict any use of the information to criminally investigate or prosecute any alcohol or drug abuse patient.[facility] the event this information is protected by the Federal Confidentiality of Alcohol and Drug Abuse Patient Records regulations: The Federal rules restrict any use of the information to criminally investigate or prosecute any alcohol or drug abuse patient.[facility] the event this information is protected by the Federal Confidentiality of Alcohol and Drug Abuse Patient Records regulations: The Federal rules restrict any use of the information to criminally investigate or prosecute any alcohol or drug abuse patient.[facility] Reason for Visit (unrecogniz ed section and content) Reason Comments Refill Request Reason Comments Follow-up Reason Comments New Patient Low back pain Reason Comments Radio Gen RMP Specialty Diagnoses / Procedures Referred By Contac t Referred To Contact XR IMAGING Diagnoses Scoliosis of lumbar spine, unspecified scoliosis type Procedures XR SCOLIOSIS PA STAND/LAT 2V RADEX ENTIR THRC LMBR CRV SAC SPI W/SKULL 2/3 VW Bianca Perea PA-C [address] [place] [address] Phone: tel: [facility] [place] [address] Referral ID Status Reason Start Date Expiration Date V isits Requested Visits Authorized [id number] Closed Auto-Generate d Referral 03/14/2025 04/13/2026 1 1 Reason Comments PT Eval Specialty Diagnoses / Procedures Referred By Contac t Referred To Contact [facility] Diagnoses Scoliosis of lumbar spine, unspecified scoliosis type Procedures CONSULT TO PHYSICAL THERAPY PHYSICAL THERAPY EVALUATION HIGH COMPLEX 45 MINS THERAPEUTIC EXERCISES RE, EA 15 MIN. Tyson Sauer MD [address] [place] [address] Phone: tel: fax: [facility] [address] [place] [address] Referral ID Status Reason Start Date Expiration Date Visits Requested Visits Authorized [id number] Authorized Auto-Generat ed Referral 10/04/2024 10/03/2025 30 30 Reason Comments Physical Therapy Specialty Diagnoses / Procedures Referred By Contac t Referred To Contact [facility] Diagnoses Scoliosis of lumbar spine, unspecified scoliosis type Procedures PHYSICAL THERAPY EVALUATION HIGH COMPLEX 45 MINS THERAPEUTIC EXERCISES RE, EA 15 MIN. Tyson Sauer MD [address] [place], [place] [id number] Phone: tel: fax: [facility] [address] [place] [address] Care Teams (unrecognized sec tion and content) School [employer] Inspector Relationship Specialty Start Date End Date Jose Aguilera DO [address] [place] [address] PCP - General Family Practice 10/02/16 School Bus Inspector Relationship Specialty Start Date End Date Jose Aguilera DO [address] [place] [address] PCP - General Family Practice 10/02/16 School Bus Inspector Relationship Specialty Start Date End Date Jose Aguilera DO [address] [place] [address] PCP - General Family Practice 10/02/16 School Bus Inspector Relationship Specialty Start Date End Date Jose Aguilera DO [address] [place] [address] PCP - General Family Practice 10/02/16 School Bus Inspector Relationship Specialty Start Date End Date Jose Aguilera DO [address] [place] [address] PCP - General Family Medicine 10/02/16 Team Status: Active Member Role Status Dates Dr. Stephon Bay MD Family Provider Active Jose Sams [employer], [employer] Primary Care Provider Active Team Status: Inactive Member Role Status Dates Jose Sams [employer], [employer] Primary Care Provider, Referring P rovider Active Dr. Cortney Kang MD Attending Provider Active Team Status: Inactive Member Role Status Dates Jose Sams [employer], [employer] Primary Care Provider, Referring P rovider Active Akhil White MD Attending Provider Active Team Status: Active Member Role Status Dates Jose Sams [employer], [employer] Primary Care Provider Active Akhil White MD Referring Provider, Other Provider Active Dr. 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 Inspector Relationship Specialty Start Date End Date Lorrie Duenas MD [address] [place] [address] PCP - General 10/10/18 School 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 Inspector Relationship Specialty Start Date End Date Lorrie Duenas MD [address] [place] [address] PCP - General 10/10/18 School 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 Inspector Relationship Specialty Start Date End Date Lorrie Duenas MD [address] [place] [address] PCP - General 10/10/18 School 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 Inspector Relationship Specialty Start Date End Date Jose Aguilera DO [address] [place] [address] PCP - General Family Medicine 10/02/16 School Bus Inspector Relationship Specialty Start Date End Date Jose Aguilera DO [address] [place] [address] PCP - General Family Medicine 10/02/16 School 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 Inspector Relationship Specialty Start Date End Date Jose Aguilera DO [address] [place], [place] [address] PCP - General Family Medicine 10/02/16 School Bus Inspector Relationship Specialty Start Date End Date Jose Aguilera DO [address] [place], [place] [id number] PCP - General Family Medicine 10/02/16 School Bus Inspector Relationship Specialty Start Date End Date Jose Aguilera DO [address] [place], [place] [address] PCP - General Family Medicine 10/02/16 School Bus Inspector Relationship Specialty Start Date End Date Jose Aguilera DO [address] [place] [address] PCP - General Family Medicine 10/02/16 Team Status: Active Member Role/Relationship Status Dates Dr. Stephon Bay MD Family Provider Active Jose Quezadader [employer], [employer] Primary Care Provider Active Team Status: Inactive Member Role/Relationship Status Dates Jose Quezadader [employer], [employer] Primary Care Provider Active Start: May 04, 2025 End: May 04, 2025 Dr. Janet Garcia MD Attending Provider Active Start: May 04, 2025 End: May 04, 2025 Dr. Janet Garcia MD Referring Provider Active Start: May 04, 2025 End: May 04, 2025 Team Status: Active Member Role/Relationship Status Dates Jose Glenn VSC, [employer] Primary Care Provider Active Team Status: Active Member Role/Relationship Status Dates Jose Quezadader VSC, [employer] Primary Care Provider Active Start: May 21, 2025 Dr. Jodi Hilton DO Emergency Provider Active Start: May 21, 2025 Dr. Katiana Gibson MD Admit Provider Active Star t: May 21, 2025 Dr. Katiana Gibson MD Attending Provider Active Start: May 21, 2025 Dr. Katiana Gibson MD Other Provider Active Star t: May 21, 2025 Goals (unrecognized section and content) Goals may be documented in a n alternate sectionGoals may be documented in an alternate sectionGoals may be documented in an alternate sectionGoals may be documented in an alternate sectionGoals may be documented in an alternate sectionGoals may be documented in an alternate sectionGoals may be documented in an alternate sectionGoals may be documented in an alternate sectionGoals may be documented in an alternate sectionGoals may be documented in an alternate section FOR RECORDS PERTAINING TO PATIENTS WHO ARE OR HAVE BEEN ENROLLED IN A CHEMICAL DEPENDENCY/SUBSTANCEABUSE PROGRAM, SOME INFORMATION MAY BE OMITTED. This clinical summary was aggregated from multiple sources. Caution should be exercised in using it in the provision of clinical care. This summary normalizes information from multiple sources, and as a consequence, information in this document may materially change the coding, format and clinical context of patient data. In addition, data may be omitted in some cases. CLINICAL DECISIONS SHOULD BE BASED ON THE PRIMARY CLINICAL RECORDS. [facility] [employer] provides no warranty or guarantee of the accuracy or completeness of information in this document.
--- OUTSIDE RECORDS SUMMARY | 2025-05-21 23:12 | XMS RPT_ITS | CCD ---
Author Organization [facility] Care Team Providers Care Cook Mess Name Role Phone Janessa Snyder MSN,PLASMA SPECIALIST Unavailable Unavailab Janessa Clinton MSN,PLASMA SPECIALIST Unavailable Unavailab Ge Tavarez Unavailable Unavailable Ge Jaeger Unavailable Unavailable Mil, Abeetta Unavailable Unavailable No Family Physician given Unavailable Unavai Ge Abraham Unavailable Unavailable Janessa Snyder MSN,PLASMA SPECIALIST Unavailable Unavailab Janessa Clinton MSN,PLASMA SPECIALIST Unavailable Unavailab le UNKNOWN, PROVIDER Attending Unavailable [...] [phone] Dr. Stephon Bay Referring Provider Sams ADMINISTRATIVE STAFF SUPERVISOR, ADMINISTRATIVE STAFF SUPERVISOR-C Jose Attending Provider [phone] Sams ADMINISTRATIVE STAFF SUPERVISOR, ADMINISTRATIVE STAFF SUPERVISOR-C Jose Primary Care Provider Sams ADMINISTRATIVE STAFF SUPERVISOR, ADMINISTRATIVE STAFF SUPERVISOR-C Jose Referring Provider [phone] Sams ADMINISTRATIVE STAFF SUPERVISOR, ADMINISTRATIVE STAFF SUPERVISOR-C Jose Attending Provider [phone] Dr. Nir Ortiz Attending Provider Sams ADMINISTRATIVE STAFF SUPERVISOR, ADMINISTRATIVE STAFF SUPERVISOR-C Jose Primary Care Provider Sams ADMINISTRATIVE STAFF SUPERVISOR, ADMINISTRATIVE STAFF SUPERVISOR-C Jose Referring Provider [phone] Dr. Nir Ortiz Attending Provider Sams ADMINISTRATIVE STAFF SUPERVISOR, ADMINISTRATIVE STAFF SUPERVISOR-C Jose Primary Care Provider Sams ADMINISTRATIVE STAFF SUPERVISOR, ADMINISTRATIVE STAFF SUPERVISOR-C Jose Referring Provider MD Akhil White Attending Provider Dr. Nir Ortiz Attending Provider MD Akhil White Referring Provider MD Akhil White Other Provider Jose Aguilera DO Primary Care Provider Glenn ADMINISTRATIVE STAFF SUPERVISOR, ADMINISTRATIVE STAFF SUPERVISOR-C Jose Primary Care Provider Glenn ADMINISTRATIVE STAFF SUPERVISOR, ADMINISTRATIVE STAFF SUPERVISOR-C Jose Referring Provider Dr. Cortney Kang Attending Provider MD Akhil White Attending Provider MD Akhil White Referring Provider MD Akhil White Other Provider Dr. Ester Euceda Attending Provider OLGA ELIZONDO Attending Unavailable GLENN, CLIENT RELATIONS SPECIALIST-C JOSE Primary Care Unavailable Lorrie Duenas MD Primary Care Provider [phone] Jose Aguilera DO Primary Care Provider BIANCA PEREA Referring Unavailab le JOSE AGUILERA A Primary Care Unavailable GOLDIE FLORESISON Referring Unavailable KIMBER FLORES Attending Unavailable BETH, LORRIE Primary Care Unavailable KIRK SUH Referring Unavailable KIRK SUH Attending Unavailable BETH, LORRIE Primary Care Unavailable KIMBER FLORES Attending Unavailable BETH, LORRIE Primary Care Unavailable Glenn ADMINISTRATIVE STAFF SUPERVISOR-C, Jose Primary Care Provider Unavailab Dr. Janet Corrales MD Attending Provider Dr. Janet Garcia MD Referring Provider Glenn ADMINISTRATIVE STAFF SUPERVISOR, Jose Primary Care Unavailable Janet Garcia Referring [...] Unavailable Glenn GUILLAUME, Jose Primary Care Provider [phone] Dr. Jodi Hilton DO Emergency Provider [phone] Arthur FARIAS, Dr. Saab Admit Provider [phone] Arthur FARIAS, Dr. Saab Attending Provider Allergies Allergy Classification Reported Allergen(s) Allergy Type Date of Onset Reaction(s) Facility (12 sources) Seasonal allergy; Translations: [SEASONAL ALLERGIES] Allergy to substance 07-28-2018 Itching [facility] Work Phone: Medications Current Medications Medication [...] Comment on above: Take 1 capsule by [facility] once daily. DULoxetine 60 mg delayed release [...] Start: 09-25-2022 take 1 capsule by mo [facility] once daily Duloxetine Active 0 .ROUTE [...] Auto (Unsp spec) [#/Vol] 1.33 10*3/uL 0.83-4.51 [facility] Absolute neutrophil countOrd ered By: Jodi Hilton on 05-21-2025 Neutrophils (Bld) [#/Vol] 4.9 10*3/uL 2.0-7.7 [facility] Amphetamine detection with 1 000 ng/mL as cutoffOrdered By: Jodi Hilton on 05-21-2025 Amphetamines Screen method >1000 ng/mL Ql (U) Positive <1000 ng/mL [facility] Comment on above: If confirmation test ing is needed, a separate order will be required to send out testing to the reference laboratory. Amphetamines Screen method >1000 ng/mL Ql (U) Negative < 200 ng/mL [facility] Anion gap in Serum or Plasma Ordered By: Jodi Hilton on 05-21-2025 Anion gap [Moles/Vol] 14 mmol/L 5-15 [facility] Automated lymphocyte count a s percentage of total leukocytesOrdered By: Jodi Hilton on 05-21-2025 Lymphocytes/100 WBC Auto (Unsp spec) 20.1 % 19-41 [facility] BUN/creatinine ratioOrdered By: Jodi Hilton on 05-21-2025 Urea nitrogen/Creatinine [Mass ratio] 21.3 mg/mg High 10-20 [facility] Basophil percentageOrdered B y: Jodi Hilton on 05-21-2025 Basophils/100 WBC (Bld) 0.5 % 0-1 [facility] Bilirubin, totalOrdered By: Jodi Hilton on 05-21-2025 Bilirubin [Mass/Vol] 0.61 mg/dL 0.00-1.30 [facility] Carbon dioxide, total [Moles /volume] in Central venous bloodOrdered By: Jodi Hilton on 05-21-2025 CO2 [Moles/Vol] 23.4 mmol/L 21.0-32.0 [facility] Chloride assayOrdered By: Kendall Hilton on 05-21-2025 Chloride [Moles/Vol] 104 mmol/L 98-108 [facility] Eosinophil percentageOrdered By: Jodi Hilton on 05-21-2025 Eosinophils/100 WBC (Bld) 0.5 % 0-5 [facility] Erythrocyte distribution wid th ratioOrdered By: Jodi Hilton on 05-21-2025 Erythrocyte distribution width (RBC) [Ratio] 13.8 % 11.6-14.6 [facility] Erythrocyte distribution wid th standard deviationOrdered By: Jodi Hilton on 05-21-2025 Erythrocyte distribution width (RBC) [Ratio] 40.5 fl 35.1-43.9 [facility] Glomerular filtration rate ( GFR) estimation/1.73 sq m using serum, plasma, or whole bOrdered By: Jodi Hilton on 05-21-2025 GFR/1.73 sq M.predicted among non-blacks MDRD (S/P/Bld) [Vol rate/Area] 110 mL/min/{1.73_m2} >60 [facility] Comment on above: mL/min/1.73m2 CKD-EP I Creatinine Equation (2020) Hematocrit Auto (Bld) [Volum e fraction]Ordered By: Jodi Hilton on 05-21-2025 Hematocrit (Bld) [Volume fraction] 38.1 % 37-47 [facility] Hemoglobin measurementOrdere d By: Jodi Hilton on 05-21-2025 Hemoglobin (Bld) [Mass/Vol] 13.0 g/dL 12.0-15.0 [facility] Immature granulocytes/100 WB C Auto (Bld)Ordered By: Jodi Hilton on 05-21-2025 Immature granulocytes/100 WBC (Bld) 0.200 % 0.0-0.9 [facility] Comment on above: IG% - Immature Granu locytes (promyelocytes, myelocytes and metamyelocytes) > 1% indicates that a LEFT SHIFT is Present. Laboratory - Chemistry and C hemistry - challengeOrdered By: Jodi Hilton on 05-21-2025 AST [Catalytic activity/Vol] 33 U/L High <32 [facility] MCV (mean corpuscular volume ) determinationOrdered By: Jodi Hilton on 05-21-2025 MCV (RBC) [Entitic vol] 81.6 fL 81-99 [facility] Mean corpuscular hemoglobin (MCH) determinationOrdered By: Jodi Hiltno on 05-21-2025 MCH (RBC) [Entitic mass] 27.8 pg 27.0-32.0 [facility] Mean corpuscular hemoglobin concentration (MCHC) determinationOrdered By: Jodi Hilton on 05-21-2025 MCHC (RBC) [Mass/Vol] 34.1 g/dL 32-36 [facility] Mean platelet volume determi nationOrdered By: Jodi Hilton on 05-21-2025 Platelet mean volume (Bld) [Entitic vol] 9.3 fL 6.2-12.0 [facility] Monocyte percentageOrdered B y: Jodi Hilton on 05-21-2025 Monocytes/100 WBC (Bld) 4.2 % 0-10 [facility] Neutrophil percentageOrdered By: Jodi Hilton on 05-21-2025 Neutrophils/100 WBC (Bld) 74.5 % High 47-70 [facility] No Panel InformationOrdered By: Jodi Hilton on 05-21-2025 Urine Buprenorphine Qualitative Negative < 200 ng/mL [facility] Urine Oxycodone Screen Negative < 100 ng/mL [facility] Nucleated red blood cell per centageOrdered By: Jodi Hilton on 05-21-2025 Nucleated RBC/100 WBC (Bld) [Ratio] 0 % 0-5 [facility] Platelet countOrdered By: Kendall Hilton on 05-21-2025 Platelets (Bld) [#/Vol] 286 10*3/uL 150-450 [facility] Potassium measurement (mass/ volume)Ordered By: Jodi Hilton on 05-21-2025 Potassium (Unsp spec) [Mass/Vol] 3.9 mmol/L 3.3-5.1 [facility] Quantitative urine opiates m easurementOrdered By: Jodi Hilton on 05-21-2025 Opiates Ql (U) Negative < 300 ng/mL [facility] RBC Auto (Bld) [#/Vol]Ordere d By: Jodi Hilton on 05-21-2025 RBC (Bld) [#/Vol] 4.67 10*6/uL 4.2-5.4 [facility] Screening urine fentanyl paul surementOrdered By: Jodi Hilton on 05-21-2025 fentaNYL Screen Ql (U) Positive [facility] Comment on above: If confirmation test ing is needed, a separate order will be required to send out testing to the reference laboratory. Serum beta-hCG test, qualita tiveOrdered By: Jodi Hilton on 05-21-2025 Beta HCG ( test) Ql Negative [facility] Serum creatinine measurement (mass/volume)Ordered By: Jodi Hilton on 05-21-2025 Creatinine [Mass/Vol] 0.60 mg/dL Low 0.70-1.20 [facility] Serum globulin measurementOr dered By: Jodi Hilton on 05-21-2025 Globulin (S) [Mass/Vol] 3.5 g/dL 2.2-4.2 [facility] Serum glucose measurement (m ass/volume)Ordered By: Jodi Hilton on 05-21-2025 Glucose [Mass/Vol] 107 mg/dL High 70-[address] [facility] Serum or plasma alanine contreras otransferase (ALT) measurementOrdered By: Jodi Hilton on 05-21-2025 ALT [Catalytic activity/Vol] 43 U/L High <35 [facility] Serum or plasma albumin anita urement (mass/volume)Ordered By: Jodi Hilton on 05-21-2025 Albumin [Mass/Vol] 4.2 g/dL 3.5-5.[address] [facility] Serum or plasma albumin/glob ulin mass ratioOrdered By: Jodi Hilton on 05-21-2025 Albumin/Globulin [Mass ratio] 1.2 {ratio} 0.9-2.4 [facility] Serum or plasma alkaline anmol sphatase measurementOrdered By: Jodi Hilton on 05-21-2025 ALP [Catalytic activity/Vol] 97 U/L 35-104 [facility] Serum or plasma calcium anita urement (mass/volume)Ordered By: Jodi Hilton on 05-21-2025 Calcium [Mass/Vol] 9.8 mg/dL 7.6-11.[address] [facility] Serum or plasma ethanol anita urement (mass/volume)Ordered By: Jodi Hilton on 05-21-2025 Ethanol [Mass/Vol] mg/dL <10.[address] [facility] Comment on above: This test is for med ical purposes only. The legal definition of intoxication varies according to local law. Serum or plasma urea nitroge n measurement (mass/volume)Ordered By: Jodi Hilton on 05-21-2025 Urea nitrogen [Mass/Vol] 13 mg/dL 4-19 [facility] Sodium levelOrdered By: Pili Hilton on 05-21-2025 Sodium [Moles/Vol] 141 mmol/L 133-[address] [facility] Total proteinOrdered By: Elif Hilton on 05-21-2025 Protein [Mass/Vol] 7.6 g/dL 5.9-8.[address] [facility] Urine benzodiazepine levelOr dered By: Jodi Hilton on 05-21-2025 Benzodiazepines Ql (U) Negative < 200 ng/mL [facility] Urine cocaine levelOrdered B y: Jodi Hilton on 05-21-2025 Cocaine Ql (U) Negative < 300 ng/mL [facility] Urine mxflj-9-ztamionppwohsj abinol (THC) measurementOrdered By: Jodi Hilton on 05-21-2025 Cannabinoids Screen Ql (U) Negative < 50 ng/mL [facility] Urine phencyclidine (PCP) de tectionOrdered By: Jodi Hilton on 05-21-2025 Phencyclidine Ql (U) Negative < 25 ng/mL [facility] White blood cell (WBC) count Ordered By: Jodi Hilton on 05-21-2025 WBC (Bld) [#/Vol] 6.6 10*3/uL 4.4-11.[address] [facility] CNTHERAPYon 05-18-2025 CNTHERAPY OT/PT/Speech Visit (PTWS) KATIE SMITH ([id number]) 1975 F Date Time Provider Department 05/18/25 3:15 PM DIDIER SMALL Date Time Provider Department Center 05/18/2025 3:15 PM [id number], [facility] Reason for Visit: Physical Therapy [503] Primary [...] - meloxicam (MOBIC) 15 mg tablet Normal [facility] L3410.9992on 05-17-2025 [facility] Misc. COMMENT Normal . [facility] Comment on above: Order Comment: Speci men Comment: QNS: UNABLE TO COMPLETE TEST [id number] [employer] RT Result Comment: Test Ordered: [id number] Amphetamines Screen, Urine Note: ng/mL UI See Final Results Reference Range: Dlrnjm=268 Amphetamine test includes Amphetamine and Methamphetamine. Amphetamines Negative UI Reference Range: Smmunx=562 Amphetamine test includes Amphetamine and Methamphetamine. Barbiturates Negative ng/mL UI Reference Range: Hfzchu=689 Benzodiazepines Negative ng/mL UI Reference Range: Ycolvk=220 Cocaine (Metab.), Urine Negative ng/mL UI Reference Range: Awcpcm=422 Opiates Negative ng/mL UI Reference Range: Rfxmby=778 Opiate test includes Codeine, Morphine, Hydromorphone, Hydrocodone. 6-Acetylmorphine, Urine Negative ng/mL UI Reference Range: Cutoff=10 Oxycodone/Oxymorphone, Urine Negative ng/mL UI Reference Range: Kzalau=671 Test includes Oxycodone and Oxymorphone PCP, Urine Negative ng/mL UI Reference Range: Cutoff=25 Methadone Screen, Urine Negative ng/mL UI Reference Range: Kssoxk=369 Propoxyphene, Urine Negative ng/mL UI Reference Range: Vkukgr=255 Fentanyl, Urine Note: ng/mL UI See Final Results Reference Range: Cutoff=2.0 Test includes Fentanyl and Norfentanyl This test was developed and its performance characteristics determined by [facility]. It has not been cleared or approved [...] 05-17-2025 Tramadol Negative ng/mL UI Reference Range: Pmzxkp=759 Buprenorphine, Urine Negative ng/mL UI Reference Range: Cutoff=10 Creatinine, Urine 101.1 mg/dL UI Reference Range: 20.0-300.0 pH, Urine 8.5 UI Reference Range: 4.5-8.9 Performed at: [address] [id number] Automotive Parts Clerk: Edgar Montiel PhD, Phone: [phone] Performed at: UI - [facility] [address], [place] [id number] [employer] Clerk: Loren Ramirez PhD, Phone: [phone] Performed By: #### L 505.5000, L3410.9992 #### [facility] [place], [address] [id number] 05-07-2025 [id number] HNO ID: [id number] Author: DIDIER SMALL PT Service: ? Author Type: Physical Therapist Type: [id number] Filed: 05/07/2025 09:51 Note Text: [facility] Physical Therapy Plan of Care Certification Patient Name: Katie Smith : 1975 [facility] #: [id number] Date: 05/03/2025 To: Tyson Sauer MD From Therapist: Didier Small PT RE: Patient Certification/ Recertification Your review, approval and electronic signature are required in order to comply with Payor: [email or web address] MEDICAID / Plan: [place] [employer]BS MEDICAID OF [...] Goals for Episode of Care: established 05/03/25 [place] in home exercise program. Patient will decrease pain rating by 2 points to meet minimal clinical important difference for numeric pain rating scale. Patient will improve pain free lumbar range of motion to minimal limitation or better to improve ability to perform ADLs/IADLs. Patient will perform household mgmt related activities with drm-ca-oiuwc restriction or pain/symptoms. Patient will endorse ability to sleep without pain waking her. Patient will improve static positioning with less pain or symptoms. Patient Goals: Alleviate Pain. Time Frame for Goals and Treatment : 06/18/25 Planned Interventions, Frequency, and Duration: Current Frequency: 1x/week Duration: 4 weeks Total Number of Visits Planned: 4 Planned Treatment Interventions: Therapeutic exercise (70358), Neuromuscular re-education (71270), Manual therapy (55568), Therapeutic activities (48249), Self-intermediate management (29082), Patient/Family/Caregiv er Education, Gait Training (89113), Body Mechanics Training PLAN FOR NEXT VISIT: [...] reviewed the treatment plan for Katie Smith, [facility]# [id number] for the period of 05/03/25 -- 06/22/25, established on 05/03/2025. Signature certifies the need for therapy services. Normal [facility] Amphetamine detection with 1 000 ng/mL as cutoffOrdered By: Janet Garcia on 05-04-2025 Amphetamines Screen method >1000 ng/mL Ql (U) Negative < 200 ng/mL [facility] No Panel InformationOrdered By: Janet Garcia on 05-04-2025 Urine Buprenorphine Qualitative Negative < 200 ng/mL [facility] Urine Oxycodone Screen Negative < 100 ng/mL [facility] Quantitative urine opiates m easurementOrdered By: Janet Garcia on 05-04-2025 Opiates Ql (U) Negative < 300 ng/mL [facility] Screening urine fentanyl paul surementOrdered By: Janet Garcia on 05-04-2025 fentaNYL Screen Ql (U) Positive [facility] Comment on above: If confirmation test ing is needed, a separate order will be required to send out testing to the reference laboratory. Urine Drug Screen (VISTA)on 05-04-2025 AMPHETAMINES Negative Normal <1000 ng/mL [facility] Comment on above: Order Comment: N Performed By: #### L 505.5000, L3410.9992 #### [facility] [address] [place], [address] BARBITIURATES Negative Normal < 200 ng/mL [facility] Comment on above: Order Comment: N Performed By: #### L 505.5000, L3410.9992 #### [facility] [address] [facility] [address] BENZODIAZIPINE Negative Normal < 200 ng/mL [facility] Comment on above: Order Comment: N Performed By: #### L 505.5000, L3410.9992 #### [facility] [address] [place], [place], [facility]UP Ur Drug Scr Negative Normal < 200 ng/mL [facility] Comment on above: Order Comment: N Performed By: #### L 505.5000, L3410.9992 #### [facility] [address] [place], [address] COCAINE Negative Normal < 300 ng/mL [facility] Comment on above: Order Comment: N Performed By: #### L 505.5000, L3410.9992 #### [facility] [address] [place], [address] Fentanyl Positive Normal [facility] Comment on above: Order Comment: N Result Comment: If c onfirmation testing is needed, a separate order will be required to send out testing to the reference laboratory. Performed By: #### L 505.5000, L3410.9992 #### [facility] [address] [place], [address] METHADONE Negative Normal < 300 ng/mL [facility] Comment on above: Order Comment: N Performed By: #### L 505.5000, L3410.9992 #### [facility] [address] [place], [address] OPIATES Negative Normal < 300 ng/mL [facility] Comment on above: Order Comment: N Performed By: #### L 505.5000, L3410.9992 #### [facility] [address] [place], [address] OXYCODONE Negative Normal < 100 ng/mL [facility] Comment on above: Order Comment: N Performed By: #### L 505.5000, L3410.9992 #### [facility] [address] [place], [address] PCP Negative Normal < 25 ng/mL [facility] Comment on above: Order Comment: N Performed By: #### L 505.5000, L3410.9992 #### [facility] [address] [place], [address] THC Negative Normal < 50 ng/mL [facility] Comment on above: Order Comment: N Performed By: #### L 505.5000, L3410.9992 #### [facility] [address] [place], [address] Urine benzodiazepine levelOr dered By: Janet Basali on 05-04-2025 Benzodiazepines Ql (U) Negative < 200 ng/mL [facility] Urine cocaine levelOrdered B y: Janet Basali on 05-04-2025 Cocaine Ql (U) Negative < 300 ng/mL [facility] Urine izzxd-4-lgnzbgukbovizx abinol (THC) measurementOrdered By: Janet Monteiroi on 05-04-2025 Cannabinoids Screen Ql (U) Negative < 50 ng/mL [facility] Urine phencyclidine (PCP) de tectionOrdered By: Janet Basali on 05-04-2025 Phencyclidine Ql (U) Negative < 25 ng/mL [facility] CNTHERAPYon 05-03-2025 CNTHERAPY OT/PT/Speech Visit (PTWS) KATIE SMITH ([id number]) 1975 F Date Time Provider Department 05/03/25 3:45 PM DIDIER SMALL PTWS Date Time Provider Department [place] 05/03/2025 3:45 PM [id number], COLIN PTWS Sheyla Arnold Reason for Visit: [...] tablet - meloxicam (MOBIC) 15 mg tablet Order Entry Administrator: Therapy (PT/OT/Speech/Resp) ID: [id number] 05/03/2025 4:27 PM Author: DIDIER SMALL Signed by DIDIER SMALL PT on 05/03/2025 at 4:27 PM Document text: Program_ID:[id number] Access Code: [email or web address] URL: [email or web address] Date: 05-03-2025 Prepared By: Didier Small Program [...] 2 sets - 10 reps -- Normal [facility] THERAPY NTon 05-03-2025 THERAPY NT HNO ID: [id number] Author: DIDIER SMALL PT Service: ? Author Type: Physical Therapist Type: Therapy (PT/OT/Speech/Resp) Filed: 05/03/2025 16:27 Note Text: Program_ID:[id number] Access Code: [email or web address] URL: [email or web address] Date: 05-03-2025 Prepared By: Didier Small Program [...] - 2 sets - 10 reps Normal [facility] 36on 04-24-2025 36 Called patient regarding disability paperwork that was received. Informed her we only do short term disability following surgery. Since she was referred to another provider we would not fill it out for her. She voiced understanding. Normal [facility] CT LUMBAR SPINE WO IVCONon 0 04-03-2025 CT LUMBAR SPINE WO IVCON * * *Final Report* * * DATE OF EXAM: Apr 03 2025 3:55PM [facility] 0508 - CT LUMBAR SPINE WO IVCON [...] due to underlying scoliosis. Anatomic variant: None. Die Set Up Worker (topogram) images: No additional findings. Alignment: Moderate [...] on the right due to underlying scoliosis. Motion Picture Camera Lens Technician: [facility] Transcribe Date/Time: Apr 03 2025 4:17P Dictated by : PHILIP CLEMENT MD This examination was interpreted and the report reviewed and electronically signed by: PHILIP CLEMENT MD on Apr 03 2025 4:30PM EST [id number] Normal [facility] CT Lumbar spine WO contrasto n 04-03-2025 [...] on the right due to underlying scoliosis. Motion Picture Camera Lens Technician: [facility] Transcribe Date/Time: Apr 03 2025 4:17P Dictated by : PHILIP CLEMENT MD This examination was interpreted and the report reviewed and electronically signed by: PHILIP CLEMENT MD on Apr 03 2025 4:30PM EST DIVISION OF RADIOLOGY * * *Final Report* * * DATE OF EXAM: Apr 03 2025 3:55PM [facility] 0508 - CT LUMBAR SPINE WO IVCON [...] due to underlying scoliosis. Anatomic variant: None. Die Set Up Worker (topogram) images: No additional findings. Alignment: Moderate [...] bilateral sacroiliac joints. DIVISION OF RADIOLOGY [facility] * * *Final Report* * * DATE OF EXAM: Apr 03 2025 3:55PM [facility] 0508 - CT LUMBAR SPINE WO IVCON [...] due to underlying scoliosis. Anatomic variant: None. Die Set Up Worker (topogram) images: No additional findings. Alignment: Moderate [...] on the right due to underlying scoliosis. Motion Picture Camera Lens Technician: PSCB Transcribe Date/Time: Apr 03 2025 4:17P Dictated by : PHILIP CLEMENT MD This examination was interpreted and the report reviewed and electronically signed by: PHILIP CLEMENT MD on Apr 03 2025 4:30PM EST [facility] Radiology Study observation (narrative) [facility] Lumbar spine WO contrastO rdered By: Ccf Provider on 04-03-2025 [facility] CNOVon 03-20-2025 CNOV Office Visit (SPSNAV ) KATIE SMITH ([id number]) 1975 F Date Time Provider Department 03/20/25 [...] says did not help. 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 CHIEF COMPLAINT: As above [...] duct cyst Hyperthyroidism 02/2022 Dr Nir Ortiz [facility] Scoliosis PAST SURGICAL HISTORY Procedure Laterality Date [...] percentile ra (more content not included)... Normal [facility] XR SCOLIOSIS 2V PA STAND/LAT on 03-20-2025 [...] significant abnormality. - IMPRESSION: No acute findings. Motion Picture Camera Lens Technician: LIBIA Transcribe Date/Time: Mar 20 2025 3:49P Dictated by : KAE BARNARD MD This examination was interpreted and the report reviewed and electronically signed by: KAE BARNARD MD on Mar 20 2025 3:51PM EST [id number] Normal [facility] XR Thoracic and lumbar spine Views for scoliosis W standingon 03-20-2025 IMPRESSION: No acute findings. Motion Picture Camera Lens Technician: [facility] Transcribe Date/Time: Mar 20 2025 3:49P Dictated by : KAE BARNARD MD This examination was interpreted and the report reviewed and electronically signed by: KAE BARNARD MD on Mar 20 2025 3:51PM EST [facility] * * *Final Report* * * [...] or abdomen. No other significant abnormality. - [facility] Provider, [facility] - 03/20/2025 * * *Final Report* [...] abnormality. - IMPRESSION IMPRESSION: No acute findings. Motion Picture Camera Lens Technician: LIBIA Transcribe Date/Time: Mar 20 2025 3:49P Dictated by : KAE BARNARD MD This examination was interpreted and the report reviewed and electronically signed by: KAE BARNARD MD on Mar 20 2025 3:51PM EST [facility] Radiology Study observation (narrative) Diana thompson [facility] XR Thoracic and lumbar spine Views for scoliosis W standingOrdered By: Ccf Provider on 03-20-2025 [facility] 36on 01-15-2025 36 Called and LVM regarding spine follow up. If patient calls back please inform the patient MRI reviewed by surgeons and [facility] Jalloh due to her history of scoliosis and thoracic surgery. They will contact her to schedule. Normal [facility] 37on 12-06-2024 37 We will notify you once we have approval from your insurance. You will then call central scheduling at [phone] to schedule. Normal [facility] Office Visiton 12-06-2024 Follow-up visit [id number] Katie Smith 1975 F Date Provider Department Center 12/06/2024 KIMBER HANKINS [facility] None Family History Problem Relation Age of Onset No Known Problems Father No Known Problems Brother No Known Problems Sister No Known Problems Mother No Known Problems Brother Family Status - Relation Status Age at Father Alive Brother Alive Sister Alive Mother Alive Brother Alive Level of Service:69346 [place] OFFICE/OUTPATIENT ESTABLISHED MOD MDM 30 MIN Reason for Visit and Comments: Follow-up [608885] Normal [facility] Progress Noteon 12-06-2024 Progress Note [facility] - [address] [facility] [address] Dept: [phone] Dept Katie Smith 1975 [id number] 12/06/2024 Problem List: Lumbar pain Lumbar anterolisthesis [...] by Dr. Suh 2018 PM- Dr. Garcia [facility] Review of Systems No Known Allergies Current [...] and L5/S1 (more content not included)... Normal [facility] MRI ANKLE W/O CONTRAST LEFTo n 10-05-2023 [...] 10/05/2023 8:37:08 AM Ordering Provider: [facility]) Laboratory - Chemistry and C hemistry - challengeon 09-23-2022 HCG ( test) Ql (U) Negative [facility] Work Phone: Comment on above: Very dilute urine sp ecimens, as indicated by a low specificgravity, may not contain call center support representative levels of hCG. If is still suspected, a first morning urinespecimen should be collected 48 hours later and tested. Laboratory - Chemistry and C hemistry - challengeon 08-20-2022 Free T4 [Mass/Vol] 0.72 ng/dL 0.76-1.[address] [facility] Work Phone: No Panel Informationon 08-20 Free Triiodothyronine (T3) pg/dL 2.3 pg/mL 2.18-3.98 [facility] Work Phone: Thyroid Stimulating Hormone (TSH) 3.10 uIU/mL 0.358-3.74 [facility] Work Phone: Laboratory - Chemistry and C hemistry - challengeon 05-29-2022 Free T4 [Mass/Vol] 0.60 ng/dL 0.76-1.[address] [facility] Work Phone: No Panel Informationon 05-29 Free Triiodothyronine (T3) pg/dL 2.2 pg/mL 2.18-3.98 [facility] Work Phone: Thyroid Stimulating Hormone (TSH) 0.27 uIU/mL 0.358-3.74 [facility] Work Phone: Thyroid stimulating immunogl obulins detectionon 05-29-2022 Thyroid stimulating immunoglobulins Ql (S) 3.63 IU/L 0.00-0.55 [facility] Work Phone: Comment on above: Performed at: [address] [id number] Director: Seb Ames MD, Phone: [phone] Absolute lymphocyte counton 04-03-2022 Lymphocytes Auto (Unsp spec) [#/Vol] 2.00 10*3/uL 0.83-4.51 [facility] Work Phone: Basophil percentageon 2021 Basophil percentage Not Reportable [facility] Work Phone: [phone] Basophils/100 WBC (Bld) 0.8 % 0-1 [facility] Work Phone: [phone] Bilirubin [Mass/Vol] 0.20 mg/dL 0.20-1.00 [facility] Work Phone: Comment on above: For patients on eltr ombopag therapy, use of Dimension [place] TBIL is not recommended. Chloride [Moles/Vol] 100 mmol/L 98-107 [facility] Work Phone: Eosinophils/100 WBC (Bld) 3.0 % 0-5 [facility] Work Phone: Glucose [Mass/Vol] 67 mg/dL 74-[address] [facility] Work Phone: Neutrophils (Bld) [#/Vol] 4.8 10*3/uL 2.0-7.7 [facility] Work Phone: Neutrophils/100 WBC (Bld) 63.4 % 47-70 [facility] Work Phone: Potassium [Moles/Vol] 3.8 mmol/L 3.5-5.1 [facility] Work Phone: [phone] Protein [Mass/Vol] 8.2 g/dL 6.4-8.[address] [facility] Work Phone: Sodium [Moles/Vol] 136 mmol/L 136-[address] [facility] Work Phone: WBC (Bld) [#/Vol] 7.6 10*3/uL 4.4-11.[address] [facility] Work Phone: Blood erythrocytes count (nu mber/volume)on 04-03-2022 RBC (Bld) [#/Vol] 3.93 10*6/uL 4.2-5.4 [facility] Work Phone: Blood hemoglobin measurement (mass/volume)on 04-03-2022 Hemoglobin (Bld) [Mass/Vol] 11.6 g/dL 12.0-15.0 [facility] Work Phone: Blood lymphocytes/100 leukoc yteson 04-03-2022 Lymphocytes/100 WBC (Bld) 26.3 % 19-41 [facility] Work Phone: Blood monocytes/100 leukocyt eson 04-03-2022 Monocytes/100 WBC (Bld) 6.4 % 0-10 [facility] Work Phone: Blood platelet mean volumeon 04-03-2022 Platelet mean volume (Bld) [Entitic vol] 9.3 fL 6.2-12.0 [facility] Work Phone: Determination of erythrocyte mean corpuscular volume (MCV)on 04-03-2022 MCV (RBC) [Entitic vol] 92.1 fL 81-99 [facility] Work Phone: Erythrocyte sedimentation ra daniel 04-03-2022 ESR (Bld) [Velocity] 39 mm/h 0-30 [facility] Work [facility]: Hematocrit Auto (Bld) [Volum e fraction]on 04-03-2022 Hematocrit (Bld) [Volume fraction] 36.2 % 37-47 [facility] Work Phone: Laboratory - Chemistry and C hemistry - challengeon 04-03-2022 ALP [Catalytic activity/Vol] 106 U/L 45-117 [facility] Work Phone: ALT [Catalytic activity/Vol] 27 U/L 13-56 [facility] Work Phone: CO2 [Moles/Vol] 28.0 mmol/L 21.0-32.0 [facility] Work Phone: Cobalamin (Vitamin B12) [Mass/Vol] 418 pg/mL 211-911 [facility] Work Phone: Free T4 [Mass/Vol] 1.38 ng/dL 0.76-1.46 [facility] Work Phone: Globulin (S) [Mass/Vol] 4.6 g/dL 2.2-4.2 [facility] Work Phone: Urea nitrogen/Creatinine [Mass ratio] 11.7 mg/mg 10-20 [facility] Work Phone: Laboratory - Hematology and Cell countson 04-03-2022 Erythrocyte distribution width (RBC) [Entitic vol] 41.1 fL 35.1-43.9 [facility] Work Phone: Erythrocyte distribution width (RBC) [Ratio] 12.2 % 11.6-14.6 [facility] Work Phone: Immature granulocytes/100 WBC (Bld) 0.100 % 0.0-0.9 [facility] Work Phone: Comment on above: IG% - Immature Granu locytes (promyelocytes, myelocytes and metamyelocytes) > 1% indicates that a LEFT SHIFT is Present. MCH (RBC) [Entitic mass] 29.5 pg 27.0-32.0 [facility] Work Phone: Nucleated RBC/100 WBC (Bld) [Ratio] 0 % 0-5 [facility] Work Phone: MCHC Auto (RBC) [Mass/Vol]on 04-03-2022 MCHC (RBC) [Mass/Vol] 32.0 g/dL 32-36 [facility] Work Phone: No Panel Informationon 04-03 Anti-Nuclear Antibody Screen Negative [facility] Work Phone: Centromere B Antibody Not Reportable [facility] Work Phone: Estimated GFR (MDRD) Amer 92 mL/min >60 [facility] Work Phone: Comment on above: GFR Calc Estimated GFR (MDRD) Non-Af Amer 76 mL/min >60 [facility] Work Phone: Comment on above: Non- GFR Calc Free Triiodothyronine (T3) pg/dL 5.5 pg/mL 2.18-3.98 [facility] Work Phone: WOOL BROKER Antibody Not Reportable [facility] Work Phone: Thyroid Stimulating Hormone (TSH) < 0.01 uIU/mL 0.358-3.74 [facility] Work Phone: Platelets bldon 04-03-2022 Platelets (Bld) [#/Vol] 327 10*3/uL 150-450 [facility] Work Phone: Serum DNA double strand anti body assay (units/volume)on 04-03-2022 DNA double strand Ab Qn (S) Not Reportable [facility] Work Phone: Serum Esha-1 antibody assay (u nits/volume)on 04-03-2022 Esha-1 extractable nuclear Ab Qn (S) Not Reportable [facility] Work Phone: Serum Scl-70 extractable nuc lear antibody assay (units/volume)on 04-03-2022 SCL-70 extractable nuclear Ab Qn (S) Not Reportable [facility] Work Phone: Serum Day extractable nucl ear antibody detectionon 04-03-2022 Day extractable nuclear Ab Ql (S) Not Reportable [facility] Work Phone: Serum cyclic citrullinated p eptide IgG antibody assay (units/volume)on 04-03-2022 Cyclic citrullinated peptide IgG Qn 7 units 0-19 [facility] Work Phone: Comment on above: Negative <20 Weak po sitive 20 - 39 Moderate positive 40 - 59 Strong positive >59 Serum or plasma C reactive p rotein measurement (mass/volume)on 04-03-2022 CRP [Mass/Vol] 4.62 mg/L 0.0-3.0 [facility] Work Phone: Comment on above: C-Reactive Protein ( CRP) provides useful information for thediagnosis, therapy and monitoring of inflammatory processesand associated diseases. For the evaluation of Relative Riskfor Cardiovascular Disease, a High Sensitivity CRP (HSCRP)should be ordered. Serum or plasma albumin anita urement (mass/volume)on 04-03-2022 Albumin [Mass/Vol] 3.6 g/dL 3.2-5.[address] [facility] Work Phone: Serum or plasma albumin/glob ulin mass ratioon 04-03-2022 Albumin/Globulin [Mass ratio] 0.8 {ratio} 0.9-2.4 [facility] Work Phone: Serum or plasma calcium anita urement (mass/volume)on 04-03-2022 Calcium [Mass/Vol] 9.5 mg/dL 8.5-10.[address] [facility] Work Phone: Serum or plasma creatinine m easurement (mass/volume)on 04-03-2022 Creatinine [Mass/Vol] 0.86 mg/dL 0.55-1.02 [facility] Work Phone: Comment on above: The validity of the calculated GFR & GFRAA in patients over 70 years has not been determined. Clinical correlation is essential. Serum or plasma urea nitroge n measurement (mass/volume)on 04-03-2022 Urea nitrogen [Mass/Vol] 10 mg/dL 7-18 [facility] Work Phone: Serum rheumatoid factor dete ctionon 04-03-2022 Rheumatoid factor Ql (S) < 10.0 IU/mL <15 [facility] Work Phone: Thin prep Papanicolaou smear with manual screeningon 04-03-2022 Thin prep Papanicolaou smear with manual screening 25 U/L 15-37 [facility] Work Phone: Thin prep Papanicolaou smear with manual screening 8 5-15 [facility] Work Phone: Absolute lymphocyte counton 01-30-2022 Lymphocytes Auto (Unsp spec) [#/Vol] 1.63 10*3/uL 0.83-4.51 [facility] Work Phone: Basophil percentageon 2021 Basophils/100 WBC (Bld) 0.5 % 0-1 [facility] Work Phone: Bilirubin [Mass/Vol] 0.30 mg/dL 0.20-1.00 [facility] Work Phone: Comment on above: For patients on eltr ombopag therapy, use of Dimension [place] TBIL is not recommended. Chloride [Moles/Vol] 103 mmol/L 98-107 [facility] Work Phone: Cholesterol [Mass/Vol] 150 mg/dL <200 [facility] Work Phone: Comment on above: <200 mg/dL Desirable 200-240 mg/dL Borderline >240 mg/dL High Risk Eosinophils/100 WBC (Bld) 1.5 % 0-5 [facility] Work Phone: Glucose [Mass/Vol] 79 mg/dL 74-[address] [facility] Work Phone: Neutrophils (Bld) [#/Vol] 4.9 10*3/uL 2.0-7.7 [facility] Work Phone: Neutrophils/100 WBC (Bld) 67.2 % 47-70 [facility] Work Phone: [phone] Potassium [Moles/Vol] 4.7 mmol/L 3.5-5.1 [facility] Work Phone: [phone] Protein [Mass/Vol] 7.5 g/dL 6.4-8.[address] [facility] Work Phone: Sodium [Moles/Vol] 137 mmol/L 136-[address] [facility] Work Phone: Triglyceride [Mass/Vol] 115 mg/dL <199 [facility] Work Phone: Comment on above: The drugs N-Acetylcy steine and Metamizole may falsely depress this assay.Serum Triglycerides Reference Interval Normal <150 mg/dL Borderline high 150 - 199 mg/dL High 200 - 499 mg/dL Very High > or = 500 mg/dL WBC (Bld) [#/Vol] 7.3 10*3/uL 4.4-11.[address] [facility] Work Phone: Blood erythrocytes count (nu mber/volume)on 01-30-2022 RBC (Bld) [#/Vol] 4.13 10*6/uL 4.2-5.4 [facility] Work Phone: Blood hemoglobin measurement (mass/volume)on 01-30-2022 Hemoglobin (Bld) [Mass/Vol] 12.2 g/dL 12.0-15.0 [facility] Work Phone: Blood lymphocytes/100 leukoc yteson 01-30-2022 Lymphocytes/100 WBC (Bld) 22.2 % 19-41 [facility] Work Phone: Blood monocytes/100 leukocyt eson 01-30-2022 Monocytes/100 WBC (Bld) 8.5 % 0-10 [facility] Work Phone: Blood platelet mean volumeon 01-30-2022 Platelet mean volume (Bld) [Entitic vol] 9.3 fL 6.2-12.0 [facility] Work Phone: Determination of erythrocyte mean corpuscular volume (MCV)on 01-30-2022 MCV (RBC) [Entitic vol] 91.3 fL 81-99 [facility] Work Phone: Hematocrit Auto (Bld) [Volum e fraction]on 01-30-2022 Hematocrit (Bld) [Volume fraction] 37.7 % 37-47 [facility] Work Phone: Laboratory - Chemistry and C hemistry - challengeon 01-30-2022 ALP [Catalytic activity/Vol] 91 U/L 45-117 [facility] Work Phone: ALT [Catalytic activity/Vol] 25 U/L 13-56 [facility] Work Phone: CO2 [Moles/Vol] 30.0 mmol/L 21.0-32.0 [facility] Work Phone: Free T4 [Mass/Vol] 1.78 ng/dL 0.76-1.[address] [facility] Work Phone: Globulin (S) [Mass/Vol] 4.4 g/dL 2.2-4.2 [facility] Work Phone: Urea nitrogen/Creatinine [Mass ratio] 11.9 mg/mg 10-20 [facility] Work Phone: Laboratory - Hematology and Cell countson 01-30-2022 Erythrocyte distribution width (RBC) [Entitic vol] 45.1 fL 35.1-43.9 [facility] Work Phone: Erythrocyte distribution width (RBC) [Ratio] 13.4 % 11.6-14.6 [facility] Work Phone: Immature granulocytes/100 WBC (Bld) 0.100 % 0.0-0.9 [facility] Work Phone: Comment on above: IG% - Immature Granu locytes (promyelocytes, myelocytes and metamyelocytes) > 1% indicates that a LEFT SHIFT is Present. MCH (RBC) [Entitic mass] 29.5 pg 27.0-32.0 [facility] Work Phone: [phone] Nucleated RBC/100 WBC (Bld) [Ratio] 0 % 0-5 [facility] Work Phone: MCHC Auto (RBC) [Mass/Vol]on 01-30-2022 MCHC (RBC) [Mass/Vol] 32.4 g/dL 32-36 [facility] Work Phone: No Panel Informationon 01-30 Estimated GFR (MDRD) Amer 121 mL/min >60 [facility] Work Phone: Comment on above: GFR Calc Estimated GFR (MDRD) Non-Af Amer 100 mL/min >60 [facility] Work Phone: Comment on above: Non- GFR Calc Thyroid Stimulating Hormone (TSH) < 0.01 uIU/mL 0.358-3.74 [facility] Work Phone: Vitamin D 25-Hydroxy 23.0 ng/mL [facility] Work Phone: Comment on above: Vitamin D 25(OH) Sta tus Range Deficiency <20 ng/mL (50nmol/L) Insufficiency 20 - 30 ng/mL (50 - 75 nmol/L) Sufficiency 30 - 100 ng/mL (75 - 250 nmol/L) Toxicity >100 ng/mL (>250 nmol/L) Platelets bldon 01-30-2022 Platelets (Bld) [#/Vol] 313 10*3/uL 150-450 [facility] Work Phone: Serum or plasma albumin anita urement (mass/volume)on 01-30-2022 Albumin [Mass/Vol] 3.1 g/dL 3.2-5.[address] [facility] Work Phone: Serum or plasma albumin/glob ulin mass ratioon 01-30-2022 Albumin/Globulin [Mass ratio] 0.7 {ratio} 0.9-2.4 [facility] Work Phone: Serum or plasma calcium anita urement (mass/volume)on 01-30-2022 Calcium [Mass/Vol] 9.2 mg/dL 8.5-10.[address] [facility] Work Phone: Serum or plasma cholesterol in HDL measurement (mass/volume)on 01-30-2022 Cholesterol in HDL [Mass/Vol] 49 mg/dL >40 [facility] Work Phone: Comment on above: The drugs N-Acetylcy steine and Metamizole may falsely depress this assay. Reference Range HDL <40 mg/dL Low HDL Cholesterol HDL >or= 60 mg/dL High HDL Cholesterol Serum or plasma cholesterol in VLDL measurement (mass/volume)on 01-30-2022 Cholesterol in VLDL [Mass/Vol] 23 mg/dL 5-40 [facility] Work Phone: Serum or plasma creatinine m easurement (mass/volume)on 01-30-2022 Creatinine [Mass/Vol] 0.67 mg/dL 0.55-1.02 [facility] Work Phone: Comment on above: The validity of the calculated GFR & GFRAA in patients over 70 years has not been determined. Clinical correlation is essential. Serum or plasma low density lipoprotein (LDL) cholesterol measurement (mass/volume)on 01-30-2022 Cholesterol in LDL [Mass/Vol] 78 mg/dL 0-130 [facility] Work Phone: Serum or plasma urea nitroge n measurement (mass/volume)on 01-30-2022 Urea nitrogen [Mass/Vol] 8 mg/dL 7-18 [facility] Work Phone: Thin prep Papanicolaou smear with manual screeningon 01-30-2022 Thin prep Papanicolaou smear with manual screening 24 U/L 15-37 [facility] Work Phone: Thin prep Papanicolaou smear with manual screening 4 5-15 [facility] Work Phone: CR Spine Entire 2 or 3 Views on 01-05-2019 CR Spine Entire 2 or 3 Views Patient Name: KATIE SMITH Diagnostic Radiology Exam Date/Time 01/05/2019 09:04:05 EDT Exam CR Spine Entire 2 or 3 View Ordering Physician MD SUH BRADLEY PHILLIP Accession Number [id number] CPT4 Codes 86009 () Reason For Exam Pain Report Lumbar [...] degree dextroconvex curvature with a rotational component. [place] of the thoracic curvature is at approximately [...] DIANE Transcribed Date and Time: 01/05/2019 10:44 [facility] CR Spine Lumbosacral 4+ View son 01-05-2019 CR Spine Lumbosacral 4+ Views Patient Name: KATIE SMITH Diagnostic Radiology Exam Date/Time 01/05/2019 09:03:30 EDT Exam CR Spine Lumbosacral 4+ Views Ordering Physician MD SUH BRADLEY PHILLIP Accession Number [id number] CPT4 Codes 54281 () Reason For Exam lumbar radiculopathy Report [...] degree dextroconvex curvature with a rotational component. [place] of the thoracic curvature is at approximately [...] Transcribed Date and Time: 01/05/2019 10:44 Normal [facility] MRI Spine Lumbar w/o Contras ton 10-03-2018 MRI Spine Lumbar w/o Contrast Patient Name: KATIE SMITH MRI Exam Date/Time 09/30/2018 08:48:37 EST Exam MRI Spine Lumbar w/o Contrast Ordering Physician MD SUH BRADLEY PHILLIP Accession Number [id number] CPT4 Codes 79632 () Reason For Exam Lumbar radiculopathy Report [...] NEIL Transcribed Date and Time: 10/03/2018 11:10 [facility] FLUOROSCOPY IN OR/PAIN MGTon 08-25-2017 FLUOROSCOPY IN OR/PAIN MGT [facility]: Ge Jaeger DO08/25/2017 2:00 PMFLUOROSCOPY AND [...] VILLANUEVA M.D. Signed By: JESUS VILLANUEVA M.D. [facility] FLUOROSCOPY IN OR/PAIN Ton 07-22-2017 FLUOROSCOPY IN OR/PAIN MGT [facility]ician: Ge Jaeger, 07/22/2017 1:52 PMFLUOROSCOPY AND [...] DAMON M.D. Signed By: DAVID DAMON M.D. [facility] FLUOROSCOPY IN OR/PAIN MGTon 07-08-2017 FLUOROSCOPY IN [...] MARSH M.D. Signed By: TIM MARSH M.D. [facility] Vital Signs Date Time Vital Sign Value Performing Clinician Faci [facility] 05-21-2025 13:49-0400 Body temperature 98.3 [degF] Jose Sams [facility] 05-21-2025 13:49-0400 Diastolic blood pressure 67 mm[Hg] Jose Sams [facility] 05-21-2025 13:49-0400 Heart rate 142 /min Jose Sams [facility] 05-21-2025 13:49-0400 Respiratory rate 20 /min Jose Sams [facility] 05-21-2025 13:49-0400 SaO2% (BldA) [Mass fraction] 100 % Jose Sams [facility] 05-21-2025 13:49-0400 Systolic blood pressure 152 mm[Hg] Jose Sams [facility] 05-21-2025 12:06-0400 Body height 165.1 cm Jose Sams ADMINISTRATIVE STAFF SUPERVISOR-C [facility] 05-21-2025 12:06-0400 Body mass index (BMI) [Ratio] 19.1 kg/m2 Jose Sams ADMINISTRATIVE STAFF SUPERVISOR-C [facility] 05-21-2025 12:06-0400 Body weight 52.16 kg Jose Sams ADMINISTRATIVE STAFF SUPERVISOR-C [facility] 12-06-2024 14:39-0500 Body height 163.8 cm Kimber Garret PA-C Work Phone: [facility] 12-06-2024 14:39-0500 Body mass index (BMI) [Ratio] 18.59 kg/m2 Kimber Garret PA-C Work Phone: [facility] 12-06-2024 14:39-0500 Body weight 49.9 kg Kimber Garret PA-C Work Phone: [facility] 05-11-2023 15:15-0400 Body height 165.1 cm ADMINISTRATIVE STAFF SUPERVISOR-C Jose Sams ADMINISTRATIVE STAFF SUPERVISOR Work Phone: [facility] 05-11-2023 15:15-0400 Body mass index (BMI) [Ratio] 21.9 kg/m2 ADMINISTRATIVE STAFF SUPERVISOR-C Jose Sams ADMINISTRATIVE STAFF SUPERVISOR Work Phone: [facility] 05-11-2023 15:15-0400 Body temperature 96.8 [degF] ADMINISTRATIVE STAFF SUPERVISOR-C Jose Sams ADMINISTRATIVE STAFF SUPERVISOR Work Phone: [facility] 05-11-2023 15:15-0400 Body weight 59.64 kg ADMINISTRATIVE STAFF SUPERVISOR-C Jose Sams ADMINISTRATIVE STAFF SUPERVISOR Work Phone: [facility] 05-11-2023 15:15-0400 Diastolic blood pressure 62 mm[Hg] ADMINISTRATIVE STAFF SUPERVISOR-C Jose Sams ADMINISTRATIVE STAFF SUPERVISOR Work Phone: [facility] 05-11-2023 15:15-0400 Heart rate 104 /min ADMINISTRATIVE STAFF SUPERVISOR-C Jose Sams ADMINISTRATIVE STAFF SUPERVISOR Work Phone: [facility] 05-11-2023 15:15-0400 Respiratory rate 18 /min ADMINISTRATIVE STAFF SUPERVISOR-C Jose Sams ADMINISTRATIVE STAFF SUPERVISOR Work Phone: [facility] 05-11-2023 15:15-0400 SaO2% (BldA) [Mass fraction] 99 % ADMINISTRATIVE STAFF SUPERVISOR-C Jose Sams ADMINISTRATIVE STAFF SUPERVISOR Work Phone: [facility] 05-11-2023 15:15-0400 Systolic blood pressure 108 mm[Hg] ADMINISTRATIVE STAFF SUPERVISOR-C Jose Sams ADMINISTRATIVE STAFF SUPERVISOR Work Phone: [facility] 04-01-2023 14:36-0400 Body height 165.1 cm Erika Moraes APRN.DIGITAL MEDIA REPRESENTATIVE Work Phone: [facility] 04-01-2023 14:36-0400 Body weight 58.06 kg Erika Moraes APRN.DIGITAL MEDIA REPRESENTATIVE Work Phone: [facility] 04-01-2023 14:36-0400 Diastolic blood pressure 68 mm[Hg] Erika Moraes APRN.DIGITAL MEDIA REPRESENTATIVE Work Phone: [facility] 04-01-2023 14:36-0400 Systolic blood pressure 100 mm[Hg] Erika Moraes APRN.DIGITAL MEDIA REPRESENTATIVE Work Phone: [facility] 10-07-2022 14:30-0500 Body temperature 97.8 [degF] ADMINISTRATIVE STAFF SUPERVISOR-C Jose Sams ADMINISTRATIVE STAFF SUPERVISOR Work Phone: [facility] Work Phone: 10-07-2022 14:30-0500 Diastolic blood pressure 68 mm[Hg] ADMINISTRATIVE STAFF SUPERVISOR-C Jose Sams ADMINISTRATIVE STAFF SUPERVISOR Work Phone: [facility] Work Phone: 10-07-2022 14:30-0500 Heart rate 93 /min ADMINISTRATIVE STAFF SUPERVISOR-C Jose Sams ADMINISTRATIVE STAFF SUPERVISOR Work Phone: [facility] Work Phone: 10-07-2022 14:30-0500 Respiratory rate 18 /min ADMINISTRATIVE STAFF SUPERVISOR-C Jose Sams ADMINISTRATIVE STAFF SUPERVISOR Work Phone: [facility] Work Phone: 10-07-2022 14:30-0500 SaO2% (BldA) [Mass fraction] 96 % ADMINISTRATIVE STAFF SUPERVISOR-C Jose Sams ADMINISTRATIVE STAFF SUPERVISOR Work Phone: [facility] Work Phone: 10-07-2022 14:30-0500 Systolic blood pressure 115 mm[Hg] ADMINISTRATIVE STAFF SUPERVISOR-C Jose Sams ADMINISTRATIVE STAFF SUPERVISOR Work Phone: [facility] Work Phone: 10-07-2022 11:01-0500 Body height 165.1 cm ADMINISTRATIVE STAFF SUPERVISOR-C Jose Sams ADMINISTRATIVE STAFF SUPERVISOR Work Phone: [facility] Work Phone: 10-07-2022 11:01-0500 Body mass index (BMI) [Ratio] 20.9 kg/m2 ADMINISTRATIVE STAFF SUPERVISOR-C Jose Sams ADMINISTRATIVE STAFF SUPERVISOR Work Phone: [facility] Work Phone: 10-07-2022 11:01-0500 Body weight 57 kg ADMINISTRATIVE STAFF SUPERVISOR-C Jose Sams ADMINISTRATIVE STAFF SUPERVISOR Work Phone: [facility] Work Phone: 09-17-2022 16:07-0500 Body mass index (BMI) [Ratio] 20.8 kg/m2 ADMINISTRATIVE STAFF SUPERVISOR-C Jose Sams ADMINISTRATIVE STAFF SUPERVISOR Work Phone: [facility] Work Phone: 09-17-2022 16:07-0500 Body temperature 95.3 [degF] ADMINISTRATIVE STAFF SUPERVISOR-C Jose Sams ADMINISTRATIVE STAFF SUPERVISOR Work Phone: [facility] Work Phone: 09-17-2022 16:07-0500 Body weight 56.86 kg ADMINISTRATIVE STAFF SUPERVISOR-C Jose Sams ADMINISTRATIVE STAFF SUPERVISOR Work Phone: [facility] Work Phone: 09-17-2022 16:07-0500 Diastolic blood pressure 60 mm[Hg] ADMINISTRATIVE STAFF SUPERVISOR-C Jose Sams ADMINISTRATIVE STAFF SUPERVISOR Work Phone: [facility] Work Phone: 09-17-2022 16:07-0500 Heart rate 115 /min ADMINISTRATIVE STAFF SUPERVISOR-C Jose Sams ADMINISTRATIVE STAFF SUPERVISOR Work Phone: [facility] Work Phone: 09-17-2022 16:07-0500 Respiratory rate 20 /min ADMINISTRATIVE STAFF SUPERVISOR-C Jose Sams ADMINISTRATIVE STAFF SUPERVISOR Work Phone: [facility] Work Phone: 09-17-2022 16:07-0500 SaO2% (BldA) [Mass fraction] 96 % ADMINISTRATIVE STAFF SUPERVISOR-C Jose Sams ADMINISTRATIVE STAFF SUPERVISOR Work Phone: [facility] Work Phone: 09-17-2022 16:07-0500 Systolic blood pressure 116 mm[Hg] ADMINISTRATIVE STAFF SUPERVISOR-C Jose Sams ADMINISTRATIVE STAFF SUPERVISOR Work Phone: [facility] Work Phone: 05-26-2022 15:37-0400 Body height 165.1 cm ADMINISTRATIVE STAFF SUPERVISOR-C Jose Sams ADMINISTRATIVE STAFF SUPERVISOR Work Phone: [facility] Work Phone: 05-26-2022 15:37-0400 Body mass index (BMI) [Ratio] 18.3 kg/m2 ADMINISTRATIVE STAFF SUPERVISOR-C Jose Sams ADMINISTRATIVE STAFF SUPERVISOR Work Phone: [facility] Work Phone: 05-26-2022 15:37-0400 Body temperature 94.2 [degF] ADMINISTRATIVE STAFF SUPERVISOR-C Jose Sams ADMINISTRATIVE STAFF SUPERVISOR Work Phone: [facility] Work Phone: 05-26-2022 15:37-0400 Body weight 50 kg ADMINISTRATIVE STAFF SUPERVISOR-C Jose Sams ADMINISTRATIVE STAFF SUPERVISOR Work Phone: [facility] Work Phone: 05-26-2022 15:37-0400 Diastolic blood pressure 80 mm[Hg] ADMINISTRATIVE STAFF SUPERVISOR-C Jose Sams ADMINISTRATIVE STAFF SUPERVISOR Work Phone: [facility] Work Phone: 05-26-2022 15:37-0400 Heart rate 103 /min ADMINISTRATIVE STAFF SUPERVISOR-C Jose Sams ADMINISTRATIVE STAFF SUPERVISOR Work Phone: [facility] Work Phone: 05-26-2022 15:37-0400 Respiratory rate 18 /min ADMINISTRATIVE STAFF SUPERVISOR-C Jose Glenn ADMINISTRATIVE STAFF SUPERVISOR Work Phone: [facility] Work Phone: 05-26-2022 15:37-0400 SaO2% (BldA) [Mass fraction] 91 % ADMINISTRATIVE STAFF SUPERVISOR-C Jose Sams ADMINISTRATIVE STAFF SUPERVISOR Work Phone: [facility] Work Phone: 05-26-2022 15:37-0400 Systolic blood pressure 134 mm[Hg] ADMINISTRATIVE STAFF SUPERVISOR-C Jose Sams 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 Stephon Bay Work Phone: [facility] Work Phone: 04-03-2022 14:39-0400 Body mass index (BMI) [Ratio] 18.1 kg/m2 Dr. Stephon Bay Work Phone: [facility] Work Phone: 04-03-2022 14:39-0400 Body temperature 97.1 [degF] Dr. Stephon Bay Work Phone: [facility] Work Phone: 04-03-2022 14:39-0400 Body weight 49.[address] Stephon Bay Work Phone: [facility] Work Phone: 04-03-2022 14:39-0400 Diastolic blood pressure 80 mm[Hg] Dr. Stephon Bay Work Phone: [facility] Work Phone: 04-03-2022 14:39-0400 Heart rate 95 /min Dr. Stephon Bay Work Phone: [facility] Work Phone: 04-03-2022 14:39-0400 Respiratory rate 14 /min Dr. Stephon Bay Work Phone: [facility] Work Phone: 04-03-2022 14:39-0400 SaO2% (BldA) [Mass fraction] 99 % Dr. Stephon Bay Work Phone: [facility] Work Phone: 04-03-2022 14:39-0400 Systolic blood pressure 136 mm[Hg] Dr. Stephon Bay Work Phone: [facility] Work Phone: 01-30-2022 14:10-0400 Body temperature 97.7 [degF] Dr. Stephon Bay Work Phone: [facility] Work Phone: 01-30-2022 14:10-0400 Diastolic blood pressure 84 mm[Hg] Dr. Stephon Bay Work Phone: [facility] Work Phone: 01-30-2022 14:10-0400 Heart rate 116 /min Dr. Stephon Bay Work Phone: [facility] Work Phone: 01-30-2022 14:10-0400 Respiratory rate 16 /min Dr. Stephon Bay Work Phone: [facility] Work Phone: 01-30-2022 14:10-0400 SaO2% (BldA) [Mass fraction] 98 % Dr. Stephon Bay Work Phone: [facility] Work Phone: 01-30-2022 14:10-0400 Systolic blood pressure 122 mm[Hg] Dr. Stephon Bay Work Phone: [facility] Work Phone: 01-30-2022 14:10-0400 Body temperature 97.7 [degF] Dr. Stephon Bay Work Phone: [facility] Work Phone: 01-30-2022 14:10-0400 Diastolic blood pressure 84 mm[Hg] Dr. Stephon Bay Work Phone: [facility] Work Phone: 01-30-2022 14:10-0400 Heart rate 116 /min Dr. Stephon Bay Work Phone: [facility] Work Phone: 01-30-2022 14:10-0400 Respiratory rate 16 /min Dr. Stephon Bay Work Phone: [facility] Work Phone: 01-30-2022 14:10-0400 SaO2% (BldA) [Mass fraction] 98 % Dr. Stephon Bay Work Phone: [facility] Work Phone: 01-30-2022 14:10-0400 Systolic blood pressure 122 mm[Hg] Dr. Stephon Bay Work Phone: [facility] Work Phone: Encounters Encounter Date Encounter Type Care Provider Facility Start: 05-21-2025 Evaluation and management of inpatient Dr. Katiana Gibson MD -Medical Surgical 3 Work Phone: Start: 05-18-2025 End: 05-18-2025 ambulatory Didier Small PT Work Phone: [facility] Physical Therapy Comment on above: Scoliosis of lumbar spine, unspecified scoliosis type (Primary Dx) Start: 05-04-2025 End: 05-04-2025 ambulatory Jose Sams NP-C -Laboratory Start: 05-04-2025 End: 05-04-[address] Janet Garcia MD -Laboratory Work Phone: Start: 05-03-2025 End: 05-04-2025 ambulatory Didier Small PT Work Phone: [facility] Physical Therapy Comment on above: Scoliosis of lumbar spine, unspecified scoliosis type (Primary Dx) Start: 04-03-2025 ambulatory JOSE Benton y:[facility] Start: 04-03-2025 End: 04-03-2025 Subsequent hospital visit by physician Yudi [facility] (I-Stat) Work Phone: Cat Scan Comment on above: Adolescent idiopathi c scoliosis of lumbar region [M41.126] Start: 03-20-2025 End: 03-20-2025 ambulatory Tyson SAUER Facility:[facility] Start: 03-20-2025 End: 03-20-2025 Patient encounter procedure Tyson Sauer MD Work Phone: [facility] Comment on above: Scoliosis of lumbar spine, unspecified scoliosis type (Primary Dx); Adolescent idiopathic scoliosis of lumbar region; S/P lumbar fusion Start: 03-20-2025 ambulatory BIANCA CAT PEREA acility:[facility] Start: 03-20-2025 End: 03-20-2025 Subsequent hospital visit by physician Devika [facility] Work Phone: [facility] Radiology General Comment on above: Scoliosis of lumbar spine, unspecified scoliosis type [M41.9] Start: 01-22-2025 End: 01-23-2025 Chart abstracting Tim Jalloh MD Work Phone: Neurology Start: 01-15-2025 End: 01-19-2025 Orders Only Kimber Flores PA-C Work Phone: [facility] Orthopedics and Sports Medicine - Frances Ram[facility]rez Comment on above: Lumbar pain (Primary Dx); Degeneration of intervertebral disc of lumbar region with lower extremity pain; Lumbar spondylosis; Spondylolisthesis of lumbar region; Other idiopathic scoliosis, thoracolumbar region; History of lumbar fusion; History of thoracic spinal fusion Start: 01-10-2025 End: 01-10-2025 ambulatory KIMBER FLORES [facility] Start: 01-10-2025 End: 01-10-2025 Subsequent hospital visit by physician Kimber Flores PA-C Work Phone: [facility] Comment on above: Lumbar pain; Degeneration of intervertebral disc of lumbar region with lower extremity pain; Lumbar spondylosis; Spondylolisthesis of lumbar region; Other idiopathic scoliosis, thoracolumbar region; History of lumbar fusion Start: 12-06-2024 End: 12-06-2024 Office outpatient visit 25 minutes Kimber Flores PA-C Work Phone: [facility] Orthopedics and Sports Medicine [facility] Comment on above: Lumbar pain (Primary Dx); Degeneration of intervertebral disc of lumbar region with lower extremity pain; Lumbar spondylosis; Spondylolisthesis of lumbar region; Other idiopathic scoliosis, thoracolumbar region; History of lumbar fusion Start: 12-06-2024 End: 12-06-2024 Subsequent hospital visit by physician Kirk Suh MD Work Phone: [facility] X-ray Comment on above: Lumbar pain Start: 12-06-2024 End: 12-06-2024 ambulatory KIRK SUH [facility] Start: 10-01-2023 End: 10-02-2023 ambulatory OLGANEAL ELIZONDO Facility:A Start: 07-27-2023 Non-patient / Non-visit ADMINISTRATIVE STAFF SUPERVISOR-C Alena Sams ADMINISTRATIVE STAFF SUPERVISOR Work Phone: [facility] Start: 07-27-2023 End: 07-27-2023 ambulatory ADMINISTRATIVE STAFF SUPERVISOR-C Jose Sams ADMINISTRATIVE STAFF SUPERVISOR Work Phone: [facility] Work Phone: Start: 07-27-2023 End: 07-27-2023 Patient encounter procedure ADMINISTRATIVE STAFF SUPERVISOR-C Jose Sams ADMINISTRATIVE STAFF SUPERVISOR Work Phone: [facility]-Pulmonary Services/Neurology Work Phone: Start: 07-15-2023 End: 07-15-2023 Patient encounter procedure ADMINISTRATIVE STAFF SUPERVISOR-C Jose Sams ADMINISTRATIVE STAFF SUPERVISOR Work Phone: [facility] Orthopaedic Spec[facility] Work Phone: Start: 05-11-2023 End: 05-11-2023 Patient encounter procedure ADMINISTRATIVE STAFF SUPERVISOR-C Jose Sams ADMINISTRATIVE STAFF SUPERVISOR Work Phone: [facility] Internal Medicine Work Phone: Start: 04-01-2023 End: 04-01-2023 Patient encounter procedure Erika Rodartehrie ANAT.DIGITAL MEDIA REPRESENTATIVE Work Phone: OB/Gynecology Comment on above: Encounter for gyneco logical examination (general) (routine) without abnormal findings (Primary Dx); Encounter for screening mammogram for breast cancer; Surveillance for control, oral contraceptives; Dense breast tissue on mammogram; Drug induced amenorrhea; Screen for colon cancer Start: 04-01-2023 End: 04-01-2023 Patient encounter status Erika Moraes ANAT.DIGITAL MEDIA REPRESENTATIVE Work Phone: OB/Gynecology Start: 10-07-2022 Non-patient / Non-visit ADMINISTRATIVE STAFF SUPERVISOR-C Alena Sams ADMINISTRATIVE STAFF SUPERVISOR Work Phone: [facility] Start: 10-07-2022 End: 10-07-2022 Admission to same day surgery center ADMINISTRATIVE STAFF SUPERVISOR-C Jose Sams ADMINISTRATIVE STAFF SUPERVISOR [facility] Start: 10-07-2022 End: 10-07-2022 ambulatory ADMINISTRATIVE STAFF SUPERVISOR-C Jose Sams ADMINISTRATIVE STAFF SUPERVISOR Work Phone: [facility] Work Phone: Start: 09-17-2022 End: 09-17-2022 Patient encounter procedure ADMINISTRATIVE STAFF SUPERVISOR-C Jose Sams ADMINISTRATIVE STAFF SUPERVISOR Work Phone: [facility] Endocrinology Start: 09-15-2022 End: 09-15-2022 Patient encounter procedure ADMINISTRATIVE STAFF SUPERVISOR-C Jose Sams ADMINISTRATIVE STAFF SUPERVISOR Work Phone: [facility] Start: 08-20-2022 End: 08-20-2022 ambulatory ADMINISTRATIVE STAFF SUPERVISOR-C Jose Sams ADMINISTRATIVE STAFF SUPERVISOR Work Phone: [facility] Work Phone: Start: 08-20-2022 End: 08-20-2022 Patient encounter procedure ADMINISTRATIVE STAFF SUPERVISOR-C Jose Sams ADMINISTRATIVE STAFF SUPERVISOR Work Phone: [facility]-Laboratory Start: 06-10-2022 End: 06-10-2022 ambulatory ADMINISTRATIVE STAFF SUPERVISOR-C Jose Sams ADMINISTRATIVE STAFF SUPERVISOR Work Phone: [facility] Work Phone: Start: 06-10-2022 End: 06-10-2022 Patient encounter procedure ADMINISTRATIVE STAFF SUPERVISOR-C Jose Sams ADMINISTRATIVE STAFF SUPERVISOR Work Phone: [facility]-Pulmonary Services/Neurology Start: 05-29-2022 End: 05-29-2022 ambulatory ADMINISTRATIVE STAFF SUPERVISOR-C Jose Sams ADMINISTRATIVE STAFF SUPERVISOR Work Phone: [facility] Work Phone: Start: 05-29-2022 End: 05-29-2022 Patient encounter procedure ADMINISTRATIVE STAFF SUPERVISOR-C Jose Sams ADMINISTRATIVE STAFF SUPERVISOR Work Phone: [facility]-Laboratory Start: 05-26-2022 End: 05-26-2022 Patient encounter procedure ADMINISTRATIVE STAFF SUPERVISOR-C Jose Sams ADMINISTRATIVE STAFF SUPERVISOR Work Phone: [facility] Endocrinology Start: 04-27-2022 End: 04-27-[address] Stephon Bay Work Phone: [facility] Start: 04-03-2022 End: 04-03-[address] Stephon Bay Work Phone: [facility] Internal Medicine Start: 02-20-2022 Documentation procedure Mammog michael Coordinator [facility] Start: 02-20-2022 Letter encounter Mammography Coordinator [facility] Department Start: 02-20-2022 Orders Only Alba Rodriguez MD Work Phone: OB/Gynecology Comment on above: Abnormal mammogram ( Primary Dx) Start: 02-19-2022 End: 02-19-2022 Subsequent hospital visit by physician Screen Mammo [facility] Mammogram Comment on above: Encounter for screen ing mammogram for malignant neoplasm of breast [Z12.31] Start: 02-12-2022 End: 02-12-[address] Stephon Bay Work Phone: [facility] Start: 01-30-2022 End: 01-30-[address] Stephon Bay Work Phone: [facility] Internal Medicine Start: 01-16-2022 Refill Alba Rodriguez MD Work Phone: OB/Gynecology Comment on above: Refill Request Start: 01-05-2019 Patient encounter procedure KIRK SUH [facility] Start: 10-06-2018 [facility] Start: 09-30-2018 Patient encounter procedure PROVIDER UNKNOWN [facility] Start: 10-26-2017 Ambulatory Janessa MSN,PLASMA SPECIALIST Lillian F acility:[facility] Start: 09-02-2017 Ambulatory Janessa KENDRICK,THUY Snyder F acility:[facility] Start: 08-25-2017 Evaluation and management of inpatient Ge Jaeger Facility:[facility] Start: 07-22-2017 Evaluation and management of inpatient Ge Jaeger Facility:[facility] Start: 07-08-2017 Evaluation and management of inpatient Ge Jaeger Facility:[facility] Start: 07-07-2017 Evaluation and management of inpatient Ge Jaeger Facility:[facility] Start: 06-30-2017 Ambulatory Janessa MSN,PLASMA SPECIALIST Lillian F acility:[facility] Start: 04-01-2017 Ambulatory Janessa KENDRICK,PLASMA SPECIALIST Lillian F acility:[facility] Procedures Date Procedure Procedure Detail Performing Clinician Start: 05-21-2025 Methadone measurement, urine Jose Sams ADMINISTRATIVE STAFF SUPERVISOR-C Start: 05-21-2025 Estimated creatinine clearance Jose gallegos ADMINISTRATIVE STAFF SUPERVISOR-C Start: 05-05-2025 Procedure Jose Sams ADMINISTRATIVE STAFF SUPERVISOR-C Comment on above: Test Ordered: [id number] Q56-Hfupmu+S N9Qjpzhnvbbwpc Screen, Urine Note: ng/mL UI See Final Results Reference Range: Irtjed=753Yfxdycuklcv test includes Amphetamine and Methamphetamine.Amphetamines Negative UI Reference Range: Zcndte=427Ofexnwuiwpn test includes Amphetamine and Methamphetamine.Barbiturates Negative ng/mL UI Reference Range: Yjjhlk=523Pctcmnclkepqjnu Negative ng/mL UI Reference Range: Jwcssk=103Isgahli (Metab.), Urine Negative ng/mL UI Reference Range: Ujflaj=060Vifjuog Negative ng/mL UI Reference Range: Unhkhu=611Iurypw test includes Codeine, Morphine, Hydromorphone, Hydrocodone.6-Acetylmorphine, Urine Negative ng/mL UI Reference Range: Cutoff=10Oxycodone/Oxymorphone, Urine Negative ng/mL UI Reference Range: Gnfrpj=857Oiva includes Oxycodone and OxymorphonePCP, Urine Negative ng/mL UI Reference Range: Cutoff=25Methadone Screen, Urine Negative ng/mL UI Reference Range: Fnomda=950Ooewzzqpidkx, Urine Negative ng/mL UI Reference Range: Wybvyc=189Tkhodorp, Urine Note: ng/mL UI See Final Results Reference Range: Cutoff=2.0Test includes Fentanyl and NorfentanylThis test was developed and its performance characteristicsdetermined by [facility]. It has not been cleared orapproved by the Food and Drug Administration.Fentanyl/Norfentanyl Comment UI Reference Range: Cutoff=2.0Screen positive, quantity not sufficient for furthertesting.Test includes Fentanyl and NorfentanylFentanyl Comment UI Reference Range: .Screen positive, quantity not sufficient for furthertesting.Fentanyl Conf, MS, UR Comment ng/mL UI Reference Range: Cutoff=0.5Screen positive, quantity not sufficient for furthertesting.CONTACTED [facility] AT YOUR FACILITY ON [id number] Comment UI Reference Range: .Screen positive, quantity not sufficient for furthertesting.Norfentanyl Conf, MS, UR Comment ng/mL UI Reference Range: Cutoff=2.0Screen positive, quantity not sufficient for furthertesting.CONTACTED [facility] AT YOUR FACILITY ON [id number] Negative ng/mL UI Reference Range: Aijpbz=095Vhdmzjoehlimg, Urine Negative ng/mL UI Reference Range: Cutoff=10Creatinine, Urine 101.1 mg/dL UI Reference Range: 20.0-300.0pH, Urine 8.5 UI Reference Range: 4.5-8.9Performed at: [facility] [id number] Director: Edgar Montiel PhD, Phone: [phone] at: [facility] [id number] [place], [place] [id number] Director: Loren Ramirez PhD, Phone: [phone] Start: 05-04-2025 Methadone measurement, urine Jose Sams ADMINISTRATIVE STAFF SUPERVISOR-C Start: 04-03-2025 Ct lumbar spine w/o contrast material R Kenn Sauer MD Work Phone: Start: 03-20-2025 Radex entir thrc lmbr crv sac spi w/skull 2/3 vw Bianca Cat Perea PA-C Work Phone: Start: 12-06-2024 Follow-up visit Follow-up KIMBER FLORES Start: 10-07-2022 Arthroscopy of ankle ADMINISTRATIVE STAFF SUPERVISOR-C Jose Sams ADMINISTRATIVE STAFF SUPERVISOR Work Phone: Start: 04-27-2022 US scan of [...] for Adults (1 - 1-dose 75+ series) [employer] Start: 04-18-2027 Diabetes Screening Diabetes Screenin g [facility] Start: 02-19-2027 HPV TESTING HPV TESTING [facility] Start: 02-19-2027 PAP TESTING PAP TESTING [facility] Start: 02-19-2027 Screening for malign ant neoplasm of cervix Cervical Cancer Screening [facility] Start: 05-31-2026 Screening for malign ant neoplasm of colon [facility] Start: 2025 Zoster Vaccines (1 o f 2) Zoster Vaccines (1 of 2) [facility] Start: 09-11-2025 End: 09-11-2025 Patient encounter procedure 09/11/2025 2:40 PM EST Office Visit [facility] [address] [id number] Tim Jalloh MD [address] [place] [address] 2nd Opinion [facility] Comment on above: 2nd Opinion Start: 06-04-2025 Influenza vaccination [facility] Start: 05-31-2025 End: 05-31-2025 ambulatory 05/31/2025 3:00 PM EDT OT/PT/Speech Visit [facility] [address] [place], [place] [id number] Didier Small, PT [address] [place], [place] [id number] spine [facility] Comment on above: spine Start: 05-24-2025 End: 05-24-2025 ambulatory 05/24/2025 3:00 PM EDT OT/PT/Speech Visit [facility] [address] [place] [address] Didier Small, PT [address] [place], [place] [address] spine [facility] Comment on above: spine Start: 05-21-2025 Verification routine [facility] Start: 05-21-2025 Admission procedure [facility] Start: 05-21-2025 Hospital admission, emergency, from emergency room, medical nature [facility] Start: 05-18-2025 End: 05-18-2025 ambulatory 05/18/2025 3:15 PM EDT OT/PT/Speech Visit [facility] [address] [facility] [address] Didier Small, PT [address] [place] [address] spine [facility] Comment on above: spine Start: 03-30-2025 End: 03-30-2025 Patient encounter procedure 03/30/2025 3:40 PM EDT Appointment Cat Scan [address] [facility] [place] [address] Adolescent idiopathic scoliosis of lumbar region [M41.126] Cat Scan Comment on above: Adolescent idiopathi c scoliosis of lumbar region [M41.126] Start: 02-19-2025 Screening for malign ant neoplasm of cervix [facility] Start: 12-06-2024 End: 12-06-2025 MR Lumbar spine WO contrast MR lumbar spine wo contrast Imaging Routine Lumbar pain Degeneration of intervertebral disc of lumbar region with lower extremity pain Lumbar spondylosis Spondylolisthesis of lumbar region Other idiopathic scoliosis, thoracolumbar region History of lumbar fusion Expected: 12/06/2024, Expires: 12/06/2025 [facility] Work Phone: Comment on above: Expected: 12/06/2024 , Expires: 12/06/2025 Start: 06-04-2024 COVID-19 Vaccine ( season) COVID-19 Vaccine ( season) [facility] Start: 06-04-2024 Influenza vaccination Influenza Vacc ine (#1) [facility] Start: 07-08-2023 Lipid panel Lipid Screening [facility] Start: 06-04-2023 Influenza vaccination INFLUENZA (Sea son Ended) [facility] Start: 05-11-2023 Patient referral [facility] Work Phone: Start: 04-01-2023 End: 06-01-2023 Estradiol (E2) [Mass/volume] in Serum or Plasma [facility] Work Phone: Comment on above: Expected: 04/01/2023 , Expires: 06/01/2023 Start: 04-01-2023 End: 06-01-2023 Follitropin [Units/volume] in Serum or Plasma [facility] Work Phone: Comment on above: Expected: 04/01/2023 , Expires: 06/01/2023 Start: 02-19-2023 Mammography MAMMOGRAM [facility] Start: 02-19-2023 Screening for malign ant neoplasm of breast Mammogram Screening [facility] Start: 10-07-2022 Patient discharge [facility] Work Phone: Start: 10-04-2022 DEPRESSION ASSESSMENT DEPRESSION ASS ESSMENT [facility] Start: 06-04-2022 Influenza vaccination INFLUENZA (Sea son Ended) [facility] Start: 12-23-2021 HPV TESTING HPV TESTING [facility] Start: 12-23-2021 PAP TESTING PAP TESTING [facility] Start: 2020 COLOGUARD (FIT-DNA) COLOGUARD (FIT-D NA) [facility] Start: 2020 Colonoscopy COLONOSCOPY [facility] Start: 2020 COLORECTAL CANCER SCREENING COLORECTAL CANCER SCREENING [facility] Start: [address] COLONOGRAPHY [facility] Start: 2020 DIABETES SCREEN DIABETES SCREEN [facility] Start: 2020 FECAL OCCULT BLOOD FECAL OCCULT BLOO D [facility] Start: 2020 LIPID SCREEN LIPID SCREEN [facility] Start: 2020 Screening for malign ant neoplasm of colon [facility] Start: 2020 SIGMOIDOSCOPY SIGMOIDOSCOPY [facility] Start: 05-09-2020 Mammography MAMMOGRAM [facility] Start: 2015 Screening for malign ant neoplasm of breast Mammogram [facility] Start: 2005 Screening for malign ant neoplasm of cervix HPV/Cotest [facility] Start: 1994 DTaP/Tdap/Td Vaccine s (1 - Tdap) DTaP/Tdap/Td Vaccines (1 - Tdap) [facility] Start: 1994 Hepatitis B Vaccine (1 of 3 - 19+ 3-dose series) Hepatitis B Vaccine (1 of 3 - 19+ 3-dose series) [facility] Start: 1994 Hepatitis B Vaccines (1 of 3 - 19+ 3-dose series) Hepatitis B Vaccines (1 of 3 - 19+ 3-dose series) [facility] Start: 1994 Pneumococcal vaccination Pneumococcal Vaccine (1 of 2 - PCV) [facility] Start: 1994 Pneumococcal Vaccine : Pediatrics (0 to 5 Years) and At-Risk Patients (6 to 49 Years) (1 of 2 - PCV) Pneumococcal Vaccine: Pediatrics (0 to 5 Years) and At-Risk Patients (6 to 49 Years) (1 of 2 - PCV) [facility] Start: 1994 Urine microalbumin profile [facility] Start: 1993 Anxiety Screening Anxiety Screening [facility] Start: 1993 Depression Screening Depression Scre ening [facility] Start: 1993 Diabetes mellitus screening Diabetes Screening [facility] Start: 1993 HEPATITIS C SCREENING HEPATITIS C SC [facility] Start: 1993 Hepatitis C screening Hepatitis C [facility] Start: 1993 HIV SCREENING HIV SCREENING [facility] Start: 1993 HIV screening HIV Screening [facility] Start: 1987 Adult depression screening assessment DEPRESSION SCREENING [facility] Start: 1987 Depression Monitoring Depression [facility] Start: 1981 PNEUMOCOCCAL (1 - PCV) PNEUMOCOCCAL (1 - PCV) [facility] Start: 1980 COVID-19 VACCINE (#1) COVID-19 VACCI NE (#1) [facility] Start: 1980 COVID-19 VACCINE (1) Cl [facility] Start: 1976 MMR Vaccines (1 of 1 - Standard series) MMR Vaccines (1 of 1 - Standard series) [facility] Start: 03-15-1976 COVID-19 VACCINE (#1) COVID-19 VACCI NE (#1) [facility] Start: 1975 HEPATITIS B (1 of 3 - 3-dose series) HEPATITIS B (1 of 3 - 3-dose series) [facility] Start: 1975 HIV screening HIV Screening [facility] Start: 1975 Lipid panel Lipid Panel [facility] Start: 1975 Screening for malign ant neoplasm of colon [facility] CBC W Auto Different ial panel - Blood [facility] COLOGUARD COLOGUARD Lab Ro utine Screen for colon cancer Ordered: 04/01/2023 [facility] Work Phone: Comment on above: Ordered: 04/01/2023 End: 04-19-2026 CT Lumbar spine WO contrast CT LUMBAR SPINE WO IVCON Radiology Routine Adolescent idiopathic scoliosis of lumbar region S/P lumbar fusion 1 Occurrences starting 03/20/2025 until 04/19/2026 [facility] Work Phone: Comment on above: 1 Occurrences starti ng 03/20/2025 until 04/19/2026 End: 03-22-2023 Diagnostic mammography computer-aided detcj uni SONDRA DIAGNOSTIC LT Radiology Routine Abnormal mammogram 1 Occurrences starting 02/20/2022 until 03/22/2023 [facility] Work Phone: Comment on above: 1 Occurrences starti ng 02/20/2022 until 03/22/2023 Follitropin and Lutropin panel [Units/volume] - Serum or Plasma [facility] Work Phone: Lipid 1996 panel - Serum or Plasma [facility] End: 04-30-2024 SONDRA SCREENING W KELLIE SONDRA SCREENING W KELLIE Radiology Routine Encounter for gynecological examination (general) (routine) without abnormal findings Encounter for screening mammogram for breast cancer Dense breast tissue on mammogram 1 Occurrences starting 04/01/2023 until 04/30/2024 [facility] Work Phone: Comment on above: 1 Occurrences starti ng 04/01/2023 until 04/30/2024 End: 01-10-2025 MR Lumbar spine WO contrast [facility] Work Phone: Comment on above: Once for 1 Occurrenc es starting 01/10/2025 until 01/10/2025 Patient Education Carpal Tunnel Release Surgery [facility] Work Phone: Patient referral [facility] Work Phone: Screening mammograph y bi 2-view breast inc cad SONDRA SCREENING Radiology Routine Encounter for screening mammogram for malignant neoplasm of breast 02/19/2022 2:52 PM EDT [facility] Work Phone: T4 free measurement [facility] Work Phone: Thyroid stimulating hormone measurement [facility] Work Phone: Tobacco use cessatio n education [facility] Triiodothyronine, fr ee measurement [facility] Work Phone: End: 03-22-2023 Us breast uni real time with image limited US BREAST LTD LT Radiology Routine Abnormal mammogram 1 Occurrences starting 02/20/2022 until 03/22/2023 [facility] Work Phone: Comment on above: 1 Occurrences starti ng 02/20/2022 until 03/22/2023 US Thyroid gland [facility] Work Phone: Vitamin D, 25-hydrox y measurement [facility] End: 02-22-2026 XR Bones Survey Views XR ORTHO LOW DOSE FULL SKELETON ([facility]) Radiology Routine Other form of scoliosis of cervical spine 1 Occurrences starting 01/23/2025 until 02/22/2026 [facility] Work Phone: Comment on above: 1 Occurrences starti ng 01/23/2025 until 02/22/2026 End: 12-06-2024 XR Lumbar spine Views W flexion and W extension [facility] Work Phone: Comment on above: Once for 1 Occurrenc es starting 12/06/2024 until 12/06/2024 [facility] Payers Date Payer Category Payer Self-pay [id number] 2022 Medicaid O [facility] MEDICAID [facility] [id number] 2022 Medicaid [id number] 2021 Medicaid 2021 Medicaid [employer] [id number] 2021-Present [phone] [address] [place] [address] Medicaid [id number] 2017 Unknown [id number] 2016 Unknown [id number] 1975 Unknown [id number] 1975 Unknown [id number] 1975 Unknown [id number] 1975 Unknown [id number] Unknown [id number] Unknown Unknown [id number] Unknown [id number] Unknown [facility] [id number] Unknown [id number] Social History Date Type Detail Facility Start: 04-01-2023 End: 05-21-2025 Tobacco smoking status IAIS Smokes tobacco daily [facility] History of tobacco use Cigarette Smoker [facility] Start: 09-10-2020 End: 06-11-2023 Alcohol intake Current drinker of alcohol (finding) [facility] Start: 1975 Sex Assigned At Not on file C [facility] Start: 01-30-2022 End: 07-15-2023 Tobacco smoking status NHIS Unknown if ever smoked [facility] Start: 09-29-2020 Occasional [facility] Start: 09-29-2020 - [facility] Start: 09-29-2020 Alone [facility] Start: 09-30-2020 Cigarettes [facility] Start: 1975 Sex Assigned At Female C [facility] Start: 02-19-2022 History SDOH Alcohol Comment occasional [facility] Start: 02-09-2022 End: 02-19-2022 Exposure to SARS-CoV-2 (event) Not sure [facility] Start: 04-01-2023 End: 06-11-2023 Cigarettes smoked current (pack per day) - Reported 0.5 [facility] Start: 04-01-2023 End: 12-06-2024 Tobacco use and exposure Smokeless tobacco non-user [facility] Start: 04-01-2023 End: 12-06-2024 Tobacco use panel [facility] Start: 05-04-2022 Sex Female (finding) [facility] Start: 09-04-2012 National Score (1-10 0), lower number is lower risk 91 [facility] Start: 01-23-2022 Gender identity Identifies as female gender (finding) [facility] Start: 01-23-2022 Sexual orientation Heterosexual (fin madeline) [facility] Goals Date Patient Goal Desired Activity /State Functional Status Date Assessment Result Facility 10-07-2022 Functional status Ambulates [facility] Work Phone: Mental Status Date Assessment Result Facility 10-07-2022 Cognitive function Voice/Name [facility] Work Phone: Clinical Notes 01-16-2022 to 05-21-2025 Didier Small, PT - 05/18/2025 2:34 PM Didier Rios, PT - 05/03/2025 4:27 PM Didier Rios, PT - 05/03/2025 3:50 PM Ismael Tucker MD - 03/20/2025 12:44 PM EDT Note Date & Type Note Facility 05-21-2025 History and physi christy note [facility] 05-18-2025 Note HNO ID: [id number] Author: DIDIER SMALL, PT Service: ? Author [...] : 1434 Session Stop Time : 1505 iDdier Small PT [facility] 05-18-2025 History of Presen t illness Narrative [...] PT documented in this encounter [facility] 05-03-2025 History of Presen t illness Narrative Program_ID:[id number] Access Code: [email or web address] URL: [email or web address] Date: 05-03-2025 Prepared By: Didier Small Program [...] Goals for Episode of Care: established 05/03/25 [place] in home exercise program. Patient will decrease pain rating by 2 points to meet minimal clinical important difference for numeric pain rating scale. Patient will improve pain free lumbar range of motion to minimal limitation or better to improve ability to perform ADLs/IADLs. Patient will perform household mgmt related activities with akd-rj-hvcly restriction or pain/symptoms. Patient will endorse ability to sleep without pain waking her. Patient will improve static positioning with less pain or symptoms. Patient Goals: Alleviate Pain. Time Frame for Goals and Treatment : 06/18/25 Planned Interventions, Frequency, and Duration: Current Frequency: 1x/week Duration: 4 weeks Total Number of Visits Planned: 4 Planned Treatment Interventions: Therapeutic exercise (53446), Neuromuscular re-education (27814), Manual therapy (42217), Therapeutic activities (73925), Self-intermediate management (11829), Patient/Family/Caregiver Education, Gait Training (77593), Body Mechanics Training PLAN FOR NEXT VISIT: [...] Muscle relaxer ([facility] (6years ago at [employer]).) Falls Interview: No positive findings with falls [...] Lumbar Extension: Major limitation Lumbar R Side [place]: Major limitation Lumbar L Side [place]: Major limitation Lumbar R Side-Bend: Major limitation [...] PT documented in this encounter [facility] 05-03-2025 Note HNO ID: [id number] Author: DIDIER SMALL PT Service: ? Author [...] Goals for Episode of Care: established 05/03/25 [place] in home exercise program. Patient will decrease pain rating by 2 points to meet minimal clinical important difference for numeric pain rating scale. Patient will improve pain free lumbar range of motion to minimal limitation or better to improve ability to perform ADLs/IADLs. Patient will perform household mgmt related activities with yri-tg-zgers restriction or pain/symptoms. Patient will endorse ability to sleep without pain waking her. Patient will improve static positioning with less pain or symptoms. Patient Goals: Alleviate Pain. Time Frame for Goals and Treatment : 06/18/25 Planned Interventions, Frequency, and Duration: Current Frequency: 1x/week Duration: 4 weeks Total Number of Visits Planned: 4 Planned Treatment Interventions: Therapeutic exercise (58043), Neuromuscular re-education (54273), Manual therapy (10979), Therapeutic activities (57549), Self-intermediate management (69728), Patient/Family/Caregiver Education, Gait Training (70923), Body Mechanics Training PLAN FOR NEXT VISIT: [...] Muscle relaxer ([facility] (6years ago at [facility] Falls Interview: No positive findings with [...] 5 Pain Location: (more content not included)... [facility] 03-20-2025 Note HNO ID: [id number] Author: ISMAEL CROWDER MD Service: ? Author [...] says did not help. 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 CHIEF COMPLAINT: As above [...] duct cyst Hyperthyroidism 02/2022 Dr Nir Ortiz [facility] Scoliosis PAST SURGICAL HISTORY Procedure Laterality Date [...] March 20, 2025 TIME: 1:02 PM PAGER: [facility] 03-20-2025 History of Presen t illness Narrative [...] says did not help. 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 CHIEF COMPLAINT: As above [...] duct cyst Hyperthyroidism 02/2022 Dr Nir Ortiz [facility] Scoliosis PAST SURGICAL HISTORY Procedure Laterality Date [...] MD documented in this encounter [facility] 03-20-2025 Note HNO ID: [id number] Author: Tyson SAUER MD Service: ? Author [...] scan has been done. Tyson Sauer MD [facility] 03-20-2025 History of Presen t illness Narrative [...] PATIENT PRESENTS WITH AN IMPLANTABLE OR ATTACHED VP CORPORATE DEVELOPMENT: No RADIOLOGY DEPARTMENT: General X-ray: Exam(s) Completed: Spine X-Ray(s): Scoliosis Series PERIPHERAL IV DATA: Not applicable SIGNED BY: RT João(Tyson) March 20, 2025 12:12 PM documented in this encounter [facility] 03-20-2025 Note HNO ID: [id number] Author: ELENI MITCHELL RT(R) Service: Radiology Author Type: Tax Investigator Type: Progress Notes Filed: 03/20/2025 12:13 Note [...] PATIENT PRESENTS WITH AN IMPLANTABLE OR ATTACHED VP CORPORATE DEVELOPMENT: No RADIOLOGY DEPARTMENT: General X-ray: Exam(s) Completed: Spine X-Ray(s): Scoliosis Series PERIPHERAL IV DATA: Not applicable SIGNED BY: JUSTIN Moyer) March 20, 2025 12:12 PM [facility] 01-23-2025 Note HNO ID: [id number] Author: TANI ACVEEDO APRN.DIGITAL MEDIA REPRESENTATIVE Service: ? Author Type: Nurse Practitioner Type: [...] can schedule with Constantine Glover, or Marian. [facility] 01-23-2025 History of Presen t illness Narrative [...] Health Provider or Pain Management Provider at [facility]? No If answer is YES please schedule [...] the facility where the MRI/CT/myelogram was completed: [place] [id number] MRI/CT/myelogram viewable in Epic: No If not, please provide [phone] to fax in imaging reports for review. Also, please inform patient to hand carry imaging disc to appointment. XR (spine) within 12 months: Yes If YES, please ask for the name/address of the facility where the XR was completed: [place] [id number] Dr. Tyson's patients: Have you had previous [...] where the surgery was completed: Additional Comments [phone] documented in this encounter [facility] 01-22-2025 Note HNO ID: [id number] Author: ?, ?, ? Service: ? Author Type: ? Type: Progress Notes Filed: 01/23/2025 15:43 Note Text: Patient name: Katie Smith Are you being referred by a [facility] for Spine Health Provider or Pain Management Provider at [facility]? No If answer is YES please schedule [...] the facility where the MRI/CT/myelogram was completed: [address] [address] MRI/CT/myelogram viewable in Epic: No If not, please provide [phone] to fax in imaging reports for review. Also, please inform patient to hand carry imaging disc to appointment. XR (spine) within 12 months: Yes If YES,? please ask for the name/address of the facility where the XR was completed: [address] [address] [address] Tyson's patients: Have you had previous [...] where the surgery was completed: Additional Comments [phone] [facility] 01-19-2025 Note Shubham referral signed. Thanks! [facility] 01-19-2025 Telephone encounter Note Shubham referral signed. Thanks! [facility] 01-19-2025 Miscellaneous Notes Shubham referral signed. Thanks! Called and LVM regarding spine follow up. If patient calls back please inform the patient MRI reviewed by surgeons and [facility]all[facility] due to her history of scoliosis and thoracic surgery. They will contact her to schedule. documented in this encounter [facility] 01-15-2025 Telephone encounter Note Called and LVM regarding spine follow up. If patient calls back please inform the patient MRI reviewed by surgeons and [facility] Jalloh due to her history of scoliosis and thoracic surgery. They will contact her to schedule. [facility] 12-06-2024 History of Presen t illness Narrative Images from the original note were not included. [facility] - [address] [facility] [address] Dept: [phone] Dept Katie Colin 1975 [id number] 12/06/2024 Problem List: Lumbar pain Lumbar anterolisthesis [...] by Dr. Suh 2018 PM- Dr. 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 We discussed the treatment options as well. We went over medical treatment, day care home mother, acupuncture, massage therapy, and physical therapy to [...] with Dr. Lewis or Dr. Jalloh at [facility]. Patient is interested in surgery as [...] referred to Dr. Jalloh at [facility] Electronically signed by Kimber Flores PA-C [...] and their primary care physician. Dictated using at[employer] Version 2.4 Proof read however unrecognized voice recognition errors may have occurred documented in this encounter [employer] 12-06-2024 Instructions Marina Pinzon - 12/06/2024 3:00 PM EST Images from the original note were not included. We will notify you once we have approval from your insurance. You will then call central scheduling at [phone] to schedule. documented in this encounter [facility] [employer] 07-27-2023 Procedure note [facility] 04-01-2023 History of Presen t illness Narrative Ux Information Architect offered: Patient declines. Katie is a 47 year old who presents for an annual gynecologic exam without complaints. Diagnosed with hyperthyroidism and being treated. 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 [...] L1 SAB1 IAB0 Ectopic0 Multiple0 Live Births0 Ab Initio Etl Developer History LMP: 10/05/2016, Drug Induced Amenorrhea Age at Menarche: Age at First : Age at Menopause: Ab Initio Etl Developer History Comments: Sexual Activity: Not Currently; Male Contraception: Pill PAST MEDICAL HISTORY Diagnosis Date Bartholin's duct cyst Hyperthyroidism 02/2022 Dr Nir Ortiz [facility] Scoliosis PAST SURGICAL HISTORY Procedure Laterality Date [...] external genitalia normal, normal Bartholin's glands, urethra, Rumson's glands, no vulvar lesions, no cervical lesions, [...] APRN.AUBREY documented in this encounter [facility] 02-20-2022 Miscellaneous Notes February 20, 2022 PID: [id number] Katie Smith [address] [place] [id number] Dear Ms. Smith, Your recent breast imaging [...] who ordered/prescribed your screening mammogram: Please call [phone] or EXT: [phone] to schedule an appointment for your additional [...] are kept on file at [facility] as part of your permanent medical record, and are available for your continuing care. Thank you for allowing us to help in meeting your health care needs. Sincerely, Dr. Hazel Interpreting Radiologist [facility] (Additional imaging) documented in this encounter [facility] 02-19-2022 History of Presen t illness [...] PM documented in this encounter [facility] 01-16-2022 Miscellaneous Notes Attempted to contact [...] 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 [facility] Work Phone: Evaluation note* Diagnosis Encounter for screening mammogram for malignant neoplasm of breast Other screening mammogram [facility] Abnormal mammogram- Primary Abnormal mammogram, unspecified [facility] Diagnosis Onset Date Resolution Status Migraine acute 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 with anxiety 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 Osteoarthritis noneactive Hyperthyroidism acute Multiple joint pain acute Paresthesia of upper extremity acute [facility] Work Phone: Evaluation note* Diagnosis Onset Date Resolution Status Hyperthyroidism acute Multiple joint pain acute Paresthesia of upper extremity acute Hyperthyroidism acute Thyroid nodule acute [facility] Work Phone: Evaluation note* Diagnosis Onset Date Resolution Status Hyperthyroidism acute Thyroid nodule acute [facility] Work Phone: Evaluation note* Diagnosis Onset Date Resolution Status Right carpal tunnel syndrome acute Hyperthyroidism acute Right carpal tunnel syndrome acute [facility] Work Phone: Evaluation note* Diagnosis Encounter for gynecological examination (general) (routine) without abnormal findings- Primary Encounter for screening mammogram for breast cancer Surveillance for control, oral contraceptives Surveillance of previously prescribed contraceptive pill Dense breast tissue on mammogram Drug induced amenorrhea Absence of menstruation Screen for colon cancer Special screening for malignant neoplasms, colon [facility] [place] [facility] Diagnosis Onset Date Resolution Status Bilateral ankle pain acute Hyperthyroidism acute Migraine acute Immunization declined noneac tive Moderate major depression no neactive Screening for cardiovascular condition noneactive Establishing care with new doctor, encounter for noneactive Bunion noneactive Moderate anxiety noneactive Drug abuse in remission none active Chronic low back pain with sciatica noneactive Smoker noneactive Left carpal tunnel syndrome acute [facility] Work Phone: Evaluation note* Diagnosis Lumbar pain- Primary Lumbago Degeneration of intervertebral disc of lumbar region with lower extremity pain Lumbar spondylosis Lumbosacral spondylosis without myelopathy Spondylolisthesis of lumbar region Other idiopathic scoliosis, thoracolumbar region History of lumbar fusion [facility] Lumbar pain Lumbago [facility] Lumbar pain Lumbago Degeneration of intervertebral disc of lumbar region with lower extremity pain Lumbar spondylosis Lumbosacral spondylosis without myelopathy Spondylolisthesis of lumbar region Other idiopathic scoliosis, thoracolumbar region History of lumbar fusion [facility] Lumbar pain- Primary Lumbago Degeneration of intervertebral disc of lumbar region with lower extremity pain Lumbar spondylosis Lumbosacral spondylosis without myelopathy Spondylolisthesis of lumbar region Other idiopathic scoliosis, thoracolumbar region History of lumbar fusion History of thoracic spinal fusion [facility] Diagnosis Other form of scoliosis of cervical spine- Primary documented in this encounter [facility] note* Diagnosis Scoliosis of lumbar spine, unspecified scoliosis type- Primary Adolescent idiopathic scoliosis of lumbar region Scoliosis (and kyphoscoliosis), idiopathic S/P lumbar fusion Arthrodesis status Scoliosis of lumbar spine, unspecified scoliosis type [facility] [place] [facility]* Diagnosis Scoliosis of lumbar spine, unspecified scoliosis type [facility] [place] [facility]* Diagnosis Adolescent idiopathic scoliosis of lumbar region Scoliosis (and kyphoscoliosis), idiopathic S/P lumbar fusion Arthrodesis status documented in this encounter [facility] note* Diagnosis Scoliosis of lumbar spine, unspecified scoliosis type- Primary documented in this encounter [facility] note* Diagnosis Scoliosis of lumbar spine, unspecified scoliosis type- Primary documented in this encounter [facility] noteNo assessment information availableWCleveland Clinic [facility] Work Phone: Evaluation note* Diagnosis Onset Date Resolution Status Admit Date Opioid use acute May 21 1:38pm [facility] Work Phone: History and physical note Author Katiana Gibson [facility] Note Date/Time May 21, 2025 1: 48pm [facility] Medical Records Department [address] [place] [address] H&P Exam - Hospitalist 05/21/25 1338 MR#: [id number] Acct: [id number] Name: KATIE SMITH Rep #:[id number] : 1975 49 From: Katiana Gibson MD PCP: MARKELL Van Status:ADM IN Location: [place] [address] HPI - General General Date of Admission: 05/21/25 Date of Service: 05/21/25 Chief Complaint: Requesting opioid detox HPI Narrative KATIE SMITH, is a 49 F with a history of chronic back pain, tobacco use, fentanyl use who presented [facility] ED for fentanyl detox. 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 Katiana Gibson MD~ Signed [facility] Work Phone: Reason for referral (narrative)* Diagnostic Procedure Only (Routine) - Closed Specialty Diagnoses / Procedures Referred By Contac t Referred To Contact [facility] Diagnoses Encounter for screening mammogram for malignant neoplasm of breast Procedures SONDRA SCREENING SCREENING MAMMOGRAPHY BI 2-VIEW BREAST INC CAD Alba Loera MD [address] [place] [address] [facility] [address] [place] [address] Referral ID Status Reason Start Date Expiration Date V isits Requested Visits Authorized [id number] Closed Auto-Generate d Referral 01/19/2022 02/15/2023 1 1 [facility] for referral (narrative)* Diagnostic Procedure Only (Routine) - Pending Review Specialty Diagnoses / Procedures Referred By Alla dunn Referred To Contact [facility] Diagnoses Abnormal mammogram Procedures US BREAST LTD LT US BREAST UNI REAL TIME WITH IMAGE LIMITED Alba Loera MD [address] [place] [address] [facility] [address] [place] [address] Referral ID Status Reason Start Date Expiration Date Visits Requested Visits Authorized [id number] Pending Review Auto-Generat ed Referral 02/20/2022 03/22/2023 1 1 * Diagnostic Procedure Only (Routine) - Pending Review Specialty Diagnoses / Procedures Referred By Alla dunn Referred To Contact [facility] Diagnoses Abnormal mammogram Procedures SONDRA DIAGNOSTIC LT DIAGNOSTIC MAMMOGRAPHY COMPUTER-AIDED DETCJ UNI Alba Loera MD [address] [place] [address] [facility] [address] [address] Referral ID Status Reason Start Date Expiration Date Visits Requested Visits Authorized [id number] Pending Review Auto-Generat ed Referral 02/20/2022 03/22/2023 1 1 [facility] for referral (narrative)* Diagnostic Procedure Only [...] Erika Moraes APRN.CNP [address] [place] [address] [facility] [address] [place] [address] Referral ID Status Reason Start Date Expiration Date Visits Requested Visits Authorized [id number] Pending Review Auto-Generat ed Referral 04/01/2023 04/30/2024 1 1 [facility] for referral (narrative)No reason for referral information availableWCleveland Clinic Children[facility] Work Phone: Reason for visit Narrative* Diagnostic Procedure Only (Routine) - Closed Specialty Diagnoses / Procedures Referred By Alla dunn Referred To Contact [facility] Diagnoses Encounter for screening mammogram for malignant neoplasm of breast Procedures SONDRA SCREENING SCREENING MAMMOGRAPHY BI 2-VIEW BREAST INC CAD Alba Loera MD [address] [place] [address] [facility] [address] [place] [address] Referral ID Status Reason Start Date Expiration Date V isits Requested Visits Authorized [id number] Closed Auto-Generate d Referral 01/19/2022 02/15/2023 1 1 [facility] for visit Narrative* Imaging (Routine) - Closed Specialty Diagnoses / Procedures Referred By Alla dunn Referred To Contact Radiology Diagnoses Lumbar pain Degeneration of intervertebral disc of lumbar region with lower extremity pain Lumbar spondylosis Spondylolisthesis of lumbar region Other idiopathic scoliosis, thoracolumbar region History of lumbar fusion Procedures MR lumbar spine wo contrast Kimber Flores PA-C [address] [address] Phone: tel: fax: Referral ID Status Reason Start Date Expiration Date Visits Re quested Visits Authorized [id number] Closed 12/06/2024 12/06/2025 1 1 [facility] for visit Narrative* MRI/CT (Routine) - Closed Specialty Diagnoses / Procedures Referred By Alla dunn Referred To Contact CT IMAGING Diagnoses Adolescent idiopathic scoliosis of lumbar region S/P lumbar fusion Procedures CT LUMBAR SPINE WO IVCON CT LUMBAR SPINE W/O CONTRAST MATERIAL Tyson Sauer MD [address] [place] [address] Phone: tel: fax: [place] [address] Referral ID Status Reason Start Date Expiration Date V isits Requested Visits Authorized [id number] Closed Auto-Generate d Referral 03/20/2025 04/19/2026 1 1 [facility] Summary Purpose Family History Relationship Condition [...] No September 29, 020 10:35pm Power of Online Retailer No September 29, 2020 10:35pm Advance Directive Response Recorded Date/ Time Advance Directives No March 31 4:39pm Living Will No March 31, 2022 4:39pm Power of Online Retailer No March 31 4:39pm Advance Directive Response Recorded Date/ Time Advance Directives No March 31 3:39pm Living Will No March 31, 2022 3:39pm Power of Online Retailer No March 31 3:39pm Advance Directive Response Recorded Date/ Time Advance Directives No March 31 3:39pm Living Will No October 06 3 1:57pm Power of Online Retailer No October 06 023 1:57pm Advance Directive Response Recorded Date/ Time Advance Directives No March 31 4:39pm Living Will No October 06 2:57pm Power of Online Retailer No October 06 023 2:57pm Advance Directive Response Recorded Date/ Time Advance Directives No March 31 4:39pm Advance Directive Response Recorded Date/ Time Do you have a Healthcare Power of Online Retailer? 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, THYROTOXICOSIS, ROS & CONSENT ONLY EORDER PARESTHESIA OF SKIN E-ORDER Reason for Visit Hyperthyroidism Thyroid nodule Chief Complaint PARESTHESIA OF SKIN E-ORDER BILAT HANDS 4 M FU R ENDOSCOPIC CARPAL TUNNEL RELEASE R ENDOSCOPIC CARPAL TUNNEL RELEASE Reason for Visit Right carpal tunnel syndrome Hyperthyroidism Right carpal tunnel syndrome Chief Complaint 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-PREVIOUS LY SAW JOSE left wrist [...] section and content) DATE CREATED AUTHOR 03/28/2018 [facility] Judy Norwood DATE CREATED AUTHOR AUTHOR'S ORGANIZ ATION 10/21/2018 [facility] DATE CREATED AUTHOR AUTHOR'S ORGANIZ ATION 01/12/2019 [facility] DATE CREATED AUTHOR AUTHOR'S ORGANIZ ATION 10/05/2023 [facility] [place] [facility] DATE CREATED AUTHOR AUTHOR'S ORGANIZ ATION 03/23/2025 [facility] DATE CREATED AUTHOR AUTHOR'S ORGANIZ ATION 04/25/2025 [facility] DATE CREATED AUTHOR AUTHOR'S ORGANIZ ATION 05/19/2025 [facility] DATE CREATED AUTHOR AUTHOR'S ORGANIZ ATION 05/20/2025 [facility] Source Comments (unrecognize d section and content) In the event this informatio n is protected by the Federal Confidentiality of Alcohol and Drug Abuse Patient Records regulations: The Federal rules restrict any use of the information to criminally investigate or prosecute any alcohol or drug abuse patient.[facility] Hospital[facility] the event this information is protected by the Federal Confidentiality of Alcohol and Drug Abuse Patient Records regulations: The Federal rules restrict any use of the information to criminally investigate or prosecute any alcohol or drug abuse patient.[facility] Hospital[facility] the event this information is protected by the Federal Confidentiality of Alcohol and Drug Abuse Patient Records regulations: The Federal rules restrict any use of the information to criminally investigate or prosecute any alcohol or drug abuse patient.[facility] Hospital[facility] the event this information is protected by the Federal Confidentiality of Alcohol and Drug Abuse Patient Records regulations: The Federal rules restrict any use of the information to criminally investigate or prosecute any alcohol or drug abuse patient.[facility] Hospital[facility] the event this information is protected by the Federal Confidentiality of Alcohol and Drug Abuse Patient Records regulations: The Federal rules restrict any use of the information to criminally investigate or prosecute any alcohol or drug abuse patient.[facility] Hospital[facility] the event this information is protected by the Federal Confidentiality of Alcohol and Drug Abuse Patient Records regulations: The Federal rules restrict any use of the information to criminally investigate or prosecute any alcohol or drug abuse patient.[facility] Hospital[facility] the event this information is protected by the Federal Confidentiality of Alcohol and Drug Abuse Patient Records regulations: The Federal rules restrict any use of the information to criminally investigate or prosecute any alcohol or drug abuse patient.[facility] HospitalIn the event this information is protected by the Federal Confidentiality of Alcohol and Drug Abuse Patient Records regulations: The Federal rules restrict any use of the information to criminally investigate or prosecute any alcohol or drug abuse patient.[facility] Hospital[facility] the event this information is protected by the Federal Confidentiality of Alcohol and Drug Abuse Patient Records regulations: The Federal rules restrict any use of the information to criminally investigate or prosecute any alcohol or drug abuse patient.[facility] Hospital[facility] the event this information is protected by the Federal Confidentiality of Alcohol and Drug Abuse Patient Records regulations: The Federal rules restrict any use of the information to criminally investigate or prosecute any alcohol or drug abuse patient.[facility] Hospital[facility] the event this information is protected by the Federal Confidentiality of Alcohol and Drug Abuse Patient Records regulations: The Federal rules restrict any use of the information to criminally investigate or prosecute any alcohol or drug abuse patient.[facility] Reason for Visit (unrecogniz ed section [...] SPI W/SKULL 2/3 VW Bianca Perea PA-C [address] [place] [address] Phone: tel: [facility] [place] [address] Referral ID Status Reason Start Date Expiration Date V isits Requested Visits Authorized [id number] Closed Auto-Generate d Referral 03/14/2025 04/13/2026 1 1 Reason Comments PT Eval Specialty Diagnoses / Procedures Referred By Contac t Referred To Contact [facility] Diagnoses Scoliosis of lumbar spine, unspecified scoliosis type Procedures CONSULT TO PHYSICAL THERAPY PHYSICAL THERAPY EVALUATION HIGH COMPLEX 45 MINS THERAPEUTIC EXERCISES RE, EA 15 MIN. Tyson Sauer MD [address] [place] [address] Phone: tel: fax: [facility] [address] [place] [address] Referral ID Status Reason Start Date Expiration Date Visits Requested Visits Authorized [id number] Authorized Auto-Generat ed Referral 10/04/2024 10/03/2025 30 30 Reason Comments Physical Therapy Specialty Diagnoses / Procedures Referred By Contac t Referred To Contact [facility] Diagnoses Scoliosis of lumbar spine, unspecified scoliosis type Procedures PHYSICAL THERAPY EVALUATION HIGH COMPLEX 45 MINS THERAPEUTIC EXERCISES RE, EA 15 MIN. Tyson Sauer MD [address] [place], [place] [id number] Phone: tel: fax: [facility] [address] [place] [address] Care Teams (unrecognized sec tion and content) Cook Mess Relationship Specialty Start Date End Date Jose Aguilera DO [address] [place] [address] PCP - General Family Practice 10/02/16 Cook Mess Relationship Specialty Start Date End Date Jose Aguilera DO [address] [place] [address] PCP - General Family Practice 10/02/16 Cook Mess Relationship Specialty Start Date End Date Jose Aguilera DO [address] [address] PCP - General Family Practice 10/02/16 Cook Mess Relationship Specialty Start Date End Date Jose Aguilera DO [address] [place] [address] PCP - General Family Practice 10/02/16 Cook Mess Relationship Specialty Start Date End Date Jose Aguilera DO [address] [place] [address] PCP - General Family Medicine 10/02/16 Team Status: Active Member Role Status Dates Dr. Stephon Bay MD Family Provider Active Jose Sams ADMINISTRATIVE STAFF SUPERVISOR, ADMINISTRATIVE STAFF SUPERVISOR-C Primary Care Provider Active Team Status: Inactive Member Role Status Dates Jose Sams ADMINISTRATIVE STAFF SUPERVISOR, ADMINISTRATIVE STAFF SUPERVISOR-C Primary Care Provider, Referring P rovider Active Dr. Cortney Kang MD Attending Provider Active Team Status: Inactive Member Role Status Dates Jose Sams ADMINISTRATIVE STAFF SUPERVISOR, ADMINISTRATIVE STAFF SUPERVISOR-C Primary Care Provider, Referring P rovider Active Akhil White MD Attending Provider Active Team Status: Active Member Role Status Dates Jose Sams ADMINISTRATIVE STAFF SUPERVISOR, ADMINISTRATIVE STAFF SUPERVISOR-C Primary Care Provider Active Akhil White MD Referring Provider, Other Provider Active Dr. Ester Euceda MD Attending Provider Active Team Status: Inactive Member Role Status Dates Jose Sams ADMINISTRATIVE STAFF SUPERVISOR, ADMINISTRATIVE STAFF SUPERVISOR-C Primary Care Provider Active Akhil White MD Attending Provider, Referring Prov ider Active Cook Mess Relationship Specialty Start Date End Date Lorrie Duenas MD [address] [place] [address] PCP - General 10/10/18 Cook Mess Relationship Specialty Start Date End Date Lorrie Duenas MD [address] [place] [address] PCP - General 10/10/18 Cook Mess Relationship Specialty Start Date End Date Lorrie Duenas MD [address] [place] [address] PCP - General 10/10/18 Cook Mess Relationship Specialty Start Date End Date Lorrie Duenas MD [address] [place] [address] PCP - General 10/10/18 Cook Mess Relationship Specialty Start Date End Date Lorrie Duenas MD [address] [place] [address] PCP - General 10/10/18 Cook Mess Relationship Specialty Start Date End Date Jose Aguilera DO [address] [place] [address] PCP - General Family Medicine 10/02/16 Cook Mess Relationship Specialty Start Date End Date Jose Aguilera DO [address] [place] [address] PCP - General Family Medicine 10/02/16 Cook Mess Relationship Specialty Start Date End Date Jose Aguilera DO [address] [place], [place] [address] PCP - General Family Medicine 10/02/16 Cook Mess Relationship Specialty Start Date End Date Jose Aguilera DO [address] [place], [place] [id number] PCP - General Family Medicine 10/02/16 Cook Mess Relationship Specialty Start Date End Date Jose Aguilera DO [address] [place], [place] [address] PCP - General Family Medicine 10/02/16 Cook Mess Relationship Specialty Start Date End Date Jose Aguilera DO [address] [place] [place] [address] PCP - General Family Medicine 10/02/16 Team Status: Active Member Role/Relationship Status Dates Dr. Stephon Bay MD Family Provider Active Jose Quezadader ADMINISTRATIVE STAFF SUPERVISOR, ADMINISTRATIVE STAFF SUPERVISOR-C Primary Care Provider Active Team Status: Inactive Member Role/Relationship Status Dates Jose Quezadader ADMINISTRATIVE STAFF SUPERVISOR, ADMINISTRATIVE STAFF SUPERVISOR-C Primary Care Provider Active Start: May 04, 2025 End: May 04, 2025 Dr. Janet Garcia MD Attending Provider Active Start: May 04, 2025 End: May 04, 2025 Dr. Janet Garcia MD Referring Provider Active Start: May 04, 2025 End: May 04, 2025 Team Status: Active Member Role/Relationship Status Dates Jose Glenn VSC, ADMINISTRATIVE STAFF SUPERVISOR-C Primary Care Provider Active Team Status: Active Member Role/Relationship Status Dates Jose Quezadader VSC, ADMINISTRATIVE STAFF SUPERVISOR-C Primary Care Provider Active Start: May 21, [...] BE BASED ON THE PRIMARY CLINICAL RECORDS. [facility] [employer] provides no warranty or guarantee of the accuracy or completeness of information in this document.
[2025-05-22] VITALS (7 sets, daily range): BP systolic 108–136; BP diastolic 54–80; PULSE 98–119; RESP 16–18; TEMP 36.7–37.5; O2SAT 97–100
[2025-05-22] MEDS: hydrOXYzine PAM 25 MG Capsule 50 MG PO ×2 (06:19→13:15)
[2025-05-22] MEDS: Ensure Plus High Protein 120 ML LIQUID PO (08:19)
--- NOTE | 2025-05-22 08:32 | PN.HOSP_ITS ---
Reason for Visit Chief Complaint: Requesting opioid detox Subjective Subjective Patient is a 49-year-old female with history of opioid dependence presented with acute opioid withdrawal Objective Data Objective Data Vital Signs: Vital Signs Temp Pulse Resp BP Pulse Ox O2 Del Method 98.6 F 119 H 18 108/62 98 Room Air 05/22/25 08:09 05/22/25 08:09 05/22/25 08:09 05/22/25 08:09 05/22/25 08:09 05/22/25 08:09 Oxygen Delivery Method Room Air Weight: 51.256 kg Body Mass Index (BMI) 28.8 Intake & Output: Intake and Output for Last 24 Hours 05/20/25 05/21/25 05/22/25 23:59 23:59 23:59 Intake Total 1250 / 1250 400 / 400 Balance 1250 / 1250 400 / 400 Lab / Micro Data 05/21/25 12:28 05/21/25 12:28 Labs: Laboratory Results - last 24 hr 05/21/25 12:28: WBC 6.6, RBC 4.67, Hgb 13.0, Hct 38.1, MCV 81.6, MCH 27.8, MCHC 34.1, RDW Std Deviation 40.5, RDW Coeff of Eladia 13.8, Plt Count 286, MPV 9.3, Immature Gran % (Auto) 0.200, Neut % (Auto) 74.5 H, Lymph % (Auto) 20.1, [place] % (Auto) 4.2, Eos % (Auto) 0.5, Baso % (Auto) 0.5, Absolute Neuts (auto) 4.9, Absolute Lymphs (auto) 1.33, Nucleated RBC % 0, Sodium 141, Potassium 3.9, Chloride 104, Carbon Dioxide 23.4, Anion Gap 14, BUN 13, Creatinine 0.60 L, Estim Creat Clear Calc 93.40, Est GFR (MDRD) Non-Af 110, BUN/Creatinine Ratio 21.3 H, Glucose 107 H, Calcium 9.8, Total Bilirubin 0.61, AST 33 H, ALT 43 H, Alkaline Phosphatase 97, Total Protein 7.6, Albumin 4.2, Globulin 3.5, Albumin/Globulin Ratio 1.2, TSH < 0.005 L, Free T4 4.00 H, Free T3 pg/dL 11.1 H, Serum , Qual NEGATIVE, Ethyl Alcohol < 10.1 05/21/25 12:35: Urine Opiates Screen NEGATIVE, U Buprenorphine Qual NEGATIVE, Ur Oxycodone Screen NEGATIVE, Urine Methadone Screen NEGATIVE, Urine Fentanyl Screen PRESUMPTIVE POSITIVE, Ur Barbiturates Screen NEGATIVE, Ur Phencyclidine Scrn NEGATIVE, Ur Amphetamines Screen PRESUMPTIVE POSITIVE, U Benzodiazepines Scrn NEGATIVE, Urine Cocaine Screen NEGATIVE, U Cannabinoids Screen NEGATIVE Physical Exam Narrative GENERAL: cooperative HEENT: Atraumatic; normocephalic EYES; Anicteric, Normal Conjunctiva NECK; supple, normal thyroid, RESPIRATORY: Diminished to auscultation CARDIOVASCULAR: Regular S1 S2, GI: soft, normoactive bowel sounds, : No Renal angle tenderness; EXTREMITIES: No edema, no clubbing, MUSCULOSKELETAL: no muscle wasting NEURO: Awake; no lateralizing signs. SKIN: No Rash PSYCH; Flat affect Assessment & Plan Assessment/Plan (1) Opioid use: PLAN: Plan Patient is a 49-year-old female with history of opioid dependence presented with acute opioid withdrawal 1. 1. Acute opioid withdrawal - Patient has been admitted to regular nursing floor, managed buprenorphine taper along with other adjunctive medications for medical stabilization 2. Hyperparathyroidism ? Patient is on methimazole restarted on 10 mg of methimazole as previously prescribed 3. Chronic back pain ? Patient to follow-up with pain management following discharge 4. Tobacco dependence ? Counseled on cessation, offered nicotine patch for tobacco cravings 5. DVT prophylaxis no risk with encouraging ambulation Time spent in the patient's overall evaluation,decision-making process, review of diagnostic data, adjustment of management, discussion with other providers, nursing nursing and ancillary staff involved in patient's care documentation, 36 Minutes Charges/Coding Visit Charges Inpatient E&M: 51482 Subs Hosp L2
--- NOTE | 2025-05-22 11:31 | ADDICTION ---
Addendum entered by Renetta Michael 05/22/25 12:00: Appointment change at [facility] to Wednesday @1pm. Original Note: Pt plans to follow up with pain management, Dr. Garcia. Pt signed a release for [facility] and [facility] for coordination of care. Pt has an appointment at [facility] for a substance use assessment on 05/24.
[2025-05-22] MEDS: 0.9% Saline Lock 10 ML Syringe IV ×2 (13:15→22:54)
[2025-05-23 06:32] VITALS: BP 141/69; PULSE 109; RESP 16; TEMP 36.3; O2SAT 99
[2025-05-23] MEDS: 0.9% Saline Lock 10 ML Syringe IV (06:40)
--- NOTE | 2025-05-23 07:39 | PCM.PN.HOSP ---
Reason for Visit Chief Complaint: Requesting opioid detox Subjective Subjective Patient continues to remain symptomatic with elevated blood pressure as well as tachycardia. Will continue with current treatment regimen Objective Data Objective Data Vital Signs: Vital Signs Temp Pulse Resp BP Pulse Ox O2 Del Method 97.4 F L 109 H 16 141/69 H 99 Room Air 05/23/25 06:32 05/23/25 06:32 05/23/25 06:32 05/23/25 06:32 05/23/25 06:32 05/23/25 06:32 Oxygen Delivery Method Room Air Weight: 51.256 kg Body Mass Index (BMI) 28.8 Intake & Output: Intake and Output for Last 24 Hours 05/21/25 05/22/25 05/23/25 23:59 23:59 23:59 Intake Total 1250 / 1250 900 / 900 500 / 500 Balance 1250 / 1250 900 / 900 500 / 500 Lab / Micro Data 05/21/25 12:28 05/21/25 12:28 Physical Exam Narrative GENERAL: cooperative HEENT: Atraumatic; normocephalic EYES; Anicteric, Normal Conjunctiva NECK; supple, normal thyroid, RESPIRATORY: Diminished to auscultation CARDIOVASCULAR: Regular S1 S2, GI: soft, normoactive bowel sounds, : No Renal angle tenderness; EXTREMITIES: No edema, no clubbing, MUSCULOSKELETAL: no muscle wasting NEURO: Awake; no lateralizing signs. SKIN: No Rash PSYCH; Flat affect Assessment & Plan Assessment/Plan (1) Opioid use: PLAN: Plan Patient is a 49-year-old female with history of opioid dependence presented with acute opioid withdrawal 1. 1. Acute opioid withdrawal - Patient has been admitted to regular nursing floor, managed buprenorphine taper along with other adjunctive medications for medical stabilization ? 05/23/2025;Patient continues to remain symptomatic with elevated blood pressure as well as tachycardia. Will continue with current treatment regimen 2. Hyperparathyroidism ? Patient is on methimazole restarted on 10 mg of methimazole as previously prescribed 3. Chronic back pain ? Patient to follow-up with pain management following discharge 4. Tobacco dependence ? Counseled on cessation, offered nicotine patch for tobacco cravings 5. DVT prophylaxis no risk with encouraging ambulation Time spent in the patient's overall evaluation,decision-making process, review of diagnostic data, adjustment of management, discussion with other providers, nursing nursing and ancillary staff involved in patient's care documentation, 35 Minutes Charges/Coding Visit Charges Inpatient E&M: 12118 Subs Hosp L2
[2025-05-23 08:18] VITALS: BP 148/76; PULSE 113; RESP 18; TEMP 37.2; O2SAT 99
[2025-05-23] MEDS: Ensure Plus High Protein 120 ML LIQUID PO (11:33)
[2025-05-23] MEDS: hydrOXYzine PAM 25 MG Capsule 50 MG PO (13:47)
[2025-05-23 13:49] VITALS: PULSE 77
[2025-05-23 14:10] VITALS: BP 136/70; PULSE 77; RESP 16; TEMP 36.5; O2SAT 97
[2025-05-23 21:03] VITALS: BP 139/66; PULSE 96; RESP 16; TEMP 37.3; O2SAT 98
[2025-05-24 03:30] VITALS: BP 155/78; PULSE 87; RESP 15; TEMP 37.2; O2SAT 97
[2025-05-24] MEDS: 0.9% Saline Lock 10 ML Syringe IV (03:31)
--- NOTE | 2025-05-24 09:19 | PCM.DC.SUM ---
Providers Date of Admission: 05/21/25 Date of Discharge: 05/24/25 Primary Care Physician: MARKELL Van Reason For Visit: FENTANYL DETOX Diagnosis Discharge Diagnosis (1) Opioid use: Status: Acute Code(s): F11.90 - Opioid use, unspecified, uncomplicated Plan Patient is a 49-year-old female with history of opioid dependence presented with acute opioid withdrawal 1. 1. Acute opioid withdrawal - Patient has been admitted to regular nursing floor, managed buprenorphine taper along with other adjunctive medications for medical stabilization ? 05/23/2025;Patient continues to remain symptomatic with elevated blood pressure as well as tachycardia. Will continue with current treatment regimen ? 05/24/2025; patient symptoms improved plan is for patient to follow-up with pain management Dr. Garcia 2. Hyperparathyroidism ? Patient is on methimazole restarted on 10 mg of methimazole as previously prescribed 3. Chronic back pain ? Patient to follow-up with pain management following discharge 4. Tobacco dependence ? Counseled on cessation, offered nicotine patch for tobacco cravings 5. DVT prophylaxis no risk with encouraging ambulation Time spent in the patient's overall evaluation,decision-making process, review of diagnostic data, adjustment of management, discussion with other providers, nursing nursing and ancillary staff involved in patient's care documentation, 35 Minutes Medications at Discharge Home Medications meloxicam 7.5 mg tablet 7.5 mg PO DAILY 05/21/25 methocarbamol 750 mg tablet 750 mg PO TID PRN PRN muscle spasm 05/21/25 Physical Exam Narrative GENERAL: cooperative HEENT: Atraumatic; normocephalic EYES; Anicteric, Normal Conjunctiva NECK; supple, normal thyroid, RESPIRATORY: Diminished to auscultation CARDIOVASCULAR: Regular S1 S2, GI: soft, normoactive bowel sounds, : No Renal angle tenderness; EXTREMITIES: No edema, no clubbing, MUSCULOSKELETAL: no muscle wasting NEURO: Awake; no lateralizing signs. SKIN: No Rash PSYCH; Flat affect Weight / BMI Weight Weight: 51.256 kg Body Mass Index (BMI) 28.8 ABG / Lab / Microbiology Data 05/21/25 12:28 05/21/25 12:28 D/C Instructions Discharge Activity: Return to Normal Activity Call your doctor if you observe: Fever of 101 or Higher, Shortness of breath, Fainting spells and Chest pain DC O2, CPAP, BIPAP Needs Home O2 Discharge instructions: No Meaningful Use Info Meaningful Use Meaningful Use Diagnoses (Choose all that apply): None applicable Discharge Plan Admission Admit Date/Time: 05/21/25 13:38 Attending Provider: Paul Simmons Primary Care Provider: Juan Sams Consulting Providers: Katiana Gibson Discharge Orders/Prescriptions Prescriptions: Continued meloxicam 7.5 mg tablet 7.5 mg PO DAILY methocarbamol 750 mg tablet 750 mg PO TID PRN PRN (Reason: muscle spasm) Referrals / Follow Up: Juan Sams, [employer] [Primary Care Provider] - Disposition Disposition (needs filled in before D/C Order can be placed): Home, Self Care Charges/Coding Visit Charges Inpatient E&M: 52570 Disch Hosp >30min
[2025-05-24 09:30] VITALS: BP 123/63; PULSE 79; RESP 16; TEMP 36.6; O2SAT 100
--- NOTE | 2025-05-24 11:35 | PHA.DC.MR.R ---
Pharmacy [place] Med Reconciliation Pharmacy Service has performed discharge medication reconciliation for this patient. No new medications at time of discharge medication list review. medications reviewed are from previously reported home medications. The patient's discharge medication list was reviewed for discrepancies and discrepancies were resolved. Medications at Discharge Home Medications meloxicam 7.5 mg tablet 7.5 mg PO DAILY 05/21/25 methocarbamol 750 mg tablet 750 mg PO TID PRN PRN muscle spasm 05/21/25
== END 2025-05-24 09:54 | disposition home or self-care (01) | DRG 773 ==
LOC: ED 13:24 → MS3 13:53
PROVIDERS: Admitting Provider Internal Medicine; Emergency Provider Emergency Medicine; PCP Nurse Practitioner Family; Visit Provider Internal Medicine
DX: F11.23 Opioid dependence with withdrawal (principal); E21.3 Hyperparathyroidism, unspecified; F17.210 Nicotine dependence, cigarettes, uncomplicated; M54.9 Dorsalgia, unspecified; G89.29 Other chronic pain
CPT/HCPCS: 80053; 80307; 82077; 84439; 84443; 84481; 84703; 85025; 97802; 99283; 99406; A4216